=== PATIENT | female | born 1960 | race Caucasian/White ===

== ENCOUNTER 2016-09-19 15:42 | Outpatient (CLI) | payer OTHER ==
[~2016-09-19] VITALS: Ht 157.5 cm; Wt 59.1 kg
[2016-09-19 15:40] VITALS: BP 125/59; PULSE 94; RESP 18; Ht 157.5 cm; Wt 59.1 kg
[2016-09-19] MEDS ORDERED: LEVO100T87 PO (15:58)
[2016-09-19] MEDS ORDERED: OMEP20CA16 PO (15:58)
[2016-09-19] MEDS ORDERED: IBUP800T25 PO (15:58)
[2016-09-19] MEDS ORDERED: METO5TAB58 PO ×2 (15:58)
[2016-09-19] MEDS ORDERED: TAMO20TA PO (15:58)
--- NOTE | 2016-09-19 15:58 | PN ---
Date/Time of Note Date/Time of Note DATE: 09/19/16 TIME: 15:29 Outpatient Progress Note Chief Complaint Anemia/CA breast/pericardial effusion/hypothyroidism HPI Anemia/patient has severe anemia, patient was recently hospitalized, patient still feels slight fatigue, on medication, See a breast/patient has severe breast, patient had chemotherapy, no pain, Pericardial effusion/patient had pericardial effusion, patient had surgery, no chest pain or shortness of breath, Hypothyroidism/patient has hypothyroidism, on medication, no side effect of medication, Review of Systems Const: [No Fever, no chills, no Wt. loss, slight fatigue, normal appetite, no diaphoresis.] Eyes: [No pain, no discharge, no redness, no visual change, no foreign body.] ENT: [No pain, no bleeding, no congestion, no sore throat, no dysphagia, no discharge or rhinitis.] Lymph: [No adenopathy, no tender nodes, no lymphedema.] Resp: [No SOB, no cough, no sputum, no wheezing, no chest pain.] CV: [No chest pain, no palpitaions, no RUDD, no PND, no edema.] GI: [Normal appetite, no pain, no nausea, no vomiting, no diarrhea, no blood, no constipation.] : [No frequency, no urgency, no dysuria, no hematuria, no flank pain, no discharge, no bleeding.] Musc: [No bone/joint pain, no back pain, no neck pain, no knee pain, no restricted ROM.] Skin: [No rash, no skin lesions, no erythema, no laceration, no bruising, no pruritus.] Neuro: [No MYLES, no dizziness, no syncope, no seizure, no focal-weakness.] Endo: [No polyuria, no polydypsia, no dry-skin, no temp-intolerance.] Psych: [No hallucinations, no depression, no anxiety, no suicidal ideation.] Ext: [No edema, no pain, no ulcer, no weakness.] Physical Exam General Appearance: A [56] year-old [ female] [who appears well-developed, well- nourished, in no acute distress.] HEENT: [Head normocephalic, atraumatic. Pupils equal, round, reactive to light and accommodate. Sclerae are no jaundice. Nasal turbinates pink without erythema or nasal discharge. Mucous membranes pink and moist without lesions. Oropharynx clear without any exudate or discharge.] NECK: [Supple. Trachea midline, No thyromegaly, No cervical lymphadenopathy, No mass, No carotid bruits, No JVD, Carotid pulses 2+ bilaterally.] PULMONARY: [Clear to auscultaion bilaterally, No retractions, Chest expansion symmetric bilaterally, no rales, no ronchi, no dulness on percussion.] CARDIAC: [Normal SI and S2, Regular rate and rythm, no murmur, gallop, or rub.] GASTROINTESTINAL: [Abdomen is soft, non-tender, Non Rigid, No distention, Positive bowel sounds x4 quadrants, Liver normal.] SKIN: [Warm, dry, no rash, no bruise, no echmosis scar of previous surgery, no cellulitis,.] EXTREMITIES: [Bilateral lower extremities normal, no edema, no phlabitus, pulse palpable, no contracture.] MUSCULOSKELETAL: [Spine Normal, Non-tender, Normal range of motion, No swelling , no deformity, no clubbing, or cyanosis, the patient has no edema to bilateral lower extremities, dorsalis pedis pulses palpable bilaterally.] NEUROLOGIC: [The patient is awake, alert, oriented, responding to yes/no questions appropriately, moving all extremities, cranial nerve intact, normal strenght, normal power, normal coordination, normal gait.] Allergies Coded Allergies: aspirin (Verified Allergy, Unknown, ULCER, NAUSEA, VOMITING, 12/28/13) PMH Anemia/CA breast/hypothyroidism/status post surgery for pericardial effusion, Social Hx No smoking or drinking no drugs, Family Hx Father had heart problem, Assessment/Plan Impression Anemia/CVA of breath/pericardial effusion status post surgery/hypothyroidism Plan Continue all medication, patient feel comfortable at present, patient still feels slight weakness, Patient encouraged to follow with the primary attending physician may need repeat CBC, may also need to repeat TSH, Patient has all the medication, Patient encouraged to increase activity slowly, if any pain or fever please let us know, patient education done, Medications Home Meds No Active Prescriptions or Reported Meds MARIANO CULLEN MD Sep 19, 2016 15:39
== END 2016-09-19 16:38 | disposition home or self-care (01) ==
LOC: DCC 15:42
PROVIDERS: ATTEND Internal Medicine
DX: D64.9 Anemia, unspecified (principal); E03.9 Hypothyroidism, unspecified

== ENCOUNTER → 2016-11-28 | Outpatient (CLI) | payer OTHER ==
[~2016-11-28] MED LIST: IBUP800T25 PO; LEVO100T87 PO; METO5TAB58 PO; OMEP20CA16 PO; TAMO20TA PO
--- NOTE | 2016-11-28 19:33 | RADRPT ---
Vent Rate: 101 bpm RR Interval: 0 msec MT Interval: 194 msec QRS Duration: 80 msec QT Interval: 350 msec QTC Interval: 453 msec P-R-T [place]: 102 - 68 - 142 degrees Sinus tachycardia Anterolateral T wave inversion, consider anterolateral ischemia Inferior T wave inversion, consider inferior ischemia Abnormal ECG Electronically Signed By: Issa Leon [id number]
== END | disposition home or self-care (01) ==
LOC: CRK 12:31
PROVIDERS: ATTEND Internal Medicine Hematology & Oncology
DX: C50.919 Malignant neoplasm of unspecified site of unspecified female breast (principal)
CPT/HCPCS: 93005

== ENCOUNTER 2016-12-18 15:23 | Inpatient (IN) | payer OTHER ==
[~2016-12-18] VITALS: Ht 154.9 cm; Wt 56.3 kg
[2016-12-18] MEDS ORDERED: KETOROLAC 15 MG INJ IV STA (16:50)
[2016-12-18] MEDS ORDERED: ONDANSETRON 4 MG INJ IV STA (16:50)
[2016-12-18] MEDS ORDERED: ALBUTEROL 0.5% (NEB) 2.5 MG/0.5 ML AMP INH STA (16:52)
[2016-12-18 17:14] VITALS: TEMP 99.4
[2016-12-18 17:25] LABS: ADD SCAN DIFF NO
[2016-12-18 17:29] LABS: BASOPHIL # 0.1 10^3/ul (0.0-0.1); EOSINOPHILS # 0.1 10^3/ul (0.0-0.5); EOSINOPHILS % 1.4 % (0.0-7.0); HEMATOCRIT 31.3 % (37.0-47.0); HEMOGLOBIN 9.9 g/dl (12.0-16.0); LYMPHOCYTES % 18.6 % (15.0-51.0); MEAN CORPUSCULAR HEMOGLOBIN 23.4 pg (29.0-33.0); MEAN CORPUSCULAR HGB CONC 31.6 g/dl (32.0-37.0); MEAN PLATELET VOLUME 9.3 fl (7.4-10.4); MONOCYTE # 0.3 10^3/ul (0.3-0.9); MONOCYTES % 6.3 % (0.0-11.0); NEUTROPHIL # 3.7 10^3/ul (1.6-7.5); NEUTROPHILS % 72.3 % (39.0-77.0); PLATELET COUNT 594 10^3/UL (140-415); RED BLOOD COUNT 4.23 10^6/ul (4.20-5.40); WHITE BLOOD COUNT 5.1 10^3/ul (4.8-10.8)
--- NOTE | 2016-12-18 17:40 | RADRPT ---
PROCEDURE: CHEST 1VW CLINICAL INDICATION: Shortness of breath TECHNIQUE: Single frontal view of the chest was obtained COMPARISON: 12/28/2013 FINDINGS: The cardiac size is normal. Aortic vascular calcifications are demonstrated. There is worsening moderate interstitial edema and pulmonary vascular congestion. The lungs are clear. No consolidation, effusion, or pneumothorax. Mild degenerative changes of the visualized osseous structures are visualized. IMPRESSION: 1. Worsening moderate pulmonary vascular congestion and interstitial edema. 2. Atherosclerosis. RPTAT:PP .Michael Couch MD, Date Time Electronically viewed and signed by .Michael Couch MD, MD on 12/18/2016 17:39 .V/
[2016-12-18 17:47] LABS: INR 0.92; PROTIME 12.4 Sec (12.2-14.2)
[2016-12-18 17:48] LABS: ALANINE AMINOTRANSFERASE 36 IU/L (13-69); ALBUMIN 3.7 g/dl (3.3-4.9); ALBUMIN/GLOBULIN RATIO 1.19; ALKALINE PHOSPHATASE 75 IU/L (42-121); ANION GAP 11 (8-16); ASPARTATE AMINO TRANSFERASE 36 IU/L (15-46); BILIRUBIN,INDIRECT 0.2 mg/dl (0-1.1); BILIRUBIN,TOTAL 0.2 mg/dl (0.2-1.3); BLOOD UREA NITROGEN 6 mg/dl (7-20); CALCIUM 8.4 mg/dl (8.4-10.2); CARBON DIOXIDE 27 mmol/L (21-31); CHLORIDE 86 mmol/L (97-110); CREATININE 0.53 mg/dl (0.44-1.00); GLUCOSE 93 mg/dl (70-220); POTASSIUM 3.2 mmol/L (3.5-5.1); SODIUM 121 mmol/L (135-144); TOTAL PROTEIN 6.8 g/dl (6.1-8.1)
[2016-12-18 17:59] LABS: B-TYPE NATRIURETIC PEPTIDE 368 PG/ML (0-125)
[2016-12-18] MEDS ORDERED: FUROSEMIDE 40 MG INJ IV ONE (18:00)
[2016-12-18 18:03] LABS: TROPONIN-I < 0.012 ng/ml (0.00-0.12)
[2016-12-18] MEDS ORDERED: LEVO100T87 PO (18:05)
[2016-12-18] MEDS ORDERED: LETR2.5T PO (18:06)
[2016-12-18] MEDS ORDERED: OMEP20CA16 PO (18:07)
[2016-12-18] MEDS ORDERED: METO5TAB58 PO (18:08)
[2016-12-18] MEDS ORDERED: RIBOCICLIB PO (18:39)
--- NOTE | 2016-12-18 18:51 | ERA ---
ER Documentation Chief Complaint Date/Time DATE: 12/18/16 TIME: 18:44 Chief Complaint sob x 2 days. has breast ca metastazide to the lung HPI 56-year-old woman complains of shortness of breath 2-3 days. She has a history of breast carcinoma status post resection and underwent radiation therapy about 3 years ago currently under chemotherapy. She has chronic right upper extremity edema, denies fevers or chills, no chest pain, no cough, no recent antibiotic use, no abdominal pain, no vomiting or diarrhea. Patient later stated she does have a history of "fluid in her lungs" but denies history of intubation or NE. ROS All systems reviewed and are negative except as per history of present illness. Medications Home Meds Reported Medications [Kisqali 600MG] No Conflict Check, 1800 MG PO DAILY 12/18/16 Metoclopramide* (Reglan*) 5 Mg Tablet, 5 MG PO AC MEALS BID, TAB 12/18/16 Omeprazole* (Omeprazole*) 20 Mg Capsule.dr, 20 MG PO DAILY, #30 CAP 12/18/16 Letrozole* (Letrozole*) 2.5 Mg Tablet, 2.5 MG PO DAILY, TAB 12/18/16 Levothyroxine Sodium* (Levothyroxine Sodium*) 100 Mcg Tablet, 100 MCG PO BEFORE BREAKFAST, #30 TAB 12/18/16 Discontinued Reported Medications Tamoxifen Citrate (Tamoxifen Citrate) 20 Mg Tablet, 20 MG PO DAILY, TAB 09/19/16 Omeprazole* (Omeprazole*) 20 Mg Capsule.dr, 20 MG PO DAILY, #30 CAP 09/19/16 Metoclopramide* (Reglan*) 5 Mg Tablet, 5 MG PO BID, TAB 09/19/16 Metoclopramide* (Reglan*) 5 Mg Tablet, 5 MG PO Q6H Y for NAUSEA AND OR VOMITING , TAB 09/19/16 Ibuprofen* (Ibuprofen*) 800 Mg Tab, 800 MG PO Q6H Y for PAIN, TAB 09/19/16 Levothyroxine Sodium* (Levothyroxine Sodium*) 100 Mcg Tablet, 100 MCG PO BEFORE BREAKFAST, #30 TAB 09/19/16 Allergies Allergies: Coded Allergies: aspirin (Verified Allergy, Unknown, ULCER, NAUSEA, VOMITING, 12/28/13) PMhx/Soc Metastatic breast cancer, gastritis, hypothyroidism, pulmonary edema History of Surgery: Yes (KIDNEY STONE REMOVAL) Anesthesia Reaction: No Hx Neurological Disorder: No Hx Respiratory Disorders: No Hx Cardiac Disorders: No Hx Psychiatric Problems: No Hx Miscellaneous Medical Probl: Yes (BREAST CANCER) Hx Alcohol Use: No Hx Substance Use: No Hx Tobacco Use: No Smoking Status: Never smoker FmHx Family History: No diabetes Physical Exam Vitals Vital Signs Date Time Temp Pulse Resp B/P Pulse Ox O2 Delivery O2 Flow Rate FiO2 12/18/16 18:03 106 100 100 12/18/16 17:14 99.4 102 20 126/58 Room Air 12/18/16 17:08 94 20 92 21 12/18/16 15:26 98.3 94 20 112/53 92 Physical Exam GENERAL: Well-developed, dyspneic, tachypnic, afebrile HEENT: Moist mucous membranes, pink conjunctiva, no cervical spine tenderness or step-off deformities, no goiter, no jaundice or icterus, extraocular movements intact without pain. No submandibular induration, and no pharyngeal erythema NEURO: Alert and oriented 3, cranial nerves II through XII intact bilaterally, pupils equal round reactive to light, no focal deficits or facial asymmetry, sensation intact distally Strength 5/5 in upper and lower extremities bilaterally CARDIAC: Tachycardic and regular, no murmurs rubs or gallops LUNGS: Poor breath sounds bilaterally, with crackles, no stridor or wheezing ABDOMEN: Soft nontender, no guarding, no rigidity, no rebound, no psoas sign no obturator sign. Normoactive bowel sounds SKIN: Warm and dry to touch, positive vesiculopapular erythematous dermatitis to the left lower breast and lateral chest wall consistent with shingles, no ulcers or discharge noted, no target lesions noted. EXTREMITIES: No clubbing cyanosis, 2+ pitting edema in the right upper extremity , calves are bilaterally symmetrical, no Homans sign, no popliteal cord sign. Distal pulses equal and bilateral PSYCH: Normal affect without agitation or irritability Result Diagram: 12/18/16 1700 12/18/16 1700 Results 24 hrs Laboratory Tests Test 12/18/16 17:00 White Blood Count 5.110^3/ul Red Blood Count 4.2310^6/ul Hemoglobin 9.9g/dl Hematocrit 31.3% Mean Corpuscular Volume 74.0fl Mean Corpuscular Hemoglobin 23.4pg Mean Corpuscular Hemoglobin Concent 31.6g/dl Red Cell Distribution Width 16.0% Platelet Count 02962^3/UL Mean Platelet Volume 9.3fl Neutrophils % 72.3% Lymphocytes % 18.6% Monocytes % 6.3% Eosinophils % 1.4% Basophils % 1.0% Nucleated Red Blood Cells % 0.0/100WBC Neutrophils # 3.710^3/ul Lymphocytes # 1.010^3/ul Monocytes # 0.310^3/ul Eosinophils # 0.110^3/ul Basophils # 0.110^3/ul Nucleated Red Blood Cells # 0.010^3/ul Prothrombin Time 12.4Sec Prothrombin Time Ratio 1.0 INR International Normalized Ratio 0.92 Sodium Level 121mmol/L Potassium Level 3.2mmol/L Chloride Level 86mmol/L Carbon Dioxide Level 27mmol/L Anion Gap 11 Blood Urea Nitrogen 6mg/dl Creatinine 0.53mg/dl Glucose Level 93mg/dl Calcium Level 8.4mg/dl Total Bilirubin 0.2mg/dl Direct Bilirubin 0.00mg/dl Indirect Bilirubin 0.2mg/dl Aspartate Amino Transf (AST/SGOT) 36IU/L Alanine Aminotransferase (ALT/SGPT) 36IU/L Alkaline Phosphatase 75IU/L Troponin I < 0.012ng/ml B-Type Natriuretic Peptide 368PG/ML Total Protein 6.8g/dl Albumin 3.7g/dl Globulin 3.10g/dl Albumin/Globulin Ratio 1.19 Lipase 72U/L Current Medications Medications (Trade) Dose Ordered Sig/Tonya Route PRN Reason Start Time Stop Time Status Last Admin Dose Admin Ondansetron HCl (Zofran Inj) 4 mg ONCE STAT IV 12/18/16 16:50 12/18/16 16:53 DC 12/18/16 17:03 Ketorolac Tromethamine (Toradol) 15 mg ONCE STAT IV 12/18/16 16:50 12/18/16 16:53 DC 12/18/16 17:03 Albuterol (Proventil 0.5% (Neb)) 10 mg ONCE STAT INH 12/18/16 16:52 12/18/16 16:56 DC 12/18/16 17:07 Furosemide (Lasix) 60 mg ONCE ONCE IV 12/18/16 18:00 12/18/16 18:01 DC 12/18/16 18:06 Procedures/MDM IV line was established patient was placed on front desk monitor rhythm strip revealed a sinus tachycardia at 110 bpm with upright P and T waves. Patient was afebrile but hypoxic and tachypnic. She was placed on high flow oxygen and initially treated with albuterol 10 mg via nebulizer, Toradol 15 mg IV, and Zofran 4 mg IV. EKG performed, read by me revealed a sinus tachycardia at 101 bpm, normal axis, narrow QRS complex with T-wave inversions in leads I and aVL, no concerning ST elevations or depressions noted. One view chest x-ray performed, read by me revealed cardiomegaly and bilateral pulmonary edema, no acute infiltrates, no pneumothorax. For the patient's continued hypoxia and dyspnea she was placed on BiPAP therapy with immediate improvement in symptoms. EKG #2 performed about an hour later revealed a sinus tachycardia at 102 bpm, normal axis, narrow QRS complex, no concerning ST elevations or depressions noted although there are T-wave inversions in leads I and aVL which are stable. Patient was treated here with furosemide 60 mg IV 1 Patient was treated here with acyclovir 500 mg IV 1 for shingles. Critical Care: Time: 37 minutes, this was time separate from other procedures. Treatments/Evaluations: Close monitoring and treatment of unstable vital signs, cardiorespiratory, and neurologic status, while maintaining tight balance of fluid, respiratory, and cardiac interventions. Patient will be admitted to telemetry setting for continued medical management pulmonology consultation. She has improved on BiPAP therapy although if symptoms continue or worsen she may be a candidate for CT angiogram of the chest and possible intubation which I spoke to her about. Departure Diagnosis: Primary Impression: Acute respiratory failure Qualified Code: J96.01 - Acute respiratory failure with hypoxia and hypercapnia Additional Impressions: Acute pulmonary edema Breast carcinoma Qualified Code: C50.911 - Carcinoma of right breast Shingles Qualified Code: B02.7 - Disseminated herpes zoster Condition: Serious DONNELL MANZANARES MD Dec 18, 2016 18:51
[2016-12-18] MEDS ORDERED: ACYCLOVIR 500 MG in DEXTROSE 5% 100 ML IVPB ONE (19:00)
[2016-12-18] MEDS ORDERED: NA PHOSPHATE/BIPHOS 133 ML ENEMA PR PRN (19:30)
[2016-12-18] MEDS ORDERED: hydrALAzine 20 MG INJ IV PRN (19:30)
[2016-12-18] MEDS ORDERED: morphine 2 MG INJ IV PRN (19:30)
[2016-12-18] MEDS ORDERED: MAGNESIUM HYDROXIDE 30ML CUP PO PRN (19:30)
[2016-12-18] MEDS ORDERED: NITROGLYCERIN (SL) 0.4 MG TAB SL PRN (19:30)
[2016-12-18] MEDS ORDERED: DOCUSATE SODIUM 100 MG CAP PO PRN (19:30)
[2016-12-18] MEDS ORDERED: LORAZEPAM 2 MG INJ IV PRN (19:30)
[2016-12-18] MEDS ORDERED: NACL 0.9% 3 ML SYG IV SCH (19:30)
[2016-12-18] MEDS ORDERED: ALBUTEROL/IPRATROPIUM (NEB) 3 ML AMP HHN PRN (19:30)
[2016-12-18] MEDS ORDERED: DIPHENHYDRAMINE 25 MG CAP PO PRN (20:00)
[2016-12-18 20:12] LABS: AADO2 Arterial 179.1 mmHg (7.0-24.0); Allen Test ACCEPTAB; Arterial Base Excess 3.2 mmol/L (-3.0-3); Arterial COHb 0.3 % (0.0-3.0); Arterial Fraction of Oxyhgb 97.1 % (93.0-99.0); Arterial MetHb 0.4 % (0.0-1.5); Arterial Total Hemglobin 10.3 g/dl (12.0-18.0); MODE MASK - SIMPLE
--- NOTE | 2016-12-18 20:23 | HP ---
DATE OF ADMISSION: 12/18/2016 IDENTIFICATION: This is a 56-year-old female. CHIEF COMPLAINT: Shortness of breath. HISTORY OF PRESENT ILLNESS: A 56-year-old female with past medical history of breast cancer status post radiation 3 years ago, currently on p.o. chemotherapy, hypothyroidism, gastritis, who has been having shortness of breath for the last 3 days. She denied any chest pain. She has also had decrea sed appetite and also some vomiting symptoms, nonbilious, nonbloody. No upper or lower GI bleeding. She did have some loose stools but no fevers or chills, no upper or lower GI bleeding, no headache s or dizziness or loss of consciousness. When she came into the ER today, she had O2 saturations in the low 80s on room air. She was placed on BiPAP. Her chest x-ray did show findings of significan t pulmonary edema. She was also noted to have some redness along her left breast, almost dermatomal in nature, somewhat itchy but not crusting; thought to be possible shingles as well. She also was found today with sodium of 121. She sees Dr. Villafana, the surgeon who did surgery in the past on her; presumed with her breast cancer in the past. She also sees ____ for what looks like chemothera py as well. PAST MEDICAL HISTORY: As stated above. PAST SURGICAL HISTORY: She has had kidney stone removal surgery in the past. ALLERGIES: NO KNOWN DRUG ALLERGIES. MEDICATIONS AT HOME: 1. Letrozole 2.5 mg daily. 2. Reglan 5 mg p.o. with meals. 3. Omeprazole 20 mg daily. 4. Levothyroxine 100 mcg every morning. 5. Kisqali 600 mg b.i.d. FAMILY HISTORY: Father had heart issues. SOCIAL HISTORY: Negative for smoking, drinking, or IV drug abuse. PAST SURGICAL HISTORY: She had surgery for breast cancer in the past. PHYSICAL EXAMINATION: VITAL SIGNS: T-max 99.4 rectal, pulse 94 to 106, respirations 20, blood pressure 112 to 126 systoli c over 53 to 58 diastolic, satting at 100% on room air. GENERAL: The patient is lying in bed, answering questions appropriately. No acute distress. HEENT: Pupils equal, round, react to light. Extraocular muscles intact. NECK: Supple, no thyromegaly. LUNGS: Distant breath sounds bilaterally. Mild crackles at the bases bilaterally. No wheezes. CARDIOVASCULAR: S1, S2 heard. No rubs or gallops. BREAST: On the left breast, there appears to be a blanching redness along the inner and outer quadr ants of the breast going to the left thorax area, somewhat itchy but again, no discharge or pus or b leeding noted. ABDOMEN: Soft, nontender, nondistended. Normal bowel sounds. No rebound or guarding. MUSCULOSKELETAL: No lower extremity edema bilaterally. NEUROLOGIC: No focal deficits. MUSCULOSKELETAL: 1+ pitting edema in the right upper extremity, otherwise no lower extremity edema bilaterally. LABORATORIES: CBC is normal. Basic metabolic panel shows sodium 121, potassium 3.2, chloride 86, C O2 27, BUN of 6, creatinine 0.53, glucose of 93. LFTs are normal. BNP is 368. Again, her chest x- ray did show worsening moderate pulmonary vascular congestion and interstitial edema. ASSESSMENT AND PLAN: A 56-year-old female coming in with a prior history of breast cancer with shor tness of breath for 3 days with signs of congestive heart failure, also possible shingles on the lef t breast and hyponatremia. 1. Shortness of breath. Likely secondary to congestive heart failure exacerbation. There are no s igns of any pleural effusions. We will admit the patient, keep the head of the bed greater than 30 degrees. Put her on morphine, oxygen, nitroglycerin p.r.n. and give her Lasix as well and DuoNebs p .r.n. and monitor oxygen levels as well. Consider ABG. Monitor ins and outs as well. Consider billy back a 2D echocardiogram as well. 2. Left breast redness, again unclear if this is shingles. She has some itchiness as well, add p.r .n. Benadryl, but more importantly will go ahead and start her on valacyclovir 1000 mg t.i.d. for po ssible shingles treatment. Monitor for symptoms. Again there is no crusting noted. 3. History of breast cancer, again, we will get a surgery consult, Dr. Villafana, her outpatient doctor who performed surgery on the past. Consider Hematology/Oncology consult as well. Continue her nadiya e chemotherapy medicine for now. 5. Gastritis. Again, she will be on PPI, that will be for gastrointestinal prophylaxis as well. 6. Hypothyroidism. Continue levothyroxine and check thyroid panel. Dictated By: TESSIE DORSEY Conf#: [id number] DID#: [id number]
[2016-12-18] MEDS ORDERED: RIBOCICLIB PO SCH (21:00)
[2016-12-18 23:00] VITALS: BP 106/57; RESP 19
[2016-12-18 23:05] VITALS: PULSE 96
[2016-12-18 23:17] VITALS: Ht 154.9 cm; Wt 56.3 kg
[2016-12-19] VITALS (11 sets, daily range): BP systolic 96–126; BP diastolic 51–60; PULSE 90–104; RESP 16–19
[2016-12-19] MEDS: FAMOTIDINE 20 MG INJ IV SCH ×3 (00:30→21:10)
[2016-12-19] MEDS: HEPARIN 5,000 UNIT/0.5 ML VIAL SC SCH ×2 (00:40→09:06)
[2016-12-19] MEDS: SODIUM CHLORIDE 1 GM TAB PO SCH ×4 (01:30→21:09)
[2016-12-19] MEDS: VALACYCLOVIR 500 MG TAB PO SCH ×4 (01:30→21:09)
[2016-12-19] MEDS: FUROSEMIDE 40 MG INJ IV SCH ×2 (05:39→18:21)
[2016-12-19] MEDS: LEVOTHYROXINE 100 MCG TAB PO SCH (06:29)
[2016-12-19 07:53] LABS: CHOL/HDL RATIO 3.5 RATIO
[2016-12-19] MEDS: LETROZOLE 2.5 MG TAB PO SCH ×3 (08:50→22:49)
[2016-12-19 08:52] LABS: THYROID STIMULATING HORMONE 9.24 MIU/L (0.465-4.680)
[2016-12-19 09:02] LABS: ADD SCAN DIFF NO
[2016-12-19 09:04] LABS: BASOPHIL # 0.1 10^3/ul (0.0-0.1); EOSINOPHILS # 0.2 10^3/ul (0.0-0.5); EOSINOPHILS % 4.3 % (0.0-7.0); HEMOGLOBIN 9.2 g/dl (12.0-16.0); LYMPHOCYTES # 0.7 10^3/ul (0.8-2.9); LYMPHOCYTES % 20.5 % (15.0-51.0); MEAN CORPUSCULAR HEMOGLOBIN 24.6 pg (29.0-33.0); MEAN CORPUSCULAR HGB CONC 32.9 g/dl (32.0-37.0); MEAN CORPUSCULAR VOLUME 74.9 fl (82.0-101.0); MEAN PLATELET VOLUME 9.3 fl (7.4-10.4); MONOCYTE # 0.4 10^3/ul (0.3-0.9); MONOCYTES % 10.7 % (0.0-11.0); NEUTROPHIL # 2.2 10^3/ul (1.6-7.5); NEUTROPHILS % 61.9 % (39.0-77.0); PLATELET COUNT 508 10^3/UL (140-415); RED BLOOD COUNT 3.74 10^6/ul (4.20-5.40); WHITE BLOOD COUNT 3.5 10^3/ul (4.8-10.8)
[2016-12-19 09:18] LABS: CALCIUM 8.3 mg/dl (8.4-10.2); CREATININE 0.62 mg/dl (0.44-1.00); PHOSPHORUS 5.8 mg/dl (2.5-4.9); POTASSIUM 3.9 mmol/L (3.5-5.1)
--- NOTE | 2016-12-19 12:19 | PN ---
Date/Time of Note Date/Time of Note DATE: 12/19/16 TIME: 12:15 Assessment/Plan VTE Prophylaxis VTE Prophylaxis Intervention: heparin Lines/Catheters IV Catheter Type (from [facility]): Peripheral IV Urinary Cath still in place: No Assessment/Plan Chief Complaint/Hosp Course ASSESSMENT AND PLAN: 56-year-old female coming in with a prior history of breast cancer with shortness of breath for 3 days with signs of congestive heart failure, also possible shingles on the left breast and hyponatremia. 1. Shortness of breath. Likely secondary to congestive heart failure exacerbation - slowly improving There are no signs of any pleural effusions. - keep the head of the bed greater than 30 degrees. - morphine, oxygen, nitroglycerin p.r.n, Lasix, DuoNebs p.r.n. and monitor oxygen levels as well. - Monitor ins and outs as well. - f/u 2D echocardiogram as well. 2. Left breast redness, again unclear if this is shingles. She has some itchiness as well - p.r.n. Benadryl, - continue valacyclovir 1000 mg t.i.d. for possible shingles treatment. - Monitor for symptoms. Again there is no crusting noted. 3. History of breast cancer - pt tx with rad's in the past, on PO chemo now. States she may have been dx with new lung ca dx (poor historian) - again, we will get a surgery consult, Dr. Villafana, her outpatient doctor who performed surgery on the past. - also will get Hematology/Oncology consult as well. - Continue her home chemotherapy medicine for now. 5. Gastritis - PPI, that will be for gastrointestinal prophylaxis as well. 6. Hypothyroidism. Continue levothyroxine and check thyroid panel. Problems: Subjective 24 Hr Interval Summary Free Text/Dictation Pt still with some SOB. Exam/Review of Systems Vital Signs Vitals Vital Signs Date Time Temp Pulse Resp B/P Pulse Ox O2 Delivery O2 Flow Rate FiO2 12/19/16 12:03 93 12/19/16 11:25 98.3 16 105/55 98 12/19/16 08:00 Simple Mask 6.0 12/18/16 18:03 100 Intake and Output 12/18/16 12/18/16 12/19/16 15:00 23:00 07:00 Intake Total 100 ml 80 ml Balance 100 ml 80 ml Exam GENERAL: The patient is lying in bed, answering questions appropriately. No acute distress. HEENT: Pupils equal, round, react to light. Extraocular muscles intact. NECK: Supple, no thyromegaly. LUNGS: Distant breath sounds bilaterally. Mild crackles at the bases bilaterally. No wheezes. CARDIOVASCULAR: S1, S2 heard. No rubs or gallops. BREAST: On the left breast, there appears to be a blanching redness along the inner and outer quadrants of the breast going to the left thorax area, somewhat itchy but again, no discharge or pus or bleeding noted. ABDOMEN: Soft, nontender, nondistended. Normal bowel sounds. No rebound or guarding. MUSCULOSKELETAL: No lower extremity edema bilaterally. NEUROLOGIC: No focal deficits. MUSCULOSKELETAL: 1+ pitting edema in the right upper extremity, otherwise no lower extremity edema bilaterally. Results Result Diagram: 12/19/16 0630 12/19/16 0630 Results 24 hrs Laboratory Tests Test 12/18/16 17:00 12/18/16 20:04 12/18/16 21:00 12/19/16 06:30 White Blood Count 5.1 3.5 #L Red Blood Count 4.23 3.74 L Hemoglobin 9.9 L 9.2 L Hematocrit 31.3 L 28.0 L Mean Corpuscular Volume 74.0 L 74.9 L Mean Corpuscular Hemoglobin 23.4 L 24.6 L Mean Corpuscular Hemoglobin Concent 31.6 L 32.9 Red Cell Distribution Width 16.0 H 16.0 H Platelet Count 594 H 508 H Mean Platelet Volume 9.3 9.3 Neutrophils % 72.3 61.9 Lymphocytes % 18.6 20.5 Monocytes % 6.3 10.7 Eosinophils % 1.4 4.3 Basophils % 1.0 2.0 Nucleated Red Blood Cells % 0.0 0.0 Neutrophils # 3.7 2.2 Lymphocytes # 1.0 0.7 L Monocytes # 0.3 0.4 Eosinophils # 0.1 0.2 Basophils # 0.1 0.1 Nucleated Red Blood Cells # 0.0 0.0 Prothrombin Time 12.4 Prothrombin Time Ratio 1.0 INR International Normalized Ratio 0.92 Sodium Level 121 L 128 L Potassium Level 3.2 L 3.9 Chloride Level 86 L 96 #L Carbon Dioxide Level 27 29 Anion Gap 11 7 L Blood Urea Nitrogen 6 L 8 Creatinine 0.53 0.62 Glucose Level 93 80 Calcium Level 8.4 8.3 L Total Bilirubin 0.2 Direct Bilirubin 0.00 Indirect Bilirubin 0.2 Aspartate Amino Transf (AST/SGOT) 36 Alanine Aminotransferase (ALT/SGPT) 36 Alkaline Phosphatase 75 Troponin I < 0.012 B-Type Natriuretic Peptide 368 H Total Protein 6.8 Albumin 3.7 Globulin 3.10 Albumin/Globulin Ratio 1.19 Lipase 72 Blood Gas Specimen Source Blood arterial Arterial Blood Date Drawn 12/18/2016 8:00:12 PM Arterial Blood pH (Temp corrected) 7.512 H Arterial Blood pCO2 (Temp correct) 33.2 L Arterial Blood pO2 (Temp corrected) 104.0 H Arterial Blood HCO3 26.0 Arterial Blood Base Excess 3.2 H Arterial Blood Oxygen Saturation 97.8 Adolfo Test ACCEPTAB Arterial Blood Gas Puncture Site Left Radial Arterial Blood Carboxyhemoglobin 0.3 Arterial Blood Methemoglobin 0.4 Blood Gas A-a O2 Differential 179.1 H Oxyhemoglobin Percent 97.1 Total Hemoglobin 10.3 L Blood Gas Temperature 37.0 Blood Gas Modality MASK - SIMPLE FiO2 45.0 Blood Gas Notified Whom MA Blood Gas Notified Time 12/18/2016 8:12:48 PM Free Thyroxine 1.29 Hemoglobin A1c 6.0 H Phosphorus Level 5.8 H Magnesium Level 2.0 Triglycerides Level 149 Cholesterol Level 161 LDL Cholesterol, Calculated 86 HDL Cholesterol 45 Cholesterol/HDL Ratio 3.5 Thyroid Stimulating Hormone (TSH) 9.240 H Medications Medications Current Medications Ondansetron HCl (Zofran Inj) 4 mg Q6H PRN IV NAUSEA AND/OR VOMITING; Start 12/18 at 19:30 Acetaminophen (Tylenol Tab) 650 mg Q6H PRN PO PAIN LEVEL 1-3 OR FEVER; Start at 19:30 Acetaminophen/ Hydrocodone Bitart ([place] (5/325)) 1 tab Q6H PRN PO MODERATE PAIN LEVEL 4-6; Start 12/18/16 at 19:30 Morphine Sulfate (morphine) 2 mg Q4H PRN IV SEVERE PAIN LEVEL 7-10; Start at 19:30 Docusate Sodium (Colace) 100 mg Q12H PRN PO CONSTIPATION; Start 12/18/16 at 19: 30 Magnesium Hydroxide (Milk Of Mag) 30 ml DAILY PRN PO CONSTIPATION; Start at 19:30 Sodium Biphosphate/ Sodium Phosphate (Fleet Enema) 133 ml DAILY PRN VT CONSTIPATION; Start 12/18/16 at 19:30 Famotidine (Pepcid Iv) 20 mg Q12 IV Last administered on 12/19/16 08:41; Admin Dose 20 MG; Start 12/18/16 at 21:00 Heparin Sodium (Porcine) (Heparin (5000 Units/0.5 ml)) 5,000 unit Q12 SC Last administered on 12/19/16 09:06; Admin Dose 5,000 UNIT; Start 12/18/16 at 21:00 Lorazepam 0.5 mg 0.5 mg Q6H PRN IV ANXIETY; Start 12/18/16 at 19:30 Levofloxacin/ Dextrose (Levaquin 750 Mg/ D5W 150 ml (Pmx)) 150 ml @ 100 mls/hr Q24H IVPB ; Start 12/19/16 at 21:00 Hydralazine HCl (Apresoline) 10 mg Q6H PRN IV ELEVATED BLOOD PRESSURE; Start at 19:30 Nitroglycerin (Nitroglycerin (Sl Tab) 0.4 Mg) 1 tab Q5M PRN SL ANGINA; Start at 19:30 Sodium Chloride (Nacl) 2 gm TID PO Last administered on 12/19/16 08:41; Admin Dose 2 GM; Start 12/18/16 at 21:00 Valacyclovir HCl (Valtrex) 1,000 mg TID PO Last administered on 12/19/16 08:41 ; Admin Dose 1,000 MG; Start 12/18/16 at 21:00 Diphenhydramine HCl (Benadryl) 25 mg Q6H PRN PO ITCHING Last administered on 00:41; Admin Dose 25 MG; Start 12/18/16 at 20:00 Miscellaneous Information 600 mg BID PO ; Start 12/18/16 at 21:00; Status UNV Miscellaneous Information (*Order Clarification Bulletin) MEDICATION REQUIRES CLARIFICATI... TID@08,14,20 XX ; Start 12/19/16 at 10:00 Letrozole (Femara) 2.5 mg DAILY@21 PO ; Start 12/19/16 at 21:00 TESSIE ROWLAND Dec 19, 2016 12:19
--- NOTE | 2016-12-19 15:02 | CONS ---
DATE OF ADMISSION: 12/18/2016 DATE OF CONSULTATION: TYPE OF CONSULTATION: Pulmonary. REASON FOR CONSULTATION: Shortness of breath. Thank you, Dr. Reyes, for this consultation. HISTORY OF PRESENT ILLNESS: This is a 56-year-old lady, seen by myself in the office yesterday for the first time for evaluation of shortness of breath. Upon presentation she had significant dyspnea . Her partner states she had had cyanotic episodes prior to my appointment, with increasing shortne ss of breath, orthopnea, and PND. I evaluated her in the office and she was found to have significa nt dyspnea and suggested she be admitted to the hospital for further workup. Upon further questionin g, she has a history of breast cancer, with apparent metastatic disease, possibly to the lungs; misael brambila, she is a poor historian and was unable to give me significant details. PAST MEDICAL HISTORY: Metastatic breast cancer, hypothyroidism, a history of gastritis. MEDICATIONS: Per chart. ALLERGIES: NONE. SOCIAL HISTORY: Nonsmoker, no alcohol, no history of drug use. FAMILY HISTORY: Noncontributory. SYSTEMS REVIEW: A 12-point review of systems was negative, other than that mentioned above. PHYSICAL EXAMINATION: GENERAL: Older than age-appearing lady, now comfortable at rest, in no acute distress. VITAL SIGNS: Temperature 98, pulse 93, blood pressure 105/55, O2 saturation 96% on face mask at 6 l iters. NECK: Supple. No JVD or lymphadenopathy. CARDIAC EXAM: S1, S2. No added sounds or murmurs. CHEST: Diminished air entry bilaterally, with rales. ABDOMEN: Soft, nontender. No guarding or rebound. EXTREMITIES: No cyanosis or clubbing. She has 2+ edema, right upper extremity. LABORATORY: White count 3.5, hemoglobin 9.2, platelets 508. BUN 8, creatinine 0.62. Sodium on adm ission was 121, now is 128. BNP 368. TSH was 9.24. Initial arterial blood gas: A pH of 7.51, pCO2 of 33, PaO2 of 104. Chest x-ray showed pulmonary edema and atherosclerosis. IMPRESSION AND PLAN: 1. Hypoxemic respiratory failure, likely secondary to worsening pulmonary edema and possible underl pawan heart failure. Pending echocardiogram. 2. Concern for possible metastatic disease to the lungs. I will obtain a chest CT. 3. Right upper extremity edema, likely secondary to chronic lymphedema from breast cancer surgery. However, will rule out deep vein thrombosis ultrasound. 4. Hyponatremia and possible syndrome of inappropriate antidiuretic hormone. 5. Skin lesions concerning for possible shingles. Agree with continuing on acyclovir. Dictated By: JOSUE BRIZUELA MD SV/LOLI Conf#: [id number] DID#: [id number]
--- NOTE | 2016-12-19 16:12 | RADRPT ---
Echocardiogram Report Patient Name: JAYMIE WOOD Gender: Female Date: 1960 Study Date: 19-Dec-2016 Customer Care Assistant: Jazmine Zelaya RDCS Location: 506 Ref. Physician: TESSIE ROWLAND Quality: Good Procedures: Transthoracic echocardiogram with complete 2D, M-Mode, and doppler examination. Indications: Shortness of breath. 2D/M Mode Doppler Measurement Value Normal Ranges Measurement Value Normal Ranges LVIDd 2D 3.9 3.5 - 5.6 cm AV Peak Michael 1.3 m/sec LVIDs 2D 2.2 2.1 - 4.1 cm AV Peak PG 7.0 mmHg FS 2D 42.3 % LVOT Peak Michael 0.9 m/sec LVPWd 2D 0.9 0.6 - 1.1 cm LVOT Peak PG 4.0 mmHg IVSd 2D 0.9 0.6 - 1.1 cm MV E Peak Michael 0.7 m/sec IVS/LVPW 2D 0.9 MV A Peak Michael 0.7 m/sec AoR Diam 2D 2.4 2.0 - 3.7 cm MV E/A 1.1 LA/Ao 2D 1 0 - 1 MV Decel Time 92 msec EDV 2D 58.4 cm3 MV E/A 1.1 ESV 2D 11.2 cm3 TR Peak Michael 2.4 m/sec LA Dimen 2D 2.4 2.3 - 4.0 cm TR Peak PG 23.0 mmHg RVSP 26.0 mmHg Findings Left Ventricle: Normal left ventricular systolic function. Normal left ventricular cavity size. Normal left ventricular wall thickness. Ejection fraction is visually estimated at 55 %. Tissue Doppler/Mitral Doppler indices are consistent with impaired relaxation (Stage I diastolic dysfunction). Right Ventricle: Normal right ventricular size. Normal right ventricular systolic function. Left Atrium: The left atrium is normal in size. Right Atrium: The right atrium is normal in size. Mitral Valve: Mitral valve leaflets appear mildly thickened. Mild mitral annular calcification. Trace mitral regurgitation. Aortic Valve: Normal appearance of the aortic valve. No significant aortic stenosis or insufficiency. Tricuspid Valve: Normal appearance of the tricuspid valve. Estimated peak PA systolic pressure 26 mmHg. There is trace tricuspid regurgitation. Pulmonic Valve: Normal pulmonic valve appearance. Pericardium: Normal pericardium with no significant pericardial effusion. Aorta: Normal aortic root. IVC: Normal size and normal respiratory collapse consistent with normal right atrial pressure. Conclusions 1.Normal left ventricular systolic function. Normal left ventricular cavity size. Normal left ventricular wall thickness. Ejection fraction is visually estimated at 55 %. Tissue Doppler/Mitral Doppler indices are consistent with impaired relaxation (Stage I diastolic dysfunction). 2.Mitral valve leaflets appear mildly thickened. Mild mitral annular calcification. Trace mitral regurgitation. 3.Normal appearance of the tricuspid valve. Estimated peak PA systolic pressure 26 mmHg. There is trace tricuspid regurgitation. Electronically Signed By: Issa Leon 19-Dec-2016 16:12:03 -0700 Patient Name: JAYMIE WOOD Study Date: 19-Dec-2016 [id number]
--- NOTE | 2016-12-19 17:07 | RADRPT ---
PROCEDURE: US upper extremity Venous. CLINICAL INDICATION: Right upper extremity swelling TECHNIQUE: Multiple sonographic images of the right upper extremity venous system was obtained uti lizing grayscale, color-flow, compressive sonography and doppler imaging with augmentation. The frankie ges were reviewed on a PACS workstation. COMPARISON: None. FINDINGS: There is no flow and abnormal compressibility of the right subclavian vein consistent with occlusive thrombus. There is normal compressibility and flow within the right internal jugular vein, subclavian vein, ax illary vein, brachial, basilic, cephalic, radial and ulnar veins. RPTAT: AA IMPRESSION: Occlusive DVT in the right subclavian vein. These findings were discussed with the nurse taking care of the patient, Krissy, over the phone on at 5:05 PM. Physician Terra Date Time Electronically viewed and signed by Physician Terra on 12/19/2016 17:07 /
--- NOTE | 2016-12-19 17:33 | CONS ---
DATE OF ADMISSION: 12/18/2016 DATE OF CONSULTATION: 12/19/2016 TYPE OF CONSULTATION: Oncology REASON FOR CONSULTATION: Metastatic breast carcinoma and shortness of breath. PHYSICIAN REQUESTING CONSULTATION: Dr. Tessie Rowland. Dear Dr. Rowland, Thank you very much for asking us to see this very interesting and pleasant patient in oncologic consultation. HISTORY OF PRESENT ILLNESS: As you know, Ms. Dolan is a 56-year-old female who was admitted to [facility] on 12/18/2016. The patient had been seen earlier that day by Dr. Sandy cain in pulmonary consultation. The patient was told to come to the emergency room because of shortnes s of breath. In the emergency room, the patient was found to have a pulse oximetry of approximately 92% on room a ir. The patient also did have an echocardiogram performed on 12/18/2016. This demonstrated a left ventr icular ejection fraction of 55%. There were no other significant abnormalities noted at that time. A chest x-ray done on 12/18/2016 showed "worsening moderate pulmonary vascular congestion, interstit ial edema". This was component compared to a film done in December of 2013. LABORATORY DATA: Today includes a white count of 3500 with an absolute neutrophil count of 2200. H emoglobin was 9.2, hematocrit 28, MCV 74.8, MCH 24.6, MCHC 32.9, RDW 16 and platelet count is 508,00 0. Arterial blood gases done on 12/18/2016 at 2000 on 45% oxygen revealed a pH 7.51, pCO2 32, pO2 o f 104, and oxygen saturation 97.8%. 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 This was originally diagnosed in 2013. The patient at that time had a T2 lesi on of approximately 2.2 cm. Lymph nodes were negative. The tumor was estrogen receptor positive bu t progesterone receptor negative. It was HER2-derick negative as well. The patient did receive 4 cycles of docetaxel and carboplatin. Following this, the patient did rece bia radiation therapy. She also then was placed on tamoxifen. In October of this year, the patient had developed increasing shortness of breath as well as anorexia. Apparently she was hospitalized at [facility] at that time and found to iniguez ve multiple pulmonary nodules. 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 The patient was at that time placed on Letrozole 2.5 mg armani y. She was also placed on Kisqali 600 mg twice a day. The patient at this time is not complaining of any chest pain. She has had no cough or hemoptysis. She denies fevers, chills or night sweats. She has had no bone pain. PAST MEDICAL HISTORY: Does include a history of breast carcinoma as noted. She has also had hypoth yroidism for approximately 10 years. Also history of nephrolithiasis. PAST SURGERIES: Have included a lumpectomy and axillary node dissection. The patient has also had laser lithotripsy in the past. MEDICATIONS: At this time include: 1. Letrozole 2.5 mg daily. 2. Kisqali 600 mg twice a day. 3. Metoclopramide 5 mg p.o. t.i.d. taken a half hour before meals. 4. Omeprazole 20 mg daily. 5. Levothyroxine 100 mcg every morning. ALLERGIES: THE PATIENT HAS NO KNOWN ALLERGIES. SOCIAL HISTORY: Patient's last menstrual period was at 48 years of age. Menarche was achieved at a pproximately 10 years old. The patient is 5, para 3, AB 2. First was at 21 years of age. The patient did breast feed all 3 of her children. She has never taken hormone replacement th erapy. The patient has not knowingly been exposed to industrial toxins. She has received cytotoxic chemoth erapy as noted. She also has been exposed to ionizing radiation in the form of therapeutic radiatio n therapy. The patient does not smoke or use tobacco products. She does not use alcohol. FAMILY HISTORY: Unremarkable. There is no history of any breast carcinoma or other malignancy in t he family. REVIEW OF SYSTEMS: At this time reveals a well-developed, well-nourished female who is somewhat dy spneic. VITAL SIGNS: Temperature 98, pulse 103 per minute and regular, respirations 18, blood pressure 126/ 76, pulse oximetry is 97% on 4 liters via nasal cannula. HEENT: Normocephalic. No evidence of trauma. Pupils equal, round, react to light and accommodatio n. Sclerae nonicteric. Oral mucosa is moist without lesions. Tongue is well papillated. There is no gingival hyperplasia, no hypertrophy of Waldeyer ring, no mucosal telangiectasias nasal oxygen i n place. NECK: Supple. There is some jugular venous distention at 45 degrees. There is no thyroid enlargem ent. No carotid bruits. CHEST: Diffuse bilateral rales which do not clear on cough. There are no rubs, no wheezes. HEART: Sinus tachycardia. No S3, S4 or murmurs. No rubs. BREASTS: There is evidence of the previous partial mastectomy and radiation therapy and right axill isatu node dissection. There are no breast masses at this time. Left breast without masses, skin ret raction, or nipple inversion. NODES: No palpable lymphadenopathy in the lymph node bearing area. ABDOMEN: Soft. There is some tenderness on palpation in the right upper quadrant, but no obvious h epatomegaly. Bowel sounds are active. There is no ascites, no hernia defects. EXTREMITIES: Good range of motion. No clubbing or cyanosis. There is 2 to 3+ lymphedema of the ri ght upper extremity. There are no palpable cords, no erythema or warmth to the touch. There is no lower extremity or pedal edema. No palpable cords or Homans sign. NEUROLOGIC: Normal. DISCUSSION: This patient does have apparently a biopsy proven metastatic carcinoma of the breast wh ich is estrogen receptor positive. The patient had a stage II carcinoma at original presentation in 2013. She did receive chemotherapy followed by radiation therapy. The patient was then placed on tamoxifen. This has recently been changed to letrozole and Kisqali. This change was made when the patient was found to have evidence of pulmonary metastases in approximately October of this year. It is not clear if there was any other evidence of metastases elsewhere. At the present time, the patient's chemistry panel is relatively normal. Bilirubin is only 0.2, AST 36, ALT 36, alkaline phosphatase 75. Total protein 6.8 and albumin is 3.7. BNP is 368 and troponi n is less than 0.012. The patient, however, is hyponatremic. Sodium today is 128, potassium 3.9, B UN 7, creatinine 0.62. It is likely that the patient's hyponatremia is related to her pulmonary disease, which may be causi ng syndrome of inappropriate ADH. The patient also has a microcytic anemia. It is unclear how long this has been present for. At this time, I will obtain iron studies to include a serum iron, iron-binding capacity, and ferriti n. I will also check stools for occult blood. Other studies will include a urine and sodium osmola lity, as well as a spot urine sodium. The patient, as mentioned, does have documented metastatic breast carcinoma. Will obtain a CEA, CA 27-29 at this time. I have discussed the situation with the patient's oncologist, Dr. Alphonse Dhaliwal. He is unable to see the patient during this hospitalization, and we will follow the patient for him and he will ass e care when he returns. The patient has also been seen by Dr. Barksdale in pulmonary consultation. He has ordered a CT scan o f the chest without IV contrast. A venous Doppler of the upper extremities has been ordered as well . The patient's lymphedema apparently has been present for only approximately 1 year. Once again, thank you very much for the opportunity of participating in the medical care of this patty y interesting and pleasant patient. I will be happy to follow this patient with you and assist in h er oncologic evaluation and follow up as necessary. Dictated By: ERUM HENDERSON MD SR/NTS Conf#: [id number] DID#: [id number] CC: TESSIE ROWLAND; ALPHONSE DHALIWAL;*End*
[2016-12-19 17:55] LABS: IRON 22 ug/dl (35-150)
[2016-12-19] MEDS ORDERED: ENOXAPARIN 100 MG/ML SYG SC SCH (18:00)
[2016-12-19 18:05] LABS: TOTAL IRON BINDING CAPACITY 372 ug/dl (241-421)
[2016-12-19] MEDS: ENOXAPARIN 100 MG/ML SYG SC SCH (18:52)
[2016-12-19 19:23] LABS: CARCINOEMBRYONIC ANTIGEN 0.9 ng/ml (0.0-5.0)
[2016-12-19] MEDS: LEVOFLOXACIN 750MG/D5W (PMX) 150 ML IVPB SCH (21:10)
[2016-12-19 23:20] LABS: ADD UMIC YES; UR BILIRUBIN (Dip) NEGATIVE (NEGATIVE); UR BLOOD (Dip) NEGATIVE (NEGATIVE); UR CLARITY TURBID (CLEAR); UR COLOR LT. YELLOW (YELLOW); UR GLUCOSE (Dip) NEGATIVE (NEGATIVE); UR KETONES (Dip) NEGATIVE (NEGATIVE); UR LEUKOCYTE ESTERASE (Dip) NEGATIVE (NEGATIVE); UR NITRITE (Dip) NEGATIVE (NEGATIVE); UR TOTAL PROTEIN (Dip) TRACE (NEGATIVE); UR UROBILINOGEN (Dip) 0.2 E.U./dL (0.1-1.0)
[2016-12-19 23:26] LABS: URINE RBCS 0-2 /HPF (0)
[2016-12-20] VITALS (14 sets, daily range): BP systolic 91–134; BP diastolic 49–61; PULSE 94–105; RESP 16–18
[2016-12-20] MEDS: FUROSEMIDE 40 MG INJ IV SCH (05:59)
[2016-12-20] MEDS: LEVOTHYROXINE 100 MCG TAB PO SCH (06:02)
[2016-12-20] MEDS: ONDANSETRON 4 MG INJ IV PRN (07:59)
[2016-12-20] MEDS: SODIUM CHLORIDE 1 GM TAB PO SCH ×3 (09:07→21:24)
[2016-12-20] MEDS: FAMOTIDINE 20 MG INJ IV SCH ×2 (09:07→21:23)
[2016-12-20] MEDS: VALACYCLOVIR 500 MG TAB PO SCH ×2 (09:07→12:37)
[2016-12-20] MEDS: ENOXAPARIN 100 MG/ML SYG SC SCH ×2 (09:16→21:38)
[2016-12-20 09:23] LABS: AADO2 Arterial 102.2 mmHg (7.0-24.0); Arterial Base Excess 3.6 mmol/L (-3.0-3); Arterial COHb 0.3 % (0.0-3.0); Arterial Fraction of Oxyhgb 95.8 % (93.0-99.0); Arterial HCO3 27.1 mmol/L (22.0-26.0); Arterial MetHb 0.4 % (0.0-1.5); Arterial Total Hemglobin 9.9 g/dl (12.0-18.0); MODE NASAL CANNULA
[2016-12-20 09:51] LABS: ADD SCAN DIFF NO
[2016-12-20 09:56] LABS: BASOPHIL # 0.1 10^3/ul (0.0-0.1); BASOPHILS % 1.4 % (0.0-2.0); EOSINOPHILS # 0.1 10^3/ul (0.0-0.5); EOSINOPHILS % 2.5 % (0.0-7.0); HEMOGLOBIN 9.8 g/dl (12.0-16.0); LYMPHOCYTES # 0.8 10^3/ul (0.8-2.9); LYMPHOCYTES % 13.7 % (15.0-51.0); MEAN CORPUSCULAR HEMOGLOBIN 24.1 pg (29.0-33.0); MEAN CORPUSCULAR HGB CONC 31.6 g/dl (32.0-37.0); MEAN CORPUSCULAR VOLUME 76.4 fl (82.0-101.0); MEAN PLATELET VOLUME 9.1 fl (7.4-10.4); MONOCYTE # 0.5 10^3/ul (0.3-0.9); MONOCYTES % 8.2 % (0.0-11.0); NEUTROPHIL # 4.2 10^3/ul (1.6-7.5); NEUTROPHILS % 73.8 % (39.0-77.0); PLATELET COUNT 623 10^3/UL (140-415); RED BLOOD COUNT 4.06 10^6/ul (4.20-5.40); RED CELL DISTRIBUTION WIDTH 16.1 % (11.5-14.5); WHITE BLOOD COUNT 5.7 10^3/ul (4.8-10.8)
[2016-12-20 10:19] LABS: CALCIUM 8.5 mg/dl (8.4-10.2); CREATININE 0.56 mg/dl (0.44-1.00); POTASSIUM 3.5 mmol/L (3.5-5.1)
--- NOTE | 2016-12-20 10:49 | RADRPT ---
PROCEDURE: XR Chest. CLINICAL INDICATION: Congestive heart failure. Pneumonia. TECHNIQUE: Single frontal chest x-ray. COMPARISON: 12/18/2016 FINDINGS: Patchy alveolar and ground-glass infiltrates are scattered in the bilateral lungs most notably in th e left lower lobe unchanged since previous exam. . Calcific atherosclerosis of the aorta is present .. Cardiomediastinal silhouette is stable. There are no significant pleural effusions.. The osseou s structures are intact. IMPRESSION: Patchy bilateral alveolar and ground-glass opacities/infiltrates most notable in the left lower lung unchanged. RPTAT: QQ .Casa Valladares MD, Date Time Electronically viewed and signed by .Casa Valladares MD, on 12/20/2016 10:48 .L/
--- NOTE | 2016-12-20 11:46 | PN ---
Date/Time of Note Date/Time of Note DATE: 12/20/16 TIME: 11:40 Assessment/Plan VTE Prophylaxis VTE Prophylaxis Intervention: LMWH Lines/Catheters IV Catheter Type (from [facility]): Peripheral IV Urinary Cath still in place: No Assessment/Plan Chief Complaint/Hosp Course ASSESSMENT AND PLAN: 56-year-old female coming in with a prior history of breast cancer with shortness of breath for 3 days with signs of congestive heart failure, also possible shingles on the left breast and hyponatremia. 1. Shortness of breath. Likely secondary to congestive heart failure exacerbation - slowly improving There are no signs of any pleural effusions. ECHO done. Appreciate pulm rec's - keep the head of the bed greater than 30 degrees. - morphine, oxygen, nitroglycerin p.r.n, Lasix, DuoNebs p.r.n. and monitor oxygen levels as well. - Monitor ins and outs as well. 2. Left breast redness, again unclear if this is shingles. She has some itchiness as well - p.r.n. Benadryl, - continue valacyclovir 1000 mg t.i.d. for possible shingles treatment. - Monitor for symptoms. Again there is no crusting noted. 3. History of breast cancer - pt tx with rad's in the past, on PO chemo now. Appreciate Heme/Onc rec's. - f/u CT chest (pending) - f/u pulm and Hematology/Oncology rec's - Continue her home chemotherapy medicine for now. 5. Gastritis - PPI, that will be for gastrointestinal prophylaxis as well. 6. Hypothyroidism. Continue levothyroxine Problems: Subjective 24 Hr Interval Summary Free Text/Dictation Pt seen by Heme/Onc and pulm teams, CT chest performed (results pending). No acute events overnight. + DVT found in RUE as well, on anticoagulation now. Exam/Review of Systems Vital Signs Vitals Vital Signs Date Time Temp Pulse Resp B/P Pulse Ox O2 Delivery O2 Flow Rate FiO2 12/20/16 08:45 Nasal Cannula 4.0 12/20/16 08:32 94 12/20/16 07:43 97.9 18 116/58 97 12/18/16 18:03 100 Intake and Output 12/19/16 12/19/16 12/20/16 15:00 23:00 07:00 Intake Total 870 ml Balance 870 ml Exam GENERAL: The patient is lying in bed, answering questions appropriately. No acute distress. HEENT: Pupils equal, round, react to light. Extraocular muscles intact. NECK: Supple, no thyromegaly. LUNGS: Distant breath sounds bilaterally. Mild crackles at the bases bilaterally. No wheezes. CARDIOVASCULAR: S1, S2 heard. No rubs or gallops. BREAST: On the left breast, there appears to be a blanching redness along the inner and outer quadrants of the breast going to the left thorax area, somewhat itchy but again, no discharge or pus or bleeding noted. ABDOMEN: Soft, nontender, nondistended. Normal bowel sounds. No rebound or guarding. MUSCULOSKELETAL: No lower extremity edema bilaterally. NEUROLOGIC: No focal deficits. MUSCULOSKELETAL: 1+ pitting edema in the right upper extremity, otherwise no lower extremity edema bilaterally. Results Result Diagram: 12/20/1691912/20/1620 Results 24 hrs Laboratory Tests Test 12/19/16 17:03 12/19/16 17:23 12/19/16 17:30 12/20/16 07:00 Urine Osmolality 553 Urine Random Sodium < 13 L Stool Occult Blood POSITIVE Osmolality 277 L Iron Level 22 L Total Iron Binding Capacity 372 Percent Iron Saturation 6 L Ferritin Pending Carcinoembryonic Antigen 0.9 Urine Color LT. YELLOW Urine Clarity TURBID Urine pH 6.0 Urine Specific [place] >=1.030 H Urine Ketones NEGATIVE Urine Nitrite NEGATIVE Urine Bilirubin NEGATIVE Urine Urobilinogen 0.2 E.U./dL Urine Leukocyte Esterase NEGATIVE Urine Microscopic RBC 0-2 Urine Microscopic WBC 2-5 Urine Epithelial Cells FEW Urine Amorphous Urates MANY Urine Hemoglobin NEGATIVE Urine Glucose NEGATIVE Urine Total Protein TRACE Blood Gas Specimen Source Blood arterial Arterial Blood Date Drawn 12/20/2016 9:10:36 AM Arterial Blood pH (Temp corrected) 7.484 H Arterial Blood pCO2 (Temp correct) 36.9 Arterial Blood pO2 (Temp corrected) 90.0 Arterial Blood HCO3 27.1 H Arterial Blood Base Excess 3.6 H Arterial Blood Oxygen Saturation 96.5 Adolfo Test N/A Arterial Blood Gas Puncture Site LB Arterial Blood Carboxyhemoglobin 0.3 Arterial Blood Methemoglobin 0.4 Blood Gas A-a O2 Differential 102.2 H Oxyhemoglobin Percent 95.8 Total Hemoglobin 9.9 L Blood Gas Temperature 37.0 Blood Gas Modality NASAL CANNULA FiO2 33.0 Blood Gas Notified Whom Jazmine COLÓN Blood Gas Notified Time 12/20/2016 9:23:25 AM Test 12/20/16 09:20 White Blood Count 5.7 # Red Blood Count 4.06 L Hemoglobin 9.8 L Hematocrit 31.0 L Mean Corpuscular Volume 76.4 L Mean Corpuscular Hemoglobin 24.1 L Mean Corpuscular Hemoglobin Concent 31.6 L Red Cell Distribution Width 16.1 H Platelet Count 623 #H Mean Platelet Volume 9.1 Neutrophils % 73.8 Lymphocytes % 13.7 L Monocytes % 8.2 Eosinophils % 2.5 Basophils % 1.4 Nucleated Red Blood Cells % 0.0 Neutrophils # 4.2 Lymphocytes # 0.8 Monocytes # 0.5 Eosinophils # 0.1 Basophils # 0.1 Nucleated Red Blood Cells # 0.0 Sodium Level 133 L Potassium Level 3.5 Chloride Level 97 Carbon Dioxide Level 29 Anion Gap 11 Blood Urea Nitrogen 10 Creatinine 0.56 Glucose Level 99 Calcium Level 8.5 Medications Medications Current Medications Ondansetron HCl (Zofran Inj) 4 mg Q6H PRN IV NAUSEA AND/OR VOMITING Last administered on 12/20/16 07:59; Admin Dose 4 MG; Start 12/18/16 at 19:30 Acetaminophen (Tylenol Tab) 650 mg Q6H PRN PO PAIN LEVEL 1-3 OR FEVER; Start at 19:30 Acetaminophen/ Hydrocodone Bitart ([place] (5/325)) 1 tab Q6H PRN PO MODERATE PAIN LEVEL 4-6; Start 12/18/16 at 19:30 Morphine Sulfate (morphine) 2 mg Q4H PRN IV SEVERE PAIN LEVEL 7-10; Start at 19:30 Docusate Sodium (Colace) 100 mg Q12H PRN PO CONSTIPATION; Start 12/18/16 at 19: 30 Magnesium Hydroxide (Milk Of Mag) 30 ml DAILY PRN PO CONSTIPATION; Start at 19:30 Sodium Biphosphate/ Sodium Phosphate (Fleet Enema) 133 ml DAILY PRN [place] CONSTIPATION; Start 12/18/16 at 19:30 Famotidine (Pepcid Iv) 20 mg Q12 IV Last administered on 12/20/16 09:07; Admin Dose 20 MG; Start 12/18/16 at 21:00 Lorazepam 0.5 mg 0.5 mg Q6H PRN IV ANXIETY; Start 12/18/16 at 19:30 Levofloxacin/ Dextrose (Levaquin 750 Mg/ D5W 150 ml (Pmx)) 150 ml @ 100 mls/hr Q24H IVPB Last administered on 12/19/16 21:10; Admin Dose 100 MLS/HR; Start 12/19/16 at 21:00 Hydralazine HCl (Apresoline) 10 mg Q6H PRN IV ELEVATED BLOOD PRESSURE; Start at 19:30 Nitroglycerin (Nitroglycerin (Sl Tab) 0.4 Mg) 1 tab Q5M PRN SL ANGINA; Start at 19:30 Sodium Chloride (Nacl) 2 gm TID PO Last administered on 12/20/16 09:07; Admin Dose 2 GM; Start 12/18/16 at 21:00 Valacyclovir HCl (Valtrex) 1,000 mg TID PO Last administered on 12/20/16 09:07 ; Admin Dose 1,000 MG; Start 12/18/16 at 21:00 Diphenhydramine HCl (Benadryl) 25 mg Q6H PRN PO ITCHING Last administered on 00:41; Admin Dose 25 MG; Start 12/18/16 at 20:00 Miscellaneous Information 600 mg BID PO ; Start 12/18/16 at 21:00; Status UNV Miscellaneous Information (*Order Clarification Bulletin) MEDICATION REQUIRES CLARIFICATI... TID@08,14,20 XX Last administered on 12/20/16 08:12; Admin Dose 1 EA; Start 12/19/16 at 10:00 Letrozole (Femara) 2.5 mg DAILY@21 PO Last administered on 12/19/16 22:49; Admin Dose 2.5 MG; Start 12/19/16 at 21:00 Enoxaparin Sodium (Lovenox) 55 mg Q12 SC Last administered on 12/20/16 09:16; Admin Dose 55 MG; Start 12/19/16 at 18:00 Procedures Procedures 2D ECHO: Conclusions 1. Normal left ventricular systolic function. Normal left ventricular cavity size. Normal left ventricular wall thickness. Ejection fraction is visually estimated at 55 %. Tissue Doppler/Mitral Doppler indices are consistent with impaired relaxation (Stage I diastolic dysfunction). 2. Mitral valve leaflets appear mildly thickened. Mild mitral annular calcification. Trace mitral regurgitation. 3. Normal appearance of the tricuspid valve. Estimated peak PA systolic pressure 26 mmHg. There is trace tricuspid regurgitation. TESSIE ROWLAND. Dec 20, 2016 11:46
--- NOTE | 2016-12-20 11:56 | RADRPT ---
PROCEDURE: CT Chest without contrast. CLINICAL INDICATION: Metastatic breast cancer. TECHNIQUE: CT scan of the chest without contrast was performed on a multidetector high-resolution CT scanner. Coronal and sagittal reformatted images were obtained from the axial source images. The total exam C TDI equals 6.36 mGy and the total exam DLP equals 228.28 mGy-cm. One or more of the following dose reduction techniques were used: - Automated exposure control. - Adjustment of the mA and/or kV according to patient size. - Use of iterative reconstruction technique. COMPARISON: Chest x-ray dated 12/20/2016. FINDINGS: Lungs, pleura, airways, and thoracic inlet: There is mass-like consolidation in the medial left upper lobe and lingula. There is additional pat abbie, dense consolidation throughout the left lower lobe. There is diffuse interlobular septal thick ening with patchy areas of superimpose ground-glass opacity throughout the right lung, most pronounc ed within the posterolateral right upper lobe. There are small bilateral effusions, left greater th an right. There is an azygos fissure, a normal anatomical variant. The tracheobronchial tree is steele nt and normal in course and caliber. Cardiovascular system, mediastinum, and lymphatics: The heart is normal in size. There is a small pericardial effusion. There are atherosclerotic phillips ges of the aorta, which is nonaneurysmal. There is postoperative change in the right breast and in t he right axilla. There is no axillary or mediastinal adenopathy. There are calcified mediastinal a nd hilar lymph nodes, consistent with prior granulomatous disease. Visualized upper abdomen: Mild bilateral hydronephrosis is seen within the visualized kidneys. The visualized upper abdomen i s otherwise grossly unremarkable. Musculoskeletal system: There is mild to moderate multilevel degenerative spondylosis. There are no concerning osseous lesio ns. IMPRESSION: 1. Mass-like consolidation in the medial left upper lobe and lingula. Additional areas of patchy, d ense consolidation throughout the left lower lobe. Extensive interlobular septal thickening with pa tchy areas of superimposed ground-glass opacity throughout the right lung, most pronounced within th e posterolateral right upper lobe. These findings are concerning for neoplastic involvement, partic ularly in the left upper lobe, possibly with superimposed pneumonia and/or lymphangitic carcinomatos is. 2. Small bilateral pleural effusions, left greater than right. 3. Small pericardial effusion. 4. Mild bilateral hydronephrosis involving the visualized kidneys. Dedicated CT of the abdomen and pelvis is recommended for further evaluation. 5. Vascular calcifications consistent with atherosclerosis. RPTAT: AA .Jaskaran Zepeda MD, Date Time Electronically viewed and signed by .Jaskaran Zepeda MD, MD on 12/20/2016 11:56 .P/
[2016-12-20 12:36] LABS: FERRITIN 16.1 ng/ml (11.1-264.0)
[2016-12-20] MEDS: KISQALI PO SCH (14:00)
--- NOTE | 2016-12-20 16:04 | PN ---
Date/Time of Note Date/Time of Note DATE: 12/20/16 TIME: 16:00 Assessment/Plan VTE Prophylaxis VTE Prophylaxis Intervention: SCD's Lines/Catheters [facility] Peripheral IV Urinary Cath still in place: No Assessment/Plan Chief Complaint/Hosp Course 56 year old female with stage 3 breast cancer in 2013, now with stage 4 disease with recurrence to lungs, and per patient likely had pericardial effusion which was removed 10/2016. > Breast cancer stage 4 with mets to lungs, ? lymphangitic spread - continue Letrezole and Kisqali. She wants to take letrezole in the am which is ok. > Insomnia - try Benadryl prn. > Shortness of breath, likely from malignancy. Problems: Subjective 24 Hr Interval Summary Free Text/Dictation She is the same, breathing is better with oxygen. Has trouble sleeping, its the main c/o. Denies pain. Exam/Review of Systems Vital Signs Vitals Vital Signs Date Time Temp Pulse Resp B/P Pulse Ox O2 Delivery O2 Flow Rate FiO2 12/20/16 15:31 98.1 103 18 118/56 96 12/20/16 08:45 Nasal Cannula 4.0 12/18/16 18:03 100 Intake and Output 12/19/16 12/19/16 12/20/16 15:00 23:00 07:00 Intake Total 870 ml Balance 870 ml Exam NAD, on oxygen. oc/op is clear. No LAD Chest - bilateral mild crackles Heart is regular. Abd soft, NTTP No edema. 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 YELLOW Urine Clarity TURBID Urine pH 6.0 Urine Specific [place] >=1.030 H Urine Ketones NEGATIVE Urine Nitrite NEGATIVE Urine Bilirubin NEGATIVE Urine Urobilinogen 0.2 E.U./dL Urine Leukocyte Esterase NEGATIVE Urine Microscopic RBC 0-2 Urine Microscopic WBC 2-5 Urine Epithelial Cells FEW Urine Amorphous Urates MANY Urine Hemoglobin NEGATIVE Urine Glucose NEGATIVE Urine Total Protein TRACE Blood Gas Specimen Source Blood arterial Arterial Blood Date Drawn 12/20/2016 9:10:36 AM Arterial Blood pH (Temp corrected) 7.484 H Arterial Blood pCO2 (Temp correct) 36.9 Arterial Blood pO2 (Temp corrected) 90.0 Arterial Blood HCO3 27.1 H Arterial Blood Base Excess 3.6 H Arterial Blood Oxygen Saturation 96.5 Adolfo Test N/A Arterial Blood Gas Puncture Site LB Arterial Blood Carboxyhemoglobin 0.3 Arterial Blood Methemoglobin 0.4 Blood Gas A-a O2 Differential 102.2 H Oxyhemoglobin Percent 95.8 Total Hemoglobin 9.9 L Blood Gas Temperature 37.0 Blood Gas Modality NASAL CANNULA FiO2 33.0 Blood Gas Notified Whom Jazmine COLÓN Blood Gas Notified Time 12/20/2016 9:23:25 AM Test 12/20/16 09:20 White Blood Count 5.7 # Red Blood Count 4.06 L Hemoglobin 9.8 L Hematocrit 31.0 L Mean Corpuscular Volume 76.4 L Mean Corpuscular Hemoglobin 24.1 L Mean Corpuscular Hemoglobin Concent 31.6 L Red Cell Distribution Width 16.1 H Platelet Count 623 #H Mean Platelet Volume 9.1 Neutrophils % 73.8 Lymphocytes % 13.7 L Monocytes % 8.2 Eosinophils % 2.5 Basophils % 1.4 Nucleated Red Blood Cells % 0.0 Neutrophils # 4.2 Lymphocytes # 0.8 Monocytes # 0.5 Eosinophils # 0.1 Basophils # 0.1 Nucleated Red Blood Cells # 0.0 Sodium Level 133 L Potassium Level 3.5 Chloride Level 97 Carbon Dioxide Level 29 Anion Gap 11 Blood Urea Nitrogen 10 Creatinine 0.56 Glucose Level 99 Calcium Level 8.5 Medications Medications Current Medications Ondansetron HCl (Zofran Inj) 4 mg Q6H PRN IV NAUSEA AND/OR VOMITING Last administered on 12/20/16 07:59; Admin Dose 4 MG; Start 12/18/16 at 19:30 Acetaminophen (Tylenol Tab) 650 mg Q6H PRN PO PAIN LEVEL 1-3 OR FEVER; Start at 19:30 Acetaminophen/ Hydrocodone Bitart ([place] (5/325)) 1 tab Q6H PRN PO MODERATE PAIN LEVEL 4-6; Start 12/18/16 at 19:30 Morphine Sulfate (morphine) 2 mg Q4H PRN IV SEVERE PAIN LEVEL 7-10; Start at 19:30 Docusate Sodium (Colace) 100 mg Q12H PRN PO CONSTIPATION; Start 12/18/16 at 19: 30 Magnesium Hydroxide (Milk Of Mag) 30 ml DAILY PRN PO CONSTIPATION; Start at 19:30 Sodium Biphosphate/ Sodium Phosphate (Fleet Enema) 133 ml DAILY PRN [place] CONSTIPATION; Start 12/18/16 at 19:30 Famotidine (Pepcid Iv) 20 mg Q12 IV Last administered on 12/20/16 09:07; Admin Dose 20 MG; Start 12/18/16 at 21:00 Lorazepam 0.5 mg 0.5 mg Q6H PRN IV ANXIETY; Start 12/18/16 at 19:30 Levofloxacin/ Dextrose (Levaquin 750 Mg/ D5W 150 ml (Pmx)) 150 ml @ 100 mls/hr Q24H IVPB Last administered on 12/19/16 21:10; Admin Dose 100 MLS/HR; Start 12/19/16 at 21:00 Hydralazine HCl (Apresoline) 10 mg Q6H PRN IV ELEVATED BLOOD PRESSURE; Start at 19:30 Nitroglycerin (Nitroglycerin (Sl Tab) 0.4 Mg) 1 tab Q5M PRN SL ANGINA; Start at 19:30 Sodium Chloride (Nacl) 2 gm TID PO Last administered on 12/20/16 12:37; Admin Dose 2 GM; Start 12/18/16 at 21:00 Valacyclovir HCl (Valtrex) 1,000 mg TID PO Last administered on 12/20/16 12:37 ; Admin Dose 1,000 MG; Start 12/18/16 at 21:00 Diphenhydramine HCl (Benadryl) 25 mg Q6H PRN PO ITCHING Last administered on 00:41; Admin Dose 25 MG; Start 12/18/16 at 20:00 Letrozole (Femara) 2.5 mg DAILY@21 PO Last administered on 12/19/16 22:49; Admin Dose 2.5 MG; Start 12/19/16 at 21:00 Enoxaparin Sodium (Lovenox) 55 mg Q12 SC Last administered on 12/20/16 09:16; Admin Dose 55 MG; Start 12/19/16 at 18:00 Furosemide (Lasix) 40 mg DAILY@06 IV ; Start 12/21/16 at 06:00 Zolpidem Tartrate (Ambien) 2.5 mg HS PRN PO INSOMNIA; Start 12/20/16 at 13:00 Patient Own Medication 2 ea DAILY PO ; Start 12/20/16 at 14:00 HANDY KWAN MD Dec 20, 2016 16:04
--- NOTE | 2016-12-20 18:45 | CONS ---
Date/Time of Note Date/Time of Note DATE: 12/20/16 TIME: 18:40 Consult Date/Type/Reason Admit Date/Time Dec 18, 2016 at 18:40 Initial Consult Date Type of Consultation: Pulm Subjective CT chest reviewed. Notable for multifocal patchy ill-defined nodular airspace opacities, small effusions, pericardial effusion (small) and interlobular septal prominence (smooth) Objective Vital Signs Date Time Temp Pulse Resp B/P Pulse Ox O2 Delivery O2 Flow Rate FiO2 12/20/16 18:21 4.0 12/20/16 16:07 98 12/20/16 15:31 98.1 18 118/56 96 12/20/16 08:45 Nasal Cannula 12/18/16 18:03 100 Intake and Output 12/19/16 12/19/16 12/20/16 15:00 23:00 07:00 Intake Total 870 ml Balance 870 ml Exam HEENT: Neck supple; no JVD; no LAD CVS: RRR, S1 and S2 CHEST: Scattered rhonchi ABD: Soft, NT, + BS EXT: No c/c + RUE edema Results/Medications Result Diagram: 12/20/1620 12/20/1620 Results 24 hrs Laboratory Tests Test 12/20/16 07:00 12/20/16 09:20 Blood Gas Specimen Source Blood arterial Arterial Blood Date Drawn 12/20/2016 9:10:36 AM Arterial Blood pH (Temp corrected) 7.484 H Arterial Blood pCO2 (Temp correct) 36.9 Arterial Blood pO2 (Temp corrected) 90.0 Arterial Blood HCO3 27.1 H Arterial Blood Base Excess 3.6 H Arterial Blood Oxygen Saturation 96.5 Adolfo Test N/A Arterial Blood Gas Puncture Site LB Arterial Blood Carboxyhemoglobin 0.3 Arterial Blood Methemoglobin 0.4 Blood Gas A-a O2 Differential 102.2 H Oxyhemoglobin Percent 95.8 Total Hemoglobin 9.9 L Blood Gas Temperature 37.0 Blood Gas Modality NASAL CANNULA FiO2 33.0 Blood Gas Notified Bri COLÓN Blood Gas Notified Time 12/20/2016 9:23:25 AM White Blood Count 5.7 # Red Blood Count 4.06 L Hemoglobin 9.8 L Hematocrit 31.0 L Mean Corpuscular Volume 76.4 L Mean Corpuscular Hemoglobin 24.1 L Mean Corpuscular Hemoglobin Concent 31.6 L Red Cell Distribution Width 16.1 H Platelet Count 623 #H Mean Platelet Volume 9.1 Neutrophils % 73.8 Lymphocytes % 13.7 L Monocytes % 8.2 Eosinophils % 2.5 Basophils % 1.4 Nucleated Red Blood Cells % 0.0 Neutrophils # 4.2 Lymphocytes # 0.8 Monocytes # 0.5 Eosinophils # 0.1 Basophils # 0.1 Nucleated Red Blood Cells # 0.0 Sodium Level 133 L Potassium Level 3.5 Chloride Level 97 Carbon Dioxide Level 29 Anion Gap 11 Blood Urea Nitrogen 10 Creatinine 0.56 Glucose Level 99 Calcium Level 8.5 Medications Current Medications Ondansetron HCl (Zofran Inj) 4 mg Q6H PRN IV NAUSEA AND/OR VOMITING Last administered on 12/20/16 07:59; Admin Dose 4 MG; Start 12/18/16 at 19:30 Acetaminophen (Tylenol Tab) 650 mg Q6H PRN PO PAIN LEVEL 1-3 OR FEVER; Start at 19:30 Acetaminophen/ Hydrocodone Bitart ([place] (5/325)) 1 tab Q6H PRN PO MODERATE PAIN LEVEL 4-6; Start 12/18/16 at 19:30 Morphine Sulfate (morphine) 2 mg Q4H PRN IV SEVERE PAIN LEVEL 7-10; Start at 19:30 Docusate Sodium (Colace) 100 mg Q12H PRN PO CONSTIPATION; Start 12/18/16 at 19: 30 Magnesium Hydroxide (Milk Of Mag) 30 ml DAILY PRN PO CONSTIPATION; Start at 19:30 Sodium Biphosphate/ Sodium Phosphate (Fleet Enema) 133 ml DAILY PRN [place] CONSTIPATION; Start 12/18/16 at 19:30 Famotidine (Pepcid Iv) 20 mg Q12 IV Last administered on 12/20/16 09:07; Admin Dose 20 MG; Start 12/18/16 at 21:00 Lorazepam 0.5 mg 0.5 mg Q6H PRN IV ANXIETY; Start 12/18/16 at 19:30 Levofloxacin/ Dextrose (Levaquin 750 Mg/ D5W 150 ml (Pmx)) 150 ml @ 100 mls/hr Q24H IVPB Last administered on 12/19/16 21:10; Admin Dose 100 MLS/HR; Start 12/19/16 at 21:00 Hydralazine HCl (Apresoline) 10 mg Q6H PRN IV ELEVATED BLOOD PRESSURE; Start at 19:30 Nitroglycerin (Nitroglycerin (Sl Tab) 0.4 Mg) 1 tab Q5M PRN SL ANGINA; Start at 19:30 Sodium Chloride (Nacl) 2 gm TID PO Last administered on 12/20/16 12:37; Admin Dose 2 GM; Start 12/18/16 at 21:00 Valacyclovir HCl (Valtrex) 1,000 mg TID PO Last administered on 12/20/16 12:37 ; Admin Dose 1,000 MG; Start 12/18/16 at 21:00 Diphenhydramine HCl (Benadryl) 25 mg Q6H PRN PO ITCHING Last administered on 00:41; Admin Dose 25 MG; Start 12/18/16 at 20:00 Letrozole (Femara) 2.5 mg DAILY@21 PO Last administered on 12/19/16 22:49; Admin Dose 2.5 MG; Start 12/19/16 at 21:00 Enoxaparin Sodium (Lovenox) 55 mg Q12 SC Last administered on 12/20/16 09:16; Admin Dose 55 MG; Start 12/19/16 at 18:00 Furosemide (Lasix) 40 mg DAILY@06 IV ; Start 12/21/16 at 06:00 Zolpidem Tartrate (Ambien) 2.5 mg HS PRN PO INSOMNIA; Start 12/20/16 at 13:00 Patient Own Medication 2 ea DAILY PO ; Start 12/20/16 at 14:00 Assessment/Plan Additional Assessment/Plan IMP: 1. Patchy ill-defined nodular airspace opacities--in a patient with h/o breast cancer. CT findings very unusual for metastatic breast ca and more suggestive of metastatic lung adenoca. No convincing for lymphangitic carcinomatosis. Also cannot exclude co-existing BOOP. RECS: 1. Obtain CT-guided lung biopsy results and CT from [place]. RAJWINDER LEDBETTER MD Dec 20, 2016 18:45
[2016-12-20] MEDS: LEVOFLOXACIN 750MG/D5W (PMX) 150 ML IVPB SCH (21:23)
[2016-12-20] MEDS: ZOLPIDEM 5 MG TAB PO PRN (21:23)
[2016-12-20] MEDS: LETROZOLE 2.5 MG TAB PO SCH (21:37)
[2016-12-21] VITALS (11 sets, daily range): BP systolic 100–106; BP diastolic 51–55; PULSE 96–108; RESP 16–18
[2016-12-21] MEDS: VALACYCLOVIR 500 MG TAB PO SCH ×4 (01:23→21:45)
[2016-12-21] MEDS: FUROSEMIDE 40 MG INJ IV SCH (05:55)
[2016-12-21] MEDS: LEVOTHYROXINE 100 MCG TAB PO SCH (05:55)
[2016-12-21] MEDS: ONDANSETRON 4 MG INJ IV PRN (06:07)
[2016-12-21] MEDS ORDERED: RIBOCICLIB PO SCH (09:00)
[2016-12-21] MEDS: KISQALI PO SCH (09:00)
[2016-12-21] MEDS: SODIUM CHLORIDE 1 GM TAB PO SCH ×3 (09:37→21:45)
[2016-12-21] MEDS: FAMOTIDINE 20 MG INJ IV SCH (09:37)
[2016-12-21] MEDS: LETROZOLE 2.5 MG TAB PO SCH (09:40)
[2016-12-21] MEDS: ENOXAPARIN 100 MG/ML SYG SC SCH ×2 (09:41→21:49)
[2016-12-21 09:52] LABS: ADD SCAN DIFF NO
[2016-12-21 09:55] LABS: BASOPHIL # 0.1 10^3/ul (0.0-0.1); EOSINOPHILS # 0.3 10^3/ul (0.0-0.5); EOSINOPHILS % 4.5 % (0.0-7.0); HEMATOCRIT 30.1 % (37.0-47.0); HEMOGLOBIN 9.4 g/dl (12.0-16.0); LYMPHOCYTES # 0.9 10^3/ul (0.8-2.9); LYMPHOCYTES % 14.2 % (15.0-51.0); MEAN CORPUSCULAR HEMOGLOBIN 24.1 pg (29.0-33.0); MEAN CORPUSCULAR HGB CONC 31.2 g/dl (32.0-37.0); MEAN CORPUSCULAR VOLUME 77.2 fl (82.0-101.0); MEAN PLATELET VOLUME 8.7 fl (7.4-10.4); MONOCYTE # 0.4 10^3/ul (0.3-0.9); MONOCYTES % 7.3 % (0.0-11.0); NEUTROPHIL # 4.4 10^3/ul (1.6-7.5); NEUTROPHILS % 72.7 % (39.0-77.0); PLATELET COUNT 607 10^3/UL (140-415); RED CELL DISTRIBUTION WIDTH 16.2 % (11.5-14.5)
[2016-12-21 10:17] LABS: CALCIUM 8.5 mg/dl (8.4-10.2); CREATININE 0.61 mg/dl (0.44-1.00)
--- NOTE | 2016-12-21 14:36 | PN ---
Date/Time of Note Date/Time of Note DATE: 12/21/16 TIME: 14:33 Assessment/Plan VTE Prophylaxis VTE Prophylaxis Intervention: SCD's Lines/Catheters IV [facility] Peripheral IV Urinary Cath still in place: No Assessment/Plan Chief Complaint/Hosp Course 56 year old female with stage 3 breast cancer in 2013, now with stage 4 disease with recurrence to lungs, and per patient likely had pericardial effusion which was removed 10/2016. > Breast cancer stage 4 with mets to lungs, ? lymphangitic spread - continue Letrezole and Kisqali. She wants to take letrezole in the am which is ok. > Insomnia - try Benadryl prn. > Shortness of breath, likely from malignancy. She is being worked up by Pulmonary. CT chest done, planning retrieval of prior biopsy. Problems: Subjective 24 Hr Interval Summary Free Text/Dictation She is suddenly more short of breath right now after coughing. But looks comfortable. Called the nurse to check sats. Exam/Review of Systems Vital Signs Vitals Vital Signs Date Time Temp Pulse Resp B/P Pulse Ox O2 Delivery O2 Flow Rate FiO2 12/21/16 12:03 101 12/21/16 11:39 98.2 18 104/54 96 12/21/16 09:15 Nasal Cannula 4.0 12/18/16 18:03 100 Intake and Output 12/20/16 12/20/16 12/21/16 15:00 23:00 07:00 Intake Total 400 ml 950 ml 700 ml Balance 400 ml 950 ml 700 ml Exam Distress from shortness of breath. On oxygen. Left chest with decreased breath sounds. Right better. 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, nl mental status, nl speech, nl strength Skin: nl turgor, No rash or lesions Lymph: nl lymph nodes Results Result Diagram: 12/21/16 0940 12/21/16 0940 Results 24 hrs Laboratory Tests Test 12/21/16 09:40 White Blood Count 6.0 Red Blood Count 3.90 L Hemoglobin 9.4 L Hematocrit 30.1 L Mean Corpuscular Volume 77.2 L Mean Corpuscular Hemoglobin 24.1 L Mean Corpuscular Hemoglobin Concent 31.2 L Red Cell Distribution Width 16.2 H Platelet Count 607 H Mean Platelet Volume 8.7 Neutrophils % 72.7 Lymphocytes % 14.2 L Monocytes % 7.3 Eosinophils % 4.5 Basophils % 1.0 Nucleated Red Blood Cells % 0.0 Neutrophils # 4.4 Lymphocytes # 0.9 Monocytes # 0.4 Eosinophils # 0.3 Basophils # 0.1 Nucleated Red Blood Cells # 0.0 Sodium Level 137 Potassium Level 3.0 L Chloride Level 98 Carbon Dioxide Level 31 Anion Gap 11 Blood Urea Nitrogen 15 Creatinine 0.61 Glucose Level 108 Calcium Level 8.5 Medications Medications Current Medications Ondansetron HCl (Zofran Inj) 4 mg Q6H PRN IV NAUSEA AND/OR VOMITING Last administered on 12/21/16 06:07; Admin Dose 4 MG; Start 12/18/16 at 19:30 Acetaminophen (Tylenol Tab) 650 mg Q6H PRN PO PAIN LEVEL 1-3 OR FEVER; Start at 19:30 Acetaminophen/ Hydrocodone Bitart ([place] (5/325)) 1 tab Q6H PRN PO MODERATE PAIN LEVEL 4-6; Start 12/18/16 at 19:30 Morphine Sulfate (morphine) 2 mg Q4H PRN IV SEVERE PAIN LEVEL 7-10; Start at 19:30 Docusate Sodium (Colace) 100 mg Q12H PRN PO CONSTIPATION; Start 12/18/16 at 19: 30 Magnesium Hydroxide (Milk Of Mag) 30 ml DAILY PRN PO CONSTIPATION; Start at 19:30 Sodium Biphosphate/ Sodium Phosphate (Fleet Enema) 133 ml DAILY PRN [place] CONSTIPATION; Start 12/18/16 at 19:30 Famotidine (Pepcid Iv) 20 mg Q12 IV Last administered on 12/21/16 09:37; Admin Dose 20 MG; Start 12/18/16 at 21:00 Lorazepam 0.5 mg 0.5 mg Q6H PRN IV ANXIETY; Start 12/18/16 at 19:30 Levofloxacin/ Dextrose (Levaquin 750 Mg/ D5W 150 ml (Pmx)) 150 ml @ 100 mls/hr Q24H IVPB Last administered on 12/20/16 21:23; Admin Dose 100 MLS/HR; Start at 21:00 Hydralazine HCl (Apresoline) 10 mg Q6H PRN IV ELEVATED BLOOD PRESSURE; Start at 19:30 Nitroglycerin (Nitroglycerin (Sl Tab) 0.4 Mg) 1 tab Q5M PRN SL ANGINA; Start at 19:30 Sodium Chloride (Nacl) 2 gm TID PO Last administered on 12/21/16 13:42; Admin Dose 2 GM; Start 12/18/16 at 21:00 Valacyclovir HCl (Valtrex) 1,000 mg TID PO Last administered on 12/21/16 09:47 ; Admin Dose 1,000 MG; Start 12/18/16 at 21:00 Diphenhydramine HCl (Benadryl) 25 mg Q6H PRN PO ITCHING Last administered on 00:41; Admin Dose 25 MG; Start 12/18/16 at 20:00 Enoxaparin Sodium (Lovenox) 55 mg Q12 SC Last administered on 12/21/16 09:41; Admin Dose 55 MG; Start 12/19/16 at 18:00 Furosemide (Lasix) 40 mg DAILY@06 IV Last administered on 12/21/16 05:55; Admin Dose 40 MG; Start 12/21/16 at 06:00 Zolpidem Tartrate (Ambien) 2.5 mg HS PRN PO INSOMNIA Last administered on 21:23; Admin Dose 2.5 MG; Start 12/20/16 at 13:00 Letrozole (Femara) 2.5 mg DAILY@09 PO Last administered on 12/21/16 09:40; Admin Dose 2.5 MG; Start 12/22/16 at 09:00 Phenol (Cepastat Lozenge) 1 lozenge Q1H PRN MT COUGH; Start 12/21/16 at 14:30 Guaifenesin (Robitussin Liquid Cup) 200 mg Q4H PRN PO COUGH; Start 12/21/16 at 14:30 HANDY KWAN MD Dec 21, 2016 14:36
--- NOTE | 2016-12-21 14:37 | PN ---
Date/Time of Note Date/Time of Note DATE: 12/21/16 TIME: 14:31 Assessment/Plan VTE Prophylaxis VTE Prophylaxis Intervention: LMWH Lines/Catheters [facility] (from [facility] Peripheral IV Urinary Cath still in place: No Assessment/Plan Chief Complaint/Hosp Course ASSESSMENT AND PLAN: 56-year-old female coming in with a prior history of breast cancer with shortness of breath for 3 days with signs of congestive heart failure, also possible shingles on the left breast and hyponatremia. 1. Shortness of breath. Likely secondary to congestive heart failure exacerbation - slowly improving There are no signs of any pleural effusions. ECHO done. Appreciate pulm rec's. CT chest results see below, concerns for mass in lung as well. - keep the head of the bed greater than 30 degrees. - morphine, oxygen, nitroglycerin p.r.n, Lasix, DuoNebs stuart now, and monitor oxygen levels as well. - Monitor ins and outs as well. - based on CT chest findings and pulm rec's, will order for CT guided biopsy to further evaluate mass. 2. Left breast redness, again unclear if this is shingles. She has some itchiness as well - p.r.n. Benadryl, - continue valacyclovir 1000 mg t.i.d. for possible shingles treatment. - Monitor for symptoms. Again there is no crusting noted. 3. History of breast cancer - pt tx with rad's in the past, on PO chemo now. Appreciate Heme/Onc rec's. - f/u CT chest (pending) - f/u pulm and Hematology/Oncology rec's - Continue her home chemotherapy medicine for now. 5. Gastritis - PPI, that will be for gastrointestinal prophylaxis as well. 6. Hypothyroidism. Continue levothyroxine 7. + DVT found in RUE - as well, on anticoagulation now - LMWH BID Problems: Subjective 24 Hr Interval Summary Free Text/Dictation Pt with +m SOB and cough, seen by Heme/onc and Pulm teams yesterday. Exam/Review of Systems Vital Signs Vitals Vital Signs Date Time Temp Pulse Resp B/P Pulse Ox O2 Delivery O2 Flow Rate FiO2 12/21/16 12:03 101 12/21/16 11:39 98.2 18 104/54 96 12/21/16 09:15 Nasal Cannula 4.0 12/18/16 18:03 100 Intake and Output 12/20/16 12/20/16 12/21/16 15:00 23:00 07:00 Intake Total 400 ml 950 ml 700 ml Balance 400 ml 950 ml 700 ml Exam GENERAL: The patient is lying in bed, answering questions appropriately. No acute distress. HEENT: Pupils equal, round, react to light. Extraocular muscles intact. NECK: Supple, no thyromegaly. LUNGS: Distant breath sounds bilaterally. Mild crackles at the bases bilaterally. No wheezes. CARDIOVASCULAR: S1, S2 heard. No rubs or gallops. BREAST: On the left breast, there appears to be a blanching redness along the inner and outer quadrants of the breast going to the left thorax area, somewhat itchy but again, no discharge or pus or bleeding noted. ABDOMEN: Soft, nontender, nondistended. Normal bowel sounds. No rebound or guarding. MUSCULOSKELETAL: No lower extremity edema bilaterally. NEUROLOGIC: No focal deficits. MUSCULOSKELETAL: 1+ pitting edema in the right upper extremity, otherwise no lower extremity edema bilaterally. Results Result Diagram: 12/21/16 0940 12/21/16 0940 Results 24 hrs Laboratory Tests Test 12/21/16 09:40 White Blood Count 6.0 Red Blood Count 3.90 L Hemoglobin 9.4 L Hematocrit 30.1 L Mean Corpuscular Volume 77.2 L Mean Corpuscular Hemoglobin 24.1 L Mean Corpuscular Hemoglobin Concent 31.2 L Red Cell Distribution Width 16.2 H Platelet Count 607 H Mean Platelet Volume 8.7 Neutrophils % 72.7 Lymphocytes % 14.2 L Monocytes % 7.3 Eosinophils % 4.5 Basophils % 1.0 Nucleated Red Blood Cells % 0.0 Neutrophils # 4.4 Lymphocytes # 0.9 Monocytes # 0.4 Eosinophils # 0.3 Basophils # 0.1 Nucleated Red Blood Cells # 0.0 Sodium Level 137 Potassium Level 3.0 L Chloride Level 98 Carbon Dioxide Level 31 Anion Gap 11 Blood Urea Nitrogen 15 Creatinine 0.61 Glucose Level 108 Calcium Level 8.5 Medications Medications Current Medications Ondansetron HCl (Zofran Inj) 4 mg Q6H PRN IV NAUSEA AND/OR VOMITING Last administered on 12/21/16t 06:07; Admin Dose 4 MG; Start 12/18/16 at 19:30 Acetaminophen (Tylenol Tab) 650 mg Q6H PRN PO PAIN LEVEL 1-3 OR FEVER; Start at 19:30 Acetaminophen/ Hydrocodone Bitart ([place] (5/325)) 1 tab Q6H PRN PO MODERATE PAIN LEVEL 4-6; Start 12/18/16 at 19:30 Morphine Sulfate (morphine) 2 mg Q4H PRN IV SEVERE PAIN LEVEL 7-10; Start at 19:30 Docusate Sodium (Colace) 100 mg Q12H PRN PO CONSTIPATION; Start 12/18/16 at 19: 30 Magnesium Hydroxide (Milk Of Mag) 30 ml DAILY PRN PO CONSTIPATION; Start at 19:30 Sodium Biphosphate/ Sodium Phosphate (Fleet Enema) 133 ml DAILY PRN [place] CONSTIPATION; Start 12/18/16 at 19:30 Famotidine (Pepcid Iv) 20 mg Q12 IV Last administered on 12/21/16 09:37; Admin Dose 20 MG; Start 12/18/16 at 21:00 Lorazepam 0.5 mg 0.5 mg Q6H PRN IV ANXIETY; Start 12/18/16 at 19:30 Levofloxacin/ Dextrose (Levaquin 750 Mg/ D5W 150 ml (Pmx)) 150 ml @ 100 mls/hr Q24H IVPB Last administered on 12/20/16 21:23; Admin Dose 100 MLS/HR; Start at 21:00 Hydralazine HCl (Apresoline) 10 mg Q6H PRN IV ELEVATED BLOOD PRESSURE; Start at 19:30 Nitroglycerin (Nitroglycerin (Sl Tab) 0.4 Mg) 1 tab Q5M PRN SL ANGINA; Start at 19:30 Sodium Chloride (Nacl) 2 gm TID PO Last administered on 12/21/16 13:42; Admin Dose 2 GM; Start 12/18/16 at 21:00 Valacyclovir HCl (Valtrex) 1,000 mg TID PO Last administered on 12/21/16 09:47 ; Admin Dose 1,000 MG; Start 12/18/16 at 21:00 Diphenhydramine HCl (Benadryl) 25 mg Q6H PRN PO ITCHING Last administered on 00:41; Admin Dose 25 MG; Start 12/18/16 at 20:00 Enoxaparin Sodium (Lovenox) 55 mg Q12 SC Last administered on 12/21/16 09:41; Admin Dose 55 MG; Start 12/19/16 at 18:00 Furosemide (Lasix) 40 mg DAILY@06 IV Last administered on 12/21/16 05:55; Admin Dose 40 MG; Start 12/21/16 at 06:00 Zolpidem Tartrate (Ambien) 2.5 mg HS PRN PO INSOMNIA Last administered on 21:23; Admin Dose 2.5 MG; Start 12/20/16 at 13:00 Letrozole (Femara) 2.5 mg DAILY@09 PO Last administered on 12/21/16 09:40; Admin Dose 2.5 MG; Start 12/22/16 at 09:00 Phenol (Cepastat Lozenge) 1 lozenge Q1H PRN MT COUGH; Start 12/21/16 at 14:30; Status UNV Guaifenesin (Robitussin Liquid Cup) 200 mg Q4H PRN PO COUGH; Start 12/21/16 at 14:30; Status UNV Procedures Procedures CT chest (12/20/16): IMPRESSION: 1. Mass-like consolidation in the medial left upper lobe and lingula. Additional areas of patchy, dense consolidation throughout the left lower lobe. Extensive interlobular septal thickening with patchy areas of superimposed ground-glass opacity throughout the right lung, most pronounced within the posterolateral right upper lobe. These findings are concerning for neoplastic involvement, particularly in the left upper lobe, possibly with superimposed pneumonia and/or lymphangitic carcinomatosis. 2. Small bilateral pleural effusions, left greater than right. 3. Small pericardial effusion. 4. Mild bilateral hydronephrosis involving the visualized kidneys. Dedicated CT of the abdomen and pelvis is recommended for further evaluation. 5. Vascular calcifications consistent with atherosclerosis. TESSIE ROWLAND Dec 21, 2016 14:37
[2016-12-21] MEDS: ALBUTEROL/IPRATROPIUM (NEB) 3 ML AMP HHN SCH ×3 (14:42→21:04)
--- NOTE | 2016-12-21 17:53 | CONS ---
Date/Time of Note Date/Time of Note DATE: 12/21/16 TIME: 17:51 Consult Date/Type/Reason Admit Date/Time Dec 18, 2016 at 18:40 Type of Consultation: Pulm Subjective No events. Mild dyspnea noted. Objective Vital Signs Date Time Temp Pulse Resp B/P Pulse Ox O2 Delivery O2 Flow Rate FiO2 12/21/16 17:38 108 12/21/16 17:07 20 95 Nasal Cannula 3.0 12/21/16 15:51 98.7 101/52 12/18/16 18:03 100 Intake and Output 12/20/16 12/20/16 12/21/16 15:00 23:00 07:00 Intake Total 400 ml 950 ml 700 ml Balance 400 ml 950 ml 700 ml Exam HEENT: Neck supple; no JVD; no LAD CVS: RRR, S1 and S2 CHEST: Scattered rhonchi ABD: Soft, NT, + BS EXT: No c/c + RUE edema Results/Medications Result Diagram: 12/21/16 0940 12/21/16 0940 Results 24 hrs Laboratory Tests Test 12/21/16 09:40 White Blood Count 6.0 Red Blood Count 3.90 L Hemoglobin 9.4 L Hematocrit 30.1 L Mean Corpuscular Volume 77.2 L Mean Corpuscular Hemoglobin 24.1 L Mean Corpuscular Hemoglobin Concent 31.2 L Red Cell Distribution Width 16.2 H Platelet Count 607 H Mean Platelet Volume 8.7 Neutrophils % 72.7 Lymphocytes % 14.2 L Monocytes % 7.3 Eosinophils % 4.5 Basophils % 1.0 Nucleated Red Blood Cells % 0.0 Neutrophils # 4.4 Lymphocytes # 0.9 Monocytes # 0.4 Eosinophils # 0.3 Basophils # 0.1 Nucleated Red Blood Cells # 0.0 Sodium Level 137 Potassium Level 3.0 L Chloride Level 98 Carbon Dioxide Level 31 Anion Gap 11 Blood Urea Nitrogen 15 Creatinine 0.61 Glucose Level 108 Calcium Level 8.5 Medications Current Medications Ondansetron HCl (Zofran Inj) 4 mg Q6H PRN IV NAUSEA AND/OR VOMITING Last administered on 12/21/16t 06:07; Admin Dose 4 MG; Start 12/18/16 at 19:30 Acetaminophen (Tylenol Tab) 650 mg Q6H PRN PO PAIN LEVEL 1-3 OR FEVER; Start at 19:30 Acetaminophen/ Hydrocodone Bitart ([place] (5/325)) 1 tab Q6H PRN PO MODERATE PAIN LEVEL 4-6; Start 12/18/16 at 19:30 Morphine Sulfate (morphine) 2 mg Q4H PRN IV SEVERE PAIN LEVEL 7-10; Start at 19:30 Docusate Sodium (Colace) 100 mg Q12H PRN PO CONSTIPATION; Start 12/18/16 at 19: 30 Magnesium Hydroxide (Milk Of Mag) 30 ml DAILY PRN PO CONSTIPATION; Start at 19:30 Sodium Biphosphate/ Sodium Phosphate (Fleet Enema) 133 ml DAILY PRN [place] CONSTIPATION; Start 12/18/16 at 19:30 Lorazepam 0.5 mg 0.5 mg Q6H PRN IV ANXIETY; Start 12/18/16 at 19:30 Levofloxacin/ Dextrose (Levaquin 750 Mg/ D5W 150 ml (Pmx)) 150 ml @ 100 mls/hr Q24H IVPB Last administered on 12/20/16 21:23; Admin Dose 100 MLS/HR; Start at 21:00 Hydralazine HCl (Apresoline) 10 mg Q6H PRN IV ELEVATED BLOOD PRESSURE; Start at 19:30 Nitroglycerin (Nitroglycerin (Sl Tab) 0.4 Mg) 1 tab Q5M PRN SL ANGINA; Start at 19:30 Sodium Chloride (Nacl) 2 gm TID PO Last administered on 12/21/16 13:42; Admin Dose 2 GM; Start 12/18/16 at 21:00 Valacyclovir HCl (Valtrex) 1,000 mg TID PO Last administered on 12/21/16 15:20 ; Admin Dose 1,000 MG; Start 12/18/16 at 21:00 Diphenhydramine HCl (Benadryl) 25 mg Q6H PRN PO ITCHING Last administered on 00:41; Admin Dose 25 MG; Start 12/18/16 at 20:00 Enoxaparin Sodium (Lovenox) 55 mg Q12 SC Last administered on 12/21/16 09:41; Admin Dose 55 MG; Start 12/19/16 at 18:00 Furosemide (Lasix) 40 mg DAILY@06 IV Last administered on 12/21/16 05:55; Admin Dose 40 MG; Start 12/21/16 at 06:00 Zolpidem Tartrate (Ambien) 2.5 mg HS PRN PO INSOMNIA Last administered on 21:23; Admin Dose 2.5 MG; Start 12/20/16 at 13:00 Letrozole (Femara) 2.5 mg DAILY@09 PO Last administered on 12/21/16 09:40; Admin Dose 2.5 MG; Start 12/22/16 at 09:00 Phenol (Cepastat Lozenge) 1 lozenge Q1H PRN MT COUGH; Start 12/21/16 at 14:30 Guaifenesin (Robitussin Liquid Cup) 200 mg Q4H PRN PO COUGH; Start 12/21/16 at 14:30 Famotidine (Pepcid) 20 mg Q12 PO ; Start 12/21/16 at 21:00 Assessment/Plan Additional Assessment/Plan IMP: 1. Patchy ill-defined nodular airspace opacities--in a patient with h/o breast cancer. CT findings very unusual for metastatic breast ca and more suggestive of metastatic lung adenoca. No convincing for lymphangitic carcinomatosis. Also cannot exclude co-existing BOOP. RECS: 1. Obtain CT-guided lung biopsy results and CT from [place]. 2. Management as per Onc RAJWINDER LEDBETTER MD Dec 21, 2016 17:53
[2016-12-21 20:40] LABS: AADO2 Arterial 72.9 mmHg (7.0-24.0); Arterial Base Excess 2.1 mmol/L (-3.0-3); Arterial COHb 0.2 % (0.0-3.0); Arterial Fraction of Oxyhgb 96.3 % (93.0-99.0); Arterial HCO3 26.2 mmol/L (22.0-26.0); Arterial MetHb 0.3 % (0.0-1.5); Arterial Total Hemglobin 9.7 g/dl (12.0-18.0); MODE NASAL CANNULA
[2016-12-21] MEDS: LEVOFLOXACIN 750MG/D5W (PMX) 150 ML IVPB SCH (21:44)
[2016-12-21] MEDS: ZOLPIDEM 5 MG TAB PO PRN (21:45)
[2016-12-21] MEDS: FAMOTIDINE 20 MG TAB PO SCH (21:45)
[2016-12-22] VITALS (13 sets, daily range): BP systolic 96–114; BP diastolic 49–63; PULSE 98–113; RESP 18–19
[2016-12-22] MEDS: ALBUTEROL/IPRATROPIUM (NEB) 3 ML AMP HHN SCH ×6 (01:53→22:15)
[2016-12-22] MEDS: LEVOTHYROXINE 100 MCG TAB PO SCH (05:30)
[2016-12-22] MEDS: FUROSEMIDE 40 MG INJ IV SCH (05:30)
[2016-12-22 08:19] LABS: ADD SCAN DIFF NO
[2016-12-22 08:26] LABS: BASOPHIL # 0.1 10^3/ul (0.0-0.1); BASOPHILS % 1.4 % (0.0-2.0); EOSINOPHILS # 0.2 10^3/ul (0.0-0.5); EOSINOPHILS % 3.6 % (0.0-7.0); HEMATOCRIT 28.6 % (37.0-47.0); HEMOGLOBIN 8.8 g/dl (12.0-16.0); LYMPHOCYTES # 0.7 10^3/ul (0.8-2.9); MEAN CORPUSCULAR HEMOGLOBIN 23.6 pg (29.0-33.0); MEAN CORPUSCULAR HGB CONC 30.8 g/dl (32.0-37.0); MEAN CORPUSCULAR VOLUME 76.7 fl (82.0-101.0); MEAN PLATELET VOLUME 8.9 fl (7.4-10.4); MONOCYTE # 0.5 10^3/ul (0.3-0.9); MONOCYTES % 9.4 % (0.0-11.0); NEUTROPHIL # 4.1 10^3/ul (1.6-7.5); NEUTROPHILS % 72.1 % (39.0-77.0); PLATELET COUNT 585 10^3/UL (140-415); RED BLOOD COUNT 3.73 10^6/ul (4.20-5.40); RED CELL DISTRIBUTION WIDTH 16.1 % (11.5-14.5); WHITE BLOOD COUNT 5.6 10^3/ul (4.8-10.8)
[2016-12-22] MEDS: ENOXAPARIN 100 MG/ML SYG SC SCH ×2 (09:00→21:18)
[2016-12-22 09:35] LABS: CALCIUM 8.6 mg/dl (8.4-10.2); CREATININE 0.54 mg/dl (0.44-1.00)
[2016-12-22] MEDS: SODIUM CHLORIDE 1 GM TAB PO SCH ×3 (09:39→21:03)
[2016-12-22] MEDS: VALACYCLOVIR 500 MG TAB PO SCH ×3 (09:40→21:03)
[2016-12-22] MEDS: FAMOTIDINE 20 MG TAB PO SCH ×2 (09:40→21:03)
[2016-12-22 09:41] LABS: POTASSIUM 2.8 mmol/L (3.5-5.1)
[2016-12-22 10:11] LABS: INR 0.96; PARTIAL THROMBOPLASTIN TIME 28.3 Sec (25.0-35.0); PROTIME 12.8 Sec (12.2-14.2)
[2016-12-22] MEDS ORDERED: POTASSIUM CHLORIDE (SR) 20 MEQ TAB PO STA (11:42)
--- NOTE | 2016-12-22 11:47 | CONS ---
Date/Time of Note Date/Time of Note DATE: 12/22/16 TIME: 11:45 Assessment/Plan Assessment/Plan Additional Assessment/Plan Assessment and recommendations; next 1. Patient admitted with shortness of breath which was fairly recent in onset findings on CT imaging of the chest are very suggestive of multi lobar involvement from pneumonia. Findings are not suggestive of metastatic breast cancer. 2. Remote history of right breast cancer. 3. Right subclavian vein DVT. Continue current treatment. Add cefepime 1 g IV every 12 hours. Continue Levaquin. Will obtain follow-up chest x-ray in 48 hours. Consultation Date/Type/Reason Admit Date/Time Dec 18, 2016 at 18:40 Initial Consult Date Type of Consultation: Pulm 24 HR Interval Summary Free Text/Dictation Patient condition is stable. She reports decreased shortness of breath. Denies any chest pain, fever chills. Denies any nausea vomiting. General exam; middle-aged woman, awake alert currently in no distress. Exam/Review of Systems Vital Signs Vitals Vital Signs Date Time Temp Pulse Resp B/P Pulse Ox O2 Delivery O2 Flow Rate FiO2 12/22/16 11:01 97.8 104 19 107/55 96 12/22/16 08:33 3.0 12/22/16 08:33 Nasal Cannula 12/18/16 18:03 100 Intake and Output 12/21/16 12/21/16 12/22/16 15:00 23:00 07:00 Intake Total 600 ml 400 ml Balance 600 ml 400 ml Exam HEENT examined; supple neck, no JVD. No lymphadenopathy. Midline trachea. No thyromegaly. Patient has fair dentition. Pupils are midsize and reactive to light bilaterally. Chest examination; clear to auscultation. S1-S2 audible, no murmurs. Regular rhythm. Abdomen examination; soft, no organomegaly. Bowel sounds audible. Nontender. Extremity exam is; there is 2+ pitting edema involving right upper extremity. Pulses 1+ bilaterally. 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 Results Result Diagram: 12/22/16 0745 12/22/16 0745 Results 24 hrs Laboratory Tests Test 12/21/16 20:00 12/22/16 07:45 12/22/16 09:17 Blood Gas Specimen Source Blood arterial Arterial Blood Date Drawn 12/21/2016 8:30:53 PM Arterial Blood pH (Temp corrected) 7.448 Arterial Blood pCO2 (Temp correct) 38.7 Arterial Blood pO2 (Temp corrected) 95.5 Arterial Blood HCO3 26.2 H Arterial Blood Base Excess 2.1 Arterial Blood Oxygen Saturation 96.8 Adolfo Test N/A Arterial Blood Gas Puncture Site LB Arterial Blood Carboxyhemoglobin 0.2 Arterial Blood Methemoglobin 0.3 Blood Gas A-a O2 Differential 72.9 H Oxyhemoglobin Percent 96.3 Total Hemoglobin 9.7 L Blood Gas Temperature 37.0 Blood Gas Modality NASAL CANNULA FiO2 30.0 Blood Gas Notified Whom UP Blood Gas Notified Time 12/21/2016 8:40:36 PM White Blood Count 5.6 Red Blood Count 3.73 L Hemoglobin 8.8 L Hematocrit 28.6 L Mean Corpuscular Volume 76.7 L Mean Corpuscular Hemoglobin 23.6 L Mean Corpuscular Hemoglobin Concent 30.8 L Red Cell Distribution Width 16.1 H Platelet Count 585 H Mean Platelet Volume 8.9 Neutrophils % 72.1 Lymphocytes % 13.0 L Monocytes % 9.4 Eosinophils % 3.6 Basophils % 1.4 Nucleated Red Blood Cells % 0.0 Neutrophils # 4.1 Lymphocytes # 0.7 L Monocytes # 0.5 Eosinophils # 0.2 Basophils # 0.1 Nucleated Red Blood Cells # 0.0 Sodium Level 135 Potassium Level 2.8 *L Chloride Level 98 Carbon Dioxide Level 29 Anion Gap 11 Blood Urea Nitrogen 14 Creatinine 0.54 Glucose Level 104 Calcium Level 8.6 Prothrombin Time 12.8 Prothrombin Time Ratio 1.0 INR International Normalized Ratio 0.96 Activated Partial Thromboplast Time 28.3 Medications Medications Current Medications Ondansetron HCl (Zofran Inj) 4 mg Q6H PRN IV NAUSEA AND/OR VOMITING Last administered on 12/21/16t 06:07; Admin Dose 4 MG; Start 12/18/16 at 19:30 Acetaminophen (Tylenol Tab) 650 mg Q6H PRN PO PAIN LEVEL 1-3 OR FEVER; Start at 19:30 Acetaminophen/ Hydrocodone Bitart ([place] (5/325)) 1 tab Q6H PRN PO MODERATE PAIN LEVEL 4-6; Start 12/18/16 at 19:30 Morphine Sulfate (morphine) 2 mg Q4H PRN IV SEVERE PAIN LEVEL 7-10; Start at 19:30 Docusate Sodium (Colace) 100 mg Q12H PRN PO CONSTIPATION; Start 12/18/16 at 19: 30 Magnesium Hydroxide (Milk Of Mag) 30 ml DAILY PRN PO CONSTIPATION; Start at 19:30 Sodium Biphosphate/ Sodium Phosphate (Fleet Enema) 133 ml DAILY PRN [place] CONSTIPATION; Start 12/18/16 at 19:30 Lorazepam 0.5 mg 0.5 mg Q6H PRN IV ANXIETY; Start 12/18/16 at 19:30 Levofloxacin/ Dextrose (Levaquin 750 Mg/ D5W 150 ml (Pmx)) 150 ml @ 100 mls/hr Q24H IVPB Last administered on 12/21/16 21:44; Admin Dose 100 MLS/HR; Start at 21:00 Hydralazine HCl (Apresoline) 10 mg Q6H PRN IV ELEVATED BLOOD PRESSURE; Start at 19:30 Nitroglycerin (Nitroglycerin (Sl Tab) 0.4 Mg) 1 tab Q5M PRN SL ANGINA; Start at 19:30 Sodium Chloride (Nacl) 2 gm TID PO Last administered on 12/22/16 09:39; Admin Dose 2 GM; Start 12/18/16 at 21:00 Valacyclovir HCl (Valtrex) 1,000 mg TID PO Last administered on 12/22/16 09:40 ; Admin Dose 1,000 MG; Start 12/18/16 at 21:00 Diphenhydramine HCl (Benadryl) 25 mg Q6H PRN PO ITCHING Last administered on 00:41; Admin Dose 25 MG; Start 12/18/16 at 20:00 Enoxaparin Sodium (Lovenox) 55 mg Q12 SC Last administered on 12/21/16 21:49; Admin Dose 55 MG; Start 12/19/16 at 18:00 Furosemide (Lasix) 40 mg DAILY@06 IV Last administered on 12/22/16 05:30; Admin Dose 40 MG; Start 12/21/16 at 06:00 Zolpidem Tartrate (Ambien) 2.5 mg HS PRN PO INSOMNIA Last administered on 21:45; Admin Dose 2.5 MG; Start 12/20/16 at 13:00 Letrozole (Femara) 2.5 mg DAILY@ PO Last administered on 12/21/16 09:40; Admin Dose 2.5 MG; Start 12/22/16 at 09:00 Phenol (Cepastat Lozenge) 1 lozenge Q1H PRN [place] COUGH; Start 12/21/16 at 14:30 Guaifenesin (Robitussin Liquid Cup) 200 mg Q4H PRN PO COUGH; Start 12/21/16 at 14:30 Famotidine (Pepcid) 20 mg Q12 PO Last administered on 12/22/16 09:40; Admin Dose 20 MG; Start 12/21/16 at 21:00 PINO PRETTY 12, 2017 11:47
[2016-12-22] MEDS ORDERED: POTASSIUM CHLORIDE 250 ML IVPB ONE (12:00)
--- NOTE | 2016-12-22 15:58 | PN ---
Date/Time of Note Date/Time of Note DATE: 12/22/16 TIME: 15:49 Assessment/Plan VTE Prophylaxis VTE Prophylaxis Intervention: SCD's Lines/Catheters IV Catheter Type (from [facility]): Saline Lock Urinary Cath still in place: No Assessment/Plan Chief Complaint/Hosp Course ASSESSMENT AND PLAN: 1. Shortness of breath. Likely secondary to congestive heart failure exacerbation - slowly improving There are no signs of any pleural effusions. Follow-up ECHO resolved. Appreciate pulm rec's. CT chest results see below, concerns for mass in lung as well. - keep the head of the bed greater than 30 degrees. - morphine, oxygen, nitroglycerin p.r.n, Lasix, DuoNebs stuart now, and monitor oxygen levels as well. - Monitor ins and outs as well. - based on CT chest findings and pulm rec's, no CT guided biopsy indicated as per interventional radiologist due to the procedure was just recently done at [facility] 2. Left breast redness, again unclear if this is shingles. She has some itchiness as well - p.r.n. Benadryl, - continue valacyclovir 1000 mg t.i.d. for possible shingles treatment. - Monitor for symptoms. Again there is no crusting noted. 3. History of breast cancer - pt tx with rad's in the past, on PO chemo now. Appreciate Heme/Onc rec's. - f/u CT chest (pending) - f/u pulm and Hematology/Oncology rec's - Continue her home chemotherapy medicine for now. 5. Gastritis - PPI, that will be for gastrointestinal prophylaxis as well. 6. Hypothyroidism. Continue levothyroxine 7. + DVT found in RUE - as well, on anticoagulation now - LMWH BID Problems: Subjective 24 Hr Interval Summary Free Text/Dictation Patient continues to complain of having shortness of breath Anterior thoracic discomfort Right upper extremity edema and swelling Minimal p.o. intake Exam/Review of Systems Vital Signs Vitals Vital Signs Date Time Temp Pulse Resp B/P Pulse Ox O2 Delivery O2 Flow Rate FiO2 12/22/16 13:10 92 18 97 Nasal Cannula 3.0 12/22/16 11:01 97.8 107/55 12/18/16 18:03 100 Intake and Output 12/21/16 12/21/16 12/22/16 14:59 22:59 06:59 Intake Total 600 ml 400 ml Balance 600 ml 400 ml Exam General: The patient is well-developed, Not in acute distress. HEENT: Atraumatic, normocephalic. The pupils are equal and round . Neck: Supple Chest: Normal Lungs: Decreased breath sounds bilaterally, positive crackles Heart: Normal S1-S2, tachycardic Abdomen: Soft , nontender, nondistended , bowel sounds are present. Extremities: Right upper extremity edema and swelling, no edema no cyanosis Neurologic: Normal mental status,The patient is awake, alert and oriented . Results Result Diagram: 12/22/16 0745 12/22/16 0745 Results 24 hrs Laboratory Tests Test 12/21/16 20:00 12/22/16 07:45 12/22/16 09:17 Blood Gas Specimen Source Blood arterial Arterial Blood Date Drawn 12/21/2016 8:30:53 PM Arterial Blood pH (Temp corrected) 7.448 Arterial Blood pCO2 (Temp correct) 38.7 Arterial Blood pO2 (Temp corrected) 95.5 Arterial Blood HCO3 26.2 H Arterial Blood Base Excess 2.1 Arterial Blood Oxygen Saturation 96.8 Adolfo Test N/A Arterial Blood Gas Puncture Site LB Arterial Blood Carboxyhemoglobin 0.2 Arterial Blood Methemoglobin 0.3 Blood Gas A-a O2 Differential 72.9 H Oxyhemoglobin Percent 96.3 Total Hemoglobin 9.7 L Blood Gas Temperature 37.0 Blood Gas Modality NASAL CANNULA FiO2 30.0 Blood Gas Notified Whom UP Blood Gas Notified Time 12/21/2016 8:40:36 PM White Blood Count 5.6 Red Blood Count 3.73 L Hemoglobin 8.8 L Hematocrit 28.6 L Mean Corpuscular Volume 76.7 L Mean Corpuscular Hemoglobin 23.6 L Mean Corpuscular Hemoglobin Concent 30.8 L Red Cell Distribution Width 16.1 H Platelet Count 585 H Mean Platelet Volume 8.9 Neutrophils % 72.1 Lymphocytes % 13.0 L Monocytes % 9.4 Eosinophils % 3.6 Basophils % 1.4 Nucleated Red Blood Cells % 0.0 Neutrophils # 4.1 Lymphocytes # 0.7 L Monocytes # 0.5 Eosinophils # 0.2 Basophils # 0.1 Nucleated Red Blood Cells # 0.0 Sodium Level 135 Potassium Level 2.8 *L Chloride Level 98 Carbon Dioxide Level 29 Anion Gap 11 Blood Urea Nitrogen 14 Creatinine 0.54 Glucose Level 104 Calcium Level 8.6 Prothrombin Time 12.8 Prothrombin Time Ratio 1.0 INR International Normalized Ratio 0.96 Activated Partial Thromboplast Time 28.3 Medications Medications Current Medications Ondansetron HCl (Zofran Inj) 4 mg Q6H PRN IV NAUSEA AND/OR VOMITING Last administered on 12/21/16 06:07; Admin Dose 4 MG; Start 12/18/16 at 19:30 Acetaminophen (Tylenol Tab) 650 mg Q6H PRN PO PAIN LEVEL 1-3 OR FEVER; Start at 19:30 Acetaminophen/ Hydrocodone Bitart ([place] (5/325)) 1 tab Q6H PRN PO MODERATE PAIN LEVEL 4-6; Start 12/18/16 at 19:30 Morphine Sulfate (morphine) 2 mg Q4H PRN IV SEVERE PAIN LEVEL 7-10; Start at 19:30 Docusate Sodium (Colace) 100 mg Q12H PRN PO CONSTIPATION; Start 12/18/16 at 19: 30 Magnesium Hydroxide (Milk Of Mag) 30 ml DAILY PRN PO CONSTIPATION; Start at 19:30 Sodium Biphosphate/ Sodium Phosphate (Fleet Enema) 133 ml DAILY PRN [place] CONSTIPATION; Start 12/18/16 at 19:30 Lorazepam 0.5 mg 0.5 mg Q6H PRN IV ANXIETY; Start 12/18/16 at 19:30 Levofloxacin/ Dextrose (Levaquin 750 Mg/ D5W 150 ml (Pmx)) 150 ml @ 100 mls/hr Q24H IVPB Last administered on 12/21/16 21:44; Admin Dose 100 MLS/HR; Start at 21:00 Hydralazine HCl (Apresoline) 10 mg Q6H PRN IV ELEVATED BLOOD PRESSURE; Start at 19:30 Nitroglycerin (Nitroglycerin (Sl Tab) 0.4 Mg) 1 tab Q5M PRN SL ANGINA; Start at 19:30 Sodium Chloride (Nacl) 2 gm TID PO Last administered on 12/22/16 12:46; Admin Dose 2 GM; Start 12/18/16 at 21:00 Valacyclovir HCl (Valtrex) 1,000 mg TID PO Last administered on 12/22/16 12:46 ; Admin Dose 1,000 MG; Start 12/18/16 at 21:00 Diphenhydramine HCl (Benadryl) 25 mg Q6H PRN PO ITCHING Last administered on 00:41; Admin Dose 25 MG; Start 12/18/16 at 20:00 Enoxaparin Sodium (Lovenox) 55 mg Q12 SC Last administered on 12/21/16 21:49; Admin Dose 55 MG; Start 12/19/16 at 18:00 Furosemide (Lasix) 40 mg DAILY@06 IV Last administered on 12/22/16 05:30; Admin Dose 40 MG; Start 12/21/16 at 06:00 Zolpidem Tartrate (Ambien) 2.5 mg HS PRN PO INSOMNIA Last administered on 21:45; Admin Dose 2.5 MG; Start 12/20/16 at 13:00 Letrozole (Femara) 2.5 mg DAILY@09 PO Last administered on 12/21/16 09:40; Admin Dose 2.5 MG; Start 12/22/16 at 09:00 Phenol (Cepastat Lozenge) 1 lozenge Q1H PRN MT COUGH; Start 12/21/16 at 14:30 Guaifenesin (Robitussin Liquid Cup) 200 mg Q4H PRN PO COUGH; Start 12/21/16 at 14:30 Famotidine 20 mg 20 mg Q12 PO Last administered on 12/22/16 09:40; Admin Dose 20 MG; Start 12/21/16 at 21:00 Cefepime HCl (Maxipime 1gm/50 ml (Pmx)) 50 ml @ 100 mls/hr Q12 IVPB ; Start 06/28 at 12:00 Simethicone 80 mg 80 mg Q8 PO Last administered on 12/22/16 12:55; Admin Dose 80 MG; Start 12/22/16 at 12:35 Potassium Chloride (KCl 40 MEQ/250 ML NS) 250 ml @ 62.5 mls/hr ONCE ONCE IVPB Last administered on 12/22/16 12:47; Admin Dose 62.5 MLS/HR; Start 12/22/16 at 12:00; Stop 12/22/16 at 15:59 SUKUMAR LOPEZ MD Dec 22, 2016 15:58
[2016-12-22] MEDS: CEFEPIME 1GM/50 ML (PMX) 50 ML IVPB SCH ×2 (17:33→21:02)
[2016-12-22] MEDS ORDERED: IOHEXOL 14.3 MG(I)/ML (ADULT) BTL PO ONE (18:30)
--- NOTE | 2016-12-22 18:48 | PN ---
DATE: 12/22/2016 SUBJECTIVE: Patient is still experiencing shortness of breath. She states that she cannot be off t he oxygen for any period of time. Patient does not complain of any chest pain. She has had no cough or hemoptysis. OBJECTIVE GENERAL: The patient is a well-developed female who was obviously short of breath. VITAL SIGNS: Temperature 97.5, pulse 110 per minute and regular, respirations 24, blood pressure 10 3/56, pulse oximetry 95% on 3 liters of oxygen by nasal cannula. SKIN: Pale but no ecchymosis, no petechiae or rashes. HEENT: Normocephalic. No evidence of trauma. Pupils equal, round, react to light and accommodatio n. Sclerae are nonicteric. Oral mucosa is moist without lesions. Tongue is well papillated. Ther e is no gingival hyperplasia, no hypertrophy of Waldeyer ring, no mucosa telangiectasias. There is nasal oxygen in place. NECK: Supple. There is no jugular venous distention or thyroid enlargement. CHEST: Decreased breath sounds on the left side. There are no rhonchi, wheezes, rales or rubs. Th ere is a prominent venous pattern on the right anterior chest wall. The right breast shows evidence of previous lumpectomy, radiation therapy. There is some erythema. Left breast without masses, ski n retraction or nipple inversion. ABDOMEN: Soft, no masses, no ascites. Bowel sounds are active. EXTREMITIES: Good range of motion. No clubbing or cyanosis. There is 2 to 3+ lymphedema of the en tire right arm and hand. No palpable cords. There are no axillary masses. NEUROLOGIC: Normal. The patient has had a venous ultrasound of the upper extremities which does show an occlusive DVT in the right subclavian vein. A CT scan of the chest demonstrates a mass-like consolidation in the me dial left upper lobe and lingula. Also some patchy consolidation in the left lower lobe. There are small bilateral pleural effusions, left greater than right. There is a small pericardial effusion. There is mild bilateral hydronephrosis. LABORATORY: Sodium 135, potassium 2.8, creatinine 0.54, BUN 14, calcium is 8.5, CEA is 0.9. CA 27- 29 is pending. Iron 22, binding capacity 372, percent saturation 6% and ferritin is 16.1. ASSESSMENT: 1. Metastatic breast carcinoma. 2. Shortness of breath with left upper lobe consolidations, possibly secondary to #1. 3. Rule out pneumonia, rule out a second malignancy. 4. Occlusion of the right subclavian vein. 5. Iron deficiency anemia. PLAN: We will contact [facility] to obtain the actual pathology report. The patient appar ently on further discussions had a pericardiocentesis and it may be this on which the diagnosis of m etastatic breast carcinoma was made. The pattern of pulmonary involvement certainly is not the usua l seen with metastatic breast carcinoma. As noted, the patient is also iron deficient. The stools for occult blood are positive. We will start the patient on iron supplementation. Also, the subcla vian vein thrombosis is chronic in nature. It is not clear that anticoagulation at this time would be of any benefit. Dictated By: ERUM HENDERSON MD, SR/NTS Conf#: [id number] DID#: [id number]
--- NOTE | 2016-12-22 18:50 | PN ---
DATE: 12/22/2016 Addendum TYPE OF CONSULTATION: Medical oncology progress note. The patient was noted to have bilateral hydronephrosis on CT scan of the chest. We will therefore o rder CT scan of the abdomen and pelvis with IV contrast in order to determine the etiology of this h ydronephrosis. Dictated By: ERUM HENDERSON MD SR/NTS Conf#: [id number] DID#: [id number]
[2016-12-22] MEDS: LEVOFLOXACIN 750MG/D5W (PMX) 150 ML IVPB SCH (21:02)
[2016-12-22] MEDS: SOD FERRIC GLUC COMPLX 125 MG in SOD CHLORIDE 0.9% 100 ML IVPB SCH (21:02)
[2016-12-23] VITALS (11 sets, daily range): BP systolic 93–123; BP diastolic 45–60; PULSE 108–130; RESP 18–20
[2016-12-23] MEDS: ALBUTEROL/IPRATROPIUM (NEB) 3 ML AMP HHN SCH ×6 (01:41→20:25)
[2016-12-23] MEDS: LEVOTHYROXINE 100 MCG TAB PO SCH (06:23)
[2016-12-23] MEDS: FUROSEMIDE 40 MG INJ IV SCH (06:23)
[2016-12-23] MEDS: SODIUM CHLORIDE 1 GM TAB PO SCH ×3 (08:40→21:14)
[2016-12-23] MEDS: CEFEPIME 1GM/50 ML (PMX) 50 ML IVPB SCH ×2 (08:40→21:14)
[2016-12-23] MEDS: FAMOTIDINE 20 MG TAB PO SCH ×2 (08:40→21:14)
[2016-12-23] MEDS: VALACYCLOVIR 500 MG TAB PO SCH ×3 (08:40→21:14)
[2016-12-23] MEDS: ENOXAPARIN 100 MG/ML SYG SC SCH ×2 (08:49→21:40)
[2016-12-23] MEDS: LETROZOLE 2.5 MG TAB PO SCH (09:31)
[2016-12-23 10:28] LABS: ADD SCAN DIFF NO
[2016-12-23 10:40] LABS: BASOPHIL # 0.1 10^3/ul (0.0-0.1); BASOPHILS % 1.2 % (0.0-2.0); EOSINOPHILS # 0.1 10^3/ul (0.0-0.5); EOSINOPHILS % 1.3 % (0.0-7.0); HEMATOCRIT 30.8 % (37.0-47.0); HEMOGLOBIN 9.2 g/dl (12.0-16.0); LYMPHOCYTES # 0.7 10^3/ul (0.8-2.9); LYMPHOCYTES % 11.2 % (15.0-51.0); MEAN CORPUSCULAR HEMOGLOBIN 22.8 pg (29.0-33.0); MEAN CORPUSCULAR HGB CONC 29.9 g/dl (32.0-37.0); MEAN CORPUSCULAR VOLUME 76.2 fl (82.0-101.0); MEAN PLATELET VOLUME 10.6 fl (7.4-10.4); MONOCYTE # 0.6 10^3/ul (0.3-0.9); MONOCYTES % 10.1 % (0.0-11.0); NEUTROPHIL # 4.6 10^3/ul (1.6-7.5); NEUTROPHILS % 75.5 % (39.0-77.0); PLATELET COUNT 497 10^3/UL (140-415); RED BLOOD COUNT 4.04 10^6/ul (4.20-5.40); RED CELL DISTRIBUTION WIDTH 16.5 % (11.5-14.5); WHITE BLOOD COUNT 6.1 10^3/ul (4.8-10.8)
[2016-12-23 11:13] LABS: CALCIUM 8.8 mg/dl (8.4-10.2); CREATININE 0.49 mg/dl (0.44-1.00); POTASSIUM 3.5 mmol/L (3.5-5.1)
--- NOTE | 2016-12-23 12:27 | PN ---
Date/Time of Note Date/Time of Note DATE: 12/23/16 TIME: 12:24 Assessment/Plan VTE Prophylaxis VTE Prophylaxis Intervention: other Lines/Catheters [facility] Saline Lock Urinary Cath still in place: No Assessment/Plan Chief Complaint/Hosp Course ASSESSMENT AND PLAN: 1. Shortness of breath. Likely secondary to congestive heart failure exacerbation - slowly improving There are no signs of any pleural effusions. Appreciate pulm rec's. CT chest results see below, concerns for mass in lung as well. - keep the head of the bed greater than 30 degrees. - morphine, oxygen, nitroglycerin p.r.n, Lasix, DuoNebs stuart now, and monitor oxygen levels as well. - Monitor ins and outs as well. - based on CT chest findings and pulm rec's, no CT guided biopsy indicated as per interventional radiologist due to the procedure was just recently done at [facility] 2. Left breast redness, again unclear if this is shingles. She has some itchiness as well - p.r.n. Benadryl, - continue valacyclovir 1000 mg t.i.d. for possible shingles treatment. - Monitor for symptoms. Again there is no crusting noted. 3. History of breast cancer - pt tx with rad's in the past, on PO chemo now. Appreciate Heme/Onc rec's. - f/u CT chest (pending) - f/u pulm and Hematology/Oncology rec's - Continue her home chemotherapy medicine for now. 4. multi lobar involvement from pneumonia, continue cefepime, pulmonology has been consulted 5. Gastritis - PPI, that will be for gastrointestinal prophylaxis as well. 6. Hypothyroidism. Continue levothyroxine 7. + DVT found in RUE - as well, on anticoagulation now - LMWH BID Problems: Subjective 24 Hr Interval Summary Free Text/Dictation Continues to complain of having itchiness Minimal p.o. intake Right upper extremity discomfort secondary to swelling Exam/Review of Systems Vital Signs Vitals Vital Signs Date Time Temp Pulse Resp B/P Pulse Ox O2 Delivery O2 Flow Rate FiO2 12/23/16 12:00 117 12/23/16 11:14 98.0 18 96/55 93 12/23/16 08:24 Nasal Cannula 3.0 Intake and Output 12/22/16 12/22/16 12/23/16 15:00 23:00 07:00 Intake Total 400 ml Balance 400 ml Exam General: The patient is well-developed, Not in acute distress. HEENT: Atraumatic, normocephalic. The pupils are equal and round . Neck: Supple Chest: Normal Lungs: Decreased breath sounds bilateral lower lung field with positive crackles Heart: Normal S1-S2, Regular rhythm and rate. Abdomen: Soft , nontender, nondistended , bowel sounds are present. Extremities: Right upper extremity edema no cyanosis Neurologic: Normal mental status,The patient is awake, alert Results Result Diagram: 12/23/16 0944 12/23/16 0500 Results 24 hrs Laboratory Tests Test 12/23/16 05:00 12/23/16 09:44 Sodium Level 137 Potassium Level 3.5 Chloride Level 103 Carbon Dioxide Level 26 Anion Gap 12 Blood Urea Nitrogen 12 Creatinine 0.49 Glucose Level 121 Calcium Level 8.8 White Blood Count 6.1 Red Blood Count 4.04 L Hemoglobin 9.2 L Hematocrit 30.8 L Mean Corpuscular Volume 76.2 L Mean Corpuscular Hemoglobin 22.8 L Mean Corpuscular Hemoglobin Concent 29.9 L Red Cell Distribution Width 16.5 H Platelet Count 497 H Mean Platelet Volume 10.6 H Neutrophils % 75.5 Lymphocytes % 11.2 L Monocytes % 10.1 Eosinophils % 1.3 Basophils % 1.2 Nucleated Red Blood Cells % 0.0 Neutrophils # 4.6 Lymphocytes # 0.7 L Monocytes # 0.6 Eosinophils # 0.1 Basophils # 0.1 Nucleated Red Blood Cells # 0.0 Medications Medications Current Medications Ondansetron HCl (Zofran Inj) 4 mg Q6H PRN IV NAUSEA AND/OR VOMITING Last administered on 12/21/16t 06:07; Admin Dose 4 MG; Start 12/18/16 at 19:30 Acetaminophen (Tylenol Tab) 650 mg Q6H PRN PO PAIN LEVEL 1-3 OR FEVER; Start at 19:30 Acetaminophen/ Hydrocodone Bitart ([place] (5/325)) 1 tab Q6H PRN PO MODERATE PAIN LEVEL 4-6; Start 12/18/16 at 19:30 Morphine Sulfate (morphine) 2 mg Q4H PRN IV SEVERE PAIN LEVEL 7-10; Start at 19:30 Docusate Sodium (Colace) 100 mg Q12H PRN PO CONSTIPATION; Start 12/18/16 at 19: 30 Magnesium Hydroxide (Milk Of Mag) 30 ml DAILY PRN PO CONSTIPATION; Start at 19:30 Sodium Biphosphate/ Sodium Phosphate (Fleet Enema) 133 ml DAILY PRN [place] CONSTIPATION; Start 12/18/16 at 19:30 Lorazepam 0.5 mg 0.5 mg Q6H PRN IV ANXIETY; Start 12/18/16 at 19:30 Levofloxacin/ Dextrose (Levaquin 750 Mg/ D5W 150 ml (Pmx)) 150 ml @ 100 mls/hr Q24H IVPB Last administered on 12/22/16 21:02; Admin Dose 100 MLS/HR; Start at 21:00 Hydralazine HCl (Apresoline) 10 mg Q6H PRN IV ELEVATED BLOOD PRESSURE; Start at 19:30 Nitroglycerin (Nitroglycerin (Sl Tab) 0.4 Mg) 1 tab Q5M PRN SL ANGINA; Start at 19:30 Sodium Chloride (Nacl) 2 gm TID PO Last administered on 12/23/16 08:40; Admin Dose 2 GM; Start 12/18/16 at 21:00 Valacyclovir HCl (Valtrex) 1,000 mg TID PO Last administered on 12/23/16 08:40 ; Admin Dose 1,000 MG; Start 12/18/16 at 21:00 Diphenhydramine HCl (Benadryl) 25 mg Q6H PRN PO ITCHING Last administered on 00:41; Admin Dose 25 MG; Start 12/18/16 at 20:00 Enoxaparin Sodium (Lovenox) 55 mg Q12 SC Last administered on 12/23/16 08:49; Admin Dose 55 MG; Start 12/19/16 at 18:00 Furosemide (Lasix) 40 mg DAILY@06 IV Last administered on 12/23/16 06:23; Admin Dose 40 MG; Start 12/21/16 at 06:00 Zolpidem Tartrate (Ambien) 2.5 mg HS PRN PO INSOMNIA Last administered on 21:45; Admin Dose 2.5 MG; Start 12/20/16 at 13:00 Letrozole (Femara) 2.5 mg DAILY@09 PO Last administered on 12/23/16 09:31; Admin Dose 2.5 MG; Start 12/22/16 at 09:00 Phenol (Cepastat Lozenge) 1 lozenge Q1H PRN MT COUGH; Start 12/21/16 at 14:30 Guaifenesin (Robitussin Liquid Cup) 200 mg Q4H PRN PO COUGH; Start 12/21/16 at 14:30 Famotidine 20 mg 20 mg Q12 PO Last administered on 12/23/16 08:40; Admin Dose 20 MG; Start 12/21/16 at 21:00 Cefepime HCl (Maxipime 1gm/50 ml (Pmx)) 50 ml @ 100 mls/hr Q12 IVPB Last administered on 12/23/16 08:40; Admin Dose 100 MLS/HR; Start 12/22/16 at 12:00 Simethicone 80 mg 80 mg Q8 PO Last administered on 12/23/16 06:23; Admin Dose 80 MG; Start 12/22/16 at 12:35 Ferric Sodium Gluconate Complex/ Sodium Chloride (Ferrlecit/NS) 110 ml @ 100 mls/hr Q24H IVPB Last administered on 12/22/16 21:02; Admin Dose 100 MLS/HR; Start 12/22/16 at 20:00; Stop 12/24/16 at 21:05 SUKUMAR LOPEZ MD Dec 23, 2016 12:27
--- NOTE | 2016-12-23 12:46 | CONS ---
Date/Time of Note Date/Time of Note DATE: 12/23/16 TIME: 12:44 Assessment/Plan Assessment/Plan Additional Assessment/Plan Assessment recommendations; 1. Patient admitted with bilateral pneumonia clinically improving. 2. Remote history of breast cancer. 3. Right upper extremity DVT. Continue current treatment. Obtain follow-up chest x-ray in 48 hours. Consultation Date/Type/Reason Admit Date/Time Dec 18, 2016 at 18:40 Type of Consultation: Pulm 24 HR Interval Summary Free Text/Dictation Patient doing fairly well. Complains of very scant cough. Denies any fever chills chest pain or sputum production. General examination; middle-aged woman, awake alert currently in no distress. Exam/Review of Systems Vital Signs Vitals Vital Signs Date Time Temp Pulse Resp B/P Pulse Ox O2 Delivery O2 Flow Rate FiO2 12/23/16 12:00 117 12/23/16 11:14 98.0 18 96/55 93 12/23/16 08:24 Nasal Cannula 3.0 Intake and Output 12/22/16 12/22/16 12/23/16 15:00 23:00 07:00 Intake Total 400 ml Balance 400 ml Exam HEENT examination; supple neck, no JVD. No lymphadenopathy. Midline trachea. No thyromegaly. Pharynx is clear. Patient has fair dentition. Chest examination; clear to ulceration. S1-S2 audible, no murmurs. Regular rhythm. Abdomen examination; soft, nontender. No organomegaly. Bowel sounds audible. Extremity examination; 1+ pitting edema involving right upper extremity. TRANSPORTATION ENGINEER examination; no focal deficit. Results Result Diagram: 12/23/16 0944 12/23/16 0500 Results 24 hrs Laboratory Tests Test 12/23/16 05:00 12/23/16 09:44 Sodium Level 137 Potassium Level 3.5 Chloride Level 103 Carbon Dioxide Level 26 Anion Gap 12 Blood Urea Nitrogen 12 Creatinine 0.49 Glucose Level 121 Calcium Level 8.8 White Blood Count 6.1 Red Blood Count 4.04 L Hemoglobin 9.2 L Hematocrit 30.8 L Mean Corpuscular Volume 76.2 L Mean Corpuscular Hemoglobin 22.8 L Mean Corpuscular Hemoglobin Concent 29.9 L Red Cell Distribution Width 16.5 H Platelet Count 497 H Mean Platelet Volume 10.6 H Neutrophils % 75.5 Lymphocytes % 11.2 L Monocytes % 10.1 Eosinophils % 1.3 Basophils % 1.2 Nucleated Red Blood Cells % 0.0 Neutrophils # 4.6 Lymphocytes # 0.7 L Monocytes # 0.6 Eosinophils # 0.1 Basophils # 0.1 Nucleated Red Blood Cells # 0.0 Medications Medications Current Medications Ondansetron HCl (Zofran Inj) 4 mg Q6H PRN IV NAUSEA AND/OR VOMITING Last administered on 12/21/16 06:07; Admin Dose 4 MG; Start 12/18/16 at 19:30 Acetaminophen (Tylenol Tab) 650 mg Q6H PRN PO PAIN LEVEL 1-3 OR FEVER; Start at 19:30 Acetaminophen/ Hydrocodone Bitart ([place] (5/325)) 1 tab Q6H PRN PO MODERATE PAIN LEVEL 4-6; Start 12/18/16 at 19:30 Morphine Sulfate (morphine) 2 mg Q4H PRN IV SEVERE PAIN LEVEL 7-10; Start at 19:30 Docusate Sodium (Colace) 100 mg Q12H PRN PO CONSTIPATION; Start 12/18/16 at 19: 30 Magnesium Hydroxide (Milk Of Mag) 30 ml DAILY PRN PO CONSTIPATION; Start at 19:30 Sodium Biphosphate/ Sodium Phosphate (Fleet Enema) 133 ml DAILY PRN [place] CONSTIPATION; Start 12/18/16 at 19:30 Lorazepam 0.5 mg 0.5 mg Q6H PRN IV ANXIETY; Start 12/18/16 at 19:30 Levofloxacin/ Dextrose (Levaquin 750 Mg/ D5W 150 ml (Pmx)) 150 ml @ 100 mls/hr Q24H IVPB Last administered on 12/22/16 21:02; Admin Dose 100 MLS/HR; Start at 21:00 Hydralazine HCl (Apresoline) 10 mg Q6H PRN IV ELEVATED BLOOD PRESSURE; Start at 19:30 Nitroglycerin (Nitroglycerin (Sl Tab) 0.4 Mg) 1 tab Q5M PRN SL ANGINA; Start at 19:30 Sodium Chloride (Nacl) 2 gm TID PO Last administered on 12/23/16 12:28; Admin Dose 2 GM; Start 12/18/16 at 21:00 Valacyclovir HCl (Valtrex) 1,000 mg TID PO Last administered on 12/23/16 12:28 ; Admin Dose 1,000 MG; Start 12/18/16 at 21:00 Diphenhydramine HCl (Benadryl) 25 mg Q6H PRN PO ITCHING Last administered on 00:41; Admin Dose 25 MG; Start 12/18/16 at 20:00 Enoxaparin Sodium (Lovenox) 55 mg Q12 SC Last administered on 12/23/16 08:49; Admin Dose 55 MG; Start 12/19/16 at 18:00 Furosemide (Lasix) 40 mg DAILY@06 IV Last administered on 12/23/16 06:23; Admin Dose 40 MG; Start 12/21/16 at 06:00 Zolpidem Tartrate (Ambien) 2.5 mg HS PRN PO INSOMNIA Last administered on 21:45; Admin Dose 2.5 MG; Start 12/20/16 at 13:00 Letrozole (Femara) 2.5 mg DAILY@09 PO Last administered on 12/23/16 09:31; Admin Dose 2.5 MG; Start 12/22/16 at 09:00 Phenol (Cepastat Lozenge) 1 lozenge Q1H PRN MT COUGH; Start 12/21/16 at 14:30 Guaifenesin (Robitussin Liquid Cup) 200 mg Q4H PRN PO COUGH; Start 12/21/16 at 14:30 Famotidine 20 mg 20 mg Q12 PO Last administered on 12/23/16 08:40; Admin Dose 20 MG; Start 12/21/16 at 21:00 Cefepime HCl (Maxipime 1gm/50 ml (Pmx)) 50 ml @ 100 mls/hr Q12 IVPB Last administered on 12/23/16 08:40; Admin Dose 100 MLS/HR; Start 12/22/16 at 12:00 Simethicone 80 mg 80 mg Q8 PO Last administered on 12/23/16 06:23; Admin Dose 80 MG; Start 12/22/16 at 12:35 Ferric Sodium Gluconate Complex/ Sodium Chloride (Ferrlecit/NS) 110 ml @ 100 mls/hr Q24H IVPB Last administered on 6/12/17at 21:02; Admin Dose 100 MLS/HR; Start 12/22/16 at 20:00; Stop 12/24/16 at 21:05 PINO PRETTY Dec 23, 2016 12:46
[2016-12-23] MEDS ORDERED: SOD CHLORIDE 0.9% 100 ML ONE (15:08)
[2016-12-23] MEDS ORDERED: IODIXANOL LOCM 100 ML BTL ONE (15:08)
--- NOTE | 2016-12-23 16:16 | RADRPT ---
PROCEDURE: CT Abdomen and Pelvis with contrast. CLINICAL INDICATION: Flank pain. Metastatic breast cancer. Bilateral hydronephrosis. TECHNIQUE: CT scan of the abdomen and pelvis with contrast was performed on a multi-detector high- resolution CT scanner. The patient was scanned following the uncomplicated intravenous administrati on of 90 cc of Visipaque 320 Coronal and sagittal reformatted images were obtained from the axial s ource images. Images were reviewed on a high-resolution PACS workstation. The total exam CTDI equals 6.38 mGy and the total exam DLP equals 320.82 mGy-cm. One or more of the following dose reduction techniques were used: Automated exposure control. Adjustment of the mA and/or kV according to patient size. Use of iterative reconstruction technique. COMPARISON: CT chest 12/19/2016 FINDINGS: CT abdomen: The lung bases are remarkable for dense consolidation in the left lower lobe, extensive interlobular septal thickening and pleural thickening with small bilateral pleural effusions left greater than r ight. The heart size is normal, without pericardial thickening or effusion. The liver is normal in size and density without focal mass or intrahepatic biliary dilatation. The spleen is normal in size and homogeneous in density. The stomach is partially collapsed, but is ezequiel ssly unremarkable. The pancreas as visualized is normal. The gallbladder is unremarkable. There i s no evidence for biliary dilatation. The adrenal glands are symmetric and normal. The kidneys are symmetrically unremarkable as well. No renal calculus or obstructive uropathy or mass lesion is se en. The aorta is of normal caliber. There is no retroperitoneal lymphadenopathy. The beryl hepatis reg ion is clear. The bowel and mesentery, as visualized, are equally unremarkable. CT pelvis: The small bowel loops situated within the pelvis are unremarkable. There is a large lobulated uteru s with multiple fibroids measures up to 4.5 cm. The pelvic sidewalls and inguinal regions are clear. The sigmoid colon and rectum are remarkable for sigmoid diverticulosis. No mass, lymphadenopathy, or free fluid is seen. No acute inflammation is seen. The bladder is normal. The surrounding osse ous structures are unremarkable. No osteolytic or osteoblastic lesion is detected. IMPRESSION: 1. No hydronephrosis. No urolithiasis. 2. No liver metastasis. 3. Multiple uterine fibroids. 4. Dense consolidation in the left lower lobe, patchy consolidations in the right middle and right lower lobe. Diffuse interlobular septal thickening with mild pleural thickening and pleural effusio ns, not significantly changed. RPTAT: BB .Jessica Gamez MD, Date Time Electronically viewed and signed by .Jessica Gamez MD, on 12/23/2016 16:16 .O/
[2016-12-23] MEDS: ONDANSETRON 4 MG INJ IV PRN (17:04)
[2016-12-23] MEDS ORDERED: LORAZEPAM 0.5 MG TAB PO PRN (17:30)
--- NOTE | 2016-12-23 20:20 | CONS ---
Date/Time of Note Date/Time of Note DATE: 12/23/16 TIME: 19:59 Assessment/Plan Assessment/Plan Additional Assessment/Plan Metastatic breast cancer Respiratory failure Fluid overload Rule out pulmonary metastasis Rule out autoimmune pneumonitis versus lymphangitic tumor Acute pain syndrome Suggest Continue current morphine intravenously Add on intravenous Tylenol scheduled Discontinue Adair Bowel regimen We will discontinue benzodiazepine She may benefit from long-acting opioids from a respiratory standpoint but will hold for now. Consultation Date/Type/Reason Admit Date/Time Dec 18, 2016 at 18:40 Date of Consultation: Dec 23, 2016 Type of Consultation: Palliative Care Hx of Present Illness This is a 56-year-old very pleasant female with a history of breast cancer right side status post RT and p.o. chemotherapy. The entire story is taken from patient's own history and what I have reviewed in her medical record. She presented to emergency room at [facility] with increasing shortness of breath according to medical records congestive heart failure fluid overload. She was treated aggressively and feels less dyspneic at this time CT scan of the chest concerning for lymphangitic tumor, possible overlying pneumonia. She has been seen by pulmonary and hematology oncology consultants. Insofar as her pain she describes primarily anterior chest wall discomfort and low back pain. At home she was only taken ibuprofen not opioids. States she has had this pain for a prolonged period of time she describes it as mild to moderate she has not increased in severity with current intravenous pain medications morphine pain is well controlled. Describes the pain as a thumping on her chest without radiations into her back or flank or abdomen low back pain is described as gnawing type discomfort also without radiation to bilateral lower extremity there is no warning signs clearly described. Difficult to separate her physical functioning associated with her current respiratory problems from pain but in either case she states that she is improved the pain is not affected her mood and sleeping patterns overall functioning. She denies nausea vomiting constipation fatigue drowsiness she does not smoke nor drink she has not been except for frequent renewals or increasing doses of her current pain control medication. Current pain control medications include morphine and Adair. Constitutional: diaphoresis, requiring O2 Respiratory: cough, pain, pleuritic pain, shortness of breath, sputum Cardiovascular: No chest pain, No edema, No lightheadedness, No no complaints, No orthopenea, No other, No palpitations, No paroxysmal nocturnal dyspnea Gastrointestinal: No blood, No constipation, No decreased appetite, No diarrhea , No flatus, No nausea, No no complaints, No other, No pain, No passing stool, No vomiting Musculoskeletal: No back pain, No bone/joint pain, No neck pain, No no complaints, No other, No restricted range of motion, No swelling Neurologic: No confusion, No dizziness, No focal-weakness, No headache, No no complaints, No other, No seizure, No syncope Psychological: nl mood/affect, no complaints Past Medical History Medical History: other (HPI) Past Surgical History Right Breast Mastectomy Past Surgical Hx: other Social History Alcohol Use: none Smoking Status: Current every day smoker Drug Use: none Exam/Review of Systems Vital Signs Vitals Vital Signs Date Time Temp Pulse Resp B/P Pulse Ox O2 Delivery O2 Flow Rate FiO2 12/23/16 16:47 109 22 97 Nasal Cannula 3.0 12/23/16 11:14 98.0 96/55 Intake and Output 12/22/16 12/22/16 12/23/16 15:00 23:00 07:00 Intake Total 400 ml Balance 400 ml Exam Constitutional: oriented Head: atraumatic, normocephalic Eyes: EOMI, PERRL, nl conjunctiva Neck: non-tender, supple Respiratory: congested cough, crackles/rales, wheezing Cardiovascular: regular rate and rhythm Gastrointestinal: non-tender, soft Musculoskeletal: No joint tenderness, No muscle tone, No muscle weakness, No nl extremities to inspection, No nl gait and stance, No other, No range of motion, No spine non-tender, No swelling Neurological: BLUEPRINT PROCESSOR II-XII intact, nl mental status, nl speech, nl strength, No DTR's symmetric, No confused, No focal weakness, No lethargic, No numbness , No other, No reflexes, No unresponsive Results Result Diagram: 12/23/16 0944 12/23/16 0500 Results 24 hrs Laboratory Tests Test 12/23/16 05:00 12/23/16 09:44 Sodium Level 137 Potassium Level 3.5 Chloride Level 103 Carbon Dioxide Level 26 Anion Gap 12 Blood Urea Nitrogen 12 Creatinine 0.49 Glucose Level 121 Calcium Level 8.8 White Blood Count 6.1 Red Blood Count 4.04 L Hemoglobin 9.2 L Hematocrit 30.8 L Mean Corpuscular Volume 76.2 L Mean Corpuscular Hemoglobin 22.8 L Mean Corpuscular Hemoglobin Concent 29.9 L Red Cell Distribution Width 16.5 H Platelet Count 497 H Mean Platelet Volume 10.6 H Neutrophils % 75.5 Lymphocytes % 11.2 L Monocytes % 10.1 Eosinophils % 1.3 Basophils % 1.2 Nucleated Red Blood Cells % 0.0 Neutrophils # 4.6 Lymphocytes # 0.7 L Monocytes # 0.6 Eosinophils # 0.1 Basophils # 0.1 Nucleated Red Blood Cells # 0.0 Medications Medications Current Medications Ondansetron HCl (Zofran Inj) 4 mg Q6H PRN IV NAUSEA AND/OR VOMITING Last administered on 12/23/16 17:04; Admin Dose 4 MG; Start 12/18/16 at 19:30 Acetaminophen (Tylenol Tab) 650 mg Q6H PRN PO PAIN LEVEL 1-3 OR FEVER; Start at 19:30 Acetaminophen/ Hydrocodone Bitart (Adair (5/325)) 1 tab Q6H PRN PO MODERATE PAIN LEVEL 4-6; Start 12/18/16 at 19:30 Morphine Sulfate (morphine) 2 mg Q4H PRN IV SEVERE PAIN LEVEL 7-10; Start at 19:30 Docusate Sodium (Colace) 100 mg Q12H PRN PO CONSTIPATION; Start 12/18/16 at 19: 30 Magnesium Hydroxide (Milk Of Mag) 30 ml DAILY PRN PO CONSTIPATION; Start at 19:30 Sodium Biphosphate/ Sodium Phosphate 133 ml 133 ml DAILY PRN IN CONSTIPATION; Start 12/18/16 at 19:30 Levofloxacin/ Dextrose (Levaquin 750 Mg/ D5W 150 ml (Pmx)) 150 ml @ 100 mls/hr Q24H IVPB Last administered on 12/22/16 21:02; Admin Dose 100 MLS/HR; Start at 21:00 Hydralazine HCl (Apresoline) 10 mg Q6H PRN IV ELEVATED BLOOD PRESSURE; Start at 19:30 Nitroglycerin (Nitroglycerin (Sl Tab) 0.4 Mg) 1 tab Q5M PRN SL ANGINA; Start at 19:30 Sodium Chloride (Nacl) 2 gm TID PO Last administered on 12/23/16 12:28; Admin Dose 2 GM; Start 12/18/16 at 21:00 Valacyclovir HCl (Valtrex) 1,000 mg TID PO Last administered on 12/23/16 12:28 ; Admin Dose 1,000 MG; Start 12/18/16 at 21:00 Diphenhydramine HCl (Benadryl) 25 mg Q6H PRN PO ITCHING Last administered on 00:41; Admin Dose 25 MG; Start 12/18/16 at 20:00 Enoxaparin Sodium (Lovenox) 55 mg Q12 SC Last administered on 12/23/16 08:49; Admin Dose 55 MG; Start 12/19/16 at 18:00 Furosemide (Lasix) 40 mg DAILY@06 IV Last administered on 12/23/16 06:23; Admin Dose 40 MG; Start 12/21/16 at 06:00 Zolpidem Tartrate (Ambien) 2.5 mg HS PRN PO INSOMNIA Last administered on 21:45; Admin Dose 2.5 MG; Start 12/20/16 at 13:00 Letrozole (Femara) 2.5 mg DAILY@09 PO Last administered on 12/23/16 09:31; Admin Dose 2.5 MG; Start 12/22/16 at 09:00 Phenol (Cepastat Lozenge) 1 lozenge Q1H PRN MT COUGH; Start 12/21/16 at 14:30 Guaifenesin (Robitussin Liquid Cup) 200 mg Q4H PRN PO COUGH; Start 12/21/16 at 14:30 Famotidine 20 mg 20 mg Q12 PO Last administered on 12/23/16 08:40; Admin Dose 20 MG; Start 12/21/16 at 21:00 Cefepime HCl (Maxipime 1gm/50 ml (Pmx)) 50 ml @ 100 mls/hr Q12 IVPB Last administered on 12/23/16 08:40; Admin Dose 100 MLS/HR; Start 12/22/16 at 12:00 Simethicone 80 mg 80 mg Q8 PO Last administered on 12/23/16 16:19; Admin Dose 80 MG; Start 12/22/16 at 12:35 Ferric Sodium Gluconate Complex/ Sodium Chloride (Ferrlecit/NS) 110 ml @ 100 mls/hr Q24H IVPB Last administered on 12/22/16t 21:02; Admin Dose 100 MLS/HR; Start 12/22/16 at 20:00; Stop 12/24/16 at 21:05 Lorazepam (Ativan) 0.5 mg Q6H PRN PO ANXIETY; Start 12/23/16 at 17:30 JOANIE JAQUEZ Dec 23, 2016 20:11
--- NOTE | 2016-12-23 20:44 | PN ---
DATE: 12/23/2016 SUBJECTIVE: The patient continues to have complaints of shortness of breath. She has dyspnea with minimal exertion. The patient does not complain of cough or hemoptysis. She has had no chest pain. OBJECTIVE: GENERAL: The patient is a well-developed, well-nourished female who is dyspneic with minimal exerti on. VITAL SIGNS: Temperature 98, pulse 110 per minute, respirations 22, blood pressure 96/55, pulse oxi metry 97% on 3 liters of oxygen via nasal cannula. SKIN: Pale. No ecchymosis, petechiae, or rashes. HEENT: Normocephalic. No evidence of trauma. Pupils equal, round, react to light and accommodatio n. Sclerae nonicteric. Oral mucosa is moist without lesions. Tongue is well papillated. No gingi fernando hyperplasia. Mucosa is pale. There is nasal oxygen in place. NECK: Supple. No jugular venous distention or thyroid enlargement. CHEST: Decreased breath sounds on the left. There is dullness to percussion. No rhonchi, wheezes, rales, or rubs. There is a prominent dilated venous pattern in the right anterior chest wall. The re is evidence of the previous lumpectomy and radiation therapy to the right breast. HEART: Sinus tachycardia. No S3, S4, or murmurs. ABDOMEN: Soft. No masses, no ascites. Bowel sounds are active. EXTREMITIES: Good range of motion. No clubbing or cyanosis. There is 2 to 3+ lymphedema of the ri ght arm and hand, which are unchanged. There is no erythema or warmth to the touch. NEUROLOGIC: Normal. LABORATORY DATA: White count 6100, hemoglobin 9.2, hematocrit 30.8, MCV 76.2, RDW 16.5, and platele t count 497,000. Sodium 137, potassium 3.5, creatinine 0.49, BUN 12. CA 27-[address] scan of the abdomen and pelvis fails to demonstrate any evidence of hydronephrosis. There is no evidence of any hepatic lesions. There is no intraabdominal or retroperitoneal lymphadenopathy. Th ere is the evidence of consolidation of the lower lobes. The dictation states that there is consoli dation of the left lower lobe and patchy consolidation in the right middle and right lower lobe. ASSESSMENT: 1. Metastatic breast carcinoma. 2. Shortness of breath with left upper lobe consolidation, possibly secondary to metastatic breast carcinoma. 3. Occlusion of the right subclavian vein. 4. Iron deficiency anemia. DISCUSSION: I have been able to obtain the pathology report from the CT-guided biopsy of left upper lobe done at [facility] on 10/21/2016. This describes a metastatic adenocarcinoma. Immun operoxidase stains suggest that this is consistent with a breast primary. It is interesting to note , however, that the immunohistochemical studies showed that the mammaglobin is negative. However, T TF1 is also negative. The patient also has evidence of iron deficiency anemia and occult blood positive stools. Has been started on iron replacement therapy. Further oncologic decisions will be left to Dr. Reynaldo Hwang who has been directing her care sin ce the time of diagnosis. Dictated By: ERUM HENDERSON MD SR/NTS Conf#: [id number] DID#: [id number] CC: TESSIE ROWLAND;*EndCC*
[2016-12-23] MEDS: LEVOFLOXACIN 750MG/D5W (PMX) 150 ML IVPB SCH (21:14)
[2016-12-23] MEDS: SOD FERRIC GLUC COMPLX 125 MG in SOD CHLORIDE 0.9% 100 ML IVPB SCH (21:14)
[2016-12-23] MEDS: ZOLPIDEM 5 MG TAB PO PRN (21:21)
[2016-12-23] MEDS ORDERED: ACETAMINOPHEN 1000MG/100ML IV 100 ML IVPB ONE (21:30)
[2016-12-24] VITALS (10 sets, daily range): BP systolic 94–120; BP diastolic 51–58; PULSE 104–113; RESP 17–20
[2016-12-24] MEDS: ALBUTEROL/IPRATROPIUM (NEB) 3 ML AMP HHN SCH ×6 (01:01→20:13)
[2016-12-24] MEDS: FUROSEMIDE 40 MG INJ IV SCH (05:47)
[2016-12-24] MEDS: LEVOTHYROXINE 100 MCG TAB PO SCH (05:47)
[2016-12-24] MEDS: GUAIFENESIN 20 MG/ML 5ML CUP PO PRN (05:47)
[2016-12-24] MEDS: ACETAMINOPHEN 325 MG TAB PO PRN (05:47)
[2016-12-24 09:15] LABS: ADD SCAN DIFF NO
[2016-12-24 09:25] LABS: BASOPHIL # 0.1 10^3/ul (0.0-0.1); BASOPHILS % 1.3 % (0.0-2.0); EOSINOPHILS # 0.2 10^3/ul (0.0-0.5); EOSINOPHILS % 2.9 % (0.0-7.0); HEMATOCRIT 30.4 % (37.0-47.0); HEMOGLOBIN 9.5 g/dl (12.0-16.0); LYMPHOCYTES # 1.3 10^3/ul (0.8-2.9); LYMPHOCYTES % 20.9 % (15.0-51.0); MEAN CORPUSCULAR HEMOGLOBIN 23.6 pg (29.0-33.0); MEAN CORPUSCULAR HGB CONC 31.3 g/dl (32.0-37.0); MEAN CORPUSCULAR VOLUME 75.4 fl (82.0-101.0); MEAN PLATELET VOLUME 8.6 fl (7.4-10.4); MONOCYTE # 0.7 10^3/ul (0.3-0.9); MONOCYTES % 10.8 % (0.0-11.0); NEUTROPHIL # 3.9 10^3/ul (1.6-7.5); NEUTROPHILS % 63.3 % (39.0-77.0); PLATELET COUNT 659 10^3/UL (140-415); RED BLOOD COUNT 4.03 10^6/ul (4.20-5.40); RED CELL DISTRIBUTION WIDTH 16.6 % (11.5-14.5); WHITE BLOOD COUNT 6.2 10^3/ul (4.8-10.8)
[2016-12-24 09:40] LABS: CALCIUM 8.7 mg/dl (8.4-10.2); CREATININE 0.52 mg/dl (0.44-1.00); POTASSIUM 3.3 mmol/L (3.5-5.1)
[2016-12-24] MEDS: VALACYCLOVIR 500 MG TAB PO SCH ×3 (10:17→21:51)
[2016-12-24] MEDS: FAMOTIDINE 20 MG TAB PO SCH ×2 (10:17→21:50)
[2016-12-24] MEDS: SODIUM CHLORIDE 1 GM TAB PO SCH ×3 (10:17→21:49)
--- NOTE | 2016-12-24 10:39 | CONS ---
Date/Time of Note Date/Time of Note DATE: 12/24/16 TIME: 10:36 Assessment/Plan Assessment/Plan Additional Assessment/Plan Assessment recommendations; 1. Patient admitted for bilateral pneumonia currently on broad-spectrum antibiotic coverage. 2. Remote history of right breast cancer. 3. Right upper extremity DVT. Continue current treatment. Add vancomycin IV. Consultation Date/Type/Reason Admit Date/Time Dec 18, 2016 at 18:40 Type of Consultation: Pulmonary 24 HR Interval Summary Free Text/Dictation Patient condition stable. Remains awake alert. Denies any shortness of breath , cough, fever chills. General exam; elderly lady, awake alert currently in no distress. Exam/Review of Systems Vital Signs Vitals Vital Signs Date Time Temp Pulse Resp B/P Pulse Ox O2 Delivery O2 Flow Rate FiO2 12/24/16 08:31 105 22 95 Nasal Cannula 3.0 12/24/16 07:21 98.2 106/58 Intake and Output 12/23/16 12/23/16 12/24/16 15:00 23:00 07:00 Intake Total 250 ml 1020 ml 150 ml Balance 250 ml 1020 ml 150 ml Exam HEENT examination; supple neck, no JVD. No lymphadenopathy. Midline trachea. No thyromegaly. Patient has fair dentition. Chest examination; clear to ulceration. S1-S2 audible, no murmurs. Regular rhythm. Abdomen examination; soft, no organomegaly. Nontender. Bowel sounds audible. Extremity examination; no peripheral edema and left upper and lower extremities. There is 1+ pitting edema involving right upper extremity. UROLOGY PHYSICIAN ASSISTANT examination; no focal deficit. Results Result Diagram: 12/24/16 0900 12/24/16 0900 Results 24 hrs Laboratory Tests Test 12/24/16 09:00 White Blood Count 6.2 Red Blood Count 4.03 L Hemoglobin 9.5 L Hematocrit 30.4 L Mean Corpuscular Volume 75.4 L Mean Corpuscular Hemoglobin 23.6 L Mean Corpuscular Hemoglobin Concent 31.3 L Red Cell Distribution Width 16.6 H Platelet Count 659 #H Mean Platelet Volume 8.6 Neutrophils % 63.3 Lymphocytes % 20.9 Monocytes % 10.8 Eosinophils % 2.9 Basophils % 1.3 Nucleated Red Blood Cells % 0.0 Neutrophils # 3.9 Lymphocytes # 1.3 Monocytes # 0.7 Eosinophils # 0.2 Basophils # 0.1 Nucleated Red Blood Cells # 0.0 Sodium Level 136 Potassium Level 3.3 L Chloride Level 103 Carbon Dioxide Level 27 Anion Gap 9 Blood Urea Nitrogen 10 Creatinine 0.52 Glucose Level 98 Calcium Level 8.7 Medications Medications Current Medications Ondansetron HCl (Zofran Inj) 4 mg Q6H PRN IV NAUSEA AND/OR VOMITING Last administered on 12/23/16 17:04; Admin Dose 4 MG; Start 12/18/16 at 19:30 Acetaminophen (Tylenol Tab) 650 mg Q6H PRN PO PAIN LEVEL 1-3 OR FEVER Last administered on 12/24/16 05:47; Admin Dose 650 MG; Start 12/18/16 at 19:30 Acetaminophen/ Hydrocodone Bitart (Marana (5/325)) 1 tab Q6H PRN PO MODERATE PAIN LEVEL 4-6; Start 12/18/16 at 19:30 Morphine Sulfate (morphine) 2 mg Q4H PRN IV SEVERE PAIN LEVEL 7-10; Start at 19:30 Docusate Sodium (Colace) 100 mg Q12H PRN PO CONSTIPATION; Start 12/18/16 at 19: 30 Magnesium Hydroxide (Milk Of Mag) 30 ml DAILY PRN PO CONSTIPATION; Start at 19:30 Sodium Biphosphate/ Sodium Phosphate 133 ml 133 ml DAILY PRN CA CONSTIPATION; Start 12/18/16 at 19:30 Levofloxacin/ Dextrose (Levaquin 750 Mg/ D5W 150 ml (Pmx)) 150 ml @ 100 mls/hr Q24H IVPB Last administered on 12/23/16 21:14; Admin Dose 100 MLS/HR; Start at 21:00 Hydralazine HCl (Apresoline) 10 mg Q6H PRN IV ELEVATED BLOOD PRESSURE; Start at 19:30 Nitroglycerin (Nitroglycerin (Sl Tab) 0.4 Mg) 1 tab Q5M PRN SL ANGINA; Start at 19:30 Sodium Chloride (Nacl) 2 gm TID PO Last administered on 12/23/16 21:14; Admin Dose 2 GM; Start 12/18/16 at 21:00 Valacyclovir HCl (Valtrex) 1,000 mg TID PO Last administered on 12/23/16 21:14 ; Admin Dose 1,000 MG; Start 12/18/16 at 21:00 Diphenhydramine HCl (Benadryl) 25 mg Q6H PRN PO ITCHING Last administered on 00:41; Admin Dose 25 MG; Start 12/18/16 at 20:00 Enoxaparin Sodium (Lovenox) 55 mg Q12 SC Last administered on 12/23/16 21:40; Admin Dose 55 MG; Start 12/19/16 at 18:00 Furosemide (Lasix) 40 mg DAILY@06 IV Last administered on 12/23/16 06:23; Admin Dose 40 MG; Start 12/21/16 at 06:00 Zolpidem Tartrate (Ambien) 2.5 mg HS PRN PO INSOMNIA Last administered on 21:21; Admin Dose 2.5 MG; Start 12/20/16 at 13:00 Letrozole (Femara) 2.5 mg DAILY@09 PO Last administered on 12/23/16 09:31; Admin Dose 2.5 MG; Start 12/22/16 at 09:00 Phenol (Cepastat Lozenge) 1 lozenge Q1H PRN MT COUGH; Start 12/21/16 at 14:30 Guaifenesin (Robitussin Liquid Cup) 200 mg Q4H PRN PO COUGH Last administered on 12/24/16 05:47; Admin Dose 200 MG; Start 12/21/16 at 14:30 Famotidine 20 mg 20 mg Q12 PO Last administered on 12/23/16 21:14; Admin Dose 20 MG; Start 12/21/16 at 21:00 Cefepime HCl (Maxipime 1gm/50 ml (Pmx)) 50 ml @ 100 mls/hr Q12 IVPB Last administered on 12/23/16 21:14; Admin Dose 100 MLS/HR; Start 12/22/16 at 12:00 Simethicone 80 mg 80 mg Q8 PO Last administered on 12/24/16 05:47; Admin Dose 80 MG; Start 12/22/16 at 12:35 Ferric Sodium Gluconate Complex/ Sodium Chloride (Ferrlecit/NS) 110 ml @ 100 mls/hr Q24H IVPB Last administered on 6/13/17at 21:14; Admin Dose 100 MLS/HR; Start 12/22/16 at 20:00; Stop 12/24/16 at 21:05 Lorazepam (Ativan) 0.5 mg Q6H PRN PO ANXIETY; Start 12/23/16 at 17:30 PINO PRETTY Dec 24, 2016 10:39
[2016-12-24] MEDS: ENOXAPARIN 100 MG/ML SYG SC SCH ×2 (10:45→22:07)
[2016-12-24] MEDS: LETROZOLE 2.5 MG TAB PO SCH (11:00)
[2016-12-24] MEDS: CEFEPIME 1GM/50 ML (PMX) 50 ML IVPB SCH ×2 (11:01→21:49)
--- NOTE | 2016-12-24 13:09 | CONS ---
Date/Time of Note Date/Time of Note DATE: 12/24/16 TIME: 13:04 Assessment/Plan Assessment/Plan Chief Complaint/Hosp Course This is a 56-year-old very pleasant female with a history of breast cancer right side status post RT and p.o. chemotherapy. The entire story is taken from patient's own history and what I have reviewed in her medical record. She presented to emergency room at [facility] with increasing shortness of breath according to medical records congestive heart failure fluid overload. She was treated aggressively and feels less dyspneic at this time CT scan of the chest concerning for lymphangitic tumor, possible overlying pneumonia. She has been seen by pulmonary and hematology oncology consultants. Insofar as her pain she describes primarily anterior chest wall discomfort and low back pain. At home she was only taken ibuprofen not opioids. States she has had this pain for a prolonged period of time she describes it as mild to moderate she has not increased in severity with current intravenous pain medications morphine pain is well controlled. Describes the pain as a thumping on her chest without radiations into her back or flank or abdomen low back pain is described as gnawing type discomfort also without radiation to bilateral lower extremity there is no warning signs clearly described. Difficult to separate her physical functioning associated with her current respiratory problems from pain but in either case she states that she is improved the pain is not affected her mood and sleeping patterns overall functioning. She denies nausea vomiting constipation fatigue drowsiness she does not smoke nor drink she has not been except for frequent renewals or increasing doses of her current pain control medication. Current pain control medications include morphine and [place]. Problems: Additional Assessment/Plan Much improved minimal pain in her anterior chest and decreased shortness of breath' Denies nausea vomiting cough headache, dizziness diplopia disorientation. Pain is well controlled 07/22 compared to 01/19 yesterday, 90% of her pain has been relieved with current pain medication interventions for respiratory distress Physical function is improved, sleep pattern overall functioning is improved Denies nausea vomiting constipation, her mood is improved, she has not extra escalating dose of opioids. Consultation Date/Type/Reason Admit Date/Time Dec 18, 2016 at 18:40 Initial Consult Date 12/23/16 Type of Consultation: Pulmonary Exam/Review of Systems Vital Signs Vitals Vital Signs Date Time Temp Pulse Resp B/P Pulse Ox O2 Delivery O2 Flow Rate FiO2 12/24/16 12:17 110 12/24/16 12:09 3.0 12/24/16 12:07 18 93 Nasal Cannula 12/24/16 11:32 98.6 114/58 Intake and Output 12/23/16 12/23/16 12/24/16 15:00 23:00 07:00 Intake Total 250 ml 1020 ml 150 ml Balance 250 ml 1020 ml 150 ml Exam Respiratory: clear to auscultation, normal air movement Cardiovascular: nl pulses, regular rate and rhythm Neurological: INSTRUMENT REPAIR SPECIALIST II-XII intact, nl mental status, nl speech, nl strength Results Result Diagram: 12/24/16 0900 12/24/16 0900 Results 24 hrs Laboratory Tests Test 12/24/16 09:00 White Blood Count 6.2 Red Blood Count 4.03 L Hemoglobin 9.5 L Hematocrit 30.4 L Mean Corpuscular Volume 75.4 L Mean Corpuscular Hemoglobin 23.6 L Mean Corpuscular Hemoglobin Concent 31.3 L Red Cell Distribution Width 16.6 H Platelet Count 659 #H Mean Platelet Volume 8.6 Neutrophils % 63.3 Lymphocytes % 20.9 Monocytes % 10.8 Eosinophils % 2.9 Basophils % 1.3 Nucleated Red Blood Cells % 0.0 Neutrophils # 3.9 Lymphocytes # 1.3 Monocytes # 0.7 Eosinophils # 0.2 Basophils # 0.1 Nucleated Red Blood Cells # 0.0 Sodium Level 136 Potassium Level 3.3 L Chloride Level 103 Carbon Dioxide Level 27 Anion Gap 9 Blood Urea Nitrogen 10 Creatinine 0.52 Glucose Level 98 Calcium Level 8.7 Medications Medications Current Medications Ondansetron HCl (Zofran Inj) 4 mg Q6H PRN IV NAUSEA AND/OR VOMITING Last administered on 12/23/16 17:04; Admin Dose 4 MG; Start 12/18/16 at 19:30 Acetaminophen (Tylenol Tab) 650 mg Q6H PRN PO PAIN LEVEL 1-3 OR FEVER Last administered on 12/24/16 05:47; Admin Dose 650 MG; Start 12/18/16 at 19:30 Acetaminophen/ Hydrocodone Bitart ([place] (5/325)) 1 tab Q6H PRN PO MODERATE PAIN LEVEL 4-6; Start 12/18/16 at 19:30 Morphine Sulfate (morphine) 2 mg Q4H PRN IV SEVERE PAIN LEVEL 7-10; Start at 19:30 Docusate Sodium (Colace) 100 mg Q12H PRN PO CONSTIPATION; Start 12/18/16 at 19: 30 Magnesium Hydroxide (Milk Of Mag) 30 ml DAILY PRN PO CONSTIPATION; Start at 19:30 Sodium Biphosphate/ Sodium Phosphate 133 ml 133 ml DAILY PRN SC CONSTIPATION; Start 12/18/16 at 19:30 Levofloxacin/ Dextrose (Levaquin 750 Mg/ D5W 150 ml (Pmx)) 150 ml @ 100 mls/hr Q24H IVPB Last administered on 12/23/16 21:14; Admin Dose 100 MLS/HR; Start at 21:00 Hydralazine HCl (Apresoline) 10 mg Q6H PRN IV ELEVATED BLOOD PRESSURE; Start at 19:30 Nitroglycerin (Nitroglycerin (Sl Tab) 0.4 Mg) 1 tab Q5M PRN SL ANGINA; Start at 19:30 Sodium Chloride (Nacl) 2 gm TID PO Last administered on 12/24/16 10:17; Admin Dose 2 GM; Start 12/18/16 at 21:00 Valacyclovir HCl (Valtrex) 1,000 mg TID PO Last administered on 12/24/16 10:17 ; Admin Dose 1,000 MG; Start 12/18/16 at 21:00 Diphenhydramine HCl (Benadryl) 25 mg Q6H PRN PO ITCHING Last administered on 00:41; Admin Dose 25 MG; Start 12/18/16 at 20:00 Enoxaparin Sodium (Lovenox) 55 mg Q12 SC Last administered on 12/24/16 10:45; Admin Dose 55 MG; Start 12/19/16 at 18:00 Furosemide (Lasix) 40 mg DAILY@06 IV Last administered on 12/23/16 06:23; Admin Dose 40 MG; Start 12/21/16 at 06:00 Zolpidem Tartrate (Ambien) 2.5 mg HS PRN PO INSOMNIA Last administered on 21:21; Admin Dose 2.5 MG; Start 12/20/16 at 13:00 Letrozole (Femara) 2.5 mg DAILY@09 PO Last administered on 12/24/16 11:00; Admin Dose 2.5 MG; Start 12/22/16 at 09:00 Phenol (Cepastat Lozenge) 1 lozenge Q1H PRN MT COUGH; Start 12/21/16 at 14:30 Guaifenesin (Robitussin Liquid Cup) 200 mg Q4H PRN PO COUGH Last administered on 12/24/16 05:47; Admin Dose 200 MG; Start 12/21/16 at 14:30 Famotidine 20 mg 20 mg Q12 PO Last administered on 12/24/16 10:17; Admin Dose 20 MG; Start 12/21/16 at 21:00 Cefepime HCl (Maxipime 1gm/50 ml (Pmx)) 50 ml @ 100 mls/hr Q12 IVPB Last administered on 12/24/16 11:01; Admin Dose 100 MLS/HR; Start 12/22/16 at 12:00 Simethicone 80 mg 80 mg Q8 PO Last administered on 12/24/16 05:47; Admin Dose 80 MG; Start 12/22/16 at 12:35 Ferric Sodium Gluconate Complex/ Sodium Chloride (Ferrlecit/NS) 110 ml @ 100 mls/hr Q24H IVPB Last administered on 12/23/16 21:14; Admin Dose 100 MLS/HR; Start 12/22/16 at 20:00; Stop 12/24/16 at 21:05 Lorazepam (Ativan) 0.5 mg Q6H PRN PO ANXIETY; Start 12/23/16 at 17:30 JOANIE JAQUEZ Dec 24, 2016 13:08
--- NOTE | 2016-12-24 16:17 | PN ---
Date/Time of Note Date/Time of Note DATE: 12/24/16 TIME: 15:51 Assessment/Plan VTE Prophylaxis VTE Prophylaxis Intervention: LMWH (treatment dose) Lines/Catheters IV [facility]from [facility] Urinary Cath still in place: No Assessment/Plan Assessment/Plan 56 yo F with metastatic breast cancer who presented with SOB now managed for the following 1. Acute respiratory failure / insufficiency 2/2 #2 2. Diffuse multilobar pneumonia likely obstructive from lung masses from metastatic breast cancer 3. Metastatic breast carcinoma. 4. Occlusion of the right subclavian vein. 5. Iron deficiency anemia. 6. Hypokalemia 7. Hypothyroidism on synthroid 8. Possible Shingles L breast 9. Mild Diastolic CHF Acute contributing to #1 PLAN: * Broaden abx coverage for obstructive pneumonia * Continue treatment dose anticoagulation * Continue IV iron replacement * Continue gentle diuresis with IV lasix * Monitor electrolytes and replete as needed * Continue supportive care Prophylaxis: lovenox and Pepcid Subjective 24 Hr Interval Summary Free Text/Dictation Patient seen still reporting SOB and lethargy Exam/Review of Systems Vital Signs Vitals Vital Signs Date Time Temp Pulse Resp B/P Pulse Ox O2 Delivery O2 Flow Rate FiO2 12/24/16 12:17 110 12/24/16 12:09 3.0 12/24/16 12:07 18 93 Nasal Cannula 12/24/16 11:32 98.6 114/58 Intake and Output 12/23/16 12/23/16 12/24/16 15:00 23:00 07:00 Intake Total 250 ml 1020 ml 150 ml Balance 250 ml 1020 ml 150 ml Exam General: The patient is well-developed, Not in acute distress, lethargic HEENT: Atraumatic, normocephalic. The pupils are equal and round . Neck: Supple Chest: Normal Lungs: Decreased breath sounds bilateral lower lung field with positive crackles Heart: Normal S1-S2, Regular rhythm and rate. Abdomen: Soft , nontender, nondistended , bowel sounds are present. Extremities: Right upper extremity edema no cyanosis Neurologic: Normal mental status,The patient is awake, alert Results Result Diagram: 12/24/16 0900 12/24/16 0900 Results 24 hrs Laboratory Tests Test 12/24/16 09:00 White Blood Count 6.2 Red Blood Count 4.03 L Hemoglobin 9.5 L Hematocrit 30.4 L Mean Corpuscular Volume 75.4 L Mean Corpuscular Hemoglobin 23.6 L Mean Corpuscular Hemoglobin Concent 31.3 L Red Cell Distribution Width 16.6 H Platelet Count 659 #H Mean Platelet Volume 8.6 Neutrophils % 63.3 Lymphocytes % 20.9 Monocytes % 10.8 Eosinophils % 2.9 Basophils % 1.3 Nucleated Red Blood Cells % 0.0 Neutrophils # 3.9 Lymphocytes # 1.3 Monocytes # 0.7 Eosinophils # 0.2 Basophils # 0.1 Nucleated Red Blood Cells # 0.0 Sodium Level 136 Potassium Level 3.3 L Chloride Level 103 Carbon Dioxide Level 27 Anion Gap 9 Blood Urea Nitrogen 10 Creatinine 0.52 Glucose Level 98 Calcium Level 8.7 Medications Medications Current Medications Ondansetron HCl (Zofran Inj) 4 mg Q6H PRN IV NAUSEA AND/OR VOMITING Last administered on 12/23/16 17:04; Admin Dose 4 MG; Start 12/18/16 at 19:30 Acetaminophen (Tylenol Tab) 650 mg Q6H PRN PO PAIN LEVEL 1-3 OR FEVER Last administered on 12/24/16 05:47; Admin Dose 650 MG; Start 12/18/16 at 19:30 Acetaminophen/ Hydrocodone Bitart ([place] (5/325)) 1 tab Q6H PRN PO MODERATE PAIN LEVEL 4-6; Start 12/18/16 at 19:30 Morphine Sulfate (morphine) 2 mg Q4H PRN IV SEVERE PAIN LEVEL 7-10; Start at 19:30 Docusate Sodium (Colace) 100 mg Q12H PRN PO CONSTIPATION; Start 12/18/16 at 19: 30 Magnesium Hydroxide (Milk Of Mag) 30 ml DAILY PRN PO CONSTIPATION; Start at 19:30 Sodium Biphosphate/ Sodium Phosphate 133 ml 133 ml DAILY PRN [place] CONSTIPATION; Start 12/18/16 at 19:30 Levofloxacin/ Dextrose (Levaquin 750 Mg/ D5W 150 ml (Pmx)) 150 ml @ 100 mls/hr Q24H IVPB Last administered on 12/23/16 21:14; Admin Dose 100 MLS/HR; Start at 21:00 Hydralazine HCl (Apresoline) 10 mg Q6H PRN IV ELEVATED BLOOD PRESSURE; Start at 19:30 Nitroglycerin (Nitroglycerin (Sl Tab) 0.4 Mg) 1 tab Q5M PRN SL ANGINA; Start at 19:30 Sodium Chloride (Nacl) 2 gm TID PO Last administered on 12/24/16 13:37; Admin Dose 2 GM; Start 12/18/16 at 21:00 Valacyclovir HCl (Valtrex) 1,000 mg TID PO Last administered on 12/24/16 13:37 ; Admin Dose 1,000 MG; Start 12/18/16 at 21:00 Diphenhydramine HCl (Benadryl) 25 mg Q6H PRN PO ITCHING Last administered on 00:41; Admin Dose 25 MG; Start 12/18/16 at 20:00 Enoxaparin Sodium (Lovenox) 55 mg Q12 SC Last administered on 12/24/16 10:45; Admin Dose 55 MG; Start 12/19/16 at 18:00 Furosemide (Lasix) 40 mg DAILY@06 IV Last administered on 12/23/16 06:23; Admin Dose 40 MG; Start 12/21/16 at 06:00 Zolpidem Tartrate (Ambien) 2.5 mg HS PRN PO INSOMNIA Last administered on 21:21; Admin Dose 2.5 MG; Start 12/20/16 at 13:00 Letrozole (Femara) 2.5 mg DAILY@09 PO Last administered on 12/24/16 11:00; Admin Dose 2.5 MG; Start 12/22/16 at 09:00 Phenol (Cepastat Lozenge) 1 lozenge Q1H PRN MT COUGH; Start 12/21/16 at 14:30 Guaifenesin (Robitussin Liquid Cup) 200 mg Q4H PRN PO COUGH Last administered on 12/24/16 05:47; Admin Dose 200 MG; Start 12/21/16 at 14:30 Famotidine 20 mg 20 mg Q12 PO Last administered on 12/24/16 10:17; Admin Dose 20 MG; Start 12/21/16 at 21:00 Cefepime HCl (Maxipime 1gm/50 ml (Pmx)) 50 ml @ 100 mls/hr Q12 IVPB Last administered on 12/24/16 11:01; Admin Dose 100 MLS/HR; Start 12/22/16 at 12:00 Simethicone 80 mg 80 mg Q8 PO Last administered on 12/24/16 13:37; Admin Dose 80 MG; Start 12/22/16 at 12:35 Ferric Sodium Gluconate Complex/ Sodium Chloride (Ferrlecit/NS) 110 ml @ 100 mls/hr Q24H IVPB Last administered on 12/23/16 21:14; Admin Dose 100 MLS/HR; Start 12/22/16 at 20:00; Stop 12/24/16 at 21:05 Lorazepam (Ativan) 0.5 mg Q6H PRN PO ANXIETY; Start 12/23/16 at 17:30 Procedures Procedures PROCEDURE: CT Abdomen and Pelvis with contrast. CLINICAL INDICATION: Flank pain. Metastatic breast cancer. Bilateral hydronephrosis. TECHNIQUE: CT scan of the abdomen and pelvis with contrast was performed on a multi-detector high-resolution CT scanner. The patient was scanned following the uncomplicated intravenous administration of 90 cc of Visipaque 320 Coronal and sagittal reformatted images were obtained from the axial source images. Images were reviewed on a high-resolution PACS workstation. The total exam CTDI equals 6.38 mGy and the total exam DLP equals 320.82 mGy-cm. One or more of the following dose reduction techniques were used: Automated exposure control. Adjustment of the mA and/or kV according to patient size. Use of iterative reconstruction technique. COMPARISON: CT chest 12/19/2016 FINDINGS: CT abdomen: The lung bases are remarkable for dense consolidation in the left lower lobe, extensive interlobular septal thickening and pleural thickening with small bilateral pleural effusions left greater than right. The heart size is normal, without pericardial thickening or effusion. The liver is normal in size and density without focal mass or intrahepatic biliary dilatation. The spleen is normal in size and homogeneous in density. The stomach is partially collapsed, but is grossly unremarkable. The pancreas as visualized is normal. The gallbladder is unremarkable. There is no evidence for biliary dilatation. The adrenal glands are symmetric and normal. The kidneys are symmetrically unremarkable as well. No renal calculus or obstructive uropathy or mass lesion is seen. The aorta is of normal caliber. There is no retroperitoneal lymphadenopathy. The beryl hepatis region is clear. The bowel and mesentery, as visualized, are equally unremarkable. CT pelvis: The small bowel loops situated within the pelvis are unremarkable. There is a large lobulated uterus with multiple fibroids measures up to 4.5 cm. The pelvic sidewalls and inguinal regions are clear. The sigmoid colon and rectum are remarkable for sigmoid diverticulosis. No mass, lymphadenopathy, or free fluid is seen. No acute inflammation is seen. The bladder is normal. The surrounding osseous structures are unremarkable. No osteolytic or osteoblastic lesion is detected. IMPRESSION: 1. No hydronephrosis. No urolithiasis. 2. No liver metastasis. 3. Multiple uterine fibroids. 4. Dense consolidation in the left lower lobe, patchy consolidations in the right middle and right lower lobe. Diffuse interlobular septal thickening with mild pleural thickening and pleural effusions, not significantly changed. RPTAT: BB .Jessica Gamez MD, MD Date Time Electronically viewed and signed by .Jessica Gamez MD, on 12/23/2016 16:16 KIARA SUGGS Dec 24, 2016 16:17
[2016-12-24] MEDS: HYDROCODONE/APAP (5/325) TAB PO PRN (17:14)
--- NOTE | 2016-12-24 17:55 | PN ---
DATE: 12/24/2016 MEDICAL ONCOLOGY PROGRESS NOTE SUBJECTIVE: The patient is still experiencing dyspnea with minimal exertion. She does not complain of chest pain but is experiencing pain in the entire left arm. The left arm discomfort started onl y an hour or 2 ago. OBJECTIVE: GENERAL: The patient is a well-developed, well-nourished female who is in no acute distress. VITAL SIGNS: Temperature 97.2, pulse 110 per minute and regular, respirations 18, blood pressure 12 0/58, pulse oximetry 93% on 3 liters of oxygen. HEENT: No mucosal lesions. No scleral icterus. Normocephalic. There is nasal oxygen in place. NECK: Supple, no jugular venous distention or thyroid enlargement. CHEST: Decreased breath sounds, dullness on the left side with crackling rales anteriorly in the up per left hemithorax. No rubs. There is a prominent venous pattern on the right anterior chest wall . HEART: Sinus tachycardia. No S3, S4, or murmurs. BREASTS: There is evidence of previous lumpectomy in the right breast. I do not see any lesions vasquez ggesting herpes zoster. ABDOMEN: Soft, no masses, no ascites. Bowel sounds are active. EXTREMITIES: Good range of motion. No clubbing or cyanosis. The left arm is without edema, but th e right arm reveals 2 to 3+ lymphedema. There are no palpable cords and no erythema or warmth to t he touch. LABORATORY DATA: White count 6200, hemoglobin 9.5, hematocrit 30.4, and platelet count 659,000. So dium 136, potassium 3.3, creatinine 0.52, and BUN 10. ASSESSMENT: 1. Metastatic breast carcinoma. 2. Shortness of breath with left upper lobe consolidation, most likely secondary to metastatic krista st carcinoma, but may have superimposed pneumonia, occlusion of the right subclavian vein 3. Iron deficiency anemia. 4. Left arm pain. Rule out extension of venous thrombosis. PLAN: We will request a venous vascular study of the left upper extremity. This patient has been said to have had evidence of herpes zoster. I do not find any evidence of thi s either on the right breast or elsewhere. Dictated By: ERUM HENDERSON MD, SR/NTS Conf#: [id number] DID#: [id number]
[2016-12-24] MEDS ORDERED: VANCOMYCIN IV PER PHARMACY XX SCH (18:00)
[2016-12-24] MEDS ORDERED: VANCOMYCIN 1 GM in NS 250 ML IVPB SCH (18:00)
[2016-12-24] MEDS: POTASSIUM CHLORIDE (SR) 20 MEQ TAB PO SCH ×2 (18:39→21:50)
[2016-12-24] MEDS: LEVOFLOXACIN 750MG/D5W (PMX) 150 ML IVPB SCH (21:49)
[2016-12-24] MEDS: SOD FERRIC GLUC COMPLX 125 MG in SOD CHLORIDE 0.9% 100 ML IVPB SCH (21:50)
[2016-12-25] VITALS (11 sets, daily range): BP systolic 96–150; BP diastolic 46–63; PULSE 100–130; RESP 15–21
[2016-12-25] MEDS: ALBUTEROL/IPRATROPIUM (NEB) 3 ML AMP HHN SCH ×6 (00:37→20:47)
[2016-12-25] MEDS: FUROSEMIDE 40 MG INJ IV SCH (05:40)
[2016-12-25] MEDS: LEVOTHYROXINE 100 MCG TAB PO SCH (05:40)
[2016-12-25] MEDS: VANCOMYCIN 750 MG in SOD CHLORIDE 0.9% 150 ML IVPB SCH ×2 (05:40→18:35)
[2016-12-25] MEDS: CEFEPIME 1GM/50 ML (PMX) 50 ML IVPB SCH ×2 (08:16→21:54)
[2016-12-25] MEDS: FAMOTIDINE 20 MG TAB PO SCH ×2 (08:16→21:55)
[2016-12-25] MEDS: SODIUM CHLORIDE 1 GM TAB PO SCH ×3 (08:16→21:55)
[2016-12-25] MEDS: VALACYCLOVIR 500 MG TAB PO SCH ×3 (08:16→21:54)
--- NOTE | 2016-12-25 08:18 | RADRPT ---
PROCEDURE: US upper extremity Venous. CLINICAL INDICATION: Left arm edema , pain TECHNIQUE: Multiple sonographic images of the left upper extremity venous system was obtained util izing grayscale, color-flow, compressive sonography and doppler imaging with augmentation. The imag es were reviewed on a PACS workstation. COMPARISON: None. FINDINGS: There is normal compressibility and flow within the left internal jugular vein, subclavian vein, axi llary vein, brachial, radial and ulnar veins. The left basilic was not visualized. The left cephalic vein in the forearm was not seen. RPTAT: AA IMPRESSION: No sonographic evidence for venous thrombosis. Limited study. Left basilic and left cephalic vein in the forearm are not seen. .Chaim Jensen MD, MD Date Time Electronically viewed and signed by .Chaim Jensen MD, on 12/25/2016 08:17 .S/
[2016-12-25] MEDS: ENOXAPARIN 100 MG/ML SYG SC SCH ×2 (08:23→22:04)
[2016-12-25 09:27] LABS: ADD SCAN DIFF NO
[2016-12-25 09:32] LABS: BASOPHIL # 0.1 10^3/ul (0.0-0.1); EOSINOPHILS # 0.1 10^3/ul (0.0-0.5); EOSINOPHILS % 1.4 % (0.0-7.0); HEMATOCRIT 31.6 % (37.0-47.0); HEMOGLOBIN 9.7 g/dl (12.0-16.0); LYMPHOCYTES # 1.4 10^3/ul (0.8-2.9); LYMPHOCYTES % 16.8 % (15.0-51.0); MEAN CORPUSCULAR HEMOGLOBIN 23.4 pg (29.0-33.0); MEAN CORPUSCULAR HGB CONC 30.7 g/dl (32.0-37.0); MEAN CORPUSCULAR VOLUME 76.3 fl (82.0-101.0); MEAN PLATELET VOLUME 8.7 fl (7.4-10.4); MONOCYTE # 0.8 10^3/ul (0.3-0.9); NEUTROPHIL # 5.8 10^3/ul (1.6-7.5); NEUTROPHILS % 69.7 % (39.0-77.0); PLATELET COUNT 638 10^3/UL (140-415); RED BLOOD COUNT 4.14 10^6/ul (4.20-5.40); WHITE BLOOD COUNT 8.3 10^3/ul (4.8-10.8)
[2016-12-25 09:58] LABS: CALCIUM 8.2 mg/dl (8.4-10.2); CREATININE 0.48 mg/dl (0.44-1.00); POTASSIUM 3.7 mmol/L (3.5-5.1)
[2016-12-25] MEDS: LETROZOLE 2.5 MG TAB PO SCH (10:10)
--- NOTE | 2016-12-25 11:19 | RADRPT ---
PROCEDURE: XR Chest. CLINICAL INDICATION: Pneumonia. TECHNIQUE: Single frontal view of the chest was obtained. COMPARISON: Chest x-ray 12/28/2013 02:42 p.m. FINDINGS: The soft tissues are normal. Moderate electrodes are draped across the chest. There are degenerati ve osteophytes in the thoracic spine The the heart is enlarged. The cardiomediastinal silhouette a nd hilar structures are normal. The pulmonary vasculature is normal. There are vascular calcificati ons in the aortic arch. There is consolidative infiltrate and atelectasis in the lingula, left lower lobe and additional atelectasis/density adjacent to the aortic arch. Follow-up imaging is recommen ded to ensure this area clears. Additional infiltrates noted in the right upper lobe and right lowe r lobe with a right pleural effusion noted. There are bilateral effusions. IMPRESSION: 1. There are asymmetric infiltrates in the lungs with consolidative infiltrate and atelectasis in th e left lower lobe resulting in elevation of the left diaphragm. Findings are suspicious for pneumon ia. 2. There are bilateral pleural effusions. 3. There is a nodular density which likely is the result of infiltrate obscuring the aortic arch. Follow-up imaging is needed to ensure the this area clears in the no underlying mass is present. 4. Spondylosis of the thoracic spine. 5. Atherosclerotic vascular disease. RPTAT:AAJJ Physician Pardeep Date Time Electronically viewed and signed by Physician Pardeep on 12/25/2016 11:19 HARVEY/
--- NOTE | 2016-12-25 11:37 | CONS ---
Date/Time of Note Date/Time of Note DATE: 12/25/16 TIME: 11:35 Assessment/Plan Assessment/Plan Additional Assessment/Plan Chest x-ray was reviewed from today which is showing slight improvement in bilateral patchy ill without infiltrates. Left upper extremity ultrasound is negative for any DVT. Assessment recommendations; 1. Patient admitted with bilateral pneumonia clinically and radiologically improving. 2. Remote history of right breast cancer. 3. Right upper extremity DVT. Next Continue current treatment. Consultation Date/Type/Reason Admit Date/Time Dec 18, 2016 at 18:40 Type of Consultation: Pulmonary 24 HR Interval Summary Free Text/Dictation Patient condition is stable. Still complains of mild shortness of breath and coughing. Denies any fever chills or chest pain. General exam; elderly woman, awake alert currently in no distress. Exam/Review of Systems Vital Signs Vitals Vital Signs Date Time Temp Pulse Resp B/P Pulse Ox O2 Delivery O2 Flow Rate FiO2 12/25/16 11:11 98.5 116 20 96/51 94 12/25/16 08:55 Nasal Cannula 5.0 Intake and Output 12/24/16 12/24/16 12/25/16 15:00 23:00 07:00 Intake Total 50 ml 240 ml 500 ml Balance 50 ml 240 ml 500 ml Exam HEENT examination; supple neck, no JVD. No lymphadenopathy. Midline trachea. No thyromegaly. Patient has fair dentition. Pharynx is clear. Pupils are midsize and reactive to light. Chest examination; diminished but clear breath sounds bilaterally. S1-S2 audible, no murmurs. Regular rhythm. No added sounds. Abdomen examination; soft, nontender. No organomegaly. Bowel sounds audible. Extremity exam; 1+ pitting edema involving right upper extremity. There is no edema in lower extremities and left upper extremities. 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 Results Result Diagram: 12/25/16 0920 12/25/16 0920 Results 24 hrs Laboratory Tests Test 12/25/16 09:20 White Blood Count 8.3 # Red Blood Count 4.14 L Hemoglobin 9.7 L Hematocrit 31.6 L Mean Corpuscular Volume 76.3 L Mean Corpuscular Hemoglobin 23.4 L Mean Corpuscular Hemoglobin Concent 30.7 L Red Cell Distribution Width 17.0 H Platelet Count 638 H Mean Platelet Volume 8.7 Neutrophils % 69.7 Lymphocytes % 16.8 Monocytes % 10.0 Eosinophils % 1.4 Basophils % 1.0 Nucleated Red Blood Cells % 0.0 Neutrophils # 5.8 Lymphocytes # 1.4 Monocytes # 0.8 Eosinophils # 0.1 Basophils # 0.1 Nucleated Red Blood Cells # 0.0 Sodium Level 137 Potassium Level 3.7 Chloride Level 106 Carbon Dioxide Level 24 Anion Gap 11 Blood Urea Nitrogen 7 Creatinine 0.48 Glucose Level 97 Calcium Level 8.2 L Medications Medications Current Medications Ondansetron HCl (Zofran Inj) 4 mg Q6H PRN IV NAUSEA AND/OR VOMITING Last administered on 12/23/16 17:04; Admin Dose 4 MG; Start 12/18/16 at 19:30 Acetaminophen (Tylenol Tab) 650 mg Q6H PRN PO PAIN LEVEL 1-3 OR FEVER Last administered on 12/24/16 05:47; Admin Dose 650 MG; Start 12/18/16 at 19:30 Acetaminophen/ Hydrocodone Bitart ([place] (5/325)) 1 tab Q6H PRN PO MODERATE PAIN LEVEL 4-6 Last administered on 12/24/16 17:14; Admin Dose 1 TAB; Start 12/18/16 at 19:30 Morphine Sulfate (morphine) 2 mg Q4H PRN IV SEVERE PAIN LEVEL 7-10; Start at 19:30 Docusate Sodium (Colace) 100 mg Q12H PRN PO CONSTIPATION; Start 12/18/16 at 19: 30 Magnesium Hydroxide (Milk Of Mag) 30 ml DAILY PRN PO CONSTIPATION; Start at 19:30 Sodium Biphosphate/ Sodium Phosphate 133 ml 133 ml DAILY PRN NE CONSTIPATION; Start 12/18/16 at 19:30 Levofloxacin/ Dextrose (Levaquin 750 Mg/ D5W 150 ml (Pmx)) 150 ml @ 100 mls/hr Q24H IVPB Last administered on 12/24/16 21:49; Admin Dose 100 MLS/HR; Start at 21:00 Hydralazine HCl (Apresoline) 10 mg Q6H PRN IV ELEVATED BLOOD PRESSURE; Start at 19:30 Nitroglycerin (Nitroglycerin (Sl Tab) 0.4 Mg) 1 tab Q5M PRN SL ANGINA; Start at 19:30 Sodium Chloride (Nacl) 2 gm TID PO Last administered on 12/25/16 08:16; Admin Dose 2 GM; Start 12/18/16 at 21:00 Valacyclovir HCl (Valtrex) 1,000 mg TID PO Last administered on 12/25/16 08:16 ; Admin Dose 1,000 MG; Start 12/18/16 at 21:00 Diphenhydramine HCl (Benadryl) 25 mg Q6H PRN PO ITCHING Last administered on 00:41; Admin Dose 25 MG; Start 12/18/16 at 20:00 Enoxaparin Sodium (Lovenox) 55 mg Q12 SC Last administered on 12/25/16 08:23; Admin Dose 55 MG; Start 12/19/16 at 18:00 Furosemide (Lasix) 40 mg DAILY@06 IV Last administered on 12/25/16 05:40; Admin Dose 40 MG; Start 12/21/16 at 06:00 Zolpidem Tartrate (Ambien) 2.5 mg HS PRN PO INSOMNIA Last administered on 21:21; Admin Dose 2.5 MG; Start 12/20/16 at 13:00 Letrozole (Femara) 2.5 mg DAILY@09 PO Last administered on 12/25/16 10:10; Admin Dose 2.5 MG; Start 12/22/16 at 09:00 Phenol (Cepastat Lozenge) 1 lozenge Q1H PRN MT COUGH; Start 12/21/16 at 14:30 Guaifenesin (Robitussin Liquid Cup) 200 mg Q4H PRN PO COUGH Last administered on 12/24/16 05:47; Admin Dose 200 MG; Start 12/21/16 at 14:30 Famotidine 20 mg 20 mg Q12 PO Last administered on 12/25/16 08:16; Admin Dose 20 MG; Start 12/21/16 at 21:00 Cefepime HCl (Maxipime 1gm/50 ml (Pmx)) 50 ml @ 100 mls/hr Q12 IVPB Last administered on 12/25/16 08:16; Admin Dose 100 MLS/HR; Start 12/22/16 at 12:00 Simethicone (Mylicon) 80 mg Q8 PO Last administered on 12/25/16 05:40; Admin Dose 80 MG; Start 12/22/16 at 12:35 Lorazepam 0.5 mg 0.5 mg Q6H PRN PO ANXIETY; Start 12/23/16 at 17:30 Vancomycin HCl/ Sodium Chloride (Vancocin/NS) 150 ml @ 75 mls/hr Q12H IVPB Last administered on 12/25/16 05:40; Admin Dose 75 MLS/HR; Start 12/25/16 at 06 :30 Miscellaneous Information (*Rx Drug Level Order Reminder*) VANCO TROUGH @ 0, 530 ON... ONCE ONCE XX ; Start 12/26/16 at 05:30; Stop 12/26/16 at 05:31 PINO PRETTY Dec 25, 2016 11:37
--- NOTE | 2016-12-25 13:04 | PN ---
Date/Time of Note Date/Time of Note DATE: 12/25/16 TIME: 12:59 Assessment/Plan VTE Prophylaxis VTE Prophylaxis Intervention: other (per primary MD) Lines/Catheters IV Catheter Type (from Nrsg): Saline Lock Urinary Cath still in place: No Assessment/Plan Assessment/Plan No left arm thrombosis. Continue current plans, including Kisqali/Femara. If this is progressive disease despite two months of treatment, her program may require change to cytotoxic agents. Subjective 24 Hr Interval Summary Free Text/Dictation No pain in left arm today. Exam/Review of Systems Vital Signs Vitals Vital Signs Date Time Temp Pulse Resp B/P Pulse Ox O2 Delivery O2 Flow Rate FiO2 12/25/16 12:26 116 12/25/16 11:11 98.5 20 96/51 94 12/25/16 08:55 Nasal Cannula 5.0 Intake and Output 12/24/16 12/24/16 12/25/16 15:00 23:00 07:00 Intake Total 50 ml 240 ml 500 ml Balance 50 ml 240 ml 500 ml Exam Constitutional: alert, oriented Head: normocephalic Eyes: other (pallor) ENMT: nl external ears & nose Respiratory: clear to auscultation Cardiovascular: regular rate and rhythm Gastrointestinal: non-tender, soft Musculoskeletal: other (right arm edema) Results Result Diagram: 12/25/16 0920 12/25/16 0920 Results 24 hrs Laboratory Tests Test 12/25/16 09:20 White Blood Count 8.3 # Red Blood Count 4.14 L Hemoglobin 9.7 L Hematocrit 31.6 L Mean Corpuscular Volume 76.3 L Mean Corpuscular Hemoglobin 23.4 L Mean Corpuscular Hemoglobin Concent 30.7 L Red Cell Distribution Width 17.0 H Platelet Count 638 H Mean Platelet Volume 8.7 Neutrophils % 69.7 Lymphocytes % 16.8 Monocytes % 10.0 Eosinophils % 1.4 Basophils % 1.0 Nucleated Red Blood Cells % 0.0 Neutrophils # 5.8 Lymphocytes # 1.4 Monocytes # 0.8 Eosinophils # 0.1 Basophils # 0.1 Nucleated Red Blood Cells # 0.0 Sodium Level 137 Potassium Level 3.7 Chloride Level 106 Carbon Dioxide Level 24 Anion Gap 11 Blood Urea Nitrogen 7 Creatinine 0.48 Glucose Level 97 Calcium Level 8.2 L Medications Medications Current Medications Ondansetron HCl (Zofran Inj) 4 mg Q6H PRN IV NAUSEA AND/OR VOMITING Last administered on 12/23/16 17:04; Admin Dose 4 MG; Start 12/18/16 at 19:30 Acetaminophen (Tylenol Tab) 650 mg Q6H PRN PO PAIN LEVEL 1-3 OR FEVER Last administered on 12/24/16 05:47; Admin Dose 650 MG; Start 12/18/16 at 19:30 Acetaminophen/ Hydrocodone Bitart ([place] (5/325)) 1 tab Q6H PRN PO MODERATE PAIN LEVEL 4-6 Last administered on 12/24/16 17:14; Admin Dose 1 TAB; Start 12/18/16 at 19:30 Morphine Sulfate (morphine) 2 mg Q4H PRN IV SEVERE PAIN LEVEL 7-10; Start at 19:30 Docusate Sodium (Colace) 100 mg Q12H PRN PO CONSTIPATION; Start 12/18/16 at 19: 30 Magnesium Hydroxide (Milk Of Mag) 30 ml DAILY PRN PO CONSTIPATION; Start at 19:30 Sodium Biphosphate/ Sodium Phosphate 133 ml 133 ml DAILY PRN [place] CONSTIPATION; Start 12/18/16 at 19:30 Levofloxacin/ Dextrose (Levaquin 750 Mg/ D5W 150 ml (Pmx)) 150 ml @ 100 mls/hr Q24H IVPB Last administered on 12/24/16 21:49; Admin Dose 100 MLS/HR; Start at 21:00 Hydralazine HCl (Apresoline) 10 mg Q6H PRN IV ELEVATED BLOOD PRESSURE; Start at 19:30 Nitroglycerin (Nitroglycerin (Sl Tab) 0.4 Mg) 1 tab Q5M PRN SL ANGINA; Start at 19:30 Sodium Chloride (Nacl) 2 gm TID PO Last administered on 12/25/16 08:16; Admin Dose 2 GM; Start 12/18/16 at 21:00 Valacyclovir HCl (Valtrex) 1,000 mg TID PO Last administered on 12/25/16 08:16 ; Admin Dose 1,000 MG; Start 12/18/16 at 21:00 Diphenhydramine HCl (Benadryl) 25 mg Q6H PRN PO ITCHING Last administered on 00:41; Admin Dose 25 MG; Start 12/18/16 at 20:00 Enoxaparin Sodium (Lovenox) 55 mg Q12 SC Last administered on 12/25/16 08:23; Admin Dose 55 MG; Start 12/19/16 at 18:00 Furosemide (Lasix) 40 mg DAILY@06 IV Last administered on 12/25/16 05:40; Admin Dose 40 MG; Start 12/21/16 at 06:00 Zolpidem Tartrate (Ambien) 2.5 mg HS PRN PO INSOMNIA Last administered on 21:21; Admin Dose 2.5 MG; Start 12/20/16 at 13:00 Letrozole (Femara) 2.5 mg DAILY@09 PO Last administered on 12/25/16 10:10; Admin Dose 2.5 MG; Start 12/22/16 at 09:00 Phenol (Cepastat Lozenge) 1 lozenge Q1H PRN MT COUGH; Start 12/21/16 at 14:30 Guaifenesin (Robitussin Liquid Cup) 200 mg Q4H PRN PO COUGH Last administered on 12/24/16 05:47; Admin Dose 200 MG; Start 12/21/16 at 14:30 Famotidine 20 mg 20 mg Q12 PO Last administered on 12/25/16 08:16; Admin Dose 20 MG; Start 12/21/16 at 21:00 Cefepime HCl (Maxipime 1gm/50 ml (Pmx)) 50 ml @ 100 mls/hr Q12 IVPB Last administered on 12/25/16 08:16; Admin Dose 100 MLS/HR; Start 12/22/16 at 12:00 Simethicone (Mylicon) 80 mg Q8 PO Last administered on 12/25/16 05:40; Admin Dose 80 MG; Start 12/22/16 at 12:35 Lorazepam 0.5 mg 0.5 mg Q6H PRN PO ANXIETY; Start 12/23/16 at 17:30 Vancomycin HCl/ Sodium Chloride (Vancocin/NS) 150 ml @ 75 mls/hr Q12H IVPB Last administered on 12/25/16 05:40; Admin Dose 75 MLS/HR; Start 12/25/16 at 06 :30 Miscellaneous Information (*Rx Drug Level Order Reminder*) VANCO TROUGH @ 0, 530 ON... ONCE ONCE XX ; Start 12/26/16 at 05:30; Stop 12/26/16 at 05:31 PERCY ROPER MD Dec 25, 2016 13:04
[2016-12-25] MEDS: ONDANSETRON 4 MG INJ IV PRN (14:47)
--- NOTE | 2016-12-25 18:15 | PN ---
Date/Time of Note Date/Time of Note DATE: 12/25/16 TIME: 18:12 Assessment/Plan VTE Prophylaxis VTE Prophylaxis Intervention: LMWH Lines/Catheters [facility] Saline Lock Urinary Cath still in place: No Assessment/Plan Assessment/Plan 56 yo F with metastatic breast cancer who presented with SOB now managed for the following 1. Acute respiratory failure / insufficiency 2/2 #2 2. Diffuse multilobar pneumonia likely obstructive from lung masses from metastatic breast cancer 3. Metastatic breast carcinoma. 4. Occlusion of the right subclavian vein. 5. Iron deficiency anemia. 6. Hypokalemia 7. Hypothyroidism on synthroid 8. Possible Shingles L breast 9. Mild Diastolic CHF Acute contributing to #1 PLAN: * Continue Broad abx coverage for obstructive pneumonia / ID consult /wean O2 as tolerated * Continue treatment dose anticoagulation * Continue IV iron replacement * Continue gentle diuresis with IV lasix * Monitor electrolytes and replete as needed * Continue supportive care Prophylaxis: lovenox and Pepcid Subjective 24 Hr Interval Summary Free Text/Dictation patient seen , still with high O2 requirement. no new issues Exam/Review of Systems Vital Signs Vitals Vital Signs Date Time Temp Pulse Resp B/P Pulse Ox O2 Delivery O2 Flow Rate FiO2 12/25/16 16:08 113 12/25/16 15:19 98.1 20 108/46 96 12/25/16 08:55 Nasal Cannula 5.0 Intake and Output 12/24/16 12/24/16 12/25/16 15:00 23:00 07:00 Intake Total 50 ml 240 ml 500 ml Balance 50 ml 240 ml 500 ml Exam General: The patient is well-developed, Not in acute distress, lethargic HEENT: Atraumatic, normocephalic. The pupils are equal and round . Neck: Supple Chest: Normal Lungs: Decreased breath sounds bilateral lower lung field with less positive crackles Heart: Normal S1-S2, Regular rhythm and rate. Abdomen: Soft , nontender, nondistended , bowel sounds are present. Extremities: Right upper extremity edema no cyanosis Neurologic: Normal mental status,The patient is awake, alert Results Result Diagram: 12/25/16 0920 12/25/16 0920 Results 24 hrs Laboratory Tests Test 12/25/16 09:20 White Blood Count 8.3 # Red Blood Count 4.14 L Hemoglobin 9.7 L Hematocrit 31.6 L Mean Corpuscular Volume 76.3 L Mean Corpuscular Hemoglobin 23.4 L Mean Corpuscular Hemoglobin Concent 30.7 L Red Cell Distribution Width 17.0 H Platelet Count 638 H Mean Platelet Volume 8.7 Neutrophils % 69.7 Lymphocytes % 16.8 Monocytes % 10.0 Eosinophils % 1.4 Basophils % 1.0 Nucleated Red Blood Cells % 0.0 Neutrophils # 5.8 Lymphocytes # 1.4 Monocytes # 0.8 Eosinophils # 0.1 Basophils # 0.1 Nucleated Red Blood Cells # 0.0 Sodium Level 137 Potassium Level 3.7 Chloride Level 106 Carbon Dioxide Level 24 Anion Gap 11 Blood Urea Nitrogen 7 Creatinine 0.48 Glucose Level 97 Calcium Level 8.2 L Medications Medications Current Medications Ondansetron HCl (Zofran Inj) 4 mg Q6H PRN IV NAUSEA AND/OR VOMITING Last administered on 12/25/16 14:47; Admin Dose 4 MG; Start 12/18/16 at 19:30 Acetaminophen (Tylenol Tab) 650 mg Q6H PRN PO PAIN LEVEL 1-3 OR FEVER Last administered on 12/24/16 05:47; Admin Dose 650 MG; Start 12/18/16 at 19:30 Acetaminophen/ Hydrocodone Bitart ([place] (5/325)) 1 tab Q6H PRN PO MODERATE PAIN LEVEL 4-6 Last administered on 12/24/16 17:14; Admin Dose 1 TAB; Start 12/18/16 at 19:30 Morphine Sulfate (morphine) 2 mg Q4H PRN IV SEVERE PAIN LEVEL 7-10; Start at 19:30 Docusate Sodium (Colace) 100 mg Q12H PRN PO CONSTIPATION; Start 12/18/16 at 19: 30 Magnesium Hydroxide (Milk Of Mag) 30 ml DAILY PRN PO CONSTIPATION; Start at 19:30 Sodium Biphosphate/ Sodium Phosphate 133 ml 133 ml DAILY PRN [place] CONSTIPATION; Start 12/18/16 at 19:30 Levofloxacin/ Dextrose (Levaquin 750 Mg/ D5W 150 ml (Pmx)) 150 ml @ 100 mls/hr Q24H IVPB Last administered on 12/24/16 21:49; Admin Dose 100 MLS/HR; Start at 21:00 Hydralazine HCl (Apresoline) 10 mg Q6H PRN IV ELEVATED BLOOD PRESSURE; Start at 19:30 Nitroglycerin (Nitroglycerin (Sl Tab) 0.4 Mg) 1 tab Q5M PRN SL ANGINA; Start at 19:30 Sodium Chloride (Nacl) 2 gm TID PO Last administered on 12/25/16 13:12; Admin Dose 2 GM; Start 12/18/16 at 21:00 Valacyclovir HCl (Valtrex) 1,000 mg TID PO Last administered on 12/25/16 13:12 ; Admin Dose 1,000 MG; Start 12/18/16 at 21:00 Diphenhydramine HCl (Benadryl) 25 mg Q6H PRN PO ITCHING Last administered on 00:41; Admin Dose 25 MG; Start 12/18/16 at 20:00 Enoxaparin Sodium (Lovenox) 55 mg Q12 SC Last administered on 12/25/16 08:23; Admin Dose 55 MG; Start 12/19/16 at 18:00 Furosemide (Lasix) 40 mg DAILY@06 IV Last administered on 12/25/16 05:40; Admin Dose 40 MG; Start 12/21/16 at 06:00 Zolpidem Tartrate (Ambien) 2.5 mg HS PRN PO INSOMNIA Last administered on 21:21; Admin Dose 2.5 MG; Start 12/20/16 at 13:00 Letrozole (Femara) 2.5 mg DAILY@09 PO Last administered on 12/25/16 10:10; Admin Dose 2.5 MG; Start 12/22/16 at 09:00 Phenol (Cepastat Lozenge) 1 lozenge Q1H PRN MT COUGH; Start 12/21/16 at 14:30 Guaifenesin (Robitussin Liquid Cup) 200 mg Q4H PRN PO COUGH Last administered on 12/24/16 05:47; Admin Dose 200 MG; Start 12/21/16 at 14:30 Famotidine 20 mg 20 mg Q12 PO Last administered on 12/25/16 08:16; Admin Dose 20 MG; Start 12/21/16 at 21:00 Cefepime HCl (Maxipime 1gm/50 ml (Pmx)) 50 ml @ 100 mls/hr Q12 IVPB Last administered on 12/25/16 08:16; Admin Dose 100 MLS/HR; Start 12/22/16 at 12:00 Simethicone (Mylicon) 80 mg Q8 PO Last administered on 12/25/16 13:12; Admin Dose 80 MG; Start 12/22/16 at 12:35 Lorazepam 0.5 mg 0.5 mg Q6H PRN PO ANXIETY; Start 12/23/16 at 17:30 Vancomycin HCl/ Sodium Chloride (Vancocin/NS) 150 ml @ 75 mls/hr Q12H IVPB Last administered on 12/25/16 05:40; Admin Dose 75 MLS/HR; Start 12/25/16 at 06 :30 Miscellaneous Information (*Rx Drug Level Order Reminder*) VANCO TROUGH @ 0, 530 ON... ONCE ONCE XX ; Start 12/26/16 at 05:30; Stop 12/26/16 at 05:31 Procedures Procedures PROCEDURE: US upper extremity Venous. CLINICAL INDICATION: Left arm edema , pain TECHNIQUE: Multiple sonographic images of the left upper extremity venous system was obtained utilizing grayscale, color-flow, compressive sonography and doppler imaging with augmentation. The images were reviewed on a PACS workstation. COMPARISON: None. FINDINGS: There is normal compressibility and flow within the left internal jugular vein, subclavian vein, axillary vein, brachial, radial and ulnar veins. The left basilic was not visualized. The left cephalic vein in the forearm was not seen. RPTAT: AA IMPRESSION: No sonographic evidence for venous thrombosis. Limited study. Left basilic and left cephalic vein in the forearm are not seen. .Chaim Jensen MD, MD Date Time Electronically viewed and signed by .Chaim Jensen MD, MD on 12/25/2016 08: 17 .S/ CC: ERUM HENDERSON MD PROCEDURE: XR Chest. CLINICAL INDICATION: Pneumonia. TECHNIQUE: Single frontal view of the chest was obtained. COMPARISON: Chest x-ray 12/28/2013 02:42 p.m. FINDINGS: The soft tissues are normal. Moderate electrodes are draped across the chest. There are degenerative osteophytes in the thoracic spine The the heart is enlarged. The cardiomediastinal silhouette and hilar structures are normal. The pulmonary vasculature is normal. There are vascular calcifications in the aortic arch. There is consolidative infiltrate and atelectasis in the lingula, left lower lobe and additional atelectasis/density adjacent to the aortic arch. Follow-up imaging is recommended to ensure this area clears. Additional infiltrates noted in the right upper lobe and right lower lobe with a right pleural effusion noted. There are bilateral effusions. IMPRESSION: 1. There are asymmetric infiltrates in the lungs with consolidative infiltrate and atelectasis in the left lower lobe resulting in elevation of the left diaphragm. Findings are suspicious for pneumonia. 2. There are bilateral pleural effusions. 3. There is a nodular density which likely is the result of infiltrate obscuring the aortic arch. Follow-up imaging is needed to ensure the this area clears in the no underlying mass is present. 4. Spondylosis of the thoracic spine. 5. Atherosclerotic vascular disease. RPTAT:AAJJ Physician Pardeep Date Time Electronically viewed and signed by Robin Brar Physician on 12/25/2016 11:19 KIARA ADLER Dec 25, 2016 18:15
[2016-12-25] MEDS: LEVOFLOXACIN 750MG/D5W (PMX) 150 ML IVPB SCH (21:54)
[2016-12-26] VITALS (14 sets, daily range): BP systolic 99–152; BP diastolic 49–74; PULSE 102–130; RESP 15–20
[2016-12-26] MEDS: ALBUTEROL/IPRATROPIUM (NEB) 3 ML AMP HHN SCH ×6 (00:35→20:10)
[2016-12-26] MEDS: LEVOTHYROXINE 100 MCG TAB PO SCH (06:28)
[2016-12-26] MEDS: FUROSEMIDE 40 MG INJ IV SCH (06:29)
[2016-12-26] MEDS ORDERED: CEPASTAT LOZENGE MT PRN (07:00)
[2016-12-26] MEDS: GUAIFENESIN 20 MG/ML 5ML CUP PO PRN (07:26)
[2016-12-26] MEDS: VANCOMYCIN 750 MG in SOD CHLORIDE 0.9% 150 ML IVPB SCH ×2 (07:26→16:51)
[2016-12-26 07:50] LABS: ADD SCAN DIFF NO
[2016-12-26 07:56] LABS: BASOPHILS % 0.5 % (0.0-2.0); EOSINOPHILS # 0.1 10^3/ul (0.0-0.5); EOSINOPHILS % 1.6 % (0.0-7.0); HEMATOCRIT 27.6 % (37.0-47.0); HEMOGLOBIN 8.6 g/dl (12.0-16.0); LYMPHOCYTES # 0.9 10^3/ul (0.8-2.9); LYMPHOCYTES % 11.8 % (15.0-51.0); MEAN CORPUSCULAR HEMOGLOBIN 23.8 pg (29.0-33.0); MEAN CORPUSCULAR HGB CONC 31.2 g/dl (32.0-37.0); MEAN CORPUSCULAR VOLUME 76.2 fl (82.0-101.0); MONOCYTE # 0.9 10^3/ul (0.3-0.9); MONOCYTES % 11.2 % (0.0-11.0); NEUTROPHIL # 5.7 10^3/ul (1.6-7.5); NEUTROPHILS % 74.2 % (39.0-77.0); PLATELET COUNT 632 10^3/UL (140-415); RED BLOOD COUNT 3.62 10^6/ul (4.20-5.40); RED CELL DISTRIBUTION WIDTH 16.8 % (11.5-14.5); WHITE BLOOD COUNT 7.6 10^3/ul (4.8-10.8)
[2016-12-26 08:00] LABS: CALCIUM 8.4 mg/dl (8.4-10.2); CREATININE 0.49 mg/dl (0.44-1.00); POTASSIUM 3.6 mmol/L (3.5-5.1)
[2016-12-26] MEDS: VALACYCLOVIR 500 MG TAB PO SCH ×3 (08:32→20:37)
[2016-12-26] MEDS: SODIUM CHLORIDE 1 GM TAB PO SCH ×3 (08:32→20:38)
[2016-12-26] MEDS: FAMOTIDINE 20 MG TAB PO SCH ×2 (08:32→20:38)
[2016-12-26] MEDS: CEPASTAT LOZENGE MT PRN ×6 (08:33→20:12)
[2016-12-26] MEDS: CEFEPIME 1GM/50 ML (PMX) 50 ML IVPB SCH ×2 (08:33→20:39)
[2016-12-26] MEDS: ENOXAPARIN 100 MG/ML SYG SC SCH ×2 (08:46→20:46)
--- NOTE | 2016-12-26 09:40 | PN ---
DATE: 12/26/2016 MEDICAL ONCOLOGY PROGRESS NOTE SUBJECTIVE: The patient continues to have shortness of breath with minimal exertion. Still some pa in in the left upper extremity. OBJECTIVE: GENERAL: The patient is a well-developed, chronically ill, tachypneic female. VITAL SIGNS: Temperature 99, pulse 114 and regular, respirations 18, blood pressure 116/76, pulse o ximetry 96% on 5 liters of oxygen. SKIN: Pale. No ecchymosis, no petechiae or rashes. HEENT: Normocephalic. No evidence of trauma. Pupils equal, round, react to light and accommodatio n. Sclerae nonicteric. Oral mucosa is moist without lesions. Tongue is well papillated. No gingi fernando hyperplasia, no hypertrophy of Waldeyer's ring. NECK: Supple, no jugular venous distention or thyroid enlargement. CHEST: There are decreased breath sounds, particularly on the left side with rales heard in anterio r left upper chest. There are no rubs, no wheezes. There is a very prominent venous pattern in the right anterior chest wall. HEART: Sinus tachycardia. No S3, S4 or murmurs. ABDOMEN: Soft, no masses, no ascites. Bowel sounds are active. EXTREMITIES: 2 to 3+ lymphedema of the right upper extremity. It is not warm to the touch or eryth ematous. There are no palpable cords or Homans sign. NEUROLOGIC: No focal neurologic abnormalities. LABORATORY DATA: White count today is 7600 with an absolute neutrophil count of 5700, hemoglobin 8. 6, hematocrit 26.7 and platelet count 632,000. Sodium 137, potassium 3.6, creatinine 0.49, BUN 10. A venous ultrasound of the left upper extremity failed to demonstrate any evidence of deep vein thro mbosis. ASSESSMENT: 1. Metastatic breast carcinoma. 2. Shortness of breath with left upper lobe consolidation. Most likely secondary to metastatic jos ast carcinoma, but also likely a component of superimposed pneumonia. There is also occlusion of th e right subclavian vein. 3. Iron deficiency anemia. PLAN: The patient is not responding well to antibiotic therapy. As noted, the patient has previously had documented metastatic carcinoma of the breast which was dem onstrated on biopsy of left upper lobe done at [facility] in October of this year. I have pl aced a copy of this biopsy on the chart. The patient has been receiving therapy under the direction Dr. Reynaldo Oliveira who has not followed the patient during this hospitalization, although I did notify him of the patient's admission. 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 She did receive adjuvant hormonal therapy, but did have evidence of recurrence while on tamoxifen. The patient has more rece ntly been switched to letrozole and Kisqali. I do not feel that this patient is demonstrating any response to this combination. At this time, I feel the patient will require a change in therapy. This could include a switch to Faslodex if hormo nal agents are still to be attempted. Other possibilities include chemotherapy. The patient has al ready received what seems to have been carboplatin and docetaxel. The patient has not received an a nthracycline antitumor agent. I will leave the decision about changes in therapy to Dr. Oliveira. Once again, thank you very much for the opportunity of participating in the medical care of this patty y interesting and pleasant patient. Dictated By: ERUM HENDERSON MD, SR/LOLI Conf#: [id number] DID#: [id number]
[2016-12-26] MEDS: LETROZOLE 2.5 MG TAB PO SCH (10:15)
--- NOTE | 2016-12-26 11:06 | PN ---
Date/Time of Note Date/Time of Note DATE: 12/26/16 TIME: 11:05 Assessment/Plan VTE Prophylaxis VTE Prophylaxis Intervention: LMWH Lines/Catheters IV Catheter Type (from [facility]): [place] [facility] Urinary Cath still in place: No Assessment/Plan Assessment/Plan 56 yo F with metastatic breast cancer who presented with SOB now managed for the following 1. Acute respiratory failure / insufficiency 2/2 #2 2. Diffuse multilobar pneumonia likely obstructive from lung masses from metastatic breast cancer 3. Metastatic breast carcinoma. 4. Occlusion of the right subclavian vein. 5. Iron deficiency anemia. 6. Hypokalemia 7. Hypothyroidism on synthroid 8. Possible Shingles L breast 9. Mild Diastolic CHF Acute contributing to #1 PLAN: * Continue Abx per ID /wean O2 as tolerated/ May need home O2 * Continue treatment dose anticoagulation * Continue IV iron replacement * Continue gentle diuresis with IV lasix * Monitor electrolytes and replete as needed * Continue supportive care * Ambulate as tolerated Prophylaxis: lovenox and Pepcid Subjective 24 Hr Interval Summary Free Text/Dictation patient still with resp insufficiency Exam/Review of Systems Vital Signs Vitals Vital Signs Date Time Temp Pulse Resp B/P Pulse Ox O2 Delivery O2 Flow Rate FiO2 12/26/16 10:27 119 21 94 5.0 12/26/16 08:11 99.0 116/56 12/26/16 00:00 Nasal Cannula Intake and Output 12/25/16 12/25/16 12/26/16 15:00 23:00 07:00 Intake Total 50 ml 770 ml 550 ml Output Total 900 ml 800 ml Balance 50 ml -130 ml -250 ml Exam General: The patient is well-developed, Not in acute distress, lethargic HEENT: Atraumatic, normocephalic. The pupils are equal and round . Neck: Supple Chest: Normal Lungs: Decreased breath sounds bilateral lower lung field with less positive crackles Heart: Normal S1-S2, Regular rhythm and rate. Abdomen: Soft , nontender, nondistended , bowel sounds are present. Extremities: Right upper extremity edema no cyanosis Neurologic: Normal mental status,The patient is awake, alert Results Result Diagram: 12/26/16 0518 12/26/16 0518 Results 24 hrs Laboratory Tests Test 12/26/16 05:18 White Blood Count 7.6 Red Blood Count 3.62 L Hemoglobin 8.6 L Hematocrit 27.6 L Mean Corpuscular Volume 76.2 L Mean Corpuscular Hemoglobin 23.8 L Mean Corpuscular Hemoglobin Concent 31.2 L Red Cell Distribution Width 16.8 H Platelet Count 632 H Mean Platelet Volume 9.0 Neutrophils % 74.2 Lymphocytes % 11.8 L Monocytes % 11.2 H Eosinophils % 1.6 Basophils % 0.5 Nucleated Red Blood Cells % 0.0 Neutrophils # 5.7 Lymphocytes # 0.9 Monocytes # 0.9 Eosinophils # 0.1 Basophils # 0.0 Nucleated Red Blood Cells # 0.0 Sodium Level 137 Potassium Level 3.6 Chloride Level 106 Carbon Dioxide Level 24 Anion Gap 11 Blood Urea Nitrogen 10 Creatinine 0.49 Glucose Level 105 Calcium Level 8.4 Vancomycin Level Trough 5.8 L Medications Medications Current Medications Ondansetron HCl (Zofran Inj) 4 mg Q6H PRN IV NAUSEA AND/OR VOMITING Last administered on 12/25/16 14:47; Admin Dose 4 MG; Start 12/18/16 at 19:30 Acetaminophen (Tylenol Tab) 650 mg Q6H PRN PO PAIN LEVEL 1-3 OR FEVER Last administered on 12/24/16 05:47; Admin Dose 650 MG; Start 12/18/16 at 19:30 Acetaminophen/ Hydrocodone Bitart ([place] (5/325)) 1 tab Q6H PRN PO MODERATE PAIN LEVEL 4-6 Last administered on 12/24/16 17:14; Admin Dose 1 TAB; Start 12/18/16 at 19:30 Morphine Sulfate (morphine) 2 mg Q4H PRN IV SEVERE PAIN LEVEL 7-10; Start at 19:30 Docusate Sodium (Colace) 100 mg Q12H PRN PO CONSTIPATION; Start 12/18/16 at 19: 30 Magnesium Hydroxide (Milk Of Mag) 30 ml DAILY PRN PO CONSTIPATION; Start at 19:30 Sodium Biphosphate/ Sodium Phosphate 133 ml 133 ml DAILY PRN [place] CONSTIPATION; Start 12/18/16 at 19:30 Levofloxacin/ Dextrose (Levaquin 750 Mg/ D5W 150 ml (Pmx)) 150 ml @ 100 mls/hr Q24H IVPB Last administered on 12/25/16 21:54; Admin Dose 100 MLS/HR; Start at 21:00 Hydralazine HCl (Apresoline) 10 mg Q6H PRN IV ELEVATED BLOOD PRESSURE; Start at 19:30 Nitroglycerin (Nitroglycerin (Sl Tab) 0.4 Mg) 1 tab Q5M PRN SL ANGINA; Start at 19:30 Sodium Chloride (Nacl) 2 gm TID PO Last administered on 12/26/16 08:32; Admin Dose 2 GM; Start 12/18/16 at 21:00 Valacyclovir HCl (Valtrex) 1,000 mg TID PO Last administered on 12/26/16 08:32 ; Admin Dose 1,000 MG; Start 12/18/16 at 21:00 Diphenhydramine HCl (Benadryl) 25 mg Q6H PRN PO ITCHING Last administered on 00:41; Admin Dose 25 MG; Start 12/18/16 at 20:00 Enoxaparin Sodium (Lovenox) 55 mg Q12 SC Last administered on 12/26/16 08:46; Admin Dose 55 MG; Start 12/19/16 at 18:00 Furosemide (Lasix) 40 mg DAILY@06 IV Last administered on 12/26/16 06:29; Admin Dose 40 MG; Start 12/21/16 at 06:00 Zolpidem Tartrate (Ambien) 2.5 mg HS PRN PO INSOMNIA Last administered on 21:21; Admin Dose 2.5 MG; Start 12/20/16 at 13:00 Letrozole (Femara) 2.5 mg DAILY@09 PO Last administered on 12/26/16 10:15; Admin Dose 2.5 MG; Start 12/22/16 at 09:00 Phenol (Cepastat Lozenge) 1 lozenge Q1H PRN MT COUGH Last administered on 10:13; Admin Dose 1 LOZENGE; Start 12/21/16 at 14:30 Guaifenesin (Robitussin Liquid Cup) 200 mg Q4H PRN PO COUGH Last administered on 12/26/16 07:26; Admin Dose 200 MG; Start 12/21/16 at 14:30 Famotidine 20 mg 20 mg Q12 PO Last administered on 12/26/16 08:32; Admin Dose 20 MG; Start 12/21/16 at 21:00 Cefepime HCl (Maxipime 1gm/50 ml (Pmx)) 50 ml @ 100 mls/hr Q12 IVPB Last administered on 12/26/16 08:33; Admin Dose 100 MLS/HR; Start 12/22/16 at 12:00 Simethicone (Mylicon) 80 mg Q8 PO Last administered on 12/26/16 06:28; Admin Dose 80 MG; Start 12/22/16 at 12:35 Lorazepam (Ativan) 0.5 mg Q6H PRN PO ANXIETY; Start 12/23/16 at 17:30 Phenol 1 lozenge 1 lozenge Q1H PRN MT SORE THROAT; Start 12/26/16 at 07:00 Vancomycin HCl/ Sodium Chloride (Vancocin/NS) 150 ml @ 75 mls/hr Q8H IVPB ; Start 12/26/16 at 16:00 Miscellaneous Information (*Rx Drug Level Order Reminder*) VANCO TROUGH @ 0, 700 ON... ONCE ONCE XX ; Start 12/27/16 at 07:00; Stop 12/27/16 at 07:01 KIARA SUGGS Dec 26, 2016 11:06
--- NOTE | 2016-12-26 13:21 | CONS ---
Date/Time of Note Date/Time of Note DATE: 12/26/16 TIME: 13:18 Assessment/Plan Assessment/Plan Additional Assessment/Plan Assessment recommendations; 1. Patient admitted for bilateral pneumonia clinically improving. 2. Right upper extremity DVT. 3. Remote history of right breast cancer. Continue current treatment. Consider switching to oral antibiotics and discharging home. Patient will need to have a follow-up CT of the chest done in about 2 weeks time after discharge. Consultation Date/Type/Reason Admit Date/Time Dec 18, 2016 at 18:40 Type of Consultation: Pulmonary 24 HR Interval Summary Free Text/Dictation Patient condition stable. Denies any shortness breath, chest pain. Cough or sputum production. General exam; middle-aged woman, awake alert currently in no distress. Exam/Review of Systems Vital Signs Vitals Vital Signs Date Time Temp Pulse Resp B/P Pulse Ox O2 Delivery O2 Flow Rate FiO2 12/26/16 13:03 5.0 12/26/16 13:02 106 20 96 12/26/16 11:36 97.9 99/49 12/26/16 08:10 Nasal Cannula Intake and Output 12/25/16 12/25/16 12/26/16 15:00 23:00 07:00 Intake Total 50 ml 770 ml 550 ml Output Total 900 ml 800 ml Balance 50 ml -130 ml -250 ml Exam HEENT exam ; supple neck, no JVD. No lymphadenopathy. Midline trachea. No thyromegaly. Pharynx is clear. Patient has fair dentition. Chest examined; diminished but clear breath sounds bilaterally. S1-S2 audible, no murmurs. Regular rhythm. Abdomen examination; soft, no organomegaly. Bowel sounds audible. Extremity exam ; 1+ pitting edema involving right upper extremity. No clubbing. Pulses 1+ bilaterally. [employer] examination; no focal deficit. Results Result Diagram: 12/26/16 0518 12/26/16 0518 Results 24 hrs Laboratory Tests Test 12/26/16 05:18 White Blood Count 7.6 Red Blood Count 3.62 L Hemoglobin 8.6 L Hematocrit 27.6 L Mean Corpuscular Volume 76.2 L Mean Corpuscular Hemoglobin 23.8 L Mean Corpuscular Hemoglobin Concent 31.2 L Red Cell Distribution Width 16.8 H Platelet Count 632 H Mean Platelet Volume 9.0 Neutrophils % 74.2 Lymphocytes % 11.8 L Monocytes % 11.2 H Eosinophils % 1.6 Basophils % 0.5 Nucleated Red Blood Cells % 0.0 Neutrophils # 5.7 Lymphocytes # 0.9 Monocytes # 0.9 Eosinophils # 0.1 Basophils # 0.0 Nucleated Red Blood Cells # 0.0 Sodium Level 137 Potassium Level 3.6 Chloride Level 106 Carbon Dioxide Level 24 Anion Gap 11 Blood Urea Nitrogen 10 Creatinine 0.49 Glucose Level 105 Calcium Level 8.4 Vancomycin Level Trough 5.8 L Medications Medications Current Medications Ondansetron HCl (Zofran Inj) 4 mg Q6H PRN IV NAUSEA AND/OR VOMITING Last administered on 12/25/16 14:47; Admin Dose 4 MG; Start 12/18/16 at 19:30 Acetaminophen (Tylenol Tab) 650 mg Q6H PRN PO PAIN LEVEL 1-3 OR FEVER Last administered on 12/24/16 05:47; Admin Dose 650 MG; Start 12/18/16 at 19:30 Acetaminophen/ Hydrocodone Bitart ([place] (5/325)) 1 tab Q6H PRN PO MODERATE PAIN LEVEL 4-6 Last administered on 12/24/16 17:14; Admin Dose 1 TAB; Start 12/18/16 at 19:30 Morphine Sulfate (morphine) 2 mg Q4H PRN IV SEVERE PAIN LEVEL 7-10; Start at 19:30 Docusate Sodium (Colace) 100 mg Q12H PRN PO CONSTIPATION; Start 12/18/16 at 19: 30 Magnesium Hydroxide (Milk Of Mag) 30 ml DAILY PRN PO CONSTIPATION; Start at 19:30 Sodium Biphosphate/ Sodium Phosphate 133 ml 133 ml DAILY PRN [place] CONSTIPATION; Start 12/18/16 at 19:30 Levofloxacin/ Dextrose (Levaquin 750 Mg/ D5W 150 ml (Pmx)) 150 ml @ 100 mls/hr Q24H IVPB Last administered on 12/25/16 21:54; Admin Dose 100 MLS/HR; Start at 21:00 Hydralazine HCl (Apresoline) 10 mg Q6H PRN IV ELEVATED BLOOD PRESSURE; Start at 19:30 Nitroglycerin (Nitroglycerin (Sl Tab) 0.4 Mg) 1 tab Q5M PRN SL ANGINA; Start at 19:30 Sodium Chloride (Nacl) 2 gm TID PO Last administered on 12/26/16 12:48; Admin Dose 2 GM; Start 12/18/16 at 21:00 Valacyclovir HCl (Valtrex) 1,000 mg TID PO Last administered on 12/26/16 12:48 ; Admin Dose 1,000 MG; Start 12/18/16 at 21:00 Diphenhydramine HCl (Benadryl) 25 mg Q6H PRN PO ITCHING Last administered on 00:41; Admin Dose 25 MG; Start 12/18/16 at 20:00 Enoxaparin Sodium (Lovenox) 55 mg Q12 SC Last administered on 12/26/16 08:46; Admin Dose 55 MG; Start 12/19/16 at 18:00 Furosemide (Lasix) 40 mg DAILY@06 IV Last administered on 12/26/16 06:29; Admin Dose 40 MG; Start 12/21/16 at 06:00 Zolpidem Tartrate (Ambien) 2.5 mg HS PRN PO INSOMNIA Last administered on 21:21; Admin Dose 2.5 MG; Start 12/20/16 at 13:00 Letrozole (Femara) 2.5 mg DAILY@09 PO Last administered on 12/26/16 10:15; Admin Dose 2.5 MG; Start 12/22/16 at 09:00 Phenol (Cepastat Lozenge) 1 lozenge Q1H PRN MT COUGH Last administered on 12:48; Admin Dose 1 LOZENGE; Start 12/21/16 at 14:30 Guaifenesin (Robitussin Liquid Cup) 200 mg Q4H PRN PO COUGH Last administered on 12/26/16 07:26; Admin Dose 200 MG; Start 12/21/16 at 14:30 Famotidine 20 mg 20 mg Q12 PO Last administered on 12/26/16 08:32; Admin Dose 20 MG; Start 12/21/16 at 21:00 Cefepime HCl (Maxipime 1gm/50 ml (Pmx)) 50 ml @ 100 mls/hr Q12 IVPB Last administered on 12/26/16 08:33; Admin Dose 100 MLS/HR; Start 12/22/16 at 12:00 Simethicone (Mylicon) 80 mg Q8 PO Last administered on 12/26/16t 06:28; Admin Dose 80 MG; Start 12/22/16 at 12:35 Lorazepam (Ativan) 0.5 mg Q6H PRN PO ANXIETY; Start 12/23/16 at 17:30 Phenol 1 lozenge 1 lozenge Q1H PRN MT SORE THROAT; Start 12/26/16 at 07:00 Vancomycin HCl/ Sodium Chloride (Vancocin/NS) 150 ml @ 75 mls/hr Q8H IVPB ; Start 12/26/16 at 16:00 Miscellaneous Information (*Rx Drug Level Order Reminder*) VANCO TROUGH @ 0, 700 ON... ONCE ONCE XX ; Start 12/27/16 at 07:00; Stop 12/27/16 at 07:01 PINO PRETTY Dec 26, 2016 13:21
[2016-12-26] MEDS: LEVOFLOXACIN 750MG/D5W (PMX) 150 ML IVPB SCH (20:41)
[2016-12-26 21:31] LABS: AADO2 Arterial 320.5 mmHg (7.0-24.0); Allen Test ACCEPTAB; Arterial Base Excess -6.5 mmol/L (-3.0-3); Arterial COHb 0.3 % (0.0-3.0); Arterial Fraction of Oxyhgb 97.6 % (93.0-99.0); Arterial HCO3 15.2 mmol/L (22.0-26.0); Arterial MetHb 0.8 % (0.0-1.5); Blood Gas IEPAP 15/8; Blood Gas PS 7; MODE MASK - BIPAP
[2016-12-27] VITALS (25 sets, daily range): BP systolic 120–154; BP diastolic 59–76; PULSE 115–135; RESP 18–35
[2016-12-27] MEDS: VANCOMYCIN 750 MG in SOD CHLORIDE 0.9% 150 ML IVPB SCH ×3 (00:05→16:42)
[2016-12-27] MEDS: ALBUTEROL/IPRATROPIUM (NEB) 3 ML AMP HHN SCH ×6 (01:06→20:49)
[2016-12-27] MEDS: CEPASTAT LOZENGE MT PRN ×2 (02:52→17:21)
[2016-12-27 06:24] LABS: ADD SCAN DIFF NO
[2016-12-27 06:27] LABS: BASOPHILS % 0.3 % (0.0-2.0); EOSINOPHILS % 0.3 % (0.0-7.0); HEMATOCRIT 31.5 % (37.0-47.0); HEMOGLOBIN 9.9 g/dl (12.0-16.0); LYMPHOCYTES # 0.7 10^3/ul (0.8-2.9); LYMPHOCYTES % 4.9 % (15.0-51.0); MEAN CORPUSCULAR HGB CONC 31.4 g/dl (32.0-37.0); MEAN CORPUSCULAR VOLUME 76.3 fl (82.0-101.0); MEAN PLATELET VOLUME 8.9 fl (7.4-10.4); MONOCYTE # 0.8 10^3/ul (0.3-0.9); MONOCYTES % 5.3 % (0.0-11.0); NEUTROPHIL # 13.1 10^3/ul (1.6-7.5); NEUTROPHILS % 88.3 % (39.0-77.0); PLATELET COUNT 677 10^3/UL (140-415); RED BLOOD COUNT 4.13 10^6/ul (4.20-5.40); RED CELL DISTRIBUTION WIDTH 18.5 % (11.5-14.5); WHITE BLOOD COUNT 14.8 10^3/ul (4.8-10.8)
[2016-12-27] MEDS: LEVOTHYROXINE 100 MCG TAB PO SCH (06:32)
[2016-12-27] MEDS: FUROSEMIDE 40 MG INJ IV SCH ×2 (06:33)
[2016-12-27 07:05] LABS: CALCIUM 8.6 mg/dl (8.4-10.2); CREATININE 0.4 mg/dl (0.44-1.00); MAGNESIUM 1.5 mg/dl (1.7-2.5)
[2016-12-27 07:42] LABS: POTASSIUM 2.9 mmol/L (3.5-5.1)
[2016-12-27] MEDS: CEFEPIME 1GM/50 ML (PMX) 50 ML IVPB SCH ×2 (08:15→20:46)
[2016-12-27] MEDS: SODIUM CHLORIDE 1 GM TAB PO SCH ×3 (08:16→20:47)
[2016-12-27] MEDS: FAMOTIDINE 20 MG TAB PO SCH ×2 (08:16→20:46)
[2016-12-27] MEDS: VALACYCLOVIR 500 MG TAB PO SCH ×3 (08:16→20:46)
[2016-12-27] MEDS: LETROZOLE 2.5 MG TAB PO SCH (08:26)
[2016-12-27] MEDS: ENOXAPARIN 100 MG/ML SYG SC SCH ×2 (08:26→21:00)
--- NOTE | 2016-12-27 08:37 | CONS ---
Date/Time of Note Date/Time of Note DATE: 12/27/16 TIME: 08:35 Consult Date/Type/Reason Admit Date/Time Dec 18, 2016 at 18:40 Initial Consult Date 12/23/16 Type of Consultation: Pulmonary Subjective On Bipap. SOB present. Right arm swollen. Objective Vital Signs Date Time Temp Pulse Resp B/P Pulse Ox O2 Delivery O2 Flow Rate FiO2 12/27/16 08:22 123 12/27/16 08:11 98.0 18 120/72 90 12/27/16 04:54 70 12/26/16 20:10 5.0 12/26/16 08:10 Nasal Cannula Intake and Output 12/26/16 12/26/16 12/27/16 15:00 23:00 07:00 Intake Total 50 ml 950 ml 500 ml Output Total 850 ml Balance 50 ml 950 ml -350 ml Exam On Bipap Labored breathing Right arm swollen from wrist up to shoulder Bilateral wheezing RRR no m/g/r Abd-firm but no rebound or guarding Slight LE edema Results/Medications Result Diagram: 12/27/16 0620 12/27/16 0620 Results 24 hrs Laboratory Tests Test 12/26/16 21:20 12/27/16 06:20 Blood Gas Specimen Source Blood arterial Arterial Blood Date Drawn 12/26/2016 9:20:38 PM Arterial Blood pH (Temp corrected) 7.536 H Arterial Blood pCO2 (Temp correct) 18.3 L Arterial Blood pO2 (Temp corrected) 158.9 H Arterial Blood HCO3 15.2 L Arterial Blood Base Excess -6.5 L Arterial Blood Oxygen Saturation 98.7 H Adolfo Test ACCEPTAB Arterial Blood Gas Puncture Site Left Radial Arterial Blood Carboxyhemoglobin 0.3 Arterial Blood Methemoglobin 0.8 Blood Gas A-a O2 Differential 320.5 H Oxyhemoglobin Percent 97.6 Total Hemoglobin 7.0 L Blood Gas Temperature 37.0 Blood Gas Respiration Rate 16.0 Blood Gas Actual Respiration Rate 32 Blood Gas Modality MASK - BIPAP FiO2 70.0 Blood Gas Pressure Support 7 Blood Gas IPAP/EPAP Ratio 15/8 Blood Gas Notified Whom UP Blood Gas Notified Time 12/26/2016 9:31:10 PM White Blood Count 14.8 #H Red Blood Count 4.13 L Hemoglobin 9.9 L Hematocrit 31.5 L Mean Corpuscular Volume 76.3 L Mean Corpuscular Hemoglobin 24.0 L Mean Corpuscular Hemoglobin Concent 31.4 L Red Cell Distribution Width 18.5 H Platelet Count 677 H Mean Platelet Volume 8.9 Neutrophils % 88.3 H Lymphocytes % 4.9 L Monocytes % 5.3 Eosinophils % 0.3 Basophils % 0.3 Nucleated Red Blood Cells % 0.0 Neutrophils # 13.1 H Lymphocytes # 0.7 L Monocytes # 0.8 Eosinophils # 0.0 Basophils # 0.0 Nucleated Red Blood Cells # 0.0 Sodium Level 134 L Potassium Level 2.9 *L Chloride Level 102 Carbon Dioxide Level 23 Anion Gap 12 Blood Urea Nitrogen 8 Creatinine 0.40 L Glucose Level 116 Calcium Level 8.6 Magnesium Level 1.5 L Vancomycin Level Trough 10.5 Medications Current Medications Ondansetron HCl (Zofran Inj) 4 mg Q6H PRN IV NAUSEA AND/OR VOMITING Last administered on 12/25/16 14:47; Admin Dose 4 MG; Start 12/18/16 at 19:30 Acetaminophen (Tylenol Tab) 650 mg Q6H PRN PO PAIN LEVEL 1-3 OR FEVER Last administered on 12/24/16 05:47; Admin Dose 650 MG; Start 12/18/16 at 19:30 Acetaminophen/ Hydrocodone Bitart ([place] (5/325)) 1 tab Q6H PRN PO MODERATE PAIN LEVEL 4-6 Last administered on 12/24/16 17:14; Admin Dose 1 TAB; Start 12/18/16 at 19:30 Morphine Sulfate (morphine) 2 mg Q4H PRN IV SEVERE PAIN LEVEL 7-10; Start at 19:30 Docusate Sodium (Colace) 100 mg Q12H PRN PO CONSTIPATION Last administered on 14:59; Admin Dose 100 MG; Start 12/18/16 at 19:30 Magnesium Hydroxide (Milk Of Mag) 30 ml DAILY PRN PO CONSTIPATION; Start at 19:30 Sodium Biphosphate/ Sodium Phosphate 133 ml 133 ml DAILY PRN [place] CONSTIPATION; Start 12/18/16 at 19:30 Levofloxacin/ Dextrose (Levaquin 750 Mg/ D5W 150 ml (Pmx)) 150 ml @ 100 mls/hr Q24H IVPB Last administered on 12/26/16 20:41; Admin Dose 100 MLS/HR; Start at 21:00 Hydralazine HCl (Apresoline) 10 mg Q6H PRN IV ELEVATED BLOOD PRESSURE; Start at 19:30 Nitroglycerin (Nitroglycerin (Sl Tab) 0.4 Mg) 1 tab Q5M PRN SL ANGINA; Start at 19:30 Sodium Chloride (Nacl) 2 gm TID PO Last administered on 12/27/16 08:16; Admin Dose 2 GM; Start 12/18/16 at 21:00 Valacyclovir HCl (Valtrex) 1,000 mg TID PO Last administered on 12/27/16 08:16 ; Admin Dose 1,000 MG; Start 12/18/16 at 21:00 Diphenhydramine HCl (Benadryl) 25 mg Q6H PRN PO ITCHING Last administered on 00:41; Admin Dose 25 MG; Start 12/18/16 at 20:00 Enoxaparin Sodium (Lovenox) 55 mg Q12 SC Last administered on 12/27/16 08:26; Admin Dose 55 MG; Start 12/19/16 at 18:00 Furosemide (Lasix) 40 mg DAILY@06 IV Last administered on 12/27/16 06:33; Admin Dose 40 MG; Start 12/21/16 at 06:00 Zolpidem Tartrate (Ambien) 2.5 mg HS PRN PO INSOMNIA Last administered on 21:21; Admin Dose 2.5 MG; Start 12/20/16 at 13:00 Letrozole (Femara) 2.5 mg DAILY@09 PO Last administered on 12/27/16 08:26; Admin Dose 2.5 MG; Start 12/22/16 at 09:00 Phenol (Cepastat Lozenge) 1 lozenge Q1H PRN MT COUGH Last administered on 02:52; Admin Dose 1 LOZENGE; Start 12/21/16 at 14:30 Guaifenesin (Robitussin Liquid Cup) 200 mg Q4H PRN PO COUGH Last administered on 12/26/16 07:26; Admin Dose 200 MG; Start 12/21/16 at 14:30 Famotidine 20 mg 20 mg Q12 PO Last administered on 12/27/16 08:16; Admin Dose 20 MG; Start 12/21/16 at 21:00 Cefepime HCl (Maxipime 1gm/50 ml (Pmx)) 50 ml @ 100 mls/hr Q12 IVPB Last administered on 12/27/16 08:15; Admin Dose 100 MLS/HR; Start 12/22/16 at 12:00 Simethicone (Mylicon) 80 mg Q8 PO Last administered on 12/27/16 06:32; Admin Dose 80 MG; Start 12/22/16 at 12:35 Lorazepam (Ativan) 0.5 mg Q6H PRN PO ANXIETY; Start 12/23/16 at 17:30 Phenol 1 lozenge 1 lozenge Q1H PRN MT SORE THROAT; Start 12/26/16 at 07:00 Vancomycin HCl/ Sodium Chloride (Vancocin/NS) 150 ml @ 75 mls/hr Q8H IVPB Last administered on 12/27/16 08:19; Admin Dose 75 MLS/HR; Start 12/26/16 at 16 :00 Assessment/Plan Problems: (1) Acute respiratory failure (2) Shingles (3) Acute pulmonary edema (4) Breast carcinoma Additional Assessment/Plan 1. Right arm DVT: continue anticoagulation 2. SOB: on Abx but may have component of lymphangiitic spread. If not improving much more, consider bronchoscopy or empiric switch to cytotoxic chemotherapy for breast cancer. Will f/u with you ZULEYKA LANDAVERDE Dec 27, 2016 08:37
--- NOTE | 2016-12-27 09:54 | CONS ---
Date/Time of Note Date/Time of Note DATE: 12/27/16 TIME: 09:51 Assessment/Plan Assessment/Plan Additional Assessment/Plan Assessment and recommendations; 1. Patient admitted for bilateral pneumonia was improving but then had decompensation last evening. Currently on BiPAP. 2. Remote history of right breast cancer. 3. Right upper extremity DVT. Continue current treatment. Obtain a chest x-ray. Consultation Date/Type/Reason Admit Date/Time Dec 18, 2016 at 18:40 Type of Consultation: Pulmonary 24 HR Interval Summary Free Text/Dictation Patient condition has taken a turn for the worse since last evening when she became more short of breath. Patient currently on BiPAP, awake and alert. General exam; elderly woman, awake currently in no distress. On BiPAP. Exam/Review of Systems Vital Signs Vitals Vital Signs Date Time Temp Pulse Resp B/P Pulse Ox O2 Delivery O2 Flow Rate FiO2 12/27/16 08:37 129 95 70 12/27/16 08:11 98.0 18 120/72 12/26/16 20:10 5.0 12/26/16 08:10 Nasal Cannula Intake and Output 12/26/16 12/26/16 12/27/16 15:00 23:00 07:00 Intake Total 50 ml 950 ml 500 ml Output Total 850 ml Balance 50 ml 950 ml -350 ml Exam HEENT examination; supple neck, no JVD. No lymphadenopathy. Midline trachea. No thyromegaly. Pharynx is clear. Patient has fair dentition. Chest examined; diffuse crackles in lower lobes bilaterally. S1-S2 audible, no murmurs. Regular rhythm. Upper lobes are clear to auscultation. Abdomen examination; soft, nontender. No organomegaly. Bowel sounds audible. Extremity exam is; no peripheral edema. In lower extremities and left upper extremities. 2+ pitting edema involving right upper extremity. 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 Results Result Diagram: 12/27/16 0620 12/27/16 0620 Results 24 hrs Laboratory Tests Test 12/26/16 21:20 12/27/16 06:20 Blood Gas Specimen Source Blood arterial Arterial Blood Date Drawn 12/26/2016 9:20:38 PM Arterial Blood pH (Temp corrected) 7.536 H Arterial Blood pCO2 (Temp correct) 18.3 L Arterial Blood pO2 (Temp corrected) 158.9 H Arterial Blood HCO3 15.2 L Arterial Blood Base Excess -6.5 L Arterial Blood Oxygen Saturation 98.7 H Adolfo Test ACCEPTAB Arterial Blood Gas Puncture Site Left Radial Arterial Blood Carboxyhemoglobin 0.3 Arterial Blood Methemoglobin 0.8 Blood Gas A-a O2 Differential 320.5 H Oxyhemoglobin Percent 97.6 Total Hemoglobin 7.0 L Blood Gas Temperature 37.0 Blood Gas Respiration Rate 16.0 Blood Gas Actual Respiration Rate 32 Blood Gas Modality MASK - BIPAP FiO2 70.0 Blood Gas Pressure Support 7 Blood Gas IPAP/EPAP Ratio 15 Blood Gas Notified Whom UP Blood Gas Notified Time 12/26/2016 9:31:10 PM White Blood Count 14.8 #H Red Blood Count 4.13 L Hemoglobin 9.9 L Hematocrit 31.5 L Mean Corpuscular Volume 76.3 L Mean Corpuscular Hemoglobin 24.0 L Mean Corpuscular Hemoglobin Concent 31.4 L Red Cell Distribution Width 18.5 H Platelet Count 677 H Mean Platelet Volume 8.9 Neutrophils % 88.3 H Lymphocytes % 4.9 L Monocytes % 5.3 Eosinophils % 0.3 Basophils % 0.3 Nucleated Red Blood Cells % 0.0 Neutrophils # 13.1 H Lymphocytes # 0.7 L Monocytes # 0.8 Eosinophils # 0.0 Basophils # 0.0 Nucleated Red Blood Cells # 0.0 Sodium Level 134 L Potassium Level 2.9 *L Chloride Level 102 Carbon Dioxide Level 23 Anion Gap 12 Blood Urea Nitrogen 8 Creatinine 0.40 L Glucose Level 116 Calcium Level 8.6 Magnesium Level 1.5 L Vancomycin Level Trough 10.5 Medications Medications Current Medications Ondansetron HCl (Zofran Inj) 4 mg Q6H PRN IV NAUSEA AND/OR VOMITING Last administered on 12/25/16 14:47; Admin Dose 4 MG; Start 12/18/16 at 19:30 Acetaminophen (Tylenol Tab) 650 mg Q6H PRN PO PAIN LEVEL 1-3 OR FEVER Last administered on 12/24/16 05:47; Admin Dose 650 MG; Start 12/18/16 at 19:30 Acetaminophen/ Hydrocodone Bitart ([place] (5/325)) 1 tab Q6H PRN PO MODERATE PAIN LEVEL 4-6 Last administered on 12/24/16 17:14; Admin Dose 1 TAB; Start 12/18/16 at 19:30 Morphine Sulfate (morphine) 2 mg Q4H PRN IV SEVERE PAIN LEVEL 7-10; Start at 19:30 Docusate Sodium (Colace) 100 mg Q12H PRN PO CONSTIPATION Last administered on 14:59; Admin Dose 100 MG; Start 12/18/16 at 19:30 Magnesium Hydroxide (Milk Of Mag) 30 ml DAILY PRN PO CONSTIPATION; Start at 19:30 Sodium Biphosphate/ Sodium Phosphate 133 ml 133 ml DAILY PRN [place] CONSTIPATION; Start 12/18/16 at 19:30 Levofloxacin/ Dextrose (Levaquin 750 Mg/ D5W 150 ml (Pmx)) 150 ml @ 100 mls/hr Q24H IVPB Last administered on 12/26/16 20:41; Admin Dose 100 MLS/HR; Start at 21:00 Hydralazine HCl (Apresoline) 10 mg Q6H PRN IV ELEVATED BLOOD PRESSURE; Start at 19:30 Nitroglycerin (Nitroglycerin (Sl Tab) 0.4 Mg) 1 tab Q5M PRN SL ANGINA; Start at 19:30 Sodium Chloride (Nacl) 2 gm TID PO Last administered on 12/27/16 08:16; Admin Dose 2 GM; Start 12/18/16 at 21:00 Valacyclovir HCl (Valtrex) 1,000 mg TID PO Last administered on 12/27/16 08:16 ; Admin Dose 1,000 MG; Start 12/18/16 at 21:00 Diphenhydramine HCl (Benadryl) 25 mg Q6H PRN PO ITCHING Last administered on 00:41; Admin Dose 25 MG; Start 12/18/16 at 20:00 Enoxaparin Sodium (Lovenox) 55 mg Q12 SC Last administered on 12/27/16 08:26; Admin Dose 55 MG; Start 12/19/16 at 18:00 Furosemide (Lasix) 40 mg DAILY@06 IV Last administered on 12/27/16 06:33; Admin Dose 40 MG; Start 12/21/16 at 06:00 Zolpidem Tartrate (Ambien) 2.5 mg HS PRN PO INSOMNIA Last administered on 21:21; Admin Dose 2.5 MG; Start 12/20/16 at 13:00 Letrozole (Femara) 2.5 mg DAILY@09 PO Last administered on 12/27/16 08:26; Admin Dose 2.5 MG; Start 12/22/16 at 09:00 Phenol (Cepastat Lozenge) 1 lozenge Q1H PRN MT COUGH Last administered on 02:52; Admin Dose 1 LOZENGE; Start 12/21/16 at 14:30 Guaifenesin (Robitussin Liquid Cup) 200 mg Q4H PRN PO COUGH Last administered on 12/26/16 07:26; Admin Dose 200 MG; Start 12/21/16 at 14:30 Famotidine 20 mg 20 mg Q12 PO Last administered on 12/27/16 08:16; Admin Dose 20 MG; Start 12/21/16 at 21:00 Cefepime HCl (Maxipime 1gm/50 ml (Pmx)) 50 ml @ 100 mls/hr Q12 IVPB Last administered on 12/27/16 08:15; Admin Dose 100 MLS/HR; Start 12/22/16 at 12:00 Simethicone (Mylicon) 80 mg Q8 PO Last administered on 12/27/16 06:32; Admin Dose 80 MG; Start 12/22/16 at 12:35 Lorazepam (Ativan) 0.5 mg Q6H PRN PO ANXIETY; Start 12/23/16 at 17:30 Phenol 1 lozenge 1 lozenge Q1H PRN MT SORE THROAT; Start 12/26/16 at 07:00 Vancomycin HCl/ Sodium Chloride (Vancocin/NS) 150 ml @ 75 mls/hr Q8H IVPB Last administered on 12/27/16 08:19; Admin Dose 75 MLS/HR; Start 12/26/16 at 16 :00 PINO PRETTY 17, 2017 09:54
--- NOTE | 2016-12-27 12:38 | RADRPT ---
PROCEDURE: XR Chest 1 view. CLINICAL INDICATION: Shortness of breath. TECHNIQUE: AP views of the chest were obtained. COMPARISON: December 25, 2016 FINDINGS: The heart is large. Calcified atherosclerosis is noted in the aorta. Patchy infiltrates throughout the right lung have mildly increased. Small right pleural effusion has developed. Patchy infiltrat es in the left lower lobe are stable. Perihilar left upper lobe infiltrates have decreased to Surg ical clips are seen in the right axilla. The osseous structures are osteopenic, but appear grossly intact. IMPRESSION: Cardiomegaly with calcified atherosclerosis in the aorta. Mild interval increase in patchy infiltrates throughout the right lung and interval development of s mall right pleural effusion. Stable patchy left lower lobe infiltrates. Interval decrease in perihilar left upper lobe infiltrates. RPTAT: AA .Carlos Thomas MD, Date Time Electronically viewed and signed by .Carlos Thomas MD, on 12/27/2016 12:38 .P/
[2016-12-27] MEDS ORDERED: MAGNESIUM SULFATE 2 GM/50 ML 50 ML IVPB ONE (19:00)
[2016-12-27] MEDS ORDERED: DOCUSATE SODIUM 100 MG CAP PO SCH (19:30)
--- NOTE | 2016-12-27 20:46 | PN ---
Date/Time of Note Date/Time of Note DATE: 12/27/16 TIME: 18:54 Assessment/Plan VTE Prophylaxis VTE Prophylaxis Intervention: LMWH (treatment dose) Lines/Catheters IV C[facility]ter Type (from [facility] [place] Urinary Cath still in place: No Assessment/Plan Assessment/Plan 56 yo F with metastatic breast cancer who presented with SOB now managed for the following 1. Acute respiratory failure / insufficiency 2/2 #2 2. Diffuse multilobar pneumonia likely obstructive from lung masses from metastatic breast cancer 3. Metastatic breast carcinoma. 4. Occlusion of the right subclavian vein. 5. Iron deficiency anemia. 6. Hypokalemia /Hypomagnesemia 7. Hypothyroidism on synthroid 8. Possible Shingles L breast 9. Mild Diastolic CHF Acute contributing to #1 PLAN: * Patient may have a pulmonary emboli that may be contributing to worsening respiratory status, however she is on treatment dose anticoagulation for subclavian VV thrombus * Continue Abx per ID / Consider repeat CT to eval pneumonia * Continue treatment dose anticoagulation * Continue IV iron replacement * Increase diuresis with lasix * Monitor electrolytes and replete as needed * Continue supportive care * Ambulate as tolerated Prophylaxis: lovenox and Pepcid Subjective 24 Hr Interval Summary Free Text/Dictation Patient is very lethargic today. She decompensated last night and is now on BiPAP therapy. I spoke with in detail at bedside. Exam/Review of Systems Vital Signs Vitals Vital Signs Date Time Temp Pulse Resp B/P Pulse Ox O2 Delivery O2 Flow Rate FiO2 12/27/16 16:15 128 12/27/16 15:53 92 90 12/27/16 15:29 98.5 26 139/73 12/26/16 20:10 5.0 12/26/16 08:10 Nasal Cannula Intake and Output 12/26/16 12/26/16 12/27/16 15:00 23:00 07:00 Intake Total 50 ml 950 ml 500 ml Output Total 850 ml Balance 50 ml 950 ml -350 ml Exam Constitutional: alert, frail, other (lethargic) Head: normocephalic Eyes: icteric (mild) ENMT: other (bipap) Respiratory: crackles/rales, diminished breath sounds Cardiovascular: No murmurs/extra sounds, No regular rate and rhythm (tachy) Gastrointestinal: bowel sounds, soft Extremities: edema (mild) Neurological: lethargic Results Result Diagram: 12/27/16 0620 12/27/16 0620 Results 24 hrs Laboratory Tests Test 12/26/16 21:20 12/27/16 06:20 Blood Gas Specimen Source Blood arterial Arterial Blood Date Drawn 12/26/2016 9:20:38 PM Arterial Blood pH (Temp corrected) 7.536 H Arterial Blood pCO2 (Temp correct) 18.3 L Arterial Blood pO2 (Temp corrected) 158.9 H Arterial Blood HCO3 15.2 L Arterial Blood Base Excess -6.5 L Arterial Blood Oxygen Saturation 98.7 H Adolfo Test ACCEPTAB Arterial Blood Gas Puncture Site Left Radial Arterial Blood Carboxyhemoglobin 0.3 Arterial Blood Methemoglobin 0.8 Blood Gas A-a O2 Differential 320.5 H Oxyhemoglobin Percent 97.6 Total Hemoglobin 7.0 L Blood Gas Temperature 37.0 Blood Gas Respiration Rate 16.0 Blood Gas Actual Respiration Rate 32 Blood Gas Modality MASK - BIPAP FiO2 70.0 Blood Gas Pressure Support 7 Blood Gas IPAP/EPAP Ratio 24/02 Blood Gas Notified Whom UP Blood Gas Notified Time 12/26/2016 9:31:10 PM White Blood Count 14.8 #H Red Blood Count 4.13 L Hemoglobin 9.9 L Hematocrit 31.5 L Mean Corpuscular Volume 76.3 L Mean Corpuscular Hemoglobin 24.0 L Mean Corpuscular Hemoglobin Concent 31.4 L Red Cell Distribution Width 18.5 H Platelet Count 677 H Mean Platelet Volume 8.9 Neutrophils % 88.3 H Lymphocytes % 4.9 L Monocytes % 5.3 Eosinophils % 0.3 Basophils % 0.3 Nucleated Red Blood Cells % 0.0 Neutrophils # 13.1 H Lymphocytes # 0.7 L Monocytes # 0.8 Eosinophils # 0.0 Basophils # 0.0 Nucleated Red Blood Cells # 0.0 Sodium Level 134 L Potassium Level 2.9 *L Chloride Level 102 Carbon Dioxide Level 23 Anion Gap 12 Blood Urea Nitrogen 8 Creatinine 0.40 L Glucose Level 116 Calcium Level 8.6 Magnesium Level 1.5 L Vancomycin Level Trough 10.5 Medications Medications Current Medications Ondansetron HCl (Zofran Inj) 4 mg Q6H PRN IV NAUSEA AND/OR VOMITING Last administered on 12/25/16t 14:47; Admin Dose 4 MG; Start 12/18/16 at 19:30 Acetaminophen (Tylenol Tab) 650 mg Q6H PRN PO PAIN LEVEL 1-3 OR FEVER Last administered on 12/24/16 05:47; Admin Dose 650 MG; Start 12/18/16 at 19:30 Acetaminophen/ Hydrocodone Bitart ([place] (5/325)) 1 tab Q6H PRN PO MODERATE PAIN LEVEL 4-6 Last administered on 12/24/16 17:14; Admin Dose 1 TAB; Start 12/18/16 at 19:30 Morphine Sulfate (morphine) 2 mg Q4H PRN IV SEVERE PAIN LEVEL 7-10; Start at 19:30 Docusate Sodium (Colace) 100 mg Q12H PRN PO CONSTIPATION Last administered on 14:59; Admin Dose 100 MG; Start 12/18/16 at 19:30 Magnesium Hydroxide (Milk Of Mag) 30 ml DAILY PRN PO CONSTIPATION; Start at 19:30 Sodium Biphosphate/ Sodium Phosphate 133 ml 133 ml DAILY PRN [place] CONSTIPATION; Start 12/18/16 at 19:30 Levofloxacin/ Dextrose (Levaquin 750 Mg/ D5W 150 ml (Pmx)) 150 ml @ 100 mls/hr Q24H IVPB Last administered on 12/26/16 20:41; Admin Dose 100 MLS/HR; Start at 21:00 Hydralazine HCl (Apresoline) 10 mg Q6H PRN IV ELEVATED BLOOD PRESSURE; Start at 19:30 Nitroglycerin (Nitroglycerin (Sl Tab) 0.4 Mg) 1 tab Q5M PRN SL ANGINA; Start at 19:30 Sodium Chloride (Nacl) 2 gm TID PO Last administered on 12/27/16 13:30; Admin Dose 2 GM; Start 12/18/16 at 21:00 Valacyclovir HCl (Valtrex) 1,000 mg TID PO Last administered on 12/27/16 13:30 ; Admin Dose 1,000 MG; Start 12/18/16 at 21:00 Diphenhydramine HCl (Benadryl) 25 mg Q6H PRN PO ITCHING Last administered on 00:41; Admin Dose 25 MG; Start 12/18/16 at 20:00 Enoxaparin Sodium (Lovenox) 55 mg Q12 SC Last administered on 12/27/16 08:26; Admin Dose 55 MG; Start 12/19/16 at 18:00 Furosemide (Lasix) 40 mg DAILY@06 IV Last administered on 12/27/16 06:33; Admin Dose 40 MG; Start 12/21/16 at 06:00 Zolpidem Tartrate (Ambien) 2.5 mg HS PRN PO INSOMNIA Last administered on 21:21; Admin Dose 2.5 MG; Start 12/20/16 at 13:00 Letrozole (Femara) 2.5 mg DAILY@09 PO Last administered on 12/27/16 08:26; Admin Dose 2.5 MG; Start 12/22/16 at 09:00 Phenol (Cepastat Lozenge) 1 lozenge Q1H PRN MT COUGH Last administered on 17:21; Admin Dose 1 LOZENGE; Start 12/21/16 at 14:30 Guaifenesin (Robitussin Liquid Cup) 200 mg Q4H PRN PO COUGH Last administered on 12/26/16 07:26; Admin Dose 200 MG; Start 12/21/16 at 14:30 Famotidine 20 mg 20 mg Q12 PO Last administered on 12/27/16 08:16; Admin Dose 20 MG; Start 12/21/16 at 21:00 Cefepime HCl (Maxipime 1gm/50 ml (Pmx)) 50 ml @ 100 mls/hr Q12 IVPB Last administered on 12/27/16 08:15; Admin Dose 100 MLS/HR; Start 12/22/16 at 12:00 Simethicone (Mylicon) 80 mg Q8 PO Last administered on 12/27/16 13:30; Admin Dose 80 MG; Start 12/22/16 at 12:35 Lorazepam (Ativan) 0.5 mg Q6H PRN PO ANXIETY; Start 12/23/16 at 17:30 Phenol 1 lozenge 1 lozenge Q1H PRN [place] SORE THROAT; Start 12/26/16 at 07:00 Vancomycin HCl/ Sodium Chloride (Vancocin/NS) 150 ml @ 75 mls/hr Q8H IVPB Last administered on 12/27/16 16:42; Admin Dose 75 MLS/HR; Start 12/26/16 at 16 :00 Procedures Procedures PROCEDURE: XR Chest 1 view. CLINICAL INDICATION: Shortness of breath. TECHNIQUE: AP views of the chest were obtained. COMPARISON: December 25, 2016 FINDINGS: The heart is large. Calcified atherosclerosis is noted in the aorta. Patchy infiltrates throughout the right lung have mildly increased. Small right pleural effusion has developed. Patchy infiltrates in the left lower lobe are stable. Perihilar left upper lobe infiltrates have decreased to Surgical clips are seen in the right axilla. The osseous structures are osteopenic, but appear grossly intact. IMPRESSION: Cardiomegaly with calcified atherosclerosis in the aorta. Mild interval increase in patchy infiltrates throughout the right lung and interval development of small right pleural effusion. Stable patchy left lower lobe infiltrates. Interval decrease in perihilar left upper lobe infiltrates. RPTAT: AA .Carlos Thomas MD, Date Time Electronically viewed and signed by .Carlos Thomas MD, on 12/27/2016 12:38 .P/ CC: PINO PRETTY BOLATITO M. Dec 27, 2016 19:01
[2016-12-27] MEDS ORDERED: FAMOTIDINE 20 MG INJ IV SCH (21:00)
[2016-12-27] MEDS: ZOLPIDEM 5 MG TAB PO PRN (21:12)
[2016-12-27] MEDS: LEVOFLOXACIN 750MG/D5W (PMX) 150 ML IVPB SCH (21:41)
[2016-12-27] MEDS ORDERED: SOD CHLORIDE 0.9% 500 ML IV ONE (23:30)
[2016-12-28] VITALS (93 sets, daily range): BP systolic 66–131; BP diastolic 40–106; PULSE 112–156; RESP 17–51
[2016-12-28] MEDS ORDERED: SUCCINYLCHOLINE CHLORIDE 100 MG/5 ML SYG IV ONE
[2016-12-28] MEDS ORDERED: ETOMIDATE 20 MG INJ ONE
[2016-12-28] MEDS ORDERED: SOD CHLORIDE 0.9% 500 ML IV ONE (00:30)
[2016-12-28 00:44] LABS: Arterial Base Excess -1.8 mmol/L (-3.0-3); Arterial COHb 0.3 % (0.0-3.0); Arterial HCO3 24.9 mmol/L (22.0-26.0); Arterial MetHb 0.4 % (0.0-1.5); Arterial Total Hemglobin 10.7 g/dl (12.0-18.0); Blood Gas IEPAP 22/10; MODE MASK - BIPAP
[2016-12-28] MEDS: ALBUTEROL/IPRATROPIUM (NEB) 3 ML AMP HHN SCH (01:34)
[2016-12-28] MEDS ORDERED: NORepinephrine 8MG/250 ML (PMX 250 ML ONE (02:27)
[2016-12-28] MEDS ORDERED: MIDAZOLAM 1 MG/ML 2 ML INJ ONE (02:33)
--- NOTE | 2016-12-28 02:50 | RADRPT ---
PROCEDURE: XR Chest. CLINICAL INDICATION: Post intubation. TECHNIQUE: Single frontal chest x-ray. COMPARISON: 12/27/2016 FINDINGS: Tracheal tube is in place with the tip the level of clavicles above adebayo.. Heart is enlarged. Th ere is redemonstrated asymmetric infiltrates greatest in right upper lobe and bilateral lung bases.. There is small right pleural effusion.. There is no pneumothorax. Bones are unchanged. Surgical clips in the right axilla. There is unchanged gaseous distension of the stomach.. IMPRESSION: Endotracheal tube tip above the adebayo. Otherwise no change. RPTAT: HMVK .Sudheer Gates MD, MD Date Time Electronically viewed and signed by .Sudheer Gates MD, on 12/28/2016 02:49 .K/
[2016-12-28] MEDS ORDERED: MIDAZOLAM 1 MG/ML 2 ML INJ IV ONE ×3 (03:00→04:00)
[2016-12-28] MEDS ORDERED: MIDAZOLAM 1 MG/ML 5 ML INJ IV ONE (03:30)
[2016-12-28] MEDS: MIDAZOLAM (DRIP) 50 mg/50 mL 50 ML IV SCH ×4 (03:41→17:51)
[2016-12-28] MEDS: NORepinephrine 8MG/250 ML (PMX 250 ML IV SCH ×2 (03:42→12:28)
[2016-12-28] MEDS: POTASSIUM CHLORIDE 250 ML IVPB SCH ×4 (03:43→12:19)
[2016-12-28] MEDS: VANCOMYCIN 750 MG in SOD CHLORIDE 0.9% 150 ML IVPB SCH ×2 (03:55→14:52)
[2016-12-28] MEDS ORDERED: PHENYLephrine 20MG IN 250 ML 250 ML IV SCH (04:00)
[2016-12-28] MEDS ORDERED: PHENYLephrine 40 MG in DEXTROSE 5% 496 ML IV SCH (04:00)
[2016-12-28 04:09] LABS: AADO2 Arterial 615.2 mmHg (7.0-24.0); Arterial Base Excess 0.2 mmol/L (-3.0-3); Arterial COHb 0.3 % (0.0-3.0); Arterial Fraction of Oxyhgb 88.6 % (93.0-99.0); Arterial HCO3 24.7 mmol/L (22.0-26.0); Arterial MetHb 0.4 % (0.0-1.5); Arterial Total Hemglobin 10.9 g/dl (12.0-18.0); MODE VENT - AC
--- NOTE | 2016-12-28 04:21 | EN ---
Date/Time of Note Date/Time of Note DATE: 12/28/16 TIME: 04:19 ER Progress Note I was called to the floor for a patient in respiratory distress. The patient has been placed on a BiPAP and has been decompensating on the BiPAP and becoming hypoxic with a pulse ox of 74%. When I entered the room I saw patient who was tachypnea, severe respiratory distress on the BiPAP. The patient was a full code according to the hospitalist who is at bedside. The patient was intubated for impending respiratory failure. The patient was also transferred to the intensive care unit afterwards. The patient began to become hypotensive in the intensive care unit and I was called back to the intensive care unit to place a central line. A central line was placed in the right femoral vein. Please see intubation note and central line note below. Family is aware and consent was obtained prior to procedures. Endotracheal Intubation by me: Pre assessment performed. See preceding note for details. Pre-oxygenation performed with 100% oxygen RSI: Performed w/o complication or hypoxic events. Medications as ordered. Blade: [Mac 4] ET Tube: 7.5] cm Depth: [22 cm at the lip Intubation confirmed by colorimetric CO2, equal breath sounds, quiet over the stomach. Chest X-ray 1V Interpreted by me: 2 cm above the adebayo ET tube. Normal soft tissue, No pneumothorax. Central Line Placement by me: Patient consented, sterilely draped, full prep, gown, glove, mask, time out performed. Anesthesia: 1% lidocaine locally Location: Right femoral vein Device: Multiple lumen Technique: Seldinger technique. Secured with suture. Results: Venous return from all ports with easy saline flush. No complications. Guide wire retrieved and disposed of. [ED Ultrasound: Central line placed by me using concurrent ultrasound guidance. Real time image archived in the medical record confirms vascular anatomy. MERLYN BURT DO Dec 28, 2016 04:21
[2016-12-28 04:23] LABS: ADD SCAN DIFF NO
[2016-12-28] MEDS: PROPOFOL 100 ML IV SCH ×2 (04:30→16:30)
[2016-12-28 04:43] LABS: ABNORMAL IP MESSAGE 1; BASOPHILS % 0.1 % (0.0-2.0); HEMATOCRIT 30.8 % (37.0-47.0); HEMOGLOBIN 9.2 g/dl (12.0-16.0); LYMPHOCYTES # 0.8 10^3/ul (0.8-2.9); LYMPHOCYTES % 3.2 % (15.0-51.0); MEAN CORPUSCULAR HEMOGLOBIN 23.8 pg (29.0-33.0); MEAN CORPUSCULAR HGB CONC 29.9 g/dl (32.0-37.0); MEAN CORPUSCULAR VOLUME 79.6 fl (82.0-101.0); MEAN PLATELET VOLUME 9.1 fl (7.4-10.4); MONOCYTES % 4.4 % (0.0-11.0); NEUTROPHIL # 21.4 10^3/ul (1.6-7.5); NEUTROPHILS % 91.4 % (39.0-77.0); NUCLEATED RED BLOOD CELLS% 0.1 /100WBC (0.0-0.0); PLATELET COUNT 728 10^3/UL (140-415); RED BLOOD COUNT 3.87 10^6/ul (4.20-5.40); RED CELL DISTRIBUTION WIDTH 18.9 % (11.5-14.5); WHITE BLOOD COUNT 23.4 10^3/ul (4.8-10.8)
[2016-12-28] MEDS: ALBUTEROL 18 GM INHALER INH SCH ×3 (05:00→14:00)
[2016-12-28 05:02] LABS: BILIRUBIN,INDIRECT 0.3 mg/dl (0-1.1); BILIRUBIN,TOTAL 0.3 mg/dl (0.2-1.3); CALCIUM 8.5 mg/dl (8.4-10.2); CREATININE 0.71 mg/dl (0.44-1.00); POTASSIUM 3.4 mmol/L (3.5-5.1)
[2016-12-28] MEDS: IPRATROPIUM (HFA) 12.9 GM INHALER INH SCH ×4 (05:26→21:23)
[2016-12-28 05:53] LABS: ADD UMIC YES; UR BILIRUBIN (Dip) 1+ (NEGATIVE); UR BLOOD (Dip) NEGATIVE (NEGATIVE); UR CLARITY SLIGHTLY CLOUDY (CLEAR); UR COLOR YELLOW (YELLOW); UR GLUCOSE (Dip) NEGATIVE (NEGATIVE); UR KETONES (Dip) 15 (NEGATIVE); UR LEUKOCYTE ESTERASE (Dip) NEGATIVE (NEGATIVE); UR NITRITE (Dip) NEGATIVE (NEGATIVE); UR TOTAL PROTEIN (Dip) 2+ (NEGATIVE); UR UROBILINOGEN (Dip) 0.2 E.U./dL (0.1-1.0)
[2016-12-28 06:06] LABS: ICTOTEST NEGATIVE (NEGATIVE)
[2016-12-28 06:09] LABS: UR BACTERIA MODERATE; UR SQUAMOUS EPITHELIAL CELL FEW
[2016-12-28 06:10] LABS: URINE RBCS 0-2 /HPF (0)
--- NOTE | 2016-12-28 06:42 | EN ---
Date/Time of Note Date/Time of Note DATE: 12/28/16 TIME: 06:39 Event Note Medicine Medicine Event Note Overnight, I was called into the room by the nurse as patient was D satting in the 70s and also had blood pressure around 77/53. Patient was also tachypneic. Initially adjusted BiPAP setting and started 500 cc of normal saline. Patient did show some response of 500 cc of fluid. Another 500 cc of normal saline was given. Patient however continued to desat while on BiPAP. ABG was drawn which was consistent of patient going into hypoxic failure. Discussed with the family at length at bedside regarding plan of care. Patient's metastatic breast cancer was discussed with the patient as well as her involvement of her lungs with the cancer as well as a pneumonia. Family however wanted to try intubation. ER physician was consulted and patient was intubated and taken down to the ICU. In the ICU patient started on peripheral levo fed however blood pressures were not adequate. Central line was placed by the ED physician. And patient was started on a second pressor. Patient still continued to have difficult time maintaining adequate O2's on the vent. Family was aware and they were at the bedside. We will continue to monitor the patient in the ICU. LIVIER CALLEJAS Dec 28, 2016 06:42
[2016-12-28] MEDS: LEVOTHYROXINE 100 MCG TAB PO SCH (07:00)
[2016-12-28 07:50] LABS: AADO2 Arterial 616.4 mmHg (7.0-24.0); Arterial Base Excess -1.2 mmol/L (-3.0-3); Arterial COHb 0.3 % (0.0-3.0); Arterial Fraction of Oxyhgb 92.2 % (93.0-99.0); Arterial MetHb 0.3 % (0.0-1.5); Arterial Total Hemglobin 10.1 g/dl (12.0-18.0); MODE VENT - AC
--- NOTE | 2016-12-28 08:25 | PN ---
Date/Time of Note Date/Time of Note DATE: 12/28/16 TIME: 08:24 Assessment/Plan VTE Prophylaxis VTE Prophylaxis Intervention: LMWH Lines/Catheters IV Catheter Type (from Nrs): Central Line Central line still needed: Yes Urinary Cath still in place: Yes (new insertion) Reason Cath still needed: other (indicate) (Intubated and sedated) Assessment/Plan Assessment/Plan 56 yo F with metastatic breast cancer who presented with SOB now managed for the following 1. Acute respiratory failure / insufficiency 2/2 #2 : now Vent dependent 2. Diffuse multilobar pneumonia likely obstructive from lung masses from metastatic breast cancer 3. Metastatic breast carcinoma. 4. Occlusion of the right subclavian vein. 5. Septic Shock 2/2 Pneumonia 6. Hypokalemia /Hypomagnesemia 7. Hypothyroidism on synthroid 8. Diffuse macular rash ?cause 9. Iron deficiency anemia. PLAN: * Continue vent support and management * Wean pressors when able and Continue Abx per ID * Patient may have a pulmonary emboli that may be contributing to worsening respiratory status, however she is on treatment dose anticoagulation for subclavian VV thrombus, she may need more aggressive therapy. Will order CTA * Continue treatment dose anticoagulation * Continue diuresis with lasix * Monitor electrolytes and replete as needed * Continue supportive care Prophylaxis: lovenox and Pepcid Prognosis is guarded / family notified Subjective 24 Hr Interval Summary Free Text/Dictation Patient was transferred to ICU last night and intubated for worsening resp distress She is now comfortably intubated and sedated. Exam/Review of Systems Vital Signs Vitals Vital Signs Date Time Temp Pulse Resp B/P Pulse Ox O2 Delivery O2 Flow Rate FiO2 12/28/16 08:00 99.0 148 20 107/65 99 Mechanical Ventilator 12/28/16 05:26 100 12/26/16 20:10 5.0 Intake and Output 12/27/16 12/27/16 12/28/16 15:00 23:00 07:00 Intake Total 200 ml 1504.0 ml Output Total 130 ml Balance 200 ml 1374.0 ml Exam GENERAL: Intubated and comfortably sedated HEENT: DON, Intubated, Vent settings noted , High o2 requirement / high peep LUNGS: diffusely diminished and coarse BS HEART: S1, S2. No murmur, gallops or rubs. Tachycardic ABDOMEN: Soft, non distended, Normoactive bowel sounds. GENITOURINARY: Normal female external genitalia, Meza to bedside drainage EXTREMITIES: Mild 1+ nonpitting edema bilaterally, also some hand edema bilaterally NEUROLOGIC: The patient is currently sedated. SKIN: Otherwise, unremarkable. Results Result Diagram: 12/28/16 0420 12/28/16 0420 Results 24 hrs Laboratory Tests Test 12/28/16 00:30 12/28/16 03:00 12/28/16 04:20 12/28/16 05:00 Blood Gas Specimen Source Blood arterial Blood arterial Arterial Blood Date Drawn 12/28/2016 12:38:21 AM 12/28/2016 4:00:16 AM Arterial Blood pH (Temp corrected) 7.302 L 7.413 Arterial Blood pCO2 (Temp correct) 51.5 H 39.6 Arterial Blood pO2 (Temp corrected) 55.5 L 58.2 L Arterial Blood HCO3 24.9 24.7 Arterial Blood Base Excess -1.8 0.2 Arterial Blood Oxygen Saturation 83.6 L 89.2 L Adolfo Test N/A N/A Arterial Blood Gas Puncture Site LB LB Arterial Blood Carboxyhemoglobin 0.3 0.3 Arterial Blood Methemoglobin 0.4 0.4 Blood Gas A-a O2 Differential 606.0 H 615.2 H Oxyhemoglobin Percent 83.0 L 88.6 L Total Hemoglobin 10.7 L 10.9 L Blood Gas Temperature 37.0 37.0 Blood Gas Respiration Rate 16.0 14.0 Blood Gas Actual Respiration Rate 40 23 Blood Gas Modality MASK - BIPAP VENT - AC FiO2 100.0 100.0 Blood Gas IPAP/EPAP Ratio 22/10 Blood Gas Critical Value Read Back Margarita CALLEJAS M.D Blood Gas Notified Whom MM N.H Blood Gas Notified Time 12/28/2016 12:43:41 AM 12/28/2016 4:08:44 AM Blood Gas Tidal Volume 550.0 Blood Gas High PEEP Setting 5.0 White Blood Count 23.4 #H Red Blood Count 3.87 L Hemoglobin 9.2 L Hematocrit 30.8 L Mean Corpuscular Volume 79.6 L Mean Corpuscular Hemoglobin 23.8 L Mean Corpuscular Hemoglobin Concent 29.9 L Red Cell Distribution Width 18.9 H Platelet Count 728 H Mean Platelet Volume 9.1 Neutrophils % 91.4 H Lymphocytes % 3.2 L Monocytes % 4.4 Eosinophils % 0.0 Basophils % 0.1 Nucleated Red Blood Cells % 0.1 H Neutrophils # 21.4 H Lymphocytes # 0.8 Monocytes # 1.0 H Eosinophils # 0.0 Basophils # 0.0 Nucleated Red Blood Cells # 0.0 Sodium Level 137 Potassium Level 3.4 L Chloride Level 104 Carbon Dioxide Level 27 Anion Gap 9 Blood Urea Nitrogen 19 # Creatinine 0.71 Glucose Level 126 Lactic Acid Level 2.2 Calcium Level 8.5 Magnesium Level 2.0 Total Bilirubin 0.3 Direct Bilirubin 0.00 Indirect Bilirubin 0.3 Aspartate Amino Transf (AST/SGOT) 21 Alanine Aminotransferase (ALT/SGPT) 31 Alkaline Phosphatase 66 Total Protein 6.0 L Albumin 3.0 L Globulin 3.00 Albumin/Globulin Ratio 1.00 Urine Color YELLOW Urine Clarity SLIGHTLY CLOUDY Urine pH 6.0 Urine Specific [place] >=1.030 H Urine Ketones 15 Urine Nitrite NEGATIVE Urine Bilirubin 1+ H Urine Ictotest NEGATIVE Urine Urobilinogen 0.2 E.U./dL Urine Leukocyte Esterase NEGATIVE Urine Microscopic RBC 0-2 Urine Microscopic WBC 0-2 Urine Squamous Epithelial Cells FEW Urine Amorphous Urates MODERATE Urine Bacteria MODERATE Urine Coarse Granular Casts FEW Urine Hemoglobin NEGATIVE Urine Glucose NEGATIVE Urine Total Protein 2+ H Test 12/28/16 07:00 Blood Gas Specimen Source Blood arterial Arterial Blood Date Drawn 12/28/2016 7:40:12 AM Arterial Blood pH (Temp corrected) 7.466 H Arterial Blood pCO2 (Temp correct) 31.2 L Arterial Blood pO2 (Temp corrected) 65.4 L Arterial Blood HCO3 22.0 Arterial Blood Base Excess -1.2 Arterial Blood Oxygen Saturation 92.8 L Adolfo Test N/A Arterial Blood Gas Puncture Site LB Arterial Blood Carboxyhemoglobin 0.3 Arterial Blood Methemoglobin 0.3 Blood Gas A-a O2 Differential 616.4 H Oxyhemoglobin Percent 92.2 L Total Hemoglobin 10.1 L Blood Gas Temperature 37.0 Blood Gas Respiration Rate 14.0 Blood Gas Actual Respiration Rate 30 Blood Gas Modality VENT - AC FiO2 100.0 Blood Gas Tidal Volume 550.0 Blood Gas Low PEEP Setting 10.0 Blood Gas Notified Whom RT Blood Gas Notified Time 12/28/2016 7:50:01 AM Medications Medications Current Medications Ondansetron HCl (Zofran Inj) 4 mg Q6H PRN IV NAUSEA AND/OR VOMITING Last administered on 12/25/16 14:47; Admin Dose 4 MG; Start 12/18/16 at 19:30 Acetaminophen (Tylenol Tab) 650 mg Q6H PRN PO PAIN LEVEL 1-3 OR FEVER Last administered on 12/24/16 05:47; Admin Dose 650 MG; Start 12/18/16 at 19:30 Acetaminophen/ Hydrocodone Bitart ([place] (5/325)) 1 tab Q6H PRN PO MODERATE PAIN LEVEL 4-6 Last administered on 12/24/16 17:14; Admin Dose 1 TAB; Start 12/18/16 at 19:30 Morphine Sulfate (morphine) 2 mg Q4H PRN IV SEVERE PAIN LEVEL 7-10; Start at 19:30 Magnesium Hydroxide (Milk Of Mag) 30 ml DAILY PRN PO CONSTIPATION; Start at 19:30 Sodium Biphosphate/ Sodium Phosphate 133 ml 133 ml DAILY PRN [place] CONSTIPATION; Start 12/18/16 at 19:30 Levofloxacin/ Dextrose (Levaquin 750 Mg/ D5W 150 ml (Pmx)) 150 ml @ 100 mls/hr Q24H IVPB Last administered on 12/27/16 21:41; Admin Dose 100 MLS/HR; Start at 21:00 Hydralazine HCl (Apresoline) 10 mg Q6H PRN IV ELEVATED BLOOD PRESSURE; Start at 19:30 Nitroglycerin (Nitroglycerin (Sl Tab) 0.4 Mg) 1 tab Q5M PRN SL ANGINA; Start at 19:30 Sodium Chloride (Nacl) 2 gm TID PO Last administered on 12/27/16 20:47; Admin Dose 2 GM; Start 12/18/16 at 21:00 Valacyclovir HCl (Valtrex) 1,000 mg TID PO Last administered on 12/27/16 20:46 ; Admin Dose 1,000 MG; Start 12/18/16 at 21:00 Diphenhydramine HCl (Benadryl) 25 mg Q6H PRN PO ITCHING Last administered on 00:41; Admin Dose 25 MG; Start 12/18/16 at 20:00 Enoxaparin Sodium (Lovenox) 55 mg Q12 SC Last administered on 12/27/16 21:00; Admin Dose 55 MG; Start 12/19/16 at 18:00 Zolpidem Tartrate (Ambien) 2.5 mg HS PRN PO INSOMNIA Last administered on 21:12; Admin Dose 2.5 MG; Start 12/20/16 at 13:00 Letrozole (Femara) 2.5 mg DAILY@09 PO Last administered on 12/27/16 08:26; Admin Dose 2.5 MG; Start 12/22/16 at 09:00 Phenol (Cepastat Lozenge) 1 lozenge Q1H PRN MT COUGH Last administered on 17:21; Admin Dose 1 LOZENGE; Start 12/21/16 at 14:30 Guaifenesin 200 mg 200 mg Q4H PRN PO COUGH Last administered on 12/26/16 07:26 ; Admin Dose 200 MG; Start 12/21/16 at 14:30 Cefepime HCl (Maxipime 1gm/50 ml (Pmx)) 50 ml @ 100 mls/hr Q12 IVPB Last administered on 12/27/16 20:46; Admin Dose 100 MLS/HR; Start 12/22/16 at 12:00 Simethicone (Mylicon) 80 mg Q8 PO Last administered on 12/27/16 13:30; Admin Dose 80 MG; Start 12/22/16 at 12:35 Lorazepam (Ativan) 0.5 mg Q6H PRN PO ANXIETY; Start 12/23/16 at 17:30 Phenol 1 lozenge 1 lozenge Q1H PRN MT SORE THROAT; Start 12/26/16 at 07:00 Vancomycin HCl/ Sodium Chloride (Vancocin/NS) 150 ml @ 75 mls/hr Q8H IVPB Last administered on 12/28/16 03:55; Admin Dose 75 MLS/HR; Start 12/26/16 at 16 :00 Docusate Sodium (Colace) 100 mg Q12H PO ; Start 12/27/16 at 19:30 Furosemide (Lasix) 40 mg Q12 IV ; Start 12/27/16 at 21:00 Famotidine 20 mg 20 mg BID IV ; Start 12/28/16 at 09:00 Norepinephrine 250 ml @ 1.875 mls/ hr TITRATE IV Last administered on 03:42; Admin Dose 28.125 MLS/HR; Start 12/28/16 at 02:30 Norepinephrine 16 mg/Dextrose 500 ml @ 1.87 mls/hr TITRATE IV ; Start 12/28/16 at 03:00 Midazolam HCl 50 ml @ 1 mls/hr TITRATE IV Last administered on 12/28/16 06:34 ; Admin Dose 10 MLS/HR; Start 12/28/16 at 03:30 Phenylephrine HCl 40 mg/Dextrose 500 ml @ 75 mls/hr TITRATE IV ; Start at 04:00 Phenylephrine HCl 250 ml @ 75 mls/hr TITRATE IV ; Start 12/28/16 at 04:00 Propofol (Diprivan) 100 ml @ 1.689 mls/ hr Q12H IV ; Start 12/28/16 at 04:30 Ipratropium [place] (Atrovent Hfa) 2 puff Q4 INH Last administered on 08:13; Admin Dose 2 PUFF; Start 12/28/16 at 05:00 KIARA SUGGS Dec 28, 2016 08:25
[2016-12-28] MEDS ORDERED: SOD CHLORIDE 0.9% 1,000 ML IV ONE (09:00)
[2016-12-28] MEDS: FUROSEMIDE 40 MG INJ IV SCH ×2 (09:00→22:33)
[2016-12-28] MEDS: SODIUM CHLORIDE 1 GM TAB PO SCH ×3 (09:00→21:32)
[2016-12-28] MEDS: VALACYCLOVIR 500 MG TAB PO SCH ×3 (09:00→21:31)
--- NOTE | 2016-12-28 09:03 | CONS ---
Date/Time of Note Date/Time of Note DATE: 12/28/16 TIME: 08:59 Consult Date/Type/Reason Admit Date/Time Dec 18, 2016 at 18:40 Initial Consult Date 12/23/16 Type of Consultation: Pulmonary Subjective Pt was transferred in the director of housing to ICU with acute on chronic respiratory failure. Pt was intubated. BP dropped and placed on Levophed. Objective Vital Signs Date Time Temp Pulse Resp B/P Pulse Ox O2 Delivery O2 Flow Rate FiO2 12/28/16 08:34 148 12/28/16 08:00 99.0 20 107/65 99 Mechanical Ventilator 12/28/16 05:26 100 12/26/16 20:10 5.0 Intake and Output 12/27/16 12/27/16 12/28/16 15:00 23:00 07:00 Intake Total 200 ml 1504.0 ml Output Total 130 ml Balance 200 ml 1374.0 ml Exam Intubated Tachycardic Bilateral rales Soft, NT, ND, +BS Edematous right arm Trace LE edema Results/Medications Result Diagram: 12/28/16 0420 12/28/16 0420 Results 24 hrs Laboratory Tests Test 12/28/16 00:30 12/28/16 03:00 12/28/16 04:20 12/28/16 05:00 Blood Gas Specimen Source Blood arterial Blood arterial Arterial Blood Date Drawn 12/28/2016 12:38:21 AM 12/28/2016 4:00:16 AM Arterial Blood pH (Temp corrected) 7.302 L 7.413 Arterial Blood pCO2 (Temp correct) 51.5 H 39.6 Arterial Blood pO2 (Temp corrected) 55.5 L 58.2 L Arterial Blood HCO3 24.9 24.7 Arterial Blood Base Excess -1.8 0.2 Arterial Blood Oxygen Saturation 83.6 L 89.2 L Adolfo Test N/A N/A Arterial Blood Gas Puncture Site LB LB Arterial Blood Carboxyhemoglobin 0.3 0.3 Arterial Blood Methemoglobin 0.4 0.4 Blood Gas A-a O2 Differential 606.0 H 615.2 H Oxyhemoglobin Percent 83.0 L 88.6 L Total Hemoglobin 10.7 L 10.9 L Blood Gas Temperature 37.0 37.0 Blood Gas Respiration Rate 16.0 14.0 Blood Gas Actual Respiration Rate 40 23 Blood Gas Modality MASK - BIPAP VENT - AC FiO2 100.0 100.0 Blood Gas IPAP/EPAP Ratio 22/10 Blood Gas Critical Value Read Back Margarita CALLEJAS M.D Blood Gas Notified Whom MM [facility] Blood Gas Notified Time 12/28/2016 12:43:41 AM 12/28/2016 4:08:44 AM Blood Gas Tidal Volume 550.0 Blood Gas High PEEP Setting 5.0 White Blood Count 23.4 #H Red Blood Count 3.87 L Hemoglobin 9.2 L Hematocrit 30.8 L Mean Corpuscular Volume 79.6 L Mean Corpuscular Hemoglobin 23.8 L Mean Corpuscular Hemoglobin Concent 29.9 L Red Cell Distribution Width 18.9 H Platelet Count 728 H Mean Platelet Volume 9.1 Neutrophils % 91.4 H Lymphocytes % 3.2 L Monocytes % 4.4 Eosinophils % 0.0 Basophils % 0.1 Nucleated Red Blood Cells % 0.1 H Neutrophils # 21.4 H Lymphocytes # 0.8 Monocytes # 1.0 H Eosinophils # 0.0 Basophils # 0.0 Nucleated Red Blood Cells # 0.0 Sodium Level 137 Potassium Level 3.4 L Chloride Level 104 Carbon Dioxide Level 27 Anion Gap 9 Blood Urea Nitrogen 19 # Creatinine 0.71 Glucose Level 126 Lactic Acid Level 2.2 Calcium Level 8.5 Magnesium Level 2.0 Total Bilirubin 0.3 Direct Bilirubin 0.00 Indirect Bilirubin 0.3 Aspartate Amino Transf (AST/SGOT) 21 Alanine Aminotransferase (ALT/SGPT) 31 Alkaline Phosphatase 66 Total Protein 6.0 L Albumin 3.0 L Globulin 3.00 Albumin/Globulin Ratio 1.00 Urine Color YELLOW Urine Clarity SLIGHTLY CLOUDY Urine pH 6.0 Urine Specific [place] >=1.030 H Urine Ketones 15 Urine Nitrite NEGATIVE Urine Bilirubin 1+ H Urine Ictotest NEGATIVE Urine Urobilinogen 0.2 E.U./dL Urine Leukocyte Esterase NEGATIVE Urine Microscopic RBC 0-2 Urine Microscopic WBC 0-2 Urine Squamous Epithelial Cells FEW Urine Amorphous Urates MODERATE Urine Bacteria MODERATE Urine Coarse Granular Casts FEW Urine Hemoglobin NEGATIVE Urine Glucose NEGATIVE Urine Total Protein 2+ H Test 12/28/16 07:00 Blood Gas Specimen Source Blood arterial Arterial Blood Date Drawn 12/28/2016 7:40:12 AM Arterial Blood pH (Temp corrected) 7.466 H Arterial Blood pCO2 (Temp correct) 31.2 L Arterial Blood pO2 (Temp corrected) 65.4 L Arterial Blood HCO3 22.0 Arterial Blood Base Excess -1.2 Arterial Blood Oxygen Saturation 92.8 L Adolfo Test N/A Arterial Blood Gas Puncture Site LB Arterial Blood Carboxyhemoglobin 0.3 Arterial Blood Methemoglobin 0.3 Blood Gas A-a O2 Differential 616.4 H Oxyhemoglobin Percent 92.2 L Total Hemoglobin 10.1 L Blood Gas Temperature 37.0 Blood Gas Respiration Rate 14.0 Blood Gas Actual Respiration Rate 30 Blood Gas Modality VENT - AC FiO2 100.0 Blood Gas Tidal Volume 550.0 Blood Gas Low PEEP Setting 10.0 Blood Gas Notified Whom RT Blood Gas Notified Time 12/28/2016 7:50:01 AM Medications Current Medications Ondansetron HCl (Zofran Inj) 4 mg Q6H PRN IV NAUSEA AND/OR VOMITING Last administered on 12/25/16 14:47; Admin Dose 4 MG; Start 12/18/16 at 19:30 Acetaminophen (Tylenol Tab) 650 mg Q6H PRN PO PAIN LEVEL 1-3 OR FEVER Last administered on 12/24/16 05:47; Admin Dose 650 MG; Start 12/18/16 at 19:30 Acetaminophen/ Hydrocodone Bitart ([place] (5/325)) 1 tab Q6H PRN PO MODERATE PAIN LEVEL 4-6 Last administered on 12/24/16 17:14; Admin Dose 1 TAB; Start 12/18/16 at 19:30 Morphine Sulfate (morphine) 2 mg Q4H PRN IV SEVERE PAIN LEVEL 7-10; Start at 19:30 Magnesium Hydroxide (Milk Of Mag) 30 ml DAILY PRN PO CONSTIPATION; Start at 19:30 Sodium Biphosphate/ Sodium Phosphate 133 ml 133 ml DAILY PRN [place] CONSTIPATION; Start 12/18/16 at 19:30 Levofloxacin/ Dextrose (Levaquin 750 Mg/ D5W 150 ml (Pmx)) 150 ml @ 100 mls/hr Q24H IVPB Last administered on 12/27/16 21:41; Admin Dose 100 MLS/HR; Start at 21:00 Hydralazine HCl (Apresoline) 10 mg Q6H PRN IV ELEVATED BLOOD PRESSURE; Start at 19:30 Nitroglycerin (Nitroglycerin (Sl Tab) 0.4 Mg) 1 tab Q5M PRN SL ANGINA; Start at 19:30 Sodium Chloride (Nacl) 2 gm TID PO Last administered on 12/27/16 20:47; Admin Dose 2 GM; Start 12/18/16 at 21:00 Valacyclovir HCl (Valtrex) 1,000 mg TID PO Last administered on 12/27/16 20:46 ; Admin Dose 1,000 MG; Start 12/18/16 at 21:00 Diphenhydramine HCl (Benadryl) 25 mg Q6H PRN PO ITCHING Last administered on 00:41; Admin Dose 25 MG; Start 12/18/16 at 20:00 Enoxaparin Sodium (Lovenox) 55 mg Q12 SC Last administered on 12/27/16 21:00; Admin Dose 55 MG; Start 12/19/16 at 18:00 Zolpidem Tartrate (Ambien) 2.5 mg HS PRN PO INSOMNIA Last administered on 21:12; Admin Dose 2.5 MG; Start 12/20/16 at 13:00 Letrozole (Femara) 2.5 mg DAILY@09 PO Last administered on 12/27/16 08:26; Admin Dose 2.5 MG; Start 12/22/16 at 09:00 Phenol (Cepastat Lozenge) 1 lozenge Q1H PRN MT COUGH Last administered on 17:21; Admin Dose 1 LOZENGE; Start 12/21/16 at 14:30 Guaifenesin 200 mg 200 mg Q4H PRN PO COUGH Last administered on 12/26/16 07:26 ; Admin Dose 200 MG; Start 12/21/16 at 14:30 Cefepime HCl (Maxipime 1gm/50 ml (Pmx)) 50 ml @ 100 mls/hr Q12 IVPB Last administered on 12/27/16 20:46; Admin Dose 100 MLS/HR; Start 12/22/16 at 12:00 Simethicone (Mylicon) 80 mg Q8 PO Last administered on 12/27/16 13:30; Admin Dose 80 MG; Start 12/22/16 at 12:35 Lorazepam (Ativan) 0.5 mg Q6H PRN PO ANXIETY; Start 12/23/16 at 17:30 Phenol 1 lozenge 1 lozenge Q1H PRN MT SORE THROAT; Start 12/26/16 at 07:00 Vancomycin HCl/ Sodium Chloride (Vancocin/NS) 150 ml @ 75 mls/hr Q8H IVPB Last administered on 12/28/16 03:55; Admin Dose 75 MLS/HR; Start 12/26/16 at 16 :00 Docusate Sodium (Colace) 100 mg Q12H PO ; Start 12/27/16 at 19:30 Furosemide (Lasix) 40 mg Q12 IV ; Start 12/27/16 at 21:00 Famotidine 20 mg 20 mg BID IV ; Start 12/28/16 at 09:00 Norepinephrine 250 ml @ 1.875 mls/ hr TITRATE IV Last administered on 03:42; Admin Dose 28.125 MLS/HR; Start 12/28/16 at 02:30 Norepinephrine 16 mg/Dextrose 500 ml @ 1.87 mls/hr TITRATE IV ; Start 12/28/16 at 03:00 Midazolam HCl 50 ml @ 1 mls/hr TITRATE IV Last administered on 12/28/16 06:34 ; Admin Dose 10 MLS/HR; Start 12/28/16 at 03:30 Phenylephrine HCl 40 mg/Dextrose 500 ml @ 75 mls/hr TITRATE IV ; Start at 04:00 Phenylephrine HCl 250 ml @ 75 mls/hr TITRATE IV ; Start 12/28/16 at 04:00 Propofol (Diprivan) 100 ml @ 1.689 mls/ hr Q12H IV ; Start 12/28/16 at 04:30 Ipratropium [place] 2 puff 2 puff Q4 INH Last administered on 12/28/16 08:13; Admin Dose 2 PUFF; Start 12/28/16 at 05:00 Potassium Chloride 250 ml @ 62.5 mls/hr Q4H IVPB Last administered on 08:39; Admin Dose 62.5 MLS/HR; Start 12/28/16 at 08:30; Stop 12/28/16 at 12 :29 Sodium Chloride 1,000 ml @ 500 mls/hr Q2H ONCE IV ; Start 12/28/16 at 09:00; Stop 12/28/16 at 10:59 Sodium Chloride (NS) 1,000 ml @ 60 mls/hr [id number] IV ; Start 12/28/16 at 09:00 Assessment/Plan Problems: (1) Acute respiratory failure (2) Shingles (3) Acute pulmonary edema (4) Breast carcinoma Additional Assessment/Plan Pt with metastatic breast cancer who has worsening pulmonary status requiring intubation overnight. -May be related to acute infection but cannot rule out PE or lymphangiitic spread of cancer to the lungs. -CT PA pending once more stable. Pt however is on therapeutic Lovenox. -Consider bronchoscopy to rule out infection versus cancer. -Guarded prognosis ZULEYKA LANDAVERDE Dec 28, 2016 09:03
[2016-12-28] MEDS: FAMOTIDINE 20 MG INJ IV SCH ×2 (09:08→22:33)
[2016-12-28] MEDS: CEFEPIME 1GM/50 ML (PMX) 50 ML IVPB SCH ×2 (09:08→22:34)
[2016-12-28] MEDS: ENOXAPARIN 100 MG/ML SYG SC SCH ×2 (09:09→21:33)
--- NOTE | 2016-12-28 10:24 | CONS ---
Date/Time of Note Date/Time of Note DATE: 12/28/16 TIME: 10:21 Assessment/Plan Assessment/Plan Additional Assessment/Plan Ventilator setting; AC of 14, tidal volume 550, PEEP of 10, 100% FiO2. Patient currently on Levophed at 15 mics per minute, Versed 10 mg/h. Assessment recommendations; 1. Patient admitted with bilateral pneumonia was improving but then decompensated with worsening pneumonia. 2. Respiratory failure. Currently on 100% FiO2. 3. History of breast cancer. 4. Right upper extremity DVT. Continue current supportive care. Patient scheduled for CTA of the chest. Further recommendations to be made once CT imaging is done. 35 minutes of critical care time was spent evaluating the patient. Consultation Date/Type/Reason Admit Date/Time Dec 18, 2016 at 18:40 Type of Consultation: Pulmonary/critical care 24 HR Interval Summary Free Text/Dictation Patient condition is critical. Patient had to be transferred to ICU and required intubation. Chest x-ray was reviewed from earlier this morning which is showing severe pneumonia mostly involving the right lung. Endotracheal tube is at an adequate level. Patient currently sedated and did not appear to be in any distress. Exam/Review of Systems Vital Signs Vitals Vital Signs Date Time Temp Pulse Resp B/P Pulse Ox O2 Delivery O2 Flow Rate FiO2 12/28/16 08:34 148 12/28/16 08:00 99.0 20 107/65 99 Mechanical Ventilator 12/28/16 05:26 100 12/26/16 20:10 5.0 Intake and Output 12/27/16 12/27/16 12/28/16 15:00 23:00 07:00 Intake Total 200 ml 1504.0 ml Output Total 150 ml Balance 200 ml 1354.0 ml Exam HEENT exam is; supple neck, no JVD. No lymphadenopathy. Midline trachea. No thyromegaly. Orally intubated. Pupils are small bilaterally. Dentition is fair. Chest examination; bilateral crackles. More pronounced in the right lung. S1- S2 audible, no murmurs. Regular rhythm. Abdomen examination; soft, no organomegaly. Bowel sounds audible. Extremity examination; 1+ pitting edema involving right upper extremity. There is no edema involving left and lower extremities. Pulses 1+ bilaterally. 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 Results Result Diagram: 6/18/17 0420 6/18/17 0420 Results 24 hrs Laboratory Tests Test 12/28/16 00:30 12/28/16 03:00 12/28/16 04:20 12/28/16 05:00 Blood Gas Specimen Source Blood arterial Blood arterial Arterial Blood Date Drawn 12/28/2016 12:38:21 AM 12/28/2016 4:00:16 AM Arterial Blood pH (Temp corrected) 7.302 L 7.413 Arterial Blood pCO2 (Temp correct) 51.5 H 39.6 Arterial Blood pO2 (Temp corrected) 55.5 L 58.2 L Arterial Blood HCO3 24.9 24.7 Arterial Blood Base Excess -1.8 0.2 Arterial Blood Oxygen Saturation 83.6 L 89.2 L Adolfo Test N/A N/A Arterial Blood Gas Puncture Site LB LB Arterial Blood Carboxyhemoglobin 0.3 0.3 Arterial Blood Methemoglobin 0.4 0.4 Blood Gas A-a O2 Differential 606.0 H 615.2 H Oxyhemoglobin Percent 83.0 L 88.6 L Total Hemoglobin 10.7 L 10.9 L Blood Gas Temperature 37.0 37.0 Blood Gas Respiration Rate 16.0 14.0 Blood Gas Actual Respiration Rate 40 23 Blood Gas Modality MASK - BIPAP VENT - AC FiO2 100.0 100.0 Blood Gas IPAP/EPAP Ratio 22/10 Blood Gas Critical Value Read Back Margarita CALLEJAS M.D Blood Gas Notified Whom [facility] Blood Gas Notified Time 12/28/2016 12:43:41 AM 12/28/2016 4:08:44 AM Blood Gas Tidal Volume 550.0 Blood Gas High PEEP Setting 5.0 White Blood Count 23.4 #H Red Blood Count 3.87 L Hemoglobin 9.2 L Hematocrit 30.8 L Mean Corpuscular Volume 79.6 L Mean Corpuscular Hemoglobin 23.8 L Mean Corpuscular Hemoglobin Concent 29.9 L Red Cell Distribution Width 18.9 H Platelet Count 728 H Mean Platelet Volume 9.1 Neutrophils % 91.4 H Lymphocytes % 3.2 L Monocytes % 4.4 Eosinophils % 0.0 Basophils % 0.1 Nucleated Red Blood Cells % 0.1 H Neutrophils # 21.4 H Lymphocytes # 0.8 Monocytes # 1.0 H Eosinophils # 0.0 Basophils # 0.0 Nucleated Red Blood Cells # 0.0 Sodium Level 137 Potassium Level 3.4 L Chloride Level 104 Carbon Dioxide Level 27 Anion Gap 9 Blood Urea Nitrogen 19 # Creatinine 0.71 Glucose Level 126 Lactic Acid Level 2.2 Calcium Level 8.5 Magnesium Level 2.0 Total Bilirubin 0.3 Direct Bilirubin 0.00 Indirect Bilirubin 0.3 Aspartate Amino Transf (AST/SGOT) 21 Alanine Aminotransferase (ALT/SGPT) 31 Alkaline Phosphatase 66 Total Protein 6.0 L Albumin 3.0 L Globulin 3.00 Albumin/Globulin Ratio 1.00 Urine Color YELLOW Urine Clarity SLIGHTLY CLOUDY Urine pH 6.0 Urine Specific [place] >=1.030 H Urine Ketones 15 Urine Nitrite NEGATIVE Urine Bilirubin 1+ H Urine Ictotest NEGATIVE Urine Urobilinogen 0.2 E.U./dL Urine Leukocyte Esterase NEGATIVE Urine Microscopic RBC 0-2 Urine Microscopic WBC 0-2 Urine Squamous Epithelial Cells FEW Urine Amorphous Urates MODERATE Urine Bacteria MODERATE Urine Coarse Granular Casts FEW Urine Hemoglobin NEGATIVE Urine Glucose NEGATIVE Urine Total Protein 2+ H Test 12/28/16 07:00 Blood Gas Specimen Source Blood arterial Arterial Blood Date Drawn 12/28/2016 7:40:12 AM Arterial Blood pH (Temp corrected) 7.466 H Arterial Blood pCO2 (Temp correct) 31.2 L Arterial Blood pO2 (Temp corrected) 65.4 L Arterial Blood HCO3 22.0 Arterial Blood Base Excess -1.2 Arterial Blood Oxygen Saturation 92.8 L Adolfo Test N/A Arterial Blood Gas Puncture Site LB Arterial Blood Carboxyhemoglobin 0.3 Arterial Blood Methemoglobin 0.3 Blood Gas A-a O2 Differential 616.4 H Oxyhemoglobin Percent 92.2 L Total Hemoglobin 10.1 L Blood Gas Temperature 37.0 Blood Gas Respiration Rate 14.0 Blood Gas Actual Respiration Rate 30 Blood Gas Modality VENT - AC FiO2 100.0 Blood Gas Tidal Volume 550.0 Blood Gas Low PEEP Setting 10.0 Blood Gas Notified Whom RT Blood Gas Notified Time 12/28/2016 7:50:01 AM Medications Medications Current Medications Ondansetron HCl (Zofran Inj) 4 mg Q6H PRN IV NAUSEA AND/OR VOMITING Last administered on 12/25/16 14:47; Admin Dose 4 MG; Start 12/18/16 at 19:30 Acetaminophen (Tylenol Tab) 650 mg Q6H PRN PO PAIN LEVEL 1-3 OR FEVER Last administered on 12/24/16 05:47; Admin Dose 650 MG; Start 12/18/16 at 19:30 Acetaminophen/ Hydrocodone Bitart ([place] (5/325)) 1 tab Q6H PRN PO MODERATE PAIN LEVEL 4-6 Last administered on 12/24/16 17:14; Admin Dose 1 TAB; Start 12/18/16 at 19:30 Morphine Sulfate (morphine) 2 mg Q4H PRN IV SEVERE PAIN LEVEL 7-10; Start at 19:30 Magnesium Hydroxide (Milk Of Mag) 30 ml DAILY PRN PO CONSTIPATION; Start at 19:30 Sodium Biphosphate/ Sodium Phosphate 133 ml 133 ml DAILY PRN [place] CONSTIPATION; Start 12/18/16 at 19:30 Levofloxacin/ Dextrose (Levaquin 750 Mg/ D5W 150 ml (Pmx)) 150 ml @ 100 mls/hr Q24H IVPB Last administered on 12/27/16 21:41; Admin Dose 100 MLS/HR; Start at 21:00 Hydralazine HCl (Apresoline) 10 mg Q6H PRN IV ELEVATED BLOOD PRESSURE; Start at 19:30 Nitroglycerin (Nitroglycerin (Sl Tab) 0.4 Mg) 1 tab Q5M PRN SL ANGINA; Start at 19:30 Sodium Chloride (Nacl) 2 gm TID PO Last administered on 12/27/16 20:47; Admin Dose 2 GM; Start 12/18/16 at 21:00 Valacyclovir HCl (Valtrex) 1,000 mg TID PO Last administered on 12/27/16 20:46 ; Admin Dose 1,000 MG; Start 12/18/16 at 21:00 Diphenhydramine HCl (Benadryl) 25 mg Q6H PRN PO ITCHING Last administered on 00:41; Admin Dose 25 MG; Start 12/18/16 at 20:00 Enoxaparin Sodium (Lovenox) 55 mg Q12 SC Last administered on 12/28/16 09:09; Admin Dose 55 MG; Start 12/19/16 at 18:00 Zolpidem Tartrate (Ambien) 2.5 mg HS PRN PO INSOMNIA Last administered on 21:12; Admin Dose 2.5 MG; Start 12/20/16 at 13:00 Letrozole (Femara) 2.5 mg DAILY@09 PO Last administered on 12/27/16 08:26; Admin Dose 2.5 MG; Start 12/22/16 at 09:00 Phenol (Cepastat Lozenge) 1 lozenge Q1H PRN MT COUGH Last administered on 17:21; Admin Dose 1 LOZENGE; Start 12/21/16 at 14:30 Guaifenesin 200 mg 200 mg Q4H PRN PO COUGH Last administered on 12/26/16 07:26 ; Admin Dose 200 MG; Start 12/21/16 at 14:30 Cefepime HCl (Maxipime 1gm/50 ml (Pmx)) 50 ml @ 100 mls/hr Q12 IVPB Last administered on 12/28/16 09:08; Admin Dose 100 MLS/HR; Start 12/22/16 at 12:00 Simethicone (Mylicon) 80 mg Q8 PO Last administered on 12/27/16 13:30; Admin Dose 80 MG; Start 12/22/16 at 12:35 Lorazepam (Ativan) 0.5 mg Q6H PRN PO ANXIETY; Start 12/23/16 at 17:30 Phenol 1 lozenge 1 lozenge Q1H PRN MT SORE THROAT; Start 12/26/16 at 07:00 Vancomycin HCl/ Sodium Chloride (Vancocin/NS) 150 ml @ 75 mls/hr Q8H IVPB Last administered on 12/28/16 03:55; Admin Dose 75 MLS/HR; Start 12/26/16 at 16 :00 Docusate Sodium (Colace) 100 mg Q12H PO ; Start 12/27/16 at 19:30 Furosemide (Lasix) 40 mg Q12 IV ; Start 12/27/16 at 21:00 Famotidine 20 mg 20 mg BID IV Last administered on 12/28/16 09:08; Admin Dose 20 MG; Start 12/28/16 at 09:00 Norepinephrine 250 ml @ 1.875 mls/ hr TITRATE IV Last administered on 03:42; Admin Dose 28.125 MLS/HR; Start 12/28/16 at 02:30 Norepinephrine 16 mg/Dextrose 500 ml @ 1.87 mls/hr TITRATE IV ; Start 12/28/16 at 03:00 Midazolam HCl 50 ml @ 1 mls/hr TITRATE IV Last administered on 12/28/16 06:34 ; Admin Dose 10 MLS/HR; Start 12/28/16 at 03:30 Phenylephrine HCl 40 mg/Dextrose 500 ml @ 75 mls/hr TITRATE IV ; Start at 04:00 Phenylephrine HCl 250 ml @ 75 mls/hr TITRATE IV ; Start 12/28/16 at 04:00 Propofol (Diprivan) 100 ml @ 1.689 mls/ hr Q12H IV ; Start 12/28/16 at 04:30 Ipratropium [place] 2 puff 2 puff Q4 INH Last administered on 12/28/16 08:13; Admin Dose 2 PUFF; Start 12/28/16 at 05:00 Potassium Chloride 250 ml @ 62.5 mls/hr Q4H IVPB Last administered on 08:39; Admin Dose 62.5 MLS/HR; Start 12/28/16 at 08:30; Stop 12/28/16 at 12 :29 Sodium Chloride 1,000 ml @ 500 mls/hr Q2H ONCE IV Last administered on 09:34; Admin Dose 500 MLS/HR; Start 12/28/16 at 09:00; Stop 12/28/16 at 10: 59 Sodium Chloride (NS) 1,000 ml @ 60 mls/hr [id number] IV ; Start 12/28/16 at 09:00 PINO PRETTY Dec 28, 2016 10:24
--- NOTE | 2016-12-28 12:23 | RADRPT ---
PROCEDURE: XR Chest. CLINICAL INDICATION: Nasogastric tube placement TECHNIQUE: An AP view of the chest was obtained. COMPARISON: Chest x-ray dated 12/28/2016 at 02:27 a.m. FINDINGS: The endotracheal tube tip is approximately 4.5 cm above the adebayo. The tip of the enteric tube ex tends below the left diaphragm. There is prominence of the interstitial and central pulmonary vascular markings with right lung abeba eolar opacities. There is obscuration of the left diaphragm. No pleural effusion or pneumothorax is seen. The cardiomediastinal silhouette is mildly enlarged . Calcifications are seen within the ao rtic arch. Surgical clips are seen within the right axillary soft tissues. The osseous structures de monstrate senescent changes. IMPRESSION: 1. Right lung alveolar opacities and left lower lobe consolidation, likely reflecting multifocal pne umonia. Lung aeration is mildly improved when compared to the prior examination. 2. Mild cardiomegaly and aortic atherosclerosis. 3. Tubes and lines, as described above. The tip of the enteric tube is not included on the examinat ion, but likely within the stomach. RPTAT: HH .Rae Erazo MD, Date Time Electronically viewed and signed by .Rae Erazo MD, on 12/28/2016 12:23 .G/
[2016-12-28] MEDS: DOCUSATE SODIUM 10 MG/ML (10ML CUP) NGT SCH ×2 (12:36→21:38)
[2016-12-28] MEDS: SOD CHLORIDE 0.9% 1,000 ML IV SCH (12:36)
[2016-12-28] MEDS ORDERED: AMIODARONE 150 MG INJ IV STA (16:21)
[2016-12-28] MEDS ORDERED: AMIODARONE 150MG/D5W BOLUS 100 ML IV ONE (17:00)
[2016-12-28] MEDS: LETROZOLE 2.5 MG TAB PO SCH (18:32)
[2016-12-28 20:35] LABS: CALCIUM 8.7 mg/dl (8.4-10.2); CREATININE 0.63 mg/dl (0.44-1.00); MAGNESIUM 2.1 mg/dl (1.7-2.5); POTASSIUM 3.6 mmol/L (3.5-5.1)
[2016-12-28] MEDS: LEVOFLOXACIN 750MG/D5W (PMX) 150 ML IVPB SCH (21:31)
[2016-12-28] MEDS: VANCOMYCIN 1.25 GM in SOD CHLORIDE 0.9% 250 ML IVPB SCH (21:31)
[2016-12-29] VITALS (97 sets, daily range): BP systolic 84–129; BP diastolic 47–82; PULSE 101–125; RESP 17–30
[2016-12-29] MEDS: IPRATROPIUM (HFA) 12.9 GM INHALER INH SCH ×5 (01:16→20:38)
[2016-12-29] MEDS: ALBUTEROL 18 GM INHALER INH SCH ×6 (01:20→20:38)
[2016-12-29] MEDS: SOD CHLORIDE 0.9% 1,000 ML IV SCH (02:27)
[2016-12-29] MEDS: MIDAZOLAM (DRIP) 50 mg/50 mL 50 ML IV SCH ×5 (02:28→22:06)
[2016-12-29] MEDS: PROPOFOL 100 ML IV SCH ×2 (04:30→16:30)
[2016-12-29 05:09] LABS: ADD SCAN DIFF NO
[2016-12-29 05:24] LABS: BASOPHILS % 0.1 % (0.0-2.0); EOSINOPHILS # 0.1 10^3/ul (0.0-0.5); EOSINOPHILS % 0.5 % (0.0-7.0); HEMATOCRIT 25.9 % (37.0-47.0); LYMPHOCYTES % 5.9 % (15.0-51.0); MEAN CORPUSCULAR HEMOGLOBIN 24.2 pg (29.0-33.0); MEAN CORPUSCULAR HGB CONC 30.9 g/dl (32.0-37.0); MEAN CORPUSCULAR VOLUME 78.2 fl (82.0-101.0); MEAN PLATELET VOLUME 9.5 fl (7.4-10.4); MONOCYTE # 0.9 10^3/ul (0.3-0.9); MONOCYTES % 5.8 % (0.0-11.0); NEUTROPHILS % 86.8 % (39.0-77.0); NUCLEATED RED BLOOD CELLS% 0.2 /100WBC (0.0-0.0); PLATELET COUNT 658 10^3/UL (140-415); RED BLOOD COUNT 3.31 10^6/ul (4.20-5.40); RED CELL DISTRIBUTION WIDTH 19.1 % (11.5-14.5); WHITE BLOOD COUNT 16.1 10^3/ul (4.8-10.8)
[2016-12-29 05:42] LABS: CALCIUM 8.7 mg/dl (8.4-10.2); CREATININE 0.67 mg/dl (0.44-1.00); POTASSIUM 3.2 mmol/L (3.5-5.1)
[2016-12-29] MEDS: LEVOTHYROXINE 100 MCG TAB PO SCH (06:00)
[2016-12-29] MEDS: ACETAMINOPHEN 325 MG TAB PO PRN (06:00)
--- NOTE | 2016-12-29 07:58 | PN ---
DATE: 12/29/2016 MEDICAL ONCOLOGY PROGRESS NOTE SUBJECTIVE: The patient has been transferred to the intensive care unit. She is presently intubate d and on pressors as well as a Versed drip. OBJECTIVE: GENERAL: The patient is a well-developed female who is sedated and intubated. SKIN: No ecchymosis, no petechiae or rashes. HEENT: Normocephalic. No evidence of trauma. Pupils equal, round, react to light and accommodatio n. Sclerae are nonicteric. The patient does have a nasogastric tube in place and also an endotrach eal tube in place. NECK: Supple, no jugular venous distention or thyroid enlargement. CHEST: Decreased breath sounds on the left side and some wheezing on the right. There are no rubs. HEART: Sinus tachycardia. No S3, S4, or murmurs. There is a prominent venous pattern on the right anterior chest wall. ABDOMEN: Soft. There are no masses or ascites. Bowel sounds are active. EXTREMITIES: No clubbing, edema, or cyanosis. No palpable cords or Homans sign. NEUROLOGIC: The patient is sedated and unable to perform neurologic examination. IMAGING: Chest x-ray shows left lower lobe consolidation as well as "right lung alveolar opacities. " LABORATORY DATA: White count 16,100 with an absolute neutrophil count of 14,000, hemoglobin 8, noel tocrit 25.9, platelet count 658,000. Sodium 145, potassium 3.2, creatinine 0.67, BUN 23. ASSESSMENT: 1. Metastatic breast carcinoma. 2. Respiratory failure, most likely related to the patient's breast carcinoma, and also likely a vasquez perimposed component of pneumonia. 3. Iron-deficiency anemia. DISCUSSION: The patient has, I believe, both progressive respiratory failure due to both breast car cinoma and likely superimposed pneumonia, postobstructive basis. The patient may require bronchoscopy. Certainly requires a change in systemic therapy. As previously noted, this patient has been under t he care of Dr. Reynaldo Oliveira who I feel should assume care for this patient who he has been follo wing previously including administration of chemotherapy. We will try to contact his office today. Dictated By: ERUM HENDERSON MD, SR/LOLI Conf#: [id number] DID#: [id number]
[2016-12-29 08:01] LABS: AADO2 Arterial 613.5 mmHg (7.0-24.0); Allen Test ACCEPTAB; Arterial Base Excess -2.9 mmol/L (-3.0-3); Arterial COHb 0.3 % (0.0-3.0); Arterial Fraction of Oxyhgb 91.8 % (93.0-99.0); Arterial MetHb 0.4 % (0.0-1.5); Arterial Total Hemglobin 9.3 g/dl (12.0-18.0); MODE VENT - AC
--- NOTE | 2016-12-29 08:01 | RADRPT ---
PROCEDURE: XR Chest. CLINICAL INDICATION: Respiratory failure TECHNIQUE: An AP view of the chest was obtained. COMPARISON: Chest x-ray dated 12/28/2016 FINDINGS: The endotracheal tube tip is approximately 2.3 cm above the adebayo. The tip of the enteric tube ex tends below the left diaphragm. There are right lung and left lower lobe alveolar opacities with small bilateral pleural effusions. No pneumothorax is seen. The cardiomediastinal silhouette is mildly enlarged . The osseous str uctures are unremarkable. IMPRESSION: 1. Right lung and left lower lobe alveolar opacities may reflect pulmonary edema or multifocal pneu monia. Findings are increased when compared to the prior examination. 2. Mild cardiomegaly. 3. Tubes and lines, as described above. RPTAT: HH .Rae Erazo MD, MD Date Time Electronically viewed and signed by .Rae Erazo MD, on 12/29/2016 08:00 .G/
[2016-12-29] MEDS ORDERED: POTASSIUM CHLORIDE 250 ML IVPB ONE (09:30)
[2016-12-29] MEDS ORDERED: GLUCAGON 1 MG INJ IM PRN (09:30)
[2016-12-29] MEDS ORDERED: GLUCOSE GEL 15 GRAM TUBE BUCCAL PRN (09:30)
[2016-12-29] MEDS ORDERED: DEXTROSE 50% 50 ML SYRINGE IV PRN ×2 (09:30)
[2016-12-29] MEDS ORDERED: GLUCOSE GEL 15 GRAM TUBE PO PRN ×2 (09:30)
--- NOTE | 2016-12-29 09:31 | PN ---
Date/Time of Note Date/Time of Note DATE: 12/29/16 TIME: 09:05 Assessment/Plan VTE Prophylaxis VTE Prophylaxis Intervention: LMWH Lines/Catheters IV Catheter Type (from Nrs): Central Line Central line still needed: Yes Urinary Cath still in place: Yes Reason Cath still needed: urinary retention Assessment/Plan Chief Complaint/Hosp Course ASSESSMENT AND PLAN: 56-year-old female coming in with a prior history of breast cancer with shortness of breath for 3 days before admission with diffuse multilobar pneumonia likely obstructive from lung masses from metastatic breast cancer, + UE DVT, now intubated. 1. Shortness of breath. Likely secondary to combo of congestive heart failure exacerbation + diffuse multilobar pneumonia likely obstructive from lung masses from metastatic breast cancer. ECHO done 12/18/16. Appreciate pulm rec's. Cannot r/o PE as well (CTA pending, but pt already on LMWH BID for + UE DVT). - Continue vent support and management, f/u pulm rec's - may benefit from bronch - Wean pressors when able and Continue Abx (will d/c levaquin and Cefepime, and add Primaxin) - DuoNebs prn, and monitor oxygen levels as well. 2. Septic Shock - 2/2 Pneumonia most likely. + Fever last night. - continue pressor support, abx, consider ID consult. - obtain new UA and urine/blood cx's 3. History of breast cancer - pt tx with rad's in the past, on PO chemo as outpt. Appreciate Heme/Onc rec's. - f/u pulm and Hematology/Oncology rec's - Continue her home chemotherapy medicine for now. 4. Occlusion of the right subclavian vein - continue LMWH BID 5. Gastritis -H2 seb that will be for gastrointestinal prophylaxis as well. 6. Hypothyroidism. Continue levothyroxine 7. ppx - H2 seb, LMWH Poor prognosis - f/u CTA, cx's. Consider ID and palliative consults. Critical care time spent with care today = 45 min. Problems: Subjective 24 Hr Interval Summary Free Text/Dictation Pt still intubated, tachy, seen by Heme/Onc today. Exam/Review of Systems Vital Signs Vitals Vital Signs Date Time Temp Pulse Resp B/P Pulse Ox O2 Delivery O2 Flow Rate FiO2 12/29/16 06:15 120 18 98 12/29/16 06:00 117/63 12/29/16 05:27 100 12/29/16 04:00 98.9 12/28/16 21:15 Mechanical Ventilator 12/26/16 20:10 5.0 Intake and Output 12/28/16 12/28/16 12/29/16 15:00 23:00 07:00 Intake Total 1988.000 ml 1329.625 ml 430 ml Output Total 660 ml 180 ml 375 ml Balance 1328.000 ml 1149.625 ml 55 ml Exam GENERAL: Intubated and comfortably sedated HEENT: DON, Intubated, Vent settings noted , High o2 requirement / high peep LUNGS: some diminished and coarse BS HEART: S1, S2. No murmur, gallops or rubs. Tachycardic ABDOMEN: Soft, non distended, Normoactive bowel sounds. GENITOURINARY: Normal female external genitalia, Meza to bedside drainage EXTREMITIES: Mild 1+ nonpitting edema bilaterally, also some hand edema bilaterally NEUROLOGIC: The patient is currently sedated. Results Result Diagram: 12/29/16 0400 12/29/16 0400 Results 24 hrs Laboratory Tests Test 12/28/16 19:32 12/29/16 04:00 12/29/16 07:00 Sodium Level 143 145 H Potassium Level 3.6 3.2 L Chloride Level 113 H 115 H Carbon Dioxide Level 21 22 Anion Gap 13 11 Blood Urea Nitrogen 23 H 23 H Creatinine 0.63 0.67 Glucose Level 101 86 Calcium Level 8.7 8.7 Magnesium Level 2.1 White Blood Count 16.1 #H Red Blood Count 3.31 L Hemoglobin 8.0 L Hematocrit 25.9 L Mean Corpuscular Volume 78.2 L Mean Corpuscular Hemoglobin 24.2 L Mean Corpuscular Hemoglobin Concent 30.9 L Red Cell Distribution Width 19.1 H Platelet Count 658 H Mean Platelet Volume 9.5 Neutrophils % 86.8 H Lymphocytes % 5.9 L Monocytes % 5.8 Eosinophils % 0.5 Basophils % 0.1 Nucleated Red Blood Cells % 0.2 H Neutrophils # 14.0 H Lymphocytes # 1.0 Monocytes # 0.9 Eosinophils # 0.1 Basophils # 0.0 Nucleated Red Blood Cells # 0.0 Blood Gas Specimen Source Blood arterial Arterial Blood Date Drawn 12/29/2016 7:40:28 AM Arterial Blood pH (Temp corrected) 7.426 Arterial Blood pCO2 (Temp correct) 32.6 L Arterial Blood pO2 (Temp corrected) 66.9 L Arterial Blood HCO3 21.0 L Arterial Blood Base Excess -2.9 Arterial Blood Oxygen Saturation 92.4 L Adolfo Test ACCEPTAB Arterial Blood Gas Puncture Site Left Radial Arterial Blood Carboxyhemoglobin 0.3 Arterial Blood Methemoglobin 0.4 Blood Gas A-a O2 Differential 613.5 H Oxyhemoglobin Percent 91.8 L Total Hemoglobin 9.3 L Blood Gas Temperature 37.0 Blood Gas Respiration Rate 14.0 Blood Gas Actual Respiration Rate 26 Blood Gas Modality VENT - AC FiO2 100.0 Blood Gas Tidal Volume 550.0 Blood Gas Low PEEP Setting 10.0 Blood Gas Notified Whom JLD Blood Gas Notified Time 12/29/2016 8:01:11 AM Medications Medications Current Medications Ondansetron HCl (Zofran Inj) 4 mg Q6H PRN IV NAUSEA AND/OR VOMITING Last administered on 12/25/16 14:47; Admin Dose 4 MG; Start 12/18/16 at 19:30 Acetaminophen (Tylenol Tab) 650 mg Q6H PRN PO PAIN LEVEL 1-3 OR FEVER Last administered on 12/29/16 06:00; Admin Dose 650 MG; Start 12/18/16 at 19:30 Acetaminophen/ Hydrocodone Bitart ([place] (5/325)) 1 tab Q6H PRN PO MODERATE PAIN LEVEL 4-6 Last administered on 12/24/16 17:14; Admin Dose 1 TAB; Start 12/18/16 at 19:30 Morphine Sulfate (morphine) 2 mg Q4H PRN IV SEVERE PAIN LEVEL 7-10; Start at 19:30 Magnesium Hydroxide (Milk Of Mag) 30 ml DAILY PRN PO CONSTIPATION; Start at 19:30 Sodium Biphosphate/ Sodium Phosphate 133 ml 133 ml DAILY PRN [place] CONSTIPATION; Start 12/18/16 at 19:30 Levofloxacin/ Dextrose (Levaquin 750 Mg/ D5W 150 ml (Pmx)) 150 ml @ 100 mls/hr Q24H IVPB Last administered on 12/28/16 21:31; Admin Dose 100 MLS/HR; Start at 21:00 Hydralazine HCl (Apresoline) 10 mg Q6H PRN IV ELEVATED BLOOD PRESSURE; Start at 19:30 Nitroglycerin (Nitroglycerin (Sl Tab) 0.4 Mg) 1 tab Q5M PRN SL ANGINA; Start at 19:30 Sodium Chloride (Nacl) 2 gm TID PO Last administered on 12/28/16 21:32; Admin Dose 2 GM; Start 12/18/16 at 21:00 Valacyclovir HCl (Valtrex) 1,000 mg TID PO Last administered on 12/28/16 21:31 ; Admin Dose 1,000 MG; Start 12/18/16 at 21:00 Diphenhydramine HCl (Benadryl) 25 mg Q6H PRN PO ITCHING Last administered on 00:41; Admin Dose 25 MG; Start 12/18/16 at 20:00 Enoxaparin Sodium (Lovenox) 55 mg Q12 SC Last administered on 12/28/16 21:33; Admin Dose 55 MG; Start 12/19/16 at 18:00 Zolpidem Tartrate (Ambien) 2.5 mg HS PRN PO INSOMNIA Last administered on 21:12; Admin Dose 2.5 MG; Start 12/20/16 at 13:00 Letrozole (Femara) 2.5 mg DAILY@09 PO Last administered on 12/28/16 18:32; Admin Dose 2.5 MG; Start 12/22/16 at 09:00 Phenol (Cepastat Lozenge) 1 lozenge Q1H PRN [place] COUGH Last administered on 17:21; Admin Dose 1 LOZENGE; Start 12/21/16 at 14:30 Guaifenesin 200 mg 200 mg Q4H PRN PO COUGH Last administered on 12/26/16 07:26 ; Admin Dose 200 MG; Start 12/21/16 at 14:30 Cefepime HCl (Maxipime 1gm/50 ml (Pmx)) 50 ml @ 100 mls/hr Q12 IVPB Last administered on 12/28/16 22:34; Admin Dose 100 MLS/HR; Start 12/22/16 at 12:00 Simethicone (Mylicon) 80 mg Q8 PO Last administered on 12/29/16 06:00; Admin Dose 80 MG; Start 12/22/16 at 12:35 Lorazepam (Ativan) 0.5 mg Q6H PRN PO ANXIETY; Start 12/23/16 at 17:30 Phenol (Cepastat Lozenge) 1 lozenge Q1H PRN MT SORE THROAT; Start 12/26/16 at 07:00 Furosemide (Lasix) 40 mg Q12 IV Last administered on 12/28/16 22:33; Admin Dose 40 MG; Start 12/27/16 at 21:00 Famotidine 20 mg 20 mg BID IV Last administered on 12/28/16 22:33; Admin Dose 20 MG; Start 12/28/16 at 09:00 Norepinephrine 16 mg/Dextrose 500 ml @ 1.87 mls/hr TITRATE IV ; Start 12/28/16 at 03:00 Midazolam HCl 50 ml @ 1 mls/hr TITRATE IV Last administered on 12/29/16 07:43 ; Admin Dose 10 MLS/HR; Start 12/28/16 at 03:30 Phenylephrine HCl 40 mg/Dextrose 500 ml @ 75 mls/hr TITRATE IV ; Start at 04:00 Propofol (Diprivan) 100 ml @ 1.689 mls/ hr Q12H IV ; Start 12/28/16 at 04:30 Ipratropium [place] 2 puff 2 puff Q4 INH Last administered on 12/29/16 01:16; Admin Dose 2 PUFF; Start 12/28/16 at 05:00 Sodium Chloride (NS) 1,000 ml @ 60 mls/hr [id number] IV Last administered on 12/29 02:27; Admin Dose 60 MLS/HR; Start 12/28/16 at 09:00 Docusate Sodium 100 mg 100 mg Q12H NGT Last administered on 12/28/16 21:38; Admin Dose 100 MG; Start 12/28/16 at 10:48 Vancomycin HCl/ Sodium Chloride (Vancocin/NS) 250 ml @ 83.333 mls/ hr Q12H IVPB Last administered on 12/28/16 21:31; Admin Dose 83.333 MLS/HR; Start at 21:00 TESSIE ROWLAND 19, 2017 09:20
[2016-12-29] MEDS: VANCOMYCIN 1.25 GM in SOD CHLORIDE 0.9% 250 ML IVPB SCH ×2 (09:42→20:04)
[2016-12-29] MEDS: DEXTROSE 5% 1,000 ML IV SCH (09:43)
[2016-12-29] MEDS: ENOXAPARIN 100 MG/ML SYG SC SCH ×2 (09:52→20:05)
[2016-12-29] MEDS: DOCUSATE SODIUM 10 MG/ML (10ML CUP) NGT SCH ×2 (11:17→22:05)
--- NOTE | 2016-12-29 11:17 | CONS ---
Date/Time of Note Date/Time of Note DATE: 12/29/16 TIME: 11:14 Assessment/Plan Assessment/Plan Additional Assessment/Plan Chest x-ray was reviewed from today which is showing extensive infiltrate involving the right lung. Endotracheal tube is at an adequate level. Current ventilator setting; AC of 14, tidal volume 550, PEEP of 10, 100% FiO2. Patient currently on Versed 10 mg/h, Levophed at 2 mics per minute. Assessment recommendations; 1. Patient admitted with bilateral pneumonia was improving clinically but then had sudden clinical deterioration , possibly aspiration involving the right lung. 2. Remote history of right breast cancer. 3. Right upper extremity DVT. 4. Mild hypotension. Continue current treatment. Add Solu-Medrol 40 mg every 6 hours at least for 48 hours. Prognosis is guarded. 35 minutes critical care time was spent EE evaluating the patient. Consultation Date/Type/Reason Admit Date/Time Dec 18, 2016 at 18:40 Type of Consultation: Pulmonary/critical care 24 HR Interval Summary Free Text/Dictation Patient condition remains critical. Still requiring 100% FiO2 for O2 saturation maintenance. Patient also has been mildly hypotensive requiring low- dose pressor support. General exam; middle-aged woman, orally intubated, sedated. Currently in no distress. Exam/Review of Systems Vital Signs Vitals Vital Signs Date Time Temp Pulse Resp B/P Pulse Ox O2 Delivery O2 Flow Rate FiO2 12/29/16 09:45 113 23 117/62 92 Mechanical Ventilator 12/29/16 08:00 99.6 12/29/16 05:27 100 12/26/16 20:10 5.0 Intake and Output 12/28/16 12/28/16 12/29/16 15:00 23:00 07:00 Intake Total 1988.000 ml 1329.625 ml 505.625 ml Output Total 660 ml 180 ml 375 ml Balance 1328.000 ml 1149.625 ml 130.625 ml Exam HEENT exam; supple neck, no JVD. No lymphadenopathy. Midline trachea. No thyromegaly. Orally intubated. Pupils are small bilaterally. Patient has fair dentition. Chest examination; diminished breath sounds bilaterally. Mild crackles involving right lung. S1-S2 audible, no murmurs. Regular rhythm. Abdomen examination; soft, no organomegaly. Bowel sounds audible. Extremity exam; 1+ pitting edema involving right upper extremity. Pulses 1+ bilaterally. No clubbing. CANDY PULLER examination; patient is sedated. Results Result Diagram: 12/29/16 0400 12/29/16 0400 Results 24 hrs Laboratory Tests Test 12/28/16 19:32 12/29/16 04:00 12/29/16 07:00 Sodium Level 143 145 H Potassium Level 3.6 3.2 L Chloride Level 113 H 115 H Carbon Dioxide Level 21 22 Anion Gap 13 11 Blood Urea Nitrogen 23 H 23 H Creatinine 0.63 0.67 Glucose Level 101 86 Calcium Level 8.7 8.7 Magnesium Level 2.1 White Blood Count 16.1 #H Red Blood Count 3.31 L Hemoglobin 8.0 L Hematocrit 25.9 L Mean Corpuscular Volume 78.2 L Mean Corpuscular Hemoglobin 24.2 L Mean Corpuscular Hemoglobin Concent 30.9 L Red Cell Distribution Width 19.1 H Platelet Count 658 H Mean Platelet Volume 9.5 Neutrophils % 86.8 H Lymphocytes % 5.9 L Monocytes % 5.8 Eosinophils % 0.5 Basophils % 0.1 Nucleated Red Blood Cells % 0.2 H Neutrophils # 14.0 H Lymphocytes # 1.0 Monocytes # 0.9 Eosinophils # 0.1 Basophils # 0.0 Nucleated Red Blood Cells # 0.0 Blood Gas Specimen Source Blood arterial Arterial Blood Date Drawn 12/29/2016 7:40:28 AM Arterial Blood pH (Temp corrected) 7.426 Arterial Blood pCO2 (Temp correct) 32.6 L Arterial Blood pO2 (Temp corrected) 66.9 L Arterial Blood HCO3 21.0 L Arterial Blood Base Excess -2.9 Arterial Blood Oxygen Saturation 92.4 L Adolfo Test ACCEPTAB Arterial Blood Gas Puncture Site Left Radial Arterial Blood Carboxyhemoglobin 0.3 Arterial Blood Methemoglobin 0.4 Blood Gas A-a O2 Differential 613.5 H Oxyhemoglobin Percent 91.8 L Total Hemoglobin 9.3 L Blood Gas Temperature 37.0 Blood Gas Respiration Rate 14.0 Blood Gas Actual Respiration Rate 26 Blood Gas Modality VENT - AC FiO2 100.0 Blood Gas Tidal Volume 550.0 Blood Gas Low PEEP Setting 10.0 Blood Gas Notified Whom JLD Blood Gas Notified Time 12/29/2016 8:01:11 AM Medications Medications Current Medications Ondansetron HCl (Zofran Inj) 4 mg Q6H PRN IV NAUSEA AND/OR VOMITING Last administered on 12/25/16 14:47; Admin Dose 4 MG; Start 12/18/16 at 19:30 Acetaminophen (Tylenol Tab) 650 mg Q6H PRN PO PAIN LEVEL 1-3 OR FEVER Last administered on 12/29/16 06:00; Admin Dose 650 MG; Start 12/18/16 at 19:30 Acetaminophen/ Hydrocodone Bitart ([place] (5/325)) 1 tab Q6H PRN PO MODERATE PAIN LEVEL 4-6 Last administered on 12/24/16 17:14; Admin Dose 1 TAB; Start 12/18/16 at 19:30 Morphine Sulfate (morphine) 2 mg Q4H PRN IV SEVERE PAIN LEVEL 7-10; Start at 19:30 Magnesium Hydroxide (Milk Of Mag) 30 ml DAILY PRN PO CONSTIPATION; Start at 19:30 Sodium Biphosphate/ Sodium Phosphate ([place]) 133 ml DAILY PRN [place] CONSTIPATION; Start 12/18/16 at 19:30 Hydralazine HCl (Apresoline) 10 mg Q6H PRN IV ELEVATED BLOOD PRESSURE; Start at 19:30 Nitroglycerin (Nitroglycerin (Sl Tab) 0.4 Mg) 1 tab Q5M PRN SL ANGINA; Start at 19:30 Diphenhydramine HCl (Benadryl) 25 mg Q6H PRN PO ITCHING Last administered on 00:41; Admin Dose 25 MG; Start 12/18/16 at 20:00 Enoxaparin Sodium (Lovenox) 55 mg Q12 SC Last administered on 12/29/16 09:52; Admin Dose 55 MG; Start 12/19/16 at 18:00 Zolpidem Tartrate (Ambien) 2.5 mg HS PRN PO INSOMNIA Last administered on 21:12; Admin Dose 2.5 MG; Start 12/20/16 at 13:00 Letrozole (Femara) 2.5 mg DAILY@09 PO Last administered on 12/28/16 18:32; Admin Dose 2.5 MG; Start 12/22/16 at 09:00 Guaifenesin (Robitussin Liquid Cup) 200 mg Q4H PRN PO COUGH Last administered on 12/26/16 07:26; Admin Dose 200 MG; Start 12/21/16 at 14:30 Simethicone (Mylicon) 80 mg Q8 PO Last administered on 12/29/16 06:00; Admin Dose 80 MG; Start 12/22/16 at 12:35 Lorazepam (Ativan) 0.5 mg Q6H PRN PO ANXIETY; Start 12/23/16 at 17:30 Phenol 1 lozenge 1 lozenge Q1H PRN [place] SORE THROAT; Start 12/26/16 at 07:00 Norepinephrine 16 mg/Dextrose 500 ml @ 1.87 mls/hr TITRATE IV ; Start 12/28/16 at 03:00 Midazolam HCl 50 ml @ 1 mls/hr TITRATE IV Last administered on 12/29/16 07:43 ; Admin Dose 10 MLS/HR; Start 12/28/16 at 03:30 Phenylephrine HCl 40 mg/Dextrose 500 ml @ 75 mls/hr TITRATE IV ; Start at 04:00 Propofol (Diprivan) 100 ml @ 1.689 mls/ hr Q12H IV ; Start 12/28/16 at 04:30 Ipratropium [place] (Atrovent Hfa) 2 puff Q4 INH Last administered on 09:47; Admin Dose 2 PUFF; Start 12/28/16 at 05:00 Docusate Sodium 100 mg 100 mg Q12H NGT Last administered on 12/28/16 21:38; Admin Dose 100 MG; Start 12/28/16 at 10:48 Vancomycin HCl 1.25 gm/Sodium Chloride 250 ml @ 83.333 mls/ hr Q12H IVPB Last administered on 12/29/16 09:42; Admin Dose 83.333 MLS/HR; Start 12/28/16 at 21: 00 Dextrose (D5W) 1,000 ml @ 75 mls/hr [id number] IV Last administered on 12/29/16 09:43; Admin Dose 75 MLS/HR; Start 12/29/16 at 09:30 Insulin Aspart NOVOLOG *MILD* ALGORI... Q4 SC ; Start 12/29/16 at 13:00 Potassium Chloride (KCl 40 MEQ/250 ML NS) 250 ml @ 62.5 mls/hr ONCE ONCE IVPB Last administered on 12/29/16t 09:43; Admin Dose 62.5 MLS/HR; Start 12/29/16 at 09:30; Stop 12/29/16 at 13:29 Miscellaneous Information 1 ea NOTE XX ; Start 12/29/16 at 09:30 Glucose (Glutose) 15 gm Q15M PRN PO DECREASED GLUCOSE; Start 12/29/16 at 09:30 Glucose (Glutose) 22.5 gm Q15M PRN PO DECREASED GLUCOSE; Start 12/29/16 at 09: 30 Dextrose (D50w Syringe) 25 ml Q15M PRN IV DECREASED GLUCOSE; Start 12/29/16 at 09:30 Dextrose (D50w Syringe) 50 ml Q15M PRN IV DECREASED GLUCOSE; Start 12/29/16 at 09:30 Glucagon (Glucagen) 1 mg Q15M PRN IM DECREASED GLUCOSE; Start 12/29/16 at 09:30 Glucose (Glutose) 15 gm Q15M PRN [place] DECREASED GLUCOSE; Start 12/29/16 at 09 :30 Famotidine 20 mg 20 mg DAILY IV ; Start 12/30/16 at 09:00 Meropenem 100 ml @ 200 mls/hr Q8 IVPB ; Start 12/29/16 at 10:00 Levofloxacin/ Dextrose (Levaquin 750 Mg/ D5W 150 ml (Pmx)) 150 ml @ 100 mls/hr Q24H IVPB ; Start 12/29/16 at 10:00 PINO PRETTY Dec 29, 2016 11:17
[2016-12-29] MEDS: MEROPENEM 1 GM/100 ML (PMX) 100 ML IVPB SCH ×3 (11:18→22:05)
[2016-12-29] MEDS: LEVOFLOXACIN 750MG/D5W (PMX) 150 ML IVPB SCH (12:44)
[2016-12-29] MEDS: INSULIN ASPART [NOVOLOG] 3 ML PEN SC SCH ×3 (12:47→20:07)
[2016-12-29] MEDS: METHYLPREDNISOLONE 40 MG INJ IV SCH ×2 (12:49→17:28)
[2016-12-29] MEDS: LETROZOLE 2.5 MG TAB PO SCH (12:56)
--- NOTE | 2016-12-29 17:24 | CONS ---
DATE OF ADMISSION: 12/18/2016 DATE OF CONSULTATION: 12/29/2016 INFECTIOUS DISEASE CONSULTATION REASON FOR CONSULTATION: Antibiotic management. HISTORY OF PRESENT ILLNESS: Liz Dolan is an unfortunate 56-year-old female admitted on 12/18/2016 with shortness of breath. Her past problems include: 1. History of breast CA status post radiation 3 years ago, currently on p.o. chemotherapy. 2. Hypothyroidism. 3. Gastritis. 4. Shortness of breath for the last 3 days. The patient has decreased appetite. She had some vomiting on admission as well as loose stools. No fever or chills. She came to the emergency room with her oxygen saturation in the low 80s. She wa s placed on BiPAP. She had significant pulmonary edema. She had redness around her left breast, al most dermatomal in nature but somewhat itchy but not crusting. She also had sodium of 121. Dr. Marrero is is her surgeon. She receives chemotherapy as well. Past surgical history is positive for kidney stone removal in the past. On admission, her chest x-ray showed worsening pulmonary vascular garcia es. Her white count was 5.1, H and H 9.9 and 31.3, platelet count is 594,000. Her BUN and creatini ne today is 23/0.67. Her white count today is 16.1, H and H of 8 and 25.9, platelet count of 658,00 0. With regard to imaging studies, CT scan of the chest was done on 12/19/2016 which showed mass-li ke consolidation in the medial left upper lobe and lingula, additional areas of patchy dense consoli dation throughout the left lower lobe, extensive interlobular septal thickening with patchy areas of superimposed ground glass opacity throughout the right lung, most pronounced within the posterolate ral right upper lobe. These findings are concerning for neoplastic involvement, particularly of the left upper lobe, possibly with superimposed pneumonia and/or lymphangitic carcinomatosis. There wa s mild bilateral hydronephrosis involving the visualized kidneys. A dedicated CT scan of the abdome n and pelvis is recommended for further evaluation. A CT scan of the abdomen and pelvis was done an d showed no hydronephrosis, no liver metastasis, multiple uterine fibroids, dense consolidation of t he left lower lobe, patchy consolidation in the right middle and right lower lobe, diffuse interlobu lar septal thickening with mild pleural thickening, and pleural effusions, not significantly changed . Right lung and left lower lobe alveolar opacities may reflect pulmonary edema or multifocal pneum onia. Findings are increased today when compared to prior examination. The patient has an ET tube. She has an NG tube. She has a Meza catheter. She has a left groin central line. HOSPITAL COURSE: The patient was seen by Dr. Solano today with progressive respiratory failure due to both breast carcinoma and likely superimposed pneumonia, post-obstructive basis. She may requir e bronchoscopy. She was seen by Dr. [place], pulmonary food consultant, for extensive infiltrate involving the right lung. He added Solu-Medrol 40 mg q. 6. Prognosis guarded. White count today is 16.1, a s mentioned. PAST MEDICAL HISTORY: Operations as outlined. FAMILY HISTORY: Noncontributory. SOCIAL HISTORY: She does not smoke, drink, or abuse drugs. ALLERGIES: NONE TO PENICILLIN, SULFA, OR FOODS. MEDICATIONS: Per chart. REVIEW OF SYSTEMS: As per HPI. PHYSICAL EXAMINATION: GENERAL: The patient is sedated on a respirator, ET tube, NG tube, Meza catheter, a central line i n the left groin. SKIN: Without generalized rash. HEENT: Within normal limits. NECK: Supple. LYMPH NODES: None palpable. CHEST: Decreased breath sounds at the bases. HEART: Without murmur or gallop. ABDOMEN: Soft, nontender, without organosplenomegaly or masses. EXTREMITIES: Without cyanosis, clubbing, or edema. RECTAL AND GENITAL: Deferred. NEUROLOGIC: No focal neurological abnormalities. IMPRESSION AND PLAN: We should get a C and S of her sputum, and she was placed on meropenem to pamela h I concur. She is on methylprednisolone. I do not believe she needs Levaquin which we will stop. I will dictate my findings to the hospitalist and to the aforementioned physicians. Dictated By: JOSEMANUEL SÁNCHEZ MD, JD/LOLI Conf#: [id number] DID#: [id number]
[2016-12-29] MEDS: FUROSEMIDE 40 MG INJ IV SCH (17:28)
[2016-12-29 19:41] LABS: UR COLOR YELLOW (YELLOW)
[2016-12-29 19:42] LABS: UR CLARITY SLIGHTLY CLOUDY (CLEAR); UR GLUCOSE (Dip) NEGATIVE (NEGATIVE); UR KETONES (Dip) 1+ (NEGATIVE); UR TOTAL PROTEIN (Dip) 1+ (NEGATIVE)
[2016-12-29 19:43] LABS: ADD UMIC YES; UR BILIRUBIN (Dip) NEGATIVE (NEGATIVE); UR BLOOD (Dip) TRACE (NEGATIVE); UR LEUKOCYTE ESTERASE (Dip) NEGATIVE (NEGATIVE); UR NITRITE (Dip) NEGATIVE (NEGATIVE); UR UROBILINOGEN (Dip) 0.2 E.U./dL (0.1-1.0)
[2016-12-29 19:47] LABS: UR AMORPHOUS CRYSTAL MODERATE; UR BACTERIA MODERATE
[2016-12-30] VITALS (56 sets, daily range): BP systolic 73–124; BP diastolic 45–76; PULSE 83–113; RESP 16–30
[2016-12-30] MEDS: DEXTROSE 5% 1,000 ML IV SCH ×3 (00:52→19:39)
[2016-12-30] MEDS: METHYLPREDNISOLONE 40 MG INJ IV SCH ×4 (00:55→17:32)
[2016-12-30] MEDS: ALBUTEROL 18 GM INHALER INH SCH ×6 (01:00→21:26)
[2016-12-30] MEDS: INSULIN ASPART [NOVOLOG] 3 ML PEN SC SCH ×6 (01:00→20:51)
[2016-12-30] MEDS: IPRATROPIUM (HFA) 12.9 GM INHALER INH SCH ×6 (01:01→21:26)
[2016-12-30] MEDS: MIDAZOLAM (DRIP) 50 mg/50 mL 50 ML IV SCH ×4 (03:47→23:45)
[2016-12-30] MEDS: PROPOFOL 100 ML IV SCH ×2 (04:30→16:30)
[2016-12-30 06:08] LABS: CALCIUM 8.8 mg/dl (8.4-10.2); CREATININE 0.62 mg/dl (0.44-1.00); MAGNESIUM 2.1 mg/dl (1.7-2.5); PHOSPHORUS 3.5 mg/dl (2.5-4.9); POTASSIUM 3.7 mmol/L (3.5-5.1)
[2016-12-30 06:18] LABS: ADD SCAN DIFF NO
[2016-12-30] MEDS: LEVOTHYROXINE 100 MCG TAB PO SCH (06:32)
[2016-12-30] MEDS: FUROSEMIDE 40 MG INJ IV SCH ×2 (06:32→17:33)
[2016-12-30] MEDS: MEROPENEM 1 GM/100 ML (PMX) 100 ML IVPB SCH ×3 (06:32→23:51)
[2016-12-30 07:52] LABS: ABNORMAL IP MESSAGE 1; BASOPHILS % 0.1 % (0.0-2.0); HEMATOCRIT 26.7 % (37.0-47.0); HEMOGLOBIN 8.1 g/dl (12.0-16.0); LYMPHOCYTES # 0.5 10^3/ul (0.8-2.9); LYMPHOCYTES % 2.8 % (15.0-51.0); MEAN CORPUSCULAR HGB CONC 30.3 g/dl (32.0-37.0); MEAN PLATELET VOLUME 9.7 fl (7.4-10.4); MONOCYTE # 0.5 10^3/ul (0.3-0.9); MONOCYTES % 2.8 % (0.0-11.0); NEUTROPHIL # 17.5 10^3/ul (1.6-7.5); NUCLEATED RED BLOOD CELLS% 0.2 /100WBC (0.0-0.0); PLATELET COUNT 654 10^3/UL (140-415); RED BLOOD COUNT 3.38 10^6/ul (4.20-5.40); RED CELL DISTRIBUTION WIDTH 19.5 % (11.5-14.5); WHITE BLOOD COUNT 18.8 10^3/ul (4.8-10.8)
--- NOTE | 2016-12-30 07:57 | PN ---
DATE: 12/30/2016 MEDICAL ONCOLOGY PROGRESS NOTE SUBJECTIVE: The patient basically remains unchanged. She continues to require ventilator support. She remains on norepinephrine drip and sedation with Versed. PHYSICAL EXAMINATION: Also unchanged. LABORATORY DATA: Sodium today is 138, potassium 3.7, BUN 25, creatinine 0.62, calcium is 8.8. IMAGING: Chest x-ray of December 29 demonstrates the right lung and left lower lobe alveolar opacitie s. These apparently are worse than on prior examination. PLAN: Again, I have no further recommendations at this time. We will again try to contact Dr. Hipolito crawford about his assuming care for his patient. Dictated By: ERUM HENDERSON MD SR/NTS Conf#: [id number] DID#: [id number]
--- NOTE | 2016-12-30 08:22 | CONS ---
Date/Time of Note Date/Time of Note DATE: 12/30/16 TIME: 08:20 Assessment/Plan Assessment/Plan Additional Assessment/Plan Ventilator setting; AC of 14, tidal volume 550, PEEP of 10, 100% FiO2. Patient is off Levophed. Chest x-ray from today is pending. Assessment recommendations; 1. Patient admitted with bilateral pneumonia on the medical floor was improving but had sudden decompensation with extensive infiltrate involving the right lung possibly aspiration. 2. Remote history of right breast cancer. 3. Right upper extremity DVT. Continue current supportive care. Further recommendations to be made once chest x-rays done. Prognosis is guarded. Consultation Date/Type/Reason Admit Date/Time Dec 18, 2016 at 18:40 Type of Consultation: Pulmonary/critical care 24 HR Interval Summary Free Text/Dictation Patient's condition remains critical. Still requiring 100% FiO2 for O2 saturation maintenance. General exam; elderly woman, on ventilator via endotracheal tube, sedated currently in no distress. Exam/Review of Systems Vital Signs Vitals Vital Signs Date Time Temp Pulse Resp B/P Pulse Ox O2 Delivery O2 Flow Rate FiO2 12/30/16 07:30 98.1 96 18 94/48 96 Mechanical Ventilator 12/30/16 05:00 100 12/26/16 20:10 5.0 Intake and Output 12/29/16 12/29/16 12/30/16 15:00 23:00 07:00 Intake Total 1276.870 ml 961.07 ml 664 ml Output Total 320 ml 775 ml 315 ml Balance 956.870 ml 186.07 ml 349 ml Exam HEENT examined; supple neck, no JVD. No lymphadenopathy. Midline trachea. No thyromegaly. Orally intubated. Patient has fair dentition. Pupils are small bilaterally. Chest examination; crackles involving right lung. Left lung is fairly clear. S1-S2 audible, no murmurs. Regular rhythm. Abdomen examination; soft, no organomegaly. Bowel sounds audible. Extremity examination; no peripheral edema in lower and left upper extremities. 1+ edema involving right upper extremity. 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 Results Result Diagram: 12/30/16 0440 12/30/16 0500 Results 24 hrs Laboratory Tests Test 12/29/16 12:47 12/29/16 13:30 12/29/16 17:26 12/29/16 20:07 Bedside Glucose 81 105 133 Urine Color YELLOW Urine Clarity SLIGHTLY CLOUDY Urine pH 6.5 Urine Specific [place] 1.025 Urine Ketones 1+ H Urine Nitrite NEGATIVE Urine Bilirubin NEGATIVE Urine Urobilinogen 0.2 E.U./dL Urine Leukocyte Esterase NEGATIVE Urine Microscopic RBC 5-10 Urine Microscopic WBC 2-5 Urine Amorphous Urates MODERATE Urine Bacteria MODERATE Urine Hemoglobin TRACE Urine Glucose NEGATIVE Urine Total Protein 1+ H Test 12/30/16 00:50 12/30/16 04:40 12/30/16 05:00 12/30/16 06:40 Bedside Glucose 140 159 White Blood Count 18.8 H Red Blood Count 3.38 L Hemoglobin 8.1 L Hematocrit 26.7 L Mean Corpuscular Volume 79.0 L Mean Corpuscular Hemoglobin 24.0 L Mean Corpuscular Hemoglobin Concent 30.3 L Red Cell Distribution Width 19.5 H Platelet Count 654 H Mean Platelet Volume 9.7 Neutrophils % 93.0 H Lymphocytes % 2.8 L Monocytes % 2.8 Eosinophils % 0.0 Basophils % 0.1 Nucleated Red Blood Cells % 0.2 H Neutrophils # 17.5 H Lymphocytes # 0.5 L Monocytes # 0.5 Eosinophils # 0.0 Basophils # 0.0 Nucleated Red Blood Cells # 0.0 Sodium Level 138 Potassium Level 3.7 Chloride Level 110 Carbon Dioxide Level 23 Anion Gap 9 Blood Urea Nitrogen 25 H Creatinine 0.62 Glucose Level 147 # Calcium Level 8.8 Phosphorus Level 3.5 Magnesium Level 2.1 Test 12/30/16 08:00 Vancomycin Level Trough 18.8 Medications Medications Current Medications Ondansetron HCl (Zofran Inj) 4 mg Q6H PRN IV NAUSEA AND/OR VOMITING Last administered on 12/25/16 14:47; Admin Dose 4 MG; Start 12/18/16 at 19:30 Acetaminophen (Tylenol Tab) 650 mg Q6H PRN PO PAIN LEVEL 1-3 OR FEVER Last administered on 12/29/16 06:00; Admin Dose 650 MG; Start 12/18/16 at 19:30 Acetaminophen/ Hydrocodone Bitart ([place] (5/325)) 1 tab Q6H PRN PO MODERATE PAIN LEVEL 4-6 Last administered on 12/24/16 17:14; Admin Dose 1 TAB; Start 12/18/16 at 19:30 Morphine Sulfate (morphine) 2 mg Q4H PRN IV SEVERE PAIN LEVEL 7-10; Start at 19:30 Magnesium Hydroxide (Milk Of Mag) 30 ml DAILY PRN PO CONSTIPATION; Start at 19:30 Sodium Biphosphate/ Sodium Phosphate (Fleet Enema) [address] CONSTIPATION; Start 12/18/16 at 19:30 Hydralazine HCl (Apresoline) 10 mg Q6H PRN IV ELEVATED BLOOD PRESSURE; Start at 19:30 Nitroglycerin (Nitroglycerin (Sl Tab) 0.4 Mg) 1 tab Q5M PRN SL ANGINA; Start at 19:30 Diphenhydramine HCl (Benadryl) 25 mg Q6H PRN PO ITCHING Last administered on 00:41; Admin Dose 25 MG; Start 12/18/16 at 20:00 Enoxaparin Sodium (Lovenox) 55 mg Q12 SC Last administered on 12/29/16 20:05; Admin Dose 55 MG; Start 12/19/16 at 18:00 Zolpidem Tartrate (Ambien) 2.5 mg HS PRN PO INSOMNIA Last administered on 21:12; Admin Dose 2.5 MG; Start 12/20/16 at 13:00 Letrozole (Femara) 2.5 mg DAILY@09 PO Last administered on 12/29/16 12:56; Admin Dose 2.5 MG; Start 12/22/16 at 09:00 Guaifenesin (Robitussin Liquid Cup) 200 mg Q4H PRN PO COUGH Last administered on 12/26/16 07:26; Admin Dose 200 MG; Start 12/21/16 at 14:30 Simethicone (Mylicon) 80 mg Q8 PO Last administered on 12/30/16 06:32; Admin Dose 80 MG; Start 12/22/16 at 12:35 Lorazepam (Ativan) 0.5 mg Q6H PRN PO ANXIETY; Start 12/23/16 at 17:30 Phenol 1 lozenge 1 lozenge Q1H PRN MT SORE THROAT; Start 12/26/16 at 07:00 Norepinephrine 16 mg/Dextrose 500 ml @ 1.87 mls/hr TITRATE IV Last administered on 12/29/16 17:03; Admin Dose 1.87 MLS/HR; Start 12/28/16 at 03:00 Midazolam HCl 50 ml @ 1 mls/hr TITRATE IV Last administered on 12/30/16 03:47 ; Admin Dose 10 MLS/HR; Start 12/28/16 at 03:30 Phenylephrine HCl 40 mg/Dextrose 500 ml @ 75 mls/hr TITRATE IV ; Start at 04:00 Propofol (Diprivan) 100 ml @ 1.689 mls/ hr Q12H IV ; Start 12/28/16 at 04:30 Ipratropium [place] (Atrovent Hfa) 2 puff Q4 INH Last administered on 01:01; Admin Dose 2 PUFF; Start 12/28/16 at 05:00 Docusate Sodium 100 mg 100 mg Q12H NGT Last administered on 12/29/16 22:05; Admin Dose 100 MG; Start 12/28/16 at 10:48 Vancomycin HCl 1.25 gm/Sodium Chloride 250 ml @ 83.333 mls/ hr Q12H IVPB Last administered on 12/29/16 20:04; Admin Dose 83.333 MLS/HR; Start 12/28/16 at 21: 00 Dextrose (D5W) 1,000 ml @ 75 mls/hr [id number] IV Last administered on 12/30/16 00:52; Admin Dose 75 MLS/HR; Start 12/29/16 at 09:30 Insulin Aspart (Novolog Insulin Pen) NOVOLOG *MILD* ALGORI... Q4 SC Last administered on 12/30/16 06:42; Admin Dose 1 UNIT; Start 12/29/16 at 13:00 Miscellaneous Information 1 ea NOTE XX ; Start 12/29/16 at 09:30 Glucose (Glutose) 15 gm Q15M PRN PO DECREASED GLUCOSE; Start 12/29/16 at 09:30 Glucose (Glutose) 22.5 gm Q15M PRN PO DECREASED GLUCOSE; Start 12/29/16 at 09: 30 Dextrose (D50w Syringe) 25 ml Q15M PRN IV DECREASED GLUCOSE; Start 12/29/16 at 09:30 Dextrose (D50w Syringe) 50 ml Q15M PRN IV DECREASED GLUCOSE; Start 12/29/16 at 09:30 Glucagon (Glucagen) 1 mg Q15M PRN IM DECREASED GLUCOSE; Start 12/29/16 at 09:30 Glucose (Glutose) 15 gm Q15M PRN BUCCAL DECREASED GLUCOSE; Start 12/29/16 at 09 :30 Famotidine 20 mg 20 mg DAILY IV ; Start 12/30/16 at 09:00 Meropenem 100 ml @ 200 mls/hr Q8 IVPB Last administered on 12/30/16 06:32; Admin Dose 200 MLS/HR; Start 12/29/16 at 10:00 Levofloxacin/ Dextrose (Levaquin 750 Mg/ D5W 150 ml (Pmx)) 150 ml @ 100 mls/hr Q24H IVPB Last administered on 12/29/16 12:44; Admin Dose 100 MLS/HR; Start at 10:00 Methylprednisolone Sodium Succinate (Solu-Medrol) 40 mg Q6 IV Last administered on 12/30/16 06:32; Admin Dose 40 MG; Start 12/29/16 at 12:00 PINO PRETTY Dec 30, 2016 08:22
--- NOTE | 2016-12-30 09:08 | PN ---
Date/Time of Note Date/Time of Note DATE: 12/30/16 TIME: 09:05 Assessment/Plan VTE Prophylaxis VTE Prophylaxis Intervention: LMWH Lines/Catheters IV Catheter Type (from Nrs): Central Line Central line still needed: Yes Urinary Cath still in place: Yes Reason Cath still needed: urinary retention Assessment/Plan Chief Complaint/Hosp Course ASSESSMENT AND PLAN: 56-year-old female coming in with a prior history of breast cancer with shortness of breath for 3 days before admission with diffuse multilobar pneumonia likely obstructive from lung masses from metastatic breast cancer, + UE DVT, now intubated. 1. Shortness of breath. Likely secondary to combo of congestive heart failure exacerbation + diffuse multilobar pneumonia likely obstructive from lung masses from metastatic breast cancer. ECHO done 12/18/16. Appreciate pulm rec's. Cannot r /o PE as well (CTA pending, but pt already on LMWH BID for + UE DVT). - Continue vent support and management, f/u pulm rec's - may benefit from bronch - Wean pressors when able and Continue Abx (Meropenem + Levaquin) - DuoNebs prn, and monitor oxygen levels as well. 2. Septic Shock - 2/2 Pneumonia most likely. - continue pressor support, abx, consider ID consult. - f/u UA and urine/blood cx's 3. History of breast cancer - pt tx with rad's in the past, on PO chemo as outpt. Appreciate Heme/Onc rec's. - f/u pulm and Hematology/Oncology rec's - Continue her home chemotherapy medicine for now. 4. Occlusion of the right subclavian vein - continue LMWH BID 5. Gastritis -H2 seb that will be for gastrointestinal prophylaxis as well. 6. Hypothyroidism. Continue levothyroxine 7. ppx - H2 seb, LMWH Poor prognosis - f/u CTA, cx's. Consider palliative consult. Critical care time spent with care today = 40 min. Problems: Subjective 24 Hr Interval Summary Free Text/Dictation Pt still intubated, on pressor. Seen by pulm and ID teams. Exam/Review of Systems Vital Signs Vitals Vital Signs Date Time Temp Pulse Resp B/P Pulse Ox O2 Delivery O2 Flow Rate FiO2 12/30/16 07:30 98.1 96 18 94/48 96 Mechanical Ventilator 12/30/16 05:00 100 6/16/17 20:10 5.0 Intake and Output 12/29/16 12/29/16 12/30/16 15:00 23:00 07:00 Intake Total 1276.870 ml 961.07 ml 664 ml Output Total 320 ml 775 ml 315 ml Balance 956.870 ml 186.07 ml 349 ml Exam GENERAL: Intubated and comfortably sedated HEENT: DON, Intubated, Vent settings noted , High o2 requirement / high peep LUNGS: some diminished and coarse BS HEART: S1, S2. No murmur, gallops or rubs. Tachycardic ABDOMEN: Soft, non distended, Normoactive bowel sounds. GENITOURINARY: Normal female external genitalia, Meza to bedside drainage EXTREMITIES: Mild 1+ nonpitting edema bilaterally, also some hand edema bilaterally NEUROLOGIC: The patient is currently sedated. Results Result Diagram: 12/30/16 0440 12/30/16 0500 Results 24 hrs Laboratory Tests Test 12/29/16 12:47 12/29/16 13:30 12/29/16 17:26 12/29/16 20:07 Bedside Glucose 81 105 133 Urine Color YELLOW Urine Clarity SLIGHTLY CLOUDY Urine pH 6.5 Urine Specific [place] 1.025 Urine Ketones 1+ H Urine Nitrite NEGATIVE Urine Bilirubin NEGATIVE Urine Urobilinogen 0.2 E.U./dL Urine Leukocyte Esterase NEGATIVE Urine Microscopic RBC 5-10 Urine Microscopic WBC 2-5 Urine Amorphous Urates MODERATE Urine Bacteria MODERATE Urine Hemoglobin TRACE Urine Glucose NEGATIVE Urine Total Protein 1+ H Test 12/30/16 00:50 12/30/16 04:40 12/30/16 05:00 12/30/16 06:40 Bedside Glucose 140 159 White Blood Count 18.8 H Red Blood Count 3.38 L Hemoglobin 8.1 L Hematocrit 26.7 L Mean Corpuscular Volume 79.0 L Mean Corpuscular Hemoglobin 24.0 L Mean Corpuscular Hemoglobin Concent 30.3 L Red Cell Distribution Width 19.5 H Platelet Count 654 H Mean Platelet Volume 9.7 Neutrophils % 93.0 H Lymphocytes % 2.8 L Monocytes % 2.8 Eosinophils % 0.0 Basophils % 0.1 Nucleated Red Blood Cells % 0.2 H Neutrophils # 17.5 H Lymphocytes # 0.5 L Monocytes # 0.5 Eosinophils # 0.0 Basophils # 0.0 Nucleated Red Blood Cells # 0.0 Sodium Level 138 Potassium Level 3.7 Chloride Level 110 Carbon Dioxide Level 23 Anion Gap 9 Blood Urea Nitrogen 25 H Creatinine 0.62 Glucose Level 147 # Calcium Level 8.8 Phosphorus Level 3.5 Magnesium Level 2.1 Test 12/30/16 08:00 Vancomycin Level Trough 15.7 Medications Medications Current Medications Ondansetron HCl (Zofran Inj) 4 mg Q6H PRN IV NAUSEA AND/OR VOMITING Last administered on 12/25/16 14:47; Admin Dose 4 MG; Start 12/18/16 at 19:30 Acetaminophen (Tylenol Tab) 650 mg Q6H PRN PO PAIN LEVEL 1-3 OR FEVER Last administered on 12/29/16 06:00; Admin Dose 650 MG; Start 12/18/16 at 19:30 Acetaminophen/ Hydrocodone Bitart ([place] (5/325)) 1 tab Q6H PRN PO MODERATE PAIN LEVEL 4-6 Last administered on 12/24/16 17:14; Admin Dose 1 TAB; Start 12/18/16 at 19:30 Morphine Sulfate (morphine) 2 mg Q4H PRN IV SEVERE PAIN LEVEL 7-10; Start at 19:30 Magnesium Hydroxide (Milk Of Mag) 30 ml DAILY PRN PO CONSTIPATION; Start at 19:30 Sodium Biphosphate/ Sodium Phosphate (Fleet Enema) 133 ml DAILY PRN [place] CONSTIPATION; Start 12/18/16 at 19:30 Hydralazine HCl (Apresoline) 10 mg Q6H PRN IV ELEVATED BLOOD PRESSURE; Start at 19:30 Nitroglycerin (Nitroglycerin (Sl Tab) 0.4 Mg) 1 tab Q5M PRN SL ANGINA; Start at 19:30 Diphenhydramine HCl (Benadryl) 25 mg Q6H PRN PO ITCHING Last administered on 00:41; Admin Dose 25 MG; Start 12/18/16 at 20:00 Enoxaparin Sodium (Lovenox) 55 mg Q12 SC Last administered on 12/29/16 20:05; Admin Dose 55 MG; Start 12/19/16 at 18:00 Zolpidem Tartrate (Ambien) 2.5 mg HS PRN PO INSOMNIA Last administered on 21:12; Admin Dose 2.5 MG; Start 12/20/16 at 13:00 Letrozole (Femara) 2.5 mg DAILY@09 PO Last administered on 12/29/16 12:56; Admin Dose 2.5 MG; Start 12/22/16 at 09:00 Guaifenesin (Robitussin Liquid Cup) 200 mg Q4H PRN PO COUGH Last administered on 12/26/16 07:26; Admin Dose 200 MG; Start 12/21/16 at 14:30 Simethicone (Mylicon) 80 mg Q8 PO Last administered on 12/30/16 06:32; Admin Dose 80 MG; Start 12/22/16 at 12:35 Lorazepam (Ativan) 0.5 mg Q6H PRN PO ANXIETY; Start 12/23/16 at 17:30 Phenol 1 lozenge 1 lozenge Q1H PRN MT SORE THROAT; Start 12/26/16 at 07:00 Norepinephrine 16 mg/Dextrose 500 ml @ 1.87 mls/hr TITRATE IV Last administered on 12/29/16 17:03; Admin Dose 1.87 MLS/HR; Start 12/28/16 at 03:00 Midazolam HCl 50 ml @ 1 mls/hr TITRATE IV Last administered on 12/30/16 03:47 ; Admin Dose 10 MLS/HR; Start 12/28/16 at 03:30 Phenylephrine HCl 40 mg/Dextrose 500 ml @ 75 mls/hr TITRATE IV ; Start at 04:00 Propofol (Diprivan) 100 ml @ 1.689 mls/ hr Q12H IV ; Start 12/28/16 at 04:30 Ipratropium [place] (Atrovent Hfa) 2 puff Q4 INH Last administered on 01:01; Admin Dose 2 PUFF; Start 12/28/16 at 05:00 Docusate Sodium 100 mg 100 mg Q12H NGT Last administered on 12/29/16 22:05; Admin Dose 100 MG; Start 12/28/16 at 10:48 Vancomycin HCl 1.25 gm/Sodium Chloride 250 ml @ 83.333 mls/ hr Q12H IVPB Last administered on 12/29/16 20:04; Admin Dose 83.333 MLS/HR; Start 12/28/16 at 21: 00 Dextrose (D5W) 1,000 ml @ 75 mls/hr [id number] IV Last administered on 12/30/16 00:52; Admin Dose 75 MLS/HR; Start 12/29/16 at 09:30 Insulin Aspart (Novolog Insulin Pen) NOVOLOG *MILD* ALGORI... Q4 SC Last administered on 12/30/16 06:42; Admin Dose 1 UNIT; Start 12/29/16 at 13:00 Miscellaneous Information 1 ea NOTE XX ; Start 12/29/16 at 09:30 Glucose (Glutose) 15 gm Q15M PRN PO DECREASED GLUCOSE; Start 12/29/16 at 09:30 Glucose (Glutose) 22.5 gm Q15M PRN PO DECREASED GLUCOSE; Start 12/29/16 at 09: 30 Dextrose (D50w Syringe) 25 ml Q15M PRN IV DECREASED GLUCOSE; Start 12/29/16 at 09:30 Dextrose (D50w Syringe) 50 ml Q15M PRN IV DECREASED GLUCOSE; Start 12/29/16 at 09:30 Glucagon (Glucagen) 1 mg Q15M PRN IM DECREASED GLUCOSE; Start 12/29/16 at 09:30 Glucose (Glutose) 15 gm Q15M PRN BUCCAL DECREASED GLUCOSE; Start 12/29/16 at 09 :30 Famotidine 20 mg 20 mg DAILY IV ; Start 12/30/16 at 09:00 Meropenem 100 ml @ 200 mls/hr Q8 IVPB Last administered on 12/30/16 06:32; Admin Dose 200 MLS/HR; Start 12/29/16 at 10:00 Levofloxacin/ Dextrose (Levaquin 750 Mg/ D5W 150 ml (Pmx)) 150 ml @ 100 mls/hr Q24H IVPB Last administered on 12/29/16 12:44; Admin Dose 100 MLS/HR; Start at 10:00 Methylprednisolone Sodium Succinate (Solu-Medrol) 40 mg Q6 IV Last administered on 12/30/16 06:32; Admin Dose 40 MG; Start 12/29/16 at 12:00 TESSIE ROWLAND Dec 30, 2016 09:08
[2016-12-30] MEDS: FAMOTIDINE 20 MG INJ IV SCH (09:33)
[2016-12-30] MEDS: ENOXAPARIN 100 MG/ML SYG SC SCH ×2 (09:58→20:50)
[2016-12-30] MEDS: VANCOMYCIN 1.25 GM in SOD CHLORIDE 0.9% 250 ML IVPB SCH (10:04)
[2016-12-30] MEDS: LEVOFLOXACIN 750MG/D5W (PMX) 150 ML IVPB SCH (10:10)
[2016-12-30] MEDS: DOCUSATE SODIUM 10 MG/ML (10ML CUP) NGT SCH ×2 (10:12→23:48)
--- NOTE | 2016-12-30 10:23 | RADRPT ---
PROCEDURE: XR Chest. CLINICAL INDICATION: Pneumonia TECHNIQUE: An AP view of the chest was obtained. COMPARISON: Chest x-ray dated 12/29/2016 FINDINGS: The endotracheal tube tip is approximately 2.8 cm above the adebayo. The tip of the enteric tube ex tends below the left diaphragm. There is hyperinflation of the right lung with diffuse right lung interstitial and opacities. There is a small right pleural effusion. There is left lung volume loss with retrocardiac consolidation. The cardiomediastinal silhouette is within normal limits for size. Calcifications are seen within the aortic arch. The osseous structures demonstrate senescent changes. IMPRESSION: 1. Right lung interstitial and alveolar opacities, may reflect pulmonary edema or multifocal pneumon ia. There is mild improved aeration of the right upper lobe when compared to the prior examination. 2. Left basilar consolidation, at least partially related to atelectasis. No significant interval c hange. 3. Aortic atherosclerosis. 4. Tubes and lines, as described above. RPTAT: .Rae Erazo MD, Date Time Electronically viewed and signed by .Rae Erazo MD, on 12/30/2016 10:22 .G/
--- NOTE | 2016-12-30 12:20 | PN ---
DATE: 12/30/2016 SUBJECTIVE: No events overnight. The patient remains intubated, sedated. Pressors since am She i s on 100 FIO2 and 10 of PEEP. VITAL SIGNS: Temperature 98.1, pulse 96, respirations 19, blood pressure 96/59, saturation 98%. LABORATORIES: WBC 18.8, H and H 8.1 and 26.7, platelets 654, neutrophils 93, BUN 25, creatinine 0.6 2. MICROBIOLOGY: Urine cultures remain negative. Blood culture pending. Endotracheal aspirate growin g Loly albicans. INDWELLINGS: Endotracheal tube, NG tube, Meza catheter. ANTIMICROBIALS 1. Levaquin. 2. Vancomycin. 3. Meropenem. 4. Solu-Medrol. PHYSICAL EXAMINATION: GENERAL: Well-developed, well-nourished middle-aged woman who is intubated and sedated, in no distr ess. HEENT: Head atraumatic, normocephalic. Sclerae anicteric. Buccal mucosa dry. NECK: Supple, trachea midline. CHEST: Rise symmetrical. Breath sounds diminished. HEART: S1, S2. ABDOMEN: Soft. Bowel tones present. EXTREMITIES: No cyanosis. ASSESSMENT: 1. Severe sepsis with shock. 2. Bilateral pneumonia with acute respiratory failure, possibly aspiration. 3. Right upper extremity deep venous thrombosis. 4. History of breast cancer status post radiation 3 years ago. PLAN: The patient is hemodynamically stable off pressors. She has leukocytosis, likely steroid ind uced. Sputum culture preliminary growing Loly albicans. Blood culture on admission is negative. We will add Diflucan to the regimen and continue her on current antimicrobials. Follow up pulmona ry and oncology recommendations pending CT chest. Dictated By: BENY LEMA PIPE FITTER SUPERVISOR MAINTENANCE for JOSEMANUEL SÁNCHEZ MD NI/NTS Conf#: [id number] DID#: [id number]
[2016-12-30] MEDS: FLUCONAZOLE 100 MG TAB PO SCH (12:44)
[2016-12-30] MEDS: LETROZOLE 2.5 MG TAB PO SCH (12:53)
[2016-12-30] MEDS: HYDROCODONE/APAP (5/325) TAB PO PRN (15:24)
--- NOTE | 2016-12-30 16:30 | CONS ---
Date/Time of Note Date/Time of Note DATE: 12/30/16 TIME: 16:27 Assessment/Plan Assessment/Plan Chief Complaint/Hosp Course This is a 56-year-old very pleasant female with a history of breast cancer right side status post RT and p.o. chemotherapy. The entire story is taken from patient's own history and what I have reviewed in her medical record. She presented to emergency room at [facility] with increasing shortness of breath according to medical records congestive heart failure fluid overload. She was treated aggressively and feels less dyspneic at this time CT scan of the chest concerning for lymphangitic tumor, possible overlying pneumonia. She has been seen by pulmonary and hematology oncology consultants. Insofar as her pain she describes primarily anterior chest wall discomfort and low back pain. At home she was only taken ibuprofen not opioids. States she has had this pain for a prolonged period of time she describes it as mild to moderate she has not increased in severity with current intravenous pain medications morphine pain is well controlled. Describes the pain as a thumping on her chest without radiations into her back or flank or abdomen low back pain is described as gnawing type discomfort also without radiation to bilateral lower extremity there is no warning signs clearly described. Difficult to separate her physical functioning associated with her current respiratory problems from pain but in either case she states that she is improved the pain is not affected her mood and sleeping patterns overall functioning. She denies nausea vomiting constipation fatigue drowsiness she does not smoke nor drink she has not been except for frequent renewals or increasing doses of her current pain control medication. Current pain control medications include morphine and Isabella. Problems: Additional Assessment/Plan dditional Assessment/Plan Metastatic breast cancer Respiratory failure Fluid overload Rule out pulmonary metastasis Rule out autoimmune pneumonitis versus lymphangitic tumor Acute pain syndrome Since I have last seen patient she has been transferred to the intensive care unit for respiratory failure and is intubated. I will contact for family conference and establish goals of care. Although my last discussion with patient before being transferred to the intensive care unit she was able to make all decisions on her own behalf. Consultation Date/Type/Reason Admit Date/Time Dec 18, 2016 at 18:40 Initial Consult Date 12/23/16 Type of Consultation: Palliative care Exam/Review of Systems Vital Signs Vitals Vital Signs Date Time Temp Pulse Resp B/P Pulse Ox O2 Delivery O2 Flow Rate FiO2 12/30/16 16:00 101 12/30/16 15:00 30 103/57 90 Mechanical Ventilator 12/30/16 13:11 100 12/30/16 12:00 98.5 12/26/16 20:10 5.0 Intake and Output 12/29/16 12/29/16 12/30/16 15:00 23:00 07:00 Intake Total 1276.870 ml 961.07 ml 772 ml Output Total 320 ml 775 ml 315 ml Balance 956.870 ml 186.07 ml 457 ml Results Result Diagram: 12/30/16 0440 12/30/16 0420 Results 24 hrs Laboratory Tests Test 12/29/16 17:26 12/29/16 20:07 12/30/16 00:50 12/30/16 04:20 Bedside Glucose 105 133 140 Sodium Level 138 Potassium Level 3.7 Chloride Level 110 Carbon Dioxide Level 23 Anion Gap 9 Blood Urea Nitrogen 25 H Creatinine 0.62 Glucose Level 147 # Calcium Level 8.8 Phosphorus Level 3.5 Magnesium Level 2.1 Vancomycin Level Trough 18.8 Test 12/30/16 04:40 12/30/16 06:40 12/30/16 08:00 12/30/16 09:55 White Blood Count 18.8 H Red Blood Count 3.38 L Hemoglobin 8.1 L Hematocrit 26.7 L Mean Corpuscular Volume 79.0 L Mean Corpuscular Hemoglobin 24.0 L Mean Corpuscular Hemoglobin Concent 30.3 L Red Cell Distribution Width 19.5 H Platelet Count 654 H Mean Platelet Volume 9.7 Neutrophils % 93.0 H Lymphocytes % 2.8 L Monocytes % 2.8 Eosinophils % 0.0 Basophils % 0.1 Nucleated Red Blood Cells % 0.2 H Neutrophils # 17.5 H Lymphocytes # 0.5 L Monocytes # 0.5 Eosinophils # 0.0 Basophils # 0.0 Nucleated Red Blood Cells # 0.0 Bedside Glucose 159 145 Vancomycin Level Trough 15.7 Test 12/30/16 12:42 Bedside Glucose 136 Medications Medications Current Medications Ondansetron HCl (Zofran Inj) 4 mg Q6H PRN IV NAUSEA AND/OR VOMITING Last administered on 12/25/16t 14:47; Admin Dose 4 MG; Start 12/18/16 at 19:30 Acetaminophen (Tylenol Tab) 650 mg Q6H PRN PO PAIN LEVEL 1-3 OR FEVER Last administered on 12/29/16 06:00; Admin Dose 650 MG; Start 12/18/16 at 19:30 Acetaminophen/ Hydrocodone Bitart ([place] (5/325)) 1 tab Q6H PRN PO MODERATE PAIN LEVEL 4-6 Last administered on 12/30/16 15:24; Admin Dose 1 TAB; Start 12/18/16 at 19:30 Morphine Sulfate (morphine) 2 mg Q4H PRN IV SEVERE PAIN LEVEL 7-10; Start at 19:30 Magnesium Hydroxide (Milk Of Mag) 30 ml DAILY PRN PO CONSTIPATION; Start at 19:30 Sodium Biphosphate/ Sodium Phosphate (Fleet Enema) 133 ml DAILY PRN RI CONSTIPATION; Start 12/18/16 at 19:30 Hydralazine HCl (Apresoline) 10 mg Q6H PRN IV ELEVATED BLOOD PRESSURE; Start at 19:30 Nitroglycerin (Nitroglycerin (Sl Tab) 0.4 Mg) 1 tab Q5M PRN SL ANGINA; Start at 19:30 Diphenhydramine HCl (Benadryl) 25 mg Q6H PRN PO ITCHING Last administered on 00:41; Admin Dose 25 MG; Start 12/18/16 at 20:00 Enoxaparin Sodium (Lovenox) 55 mg Q12 SC Last administered on 12/30/16 09:58; Admin Dose 55 MG; Start 12/19/16 at 18:00 Zolpidem Tartrate (Ambien) 2.5 mg HS PRN PO INSOMNIA Last administered on 21:12; Admin Dose 2.5 MG; Start 12/20/16 at 13:00 Letrozole (Femara) 2.5 mg DAILY@09 PO Last administered on 12/30/16 12:53; Admin Dose 2.5 MG; Start 12/22/16 at 09:00 Guaifenesin (Robitussin Liquid Cup) 200 mg Q4H PRN PO COUGH Last administered on 12/26/16 07:26; Admin Dose 200 MG; Start 12/21/16 at 14:30 Simethicone (Mylicon) 80 mg Q8 PO Last administered on 12/30/16 13:05; Admin Dose 80 MG; Start 12/22/16 at 12:35 Lorazepam (Ativan) 0.5 mg Q6H PRN PO ANXIETY; Start 12/23/16 at 17:30 Phenol 1 lozenge 1 lozenge Q1H PRN MT SORE THROAT; Start 12/26/16 at 07:00 Norepinephrine 16 mg/Dextrose 500 ml @ 1.87 mls/hr TITRATE IV Last administered on 12/29/16 17:03; Admin Dose 1.87 MLS/HR; Start 12/28/16 at 03:00 Midazolam HCl 50 ml @ 1 mls/hr TITRATE IV Last administered on 12/30/16 16:17 ; Admin Dose 8 MLS/HR; Start 12/28/16 at 03:30 Phenylephrine HCl 40 mg/Dextrose 500 ml @ 75 mls/hr TITRATE IV ; Start at 04:00 Propofol (Diprivan) 100 ml @ 1.689 mls/ hr Q12H IV ; Start 12/28/16 at 04:30 Ipratropium [place] (Atrovent Hfa) 2 puff Q4 INH Last administered on 13:13; Admin Dose 2 PUFF; Start 12/28/16 at 05:00 Docusate Sodium 100 mg 100 mg Q12H NGT Last administered on 12/30/16 10:12; Admin Dose 100 MG; Start 12/28/16 at 10:48 Dextrose (D5W) 1,000 ml @ 75 mls/hr [id number] IV Last administered on 12/30/16 00:52; Admin Dose 75 MLS/HR; Start 12/29/16 at 09:30 Insulin Aspart (Novolog Insulin Pen) NOVOLOG *MILD* ALGORI... Q4 SC Last administered on 12/30/16 09:58; Admin Dose 1 UNIT; Start 12/29/16 at 13:00 Miscellaneous Information 1 ea NOTE XX ; Start 12/29/16 at 09:30 Glucose (Glutose) 15 gm Q15M PRN PO DECREASED GLUCOSE; Start 12/29/16 at 09:30 Glucose (Glutose) 22.5 gm Q15M PRN PO DECREASED GLUCOSE; Start 12/29/16 at 09: 30 Dextrose (D50w Syringe) 25 ml Q15M PRN IV DECREASED GLUCOSE; Start 12/29/16 at 09:30 Dextrose (D50w Syringe) 50 ml Q15M PRN IV DECREASED GLUCOSE; Start 12/29/16 at 09:30 Glucagon (Glucagen) 1 mg Q15M PRN IM DECREASED GLUCOSE; Start 12/29/16 at 09:30 Glucose (Glutose) 15 gm Q15M PRN BUCCAL DECREASED GLUCOSE; Start 12/29/16 at 09 :30 Famotidine 20 mg 20 mg DAILY IV Last administered on 12/30/16 09:33; Admin Dose 20 MG; Start 12/30/16 at 09:00 Meropenem 100 ml @ 200 mls/hr Q8 IVPB Last administered on 12/30/16 13:05; Admin Dose 200 MLS/HR; Start 12/29/16 at 10:00 Levofloxacin/ Dextrose (Levaquin 750 Mg/ D5W 150 ml (Pmx)) 150 ml @ 100 mls/hr Q24H IVPB Last administered on 12/30/16 10:10; Admin Dose 100 MLS/HR; Start at 10:00 Methylprednisolone Sodium Succinate (Solu-Medrol) 40 mg Q6 IV Last administered on 12/30/16 12:42; Admin Dose 40 MG; Start 12/29/16 at 12:00 Fluconazole 100 mg 100 mg DAILY PO Last administered on 12/30/16 12:44; Admin Dose 100 MG; Start 12/30/16 at 12:00 Vancomycin HCl (Vancocin) 250 ml @ 125 mls/hr Q12H IVPB ; Start 12/30/16 at 22: 00 JOANIE JAQUEZ Dec 30, 2016 16:30
[2016-12-30] MEDS: VANCOMYCIN 1 GM in NS 250 ML IVPB SCH (23:49)
[2016-12-31] VITALS (38 sets, daily range): BP systolic 85–128; BP diastolic 45–79; PULSE 81–110; RESP 15–40
[2016-12-31] MEDS: METHYLPREDNISOLONE 40 MG INJ IV SCH ×5 (00:02→23:49)
[2016-12-31] MEDS: INSULIN ASPART [NOVOLOG] 3 ML PEN SC SCH ×6 (01:21→21:15)
[2016-12-31] MEDS: IPRATROPIUM (HFA) 12.9 GM INHALER INH SCH ×6 (01:31→20:41)
[2016-12-31] MEDS: ALBUTEROL 18 GM INHALER INH SCH ×6 (01:31→20:42)
[2016-12-31] MEDS: PROPOFOL 100 ML IV SCH ×2 (04:30→13:16)
[2016-12-31] MEDS: MEROPENEM 1 GM/100 ML (PMX) 100 ML IVPB SCH ×3 (05:42→23:13)
[2016-12-31] MEDS: FUROSEMIDE 40 MG INJ IV SCH ×2 (05:42→17:41)
[2016-12-31] MEDS: MIDAZOLAM (DRIP) 50 mg/50 mL 50 ML IV SCH ×4 (05:55→23:46)
[2016-12-31 06:43] LABS: ADD SCAN DIFF NO
[2016-12-31 06:49] LABS: ABNORMAL IP MESSAGE 1; BASOPHILS % 0.1 % (0.0-2.0); HEMATOCRIT 25.4 % (37.0-47.0); HEMOGLOBIN 7.8 g/dl (12.0-16.0); LYMPHOCYTES # 0.6 10^3/ul (0.8-2.9); LYMPHOCYTES % 3.1 % (15.0-51.0); MEAN CORPUSCULAR HEMOGLOBIN 23.9 pg (29.0-33.0); MEAN CORPUSCULAR HGB CONC 30.7 g/dl (32.0-37.0); MEAN CORPUSCULAR VOLUME 77.9 fl (82.0-101.0); MEAN PLATELET VOLUME 9.8 fl (7.4-10.4); MONOCYTE # 0.6 10^3/ul (0.3-0.9); MONOCYTES % 3.3 % (0.0-11.0); NEUTROPHIL # 16.7 10^3/ul (1.6-7.5); NEUTROPHILS % 92.6 % (39.0-77.0); NUCLEATED RED BLOOD CELLS # 0.1 10^3/ul (0.0-0.0); NUCLEATED RED BLOOD CELLS% 0.3 /100WBC (0.0-0.0); PLATELET COUNT 556 10^3/UL (140-415); RED BLOOD COUNT 3.26 10^6/ul (4.20-5.40); RED CELL DISTRIBUTION WIDTH 19.5 % (11.5-14.5)
[2016-12-31 07:24] LABS: CALCIUM 9.3 mg/dl (8.4-10.2); CREATININE 0.56 mg/dl (0.44-1.00); POTASSIUM 3.8 mmol/L (3.5-5.1)
[2016-12-31] MEDS: FLUCONAZOLE 100 MG TAB PO SCH (08:30)
[2016-12-31] MEDS: LEVOTHYROXINE 100 MCG TAB PO SCH (08:30)
--- NOTE | 2016-12-31 08:30 | PN ---
DATE: 12/31/2016 SUBJECTIVE: Patient remains intubated on ventilator. She remains on Versed infusion. Norepinephri ne drip has just been resumed at 2 mcg. OBJECTIVE: GENERAL: The patient is a well-developed, chronically ill-appearing female who is sedated and nonre sponsive. SKIN: No ecchymosis, no petechiae or rashes. HEENT: No mucosal lesions. No scleral icterus. NG tube and endotracheal tube in place. NECK: Supple. There is no jugular venous distention or thyroid enlargement. CHEST: There are decreased breath sounds on the left side. No rhonchi, wheezes, rales or rubs. HEART: Sinus tachycardia. No S3, S4 or murmurs. BREASTS: There is evidence of previous partial mastectomy and radiation therapy, the right breast, there is prominent venous pattern on the anterior chest wall. ABDOMEN: Soft, no masses, no ascites. EXTREMITIES: Good range of motion. No clubbing, no edema or cyanosis. No palpable cords or Homans sign. There is a femoral catheter and PICC catheter in the right femoral vein. There is 1 to 2+ l ymphedema of the left arm. ASSESSMENT: 1. Metastatic breast carcinoma. 2. Respiratory failure most likely related to breast carcinoma with possible lymphangitic spread an d superimposed pneumonia. PLAN: At this time, there are no new oncologic recommendations. I would suggest consideration for hospice and/or palliative care. Dictated By: ERUM HENDERSON MD, SR/NTS Conf#: [id number] DID#: [id number]
[2016-12-31] MEDS: ENOXAPARIN 100 MG/ML SYG SC SCH ×2 (08:36→21:07)
[2016-12-31] MEDS: FAMOTIDINE 20 MG INJ IV SCH (08:44)
[2016-12-31] MEDS: LEVOFLOXACIN 750MG/D5W (PMX) 150 ML IVPB SCH (09:03)
--- NOTE | 2016-12-31 09:39 | PN ---
Date/Time of Note Date/Time of Note DATE: 12/31/16 TIME: 09:36 Assessment/Plan VTE Prophylaxis VTE Prophylaxis Intervention: LMWH Lines/Catheters [facility] Central Line Central line still needed: Yes Urinary Cath still in place: Yes Reason Cath still needed: urinary retention Assessment/Plan Chief Complaint/Hosp Course ASSESSMENT AND PLAN: 56-year-old female coming in with a prior history of breast cancer with shortness of breath for 3 days before admission with diffuse multilobar pneumonia likely obstructive from lung masses from metastatic breast cancer, + UE DVT, now intubated. 1. Shortness of breath. Likely secondary to combo of congestive heart failure exacerbation + diffuse multilobar pneumonia likely obstructive from lung masses from metastatic breast cancer. ECHO done 12/18/16. Appreciate pulm rec's. Cannot r /o PE as well (pt already on LMWH BID for + UE DVT). - Continue vent support and management, f/u pulm rec's - may benefit from bronch - Wean pressors when able and Continue Abx (Meropenem + Levaquin) - DuoNebs prn, and monitor oxygen levels as well. 2. Septic Shock - 2/2 Pneumonia most likely. - continue pressor support, abx, consider ID consult. - f/u UA and urine/blood cx's 3. History of breast cancer - pt tx with rad's in the past, on PO chemo as outpt. Appreciate Heme/Onc rec's. - f/u pulm and Hematology/Oncology rec's - Continue her home chemotherapy medicine for now. 4. Occlusion of the right subclavian vein - continue LMWH BID 5. Gastritis -H2 seb (for gastrointestinal prophylaxis as well). 6. Hypothyroidism. Continue levothyroxine 7. ppx - H2 seb, LMWH Poor prognosis - f/u CTA, cx's. Appreciate oracle application consultant and palliative consult rec 's. Poor prognosis, again, pt made DNR. Per palliative team, may schedule family meeting in near future with . Hospice consideration also a possibility. Critical care time spent with care today = 45 min. Problems: Subjective 24 Hr Interval Summary Free Text/Dictation Pt made DNR code status. Still intubated. Exam/Review of Systems Vital Signs Vitals Vital Signs Date Time Temp Pulse Resp B/P Pulse Ox O2 Delivery O2 Flow Rate FiO2 12/31/16 08:00 98.1 86 28 85/45 97 Mechanical Ventilator 12/31/16 05:13 100 Intake and Output 12/30/16 12/30/16 12/31/16 15:00 23:00 07:00 Intake Total 961.50 ml 582 ml 1122 ml Output Total 355 ml 940 ml 600 ml Balance 606.50 ml -358 ml 522 ml Exam GENERAL: Intubated and comfortably sedated HEENT: DON, Intubated, Vent settings noted , High o2 requirement / high peep LUNGS: some diminished and coarse BS HEART: S1, S2. No murmur, gallops or rubs. Tachycardic ABDOMEN: Soft, non distended, Normoactive bowel sounds. GENITOURINARY: Normal female external genitalia, Meza to bedside drainage EXTREMITIES: Mild 1+ nonpitting edema bilaterally, also some hand edema bilaterally NEUROLOGIC: The patient is currently sedated. Results Result Diagram: 12/31/16 0530 12/31/16 0530 Results 24 hrs Laboratory Tests Test 12/30/16 09:55 12/30/16 12:42 12/30/16 17:32 12/30/16 20:50 Bedside Glucose 145 136 125 135 Test 12/31/16 01:18 12/31/16 05:30 12/31/16 05:36 12/31/16 08:48 Bedside Glucose 209 136 152 White Blood Count 18.0 H Red Blood Count 3.26 L Hemoglobin 7.8 L Hematocrit 25.4 L Mean Corpuscular Volume 77.9 L Mean Corpuscular Hemoglobin 23.9 L Mean Corpuscular Hemoglobin Concent 30.7 L Red Cell Distribution Width 19.5 H Platelet Count 556 H Mean Platelet Volume 9.8 Neutrophils % 92.6 H Lymphocytes % 3.1 L Monocytes % 3.3 Eosinophils % 0.0 Basophils % 0.1 Nucleated Red Blood Cells % 0.3 H Neutrophils # 16.7 H Lymphocytes # 0.6 L Monocytes # 0.6 Eosinophils # 0.0 Basophils # 0.0 Nucleated Red Blood Cells # 0.1 H Sodium Level 138 Potassium Level 3.8 Chloride Level 108 Carbon Dioxide Level 23 Anion Gap 11 Blood Urea Nitrogen 29 H Creatinine 0.56 Glucose Level 129 Calcium Level 9.3 Medications Medications Current Medications Ondansetron HCl (Zofran Inj) 4 mg Q6H PRN IV NAUSEA AND/OR VOMITING Last administered on 12/25/16 14:47; Admin Dose 4 MG; Start 12/18/16 at 19:30 Acetaminophen (Tylenol Tab) 650 mg Q6H PRN PO PAIN LEVEL 1-3 OR FEVER Last administered on 12/29/16 06:00; Admin Dose 650 MG; Start 12/18/16 at 19:30 Acetaminophen/ Hydrocodone Bitart ([place] (5/325)) 1 tab Q6H PRN PO MODERATE PAIN LEVEL 4-6 Last administered on 12/30/16 15:24; Admin Dose 1 TAB; Start 12/18/16 at 19:30 Morphine Sulfate (morphine) 2 mg Q4H PRN IV SEVERE PAIN LEVEL 7-10; Start at 19:30 Magnesium Hydroxide (Milk Of Mag) 30 ml DAILY PRN PO CONSTIPATION; Start at 19:30 Sodium Biphosphate/ Sodium Phosphate (Fleet Enema) 133 ml DAILY PRN [place] CONSTIPATION; Start 12/18/16 at 19:30 Hydralazine HCl (Apresoline) 10 mg Q6H PRN IV ELEVATED BLOOD PRESSURE; Start at 19:30 Nitroglycerin (Nitroglycerin (Sl Tab) 0.4 Mg) 1 tab Q5M PRN SL ANGINA; Start at 19:30 Diphenhydramine HCl (Benadryl) 25 mg Q6H PRN PO ITCHING Last administered on 00:41; Admin Dose 25 MG; Start 12/18/16 at 20:00 Enoxaparin Sodium (Lovenox) 55 mg Q12 SC Last administered on 12/31/16 08:36; Admin Dose 55 MG; Start 12/19/16 at 18:00 Zolpidem Tartrate (Ambien) 2.5 mg HS PRN PO INSOMNIA Last administered on 21:12; Admin Dose 2.5 MG; Start 12/20/16 at 13:00 Letrozole (Femara) 2.5 mg DAILY@09 PO Last administered on 12/30/16 12:53; Admin Dose 2.5 MG; Start 12/22/16 at 09:00 Guaifenesin (Robitussin Liquid Cup) 200 mg Q4H PRN PO COUGH Last administered on 12/26/16 07:26; Admin Dose 200 MG; Start 12/21/16 at 14:30 Simethicone (Mylicon) 80 mg Q8 PO Last administered on 12/31/16 05:41; Admin Dose 80 MG; Start 12/22/16 at 12:35 Lorazepam (Ativan) 0.5 mg Q6H PRN PO ANXIETY; Start 12/23/16 at 17:30 Phenol 1 lozenge 1 lozenge Q1H PRN MT SORE THROAT; Start 12/26/16 at 07:00 Norepinephrine 16 mg/Dextrose 500 ml @ 1.87 mls/hr TITRATE IV Last administered on 12/29/16 17:03; Admin Dose 1.87 MLS/HR; Start 12/28/16 at 03:00 Midazolam HCl 50 ml @ 1 mls/hr TITRATE IV Last administered on 12/31/16 05:55 ; Admin Dose 8 MLS/HR; Start 12/28/16 at 03:30 Phenylephrine HCl 40 mg/Dextrose 500 ml @ 75 mls/hr TITRATE IV ; Start at 04:00 Propofol (Diprivan) 100 ml @ 1.689 mls/ hr Q12H IV ; Start 12/28/16 at 04:30 Ipratropium [place] (Atrovent Hfa) 2 puff Q4 INH Last administered on 05:15; Admin Dose 2 PUFF; Start 12/28/16 at 05:00 Docusate Sodium 100 mg 100 mg Q12H NGT Last administered on 12/30/16 23:48; Admin Dose 100 MG; Start 12/28/16 at 10:48 Dextrose (D5W) 1,000 ml @ 75 mls/hr [id number] IV Last administered on 12/30/16 19:39; Admin Dose 75 MLS/HR; Start 12/29/16 at 09:30 Insulin Aspart (Novolog Insulin Pen) NOVOLOG *MILD* ALGORI... Q4 SC Last administered on 12/31/16 08:50; Admin Dose 1 UNIT; Start 12/29/16 at 13:00 Miscellaneous Information 1 ea NOTE XX ; Start 12/29/16 at 09:30 Glucose (Glutose) 15 gm Q15M PRN PO DECREASED GLUCOSE; Start 12/29/16 at 09:30 Glucose (Glutose) 22.5 gm Q15M PRN PO DECREASED GLUCOSE; Start 12/29/16 at 09: 30 Dextrose (D50w Syringe) 25 ml Q15M PRN IV DECREASED GLUCOSE; Start 12/29/16 at 09:30 Dextrose (D50w Syringe) 50 ml Q15M PRN IV DECREASED GLUCOSE; Start 12/29/16 at 09:30 Glucagon (Glucagen) 1 mg Q15M PRN IM DECREASED GLUCOSE; Start 12/29/16 at 09:30 Glucose (Glutose) 15 gm Q15M PRN BUCCAL DECREASED GLUCOSE; Start 12/29/16 at 09 :30 Famotidine 20 mg 20 mg DAILY IV Last administered on 12/31/16 08:44; Admin Dose 20 MG; Start 12/30/16 at 09:00 Meropenem 100 ml @ 200 mls/hr Q8 IVPB Last administered on 12/31/16 05:42; Admin Dose 200 MLS/HR; Start 12/29/16 at 10:00 Levofloxacin/ Dextrose (Levaquin 750 Mg/ D5W 150 ml (Pmx)) 150 ml @ 100 mls/hr Q24H IVPB Last administered on 12/31/16 09:03; Admin Dose 100 MLS/HR; Start at 10:00 Methylprednisolone Sodium Succinate (Solu-Medrol) 40 mg Q6 IV Last administered on 12/31/16 05:42; Admin Dose 40 MG; Start 12/29/16 at 12:00 Fluconazole 100 mg 100 mg DAILY PO Last administered on 12/31/16 08:30; Admin Dose 100 MG; Start 12/30/16 at 12:00 Vancomycin HCl (Vancocin) 250 ml @ 125 mls/hr Q12H IVPB Last administered on 23:49; Admin Dose 125 MLS/HR; Start 12/30/16 at 22:00 TESSIE ROWLAND Dec 31, 2016 09:38
--- NOTE | 2016-12-31 10:36 | CONS ---
Date/Time of Note Date/Time of Note DATE: 12/31/16 TIME: 10:33 Assessment/Plan Assessment/Plan Additional Assessment/Plan Ventilator setting; AC of 14, tidal volume 550, PEEP of 10, 100% FiO2. Patient currently on Versed at 8 mg/h. Assessment recommendations; 1. Patient admitted with bilateral pneumonia with initial improvement and then significant decompensation with severe pneumonia involving right lung , currently on 100% FiO2. 2. Remote history of right breast cancer. 3. Right upper extremity DVT. Continue current treatment. Prognosis is guarded. Consultation Date/Type/Reason Admit Date/Time Dec 18, 2016 at 18:40 Type of Consultation: Pulmonary/critical care 24 HR Interval Summary Free Text/Dictation Patient condition remains extremely critical. Still requiring 100% FiO2 for O2 saturation maintenance. Patient however has remained hemodynamically stable and not requiring any pressor support. General exam; elderly woman, orally intubated, sedated, currently in no distress. Exam/Review of Systems Vital Signs Vitals Vital Signs Date Time Temp Pulse Resp B/P Pulse Ox O2 Delivery O2 Flow Rate FiO2 12/31/16 08:00 99 12/31/16 08:00 98.1 28 85/45 97 Mechanical Ventilator 12/31/16 05:13 100 Intake and Output 12/30/16 12/30/16 12/31/16 15:00 23:00 07:00 Intake Total 961.50 ml 582 ml 1122 ml Output Total 355 ml 940 ml 600 ml Balance 606.50 ml -358 ml 522 ml Exam HEENT examination; supple neck, no JVD. No lymphadenopathy. Midline trachea. No thyromegaly. Orally intubated. Patient has fair dentition. Pupils are small bilaterally. Chest exam; left lung is clear to auscultation with diffuse crackles involving the right lung. S1-S2 audible, no murmurs. Regular rhythm. Abdomen examination; soft, no organomegaly. Bowel sounds audible. Extremity exam is; there is 2+ pitting edema involving right upper extremity, there is no edema involving lower and left upper extremities. 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 Results Result Diagram: 12/31/16 0530 12/31/16 0530 Results 24 hrs Laboratory Tests Test 12/30/16 12:42 12/30/16 17:32 12/30/16 20:50 12/31/16 01:18 Bedside Glucose 136 125 135 209 Test 12/31/16 05:30 12/31/16 05:36 12/31/16 08:48 White Blood Count 18.0 H Red Blood Count 3.26 L Hemoglobin 7.8 L Hematocrit 25.4 L Mean Corpuscular Volume 77.9 L Mean Corpuscular Hemoglobin 23.9 L Mean Corpuscular Hemoglobin Concent 30.7 L Red Cell Distribution Width 19.5 H Platelet Count 556 H Mean Platelet Volume 9.8 Neutrophils % 92.6 H Lymphocytes % 3.1 L Monocytes % 3.3 Eosinophils % 0.0 Basophils % 0.1 Nucleated Red Blood Cells % 0.3 H Neutrophils # 16.7 H Lymphocytes # 0.6 L Monocytes # 0.6 Eosinophils # 0.0 Basophils # 0.0 Nucleated Red Blood Cells # 0.1 H Sodium Level 138 Potassium Level 3.8 Chloride Level 108 Carbon Dioxide Level 23 Anion Gap 11 Blood Urea Nitrogen 29 H Creatinine 0.56 Glucose Level 129 Calcium Level 9.3 Bedside Glucose 136 152 Medications Medications Current Medications Ondansetron HCl (Zofran Inj) 4 mg Q6H PRN IV NAUSEA AND/OR VOMITING Last administered on 12/25/16 14:47; Admin Dose 4 MG; Start 12/18/16 at 19:30 Acetaminophen (Tylenol Tab) 650 mg Q6H PRN PO PAIN LEVEL 1-3 OR FEVER Last administered on 12/29/16 06:00; Admin Dose 650 MG; Start 12/18/16 at 19:30 Acetaminophen/ Hydrocodone Bitart ([place] (5/325)) 1 tab Q6H PRN PO MODERATE PAIN LEVEL 4-6 Last administered on 12/30/16 15:24; Admin Dose 1 TAB; Start 12/18/16 at 19:30 Morphine Sulfate (morphine) 2 mg Q4H PRN IV SEVERE PAIN LEVEL 7-10; Start at 19:30 Magnesium Hydroxide (Milk Of Mag) 30 ml DAILY PRN PO CONSTIPATION; Start at 19:30 Sodium Biphosphate/ Sodium Phosphate (Fleet Enema) 133 ml DAILY PRN [place] CONSTIPATION; Start 12/18/16 at 19:30 Hydralazine HCl (Apresoline) 10 mg Q6H PRN IV ELEVATED BLOOD PRESSURE; Start at 19:30 Nitroglycerin (Nitroglycerin (Sl Tab) 0.4 Mg) 1 tab Q5M PRN SL ANGINA; Start at 19:30 Diphenhydramine HCl (Benadryl) 25 mg Q6H PRN PO ITCHING Last administered on 00:41; Admin Dose 25 MG; Start 12/18/16 at 20:00 Enoxaparin Sodium (Lovenox) 55 mg Q12 SC Last administered on 12/31/16 08:36; Admin Dose 55 MG; Start 12/19/16 at 18:00 Zolpidem Tartrate (Ambien) 2.5 mg HS PRN PO INSOMNIA Last administered on 21:12; Admin Dose 2.5 MG; Start 12/20/16 at 13:00 Letrozole (Femara) 2.5 mg DAILY@09 PO Last administered on 12/30/16 12:53; Admin Dose 2.5 MG; Start 12/22/16 at 09:00 Guaifenesin (Robitussin Liquid Cup) 200 mg Q4H PRN PO COUGH Last administered on 12/26/16 07:26; Admin Dose 200 MG; Start 12/21/16 at 14:30 Simethicone (Mylicon) 80 mg Q8 PO Last administered on 12/31/16 05:41; Admin Dose 80 MG; Start 12/22/16 at 12:35 Lorazepam (Ativan) 0.5 mg Q6H PRN PO ANXIETY; Start 12/23/16 at 17:30 Phenol 1 lozenge 1 lozenge Q1H PRN MT SORE THROAT; Start 12/26/16 at 07:00 Norepinephrine 16 mg/Dextrose 500 ml @ 1.87 mls/hr TITRATE IV Last administered on 12/29/16 17:03; Admin Dose 1.87 MLS/HR; Start 12/28/16 at 03:00 Midazolam HCl 50 ml @ 1 mls/hr TITRATE IV Last administered on 12/31/16 05:55 ; Admin Dose 8 MLS/HR; Start 12/28/16 at 03:30 Phenylephrine HCl 40 mg/Dextrose 500 ml @ 75 mls/hr TITRATE IV ; Start at 04:00 Propofol (Diprivan) 100 ml @ 1.689 mls/ hr Q12H IV ; Start 12/28/16 at 04:30 Ipratropium [place] (Atrovent Hfa) 2 puff Q4 INH Last administered on 09:36; Admin Dose 2 PUFF; Start 12/28/16 at 05:00 Docusate Sodium 100 mg 100 mg Q12H NGT Last administered on 12/30/16 23:48; Admin Dose 100 MG; Start 12/28/16 at 10:48 Dextrose (D5W) 1,000 ml @ 75 mls/hr [id number] IV Last administered on 12/30/16 19:39; Admin Dose 75 MLS/HR; Start 12/29/16 at 09:30 Insulin Aspart (Novolog Insulin Pen) NOVOLOG *MILD* ALGORI... Q4 SC Last administered on 12/31/16 08:50; Admin Dose 1 UNIT; Start 12/29/16 at 13:00 Miscellaneous Information 1 ea NOTE XX ; Start 12/29/16 at 09:30 Glucose (Glutose) 15 gm Q15M PRN PO DECREASED GLUCOSE; Start 12/29/16 at 09:30 Glucose (Glutose) 22.5 gm Q15M PRN PO DECREASED GLUCOSE; Start 12/29/16 at 09: 30 Dextrose (D50w Syringe) 25 ml Q15M PRN IV DECREASED GLUCOSE; Start 12/29/16 at 09:30 Dextrose (D50w Syringe) 50 ml Q15M PRN IV DECREASED GLUCOSE; Start 12/29/16 at 09:30 Glucagon (Glucagen) 1 mg Q15M PRN IM DECREASED GLUCOSE; Start 12/29/16 at 09:30 Glucose (Glutose) 15 gm Q15M PRN BUCCAL DECREASED GLUCOSE; Start 12/29/16 at 09 :30 Famotidine 20 mg 20 mg DAILY IV Last administered on 12/31/16 08:44; Admin Dose 20 MG; Start 12/30/16 at 09:00 Meropenem 100 ml @ 200 mls/hr Q8 IVPB Last administered on 12/31/16 05:42; Admin Dose 200 MLS/HR; Start 12/29/16 at 10:00 Levofloxacin/ Dextrose (Levaquin 750 Mg/ D5W 150 ml (Pmx)) 150 ml @ 100 mls/hr Q24H IVPB Last administered on 12/31/16 09:03; Admin Dose 100 MLS/HR; Start at 10:00 Methylprednisolone Sodium Succinate (Solu-Medrol) 40 mg Q6 IV Last administered on 12/31/16 05:42; Admin Dose 40 MG; Start 12/29/16 at 12:00 Fluconazole 100 mg 100 mg DAILY PO Last administered on 12/31/16 08:30; Admin Dose 100 MG; Start 12/30/16 at 12:00 Vancomycin HCl (Vancocin) 250 ml @ 125 mls/hr Q12H IVPB Last administered on 23:49; Admin Dose 125 MLS/HR; Start 12/30/16 at 22:00 PINO PRETTY Dec 31, 2016 10:36
--- NOTE | 2016-12-31 10:39 | CONS ---
Date/Time of Note Date/Time of Note DATE: 12/31/16 TIME: 10:31 Assessment/Plan Assessment/Plan Chief Complaint/Hosp Course No new changes overnight Problems: Consultation Date/Type/Reason Admit Date/Time Dec 18, 2016 at 18:40 Initial Consult Date 12/23/16 Type of Consultation: Palliative care 24 HR Interval Summary Free Text/Dictation Case Management asked to schedule a family conference.... Exam/Review of Systems Vital Signs Vitals Vital Signs Date Time Temp Pulse Resp B/P Pulse Ox O2 Delivery O2 Flow Rate FiO2 12/31/16 08:00 99 12/31/16 08:00 98.1 28 85/45 97 Mechanical Ventilator 12/31/16 05:13 100 Intake and Output 12/30/16 12/30/16 12/31/16 15:00 23:00 07:00 Intake Total 961.50 ml 582 ml 1122 ml Output Total 355 ml 940 ml 600 ml Balance 606.50 ml -358 ml 522 ml Exam Respiratory: congested cough, crackles/rales Cardiovascular: nl pulses, regular rate and rhythm Neurological: other (intubated and sedated) Results Result Diagram: 12/31/16 0530 12/31/16 0530 Results 24 hrs Laboratory Tests Test 12/30/16 12:42 12/30/16 17:32 12/30/16 20:50 12/31/16 01:18 Bedside Glucose 136 125 135 209 Test 12/31/16 05:30 12/31/16 05:36 12/31/16 08:48 White Blood Count 18.0 H Red Blood Count 3.26 L Hemoglobin 7.8 L Hematocrit 25.4 L Mean Corpuscular Volume 77.9 L Mean Corpuscular Hemoglobin 23.9 L Mean Corpuscular Hemoglobin Concent 30.7 L Red Cell Distribution Width 19.5 H Platelet Count 556 H Mean Platelet Volume 9.8 Neutrophils % 92.6 H Lymphocytes % 3.1 L Monocytes % 3.3 Eosinophils % 0.0 Basophils % 0.1 Nucleated Red Blood Cells % 0.3 H Neutrophils # 16.7 H Lymphocytes # 0.6 L Monocytes # 0.6 Eosinophils # 0.0 Basophils # 0.0 Nucleated Red Blood Cells # 0.1 H Sodium Level 138 Potassium Level 3.8 Chloride Level 108 Carbon Dioxide Level 23 Anion Gap 11 Blood Urea Nitrogen 29 H Creatinine 0.56 Glucose Level 129 Calcium Level 9.3 Bedside Glucose 136 152 Medications Medications Current Medications Ondansetron HCl (Zofran Inj) 4 mg Q6H PRN IV NAUSEA AND/OR VOMITING Last administered on 12/25/16 14:47; Admin Dose 4 MG; Start 12/18/16 at 19:30 Acetaminophen (Tylenol Tab) 650 mg Q6H PRN PO PAIN LEVEL 1-3 OR FEVER Last administered on 12/29/16 06:00; Admin Dose 650 MG; Start 12/18/16 at 19:30 Acetaminophen/ Hydrocodone Bitart ([place] (5/325)) 1 tab Q6H PRN PO MODERATE PAIN LEVEL 4-6 Last administered on 12/30/16 15:24; Admin Dose 1 TAB; Start 12/18/16 at 19:30 Morphine Sulfate (morphine) 2 mg Q4H PRN IV SEVERE PAIN LEVEL 7-10; Start at 19:30 Magnesium Hydroxide (Milk Of Mag) 30 ml DAILY PRN PO CONSTIPATION; Start at 19:30 Sodium Biphosphate/ Sodium Phosphate (Fleet Enema) 133 ml DAILY PRN OR CONSTIPATION; Start 12/18/16 at 19:30 Hydralazine HCl (Apresoline) 10 mg Q6H PRN IV ELEVATED BLOOD PRESSURE; Start at 19:30 Nitroglycerin (Nitroglycerin (Sl Tab) 0.4 Mg) 1 tab Q5M PRN SL ANGINA; Start at 19:30 Diphenhydramine HCl (Benadryl) 25 mg Q6H PRN PO ITCHING Last administered on 00:41; Admin Dose 25 MG; Start 12/18/16 at 20:00 Enoxaparin Sodium (Lovenox) 55 mg Q12 SC Last administered on 12/31/16 08:36; Admin Dose 55 MG; Start 12/19/16 at 18:00 Zolpidem Tartrate (Ambien) 2.5 mg HS PRN PO INSOMNIA Last administered on 21:12; Admin Dose 2.5 MG; Start 12/20/16 at 13:00 Letrozole (Femara) 2.5 mg DAILY@09 PO Last administered on 12/30/16 12:53; Admin Dose 2.5 MG; Start 12/22/16 at 09:00 Guaifenesin (Robitussin Liquid Cup) 200 mg Q4H PRN PO COUGH Last administered on 12/26/16 07:26; Admin Dose 200 MG; Start 12/21/16 at 14:30 Simethicone (Mylicon) 80 mg Q8 PO Last administered on 12/31/16 05:41; Admin Dose 80 MG; Start 12/22/16 at 12:35 Lorazepam (Ativan) 0.5 mg Q6H PRN PO ANXIETY; Start 12/23/16 at 17:30 Phenol 1 lozenge 1 lozenge Q1H PRN MT SORE THROAT; Start 12/26/16 at 07:00 Norepinephrine 16 mg/Dextrose 500 ml @ 1.87 mls/hr TITRATE IV Last administered on 12/29/16 17:03; Admin Dose 1.87 MLS/HR; Start 12/28/16 at 03:00 Midazolam HCl 50 ml @ 1 mls/hr TITRATE IV Last administered on 12/31/16 05:55 ; Admin Dose 8 MLS/HR; Start 12/28/16 at 03:30 Phenylephrine HCl 40 mg/Dextrose 500 ml @ 75 mls/hr TITRATE IV ; Start at 04:00 Propofol (Diprivan) 100 ml @ 1.689 mls/ hr Q12H IV ; Start 12/28/16 at 04:30 Ipratropium [place] (Atrovent Hfa) 2 puff Q4 INH Last administered on 09:36; Admin Dose 2 PUFF; Start 12/28/16 at 05:00 Docusate Sodium 100 mg 100 mg Q12H NGT Last administered on 12/30/16 23:48; Admin Dose 100 MG; Start 12/28/16 at 10:48 Dextrose (D5W) 1,000 ml @ 75 mls/hr [id number] IV Last administered on 12/30/16 19:39; Admin Dose 75 MLS/HR; Start 12/29/16 at 09:30 Insulin Aspart (Novolog Insulin Pen) NOVOLOG *MILD* ALGORI... Q4 SC Last administered on 12/31/16 08:50; Admin Dose 1 UNIT; Start 12/29/16 at 13:00 Miscellaneous Information 1 ea NOTE XX ; Start 12/29/16 at 09:30 Glucose (Glutose) 15 gm Q15M PRN PO DECREASED GLUCOSE; Start 12/29/16 at 09:30 Glucose (Glutose) 22.5 gm Q15M PRN PO DECREASED GLUCOSE; Start 12/29/16 at 09: 30 Dextrose (D50w Syringe) 25 ml Q15M PRN IV DECREASED GLUCOSE; Start 12/29/16 at 09:30 Dextrose (D50w Syringe) 50 ml Q15M PRN IV DECREASED GLUCOSE; Start 12/29/16 at 09:30 Glucagon (Glucagen) 1 mg Q15M PRN IM DECREASED GLUCOSE; Start 12/29/16 at 09:30 Glucose (Glutose) 15 gm Q15M PRN BUCCAL DECREASED GLUCOSE; Start 12/29/16 at 09 :30 Famotidine 20 mg 20 mg DAILY IV Last administered on 12/31/16 08:44; Admin Dose 20 MG; Start 12/30/16 at 09:00 Meropenem 100 ml @ 200 mls/hr Q8 IVPB Last administered on 12/31/16 05:42; Admin Dose 200 MLS/HR; Start 12/29/16 at 10:00 Levofloxacin/ Dextrose (Levaquin 750 Mg/ D5W 150 ml (Pmx)) 150 ml @ 100 mls/hr Q24H IVPB Last administered on 12/31/16 09:03; Admin Dose 100 MLS/HR; Start at 10:00 Methylprednisolone Sodium Succinate (Solu-Medrol) 40 mg Q6 IV Last administered on 12/31/16 05:42; Admin Dose 40 MG; Start 12/29/16 at 12:00 Fluconazole 100 mg 100 mg DAILY PO Last administered on 12/31/16 08:30; Admin Dose 100 MG; Start 12/30/16 at 12:00 Vancomycin HCl (Vancocin) 250 ml @ 125 mls/hr Q12H IVPB Last administered on 23:49; Admin Dose 125 MLS/HR; Start 12/30/16 at 22:00 JOANIE JAQUEZ Dec 31, 2016 10:39
[2016-12-31] MEDS: LETROZOLE 2.5 MG TAB PO SCH ×2 (10:42→10:53)
[2016-12-31] MEDS: VANCOMYCIN 1 GM in NS 250 ML IVPB SCH ×2 (10:43→23:13)
[2016-12-31] MEDS: DOCUSATE SODIUM 10 MG/ML (10ML CUP) NGT SCH ×2 (10:44→23:13)
[2016-12-31] MEDS: DEXTROSE 5% 1,000 ML IV SCH (11:15)
[2016-12-31] MEDS ORDERED: LIDOCAINE 1% (MPF) 5 ML VIAL SC ONE (12:30)
--- NOTE | 2016-12-31 12:51 | PN ---
DATE: 12/31/2016 SUBJECTIVE: No acute changes overnight. The patient is sedated, looks comfortable on vent. No fev ers. VITAL SIGNS: Temperature 98.1, pulse 92, respirations 28, blood pressure 108/62, saturation 97% on 100 FIO2. WBC 18, H and H 7.8 and 25.4, platelets 556, neutrophils 92.6. BUN 29, creatinine 0.56. ANTIMICROBIALS: 1. Fluconazole. 2. Vancomycin. 3. Levaquin 4. Meropenem. INDWELLINGS: Endotracheal tube, NG tube, Meza catheter, and right femoral triple-lumen catheter. PHYSICAL EXAMINATION: GENERAL: Well-developed, middle-aged woman who is in no distress. HEENT: Head atraumatic, normocephalic. Sclerae anicteric. Buccal mucosa dry. NECK: Supple, trachea midline. CHEST: Rise symmetrical. Breath sounds diminished to bases. HEART: S1, S2. ABDOMEN: Soft, bowel tones present, hypoactive. EXTREMITIES: No cyanosis. ASSESSMENT: 1. Severe sepsis with shock. 2. Acute respiratory failure secondary to severe pneumonia involving the right lung. 3. Metastatic breast cancer. 4. Persistent leukocytosis, patient is on intravenous steroids. 5. Right upper extremity deep venous thrombosis. PLAN: The patient remains unchanged, covered with appropriate antimicrobials. She is being seen by multiple consultants. There is a consideration for hospice and palliative care as per oncology not e. Dictated By: BENY LEMA EDUCATIONAL SIGN LANGUAGE INTERPRETER for JOSEMANUEL LEIVA/NTS Conf#: [id number] DID#: [id number]
--- NOTE | 2016-12-31 14:37 | RADRPT ---
PROCEDURE: XR Chest 1 View. CLINICAL INDICATION: Shortness of breath. TECHNIQUE: AP view of the chest was obtained. COMPARISON: Yesterday. FINDINGS: The heart size is within normal limits. Calcified atherosclerosis is noted in the aorta. Patchy inf iltrates throughout the right lung are unchanged. Retrocardiac opacity is stable. The lungs are hy perexpanded. Surgical clips are noted in the right axilla. Endotracheal and nasogastric tubes are stable. Osseous structures are unchanged. IMPRESSION: Calcified atherosclerosis in the aorta. Stable patchy infiltrates throughout the right lung. Stable retrocardiac opacity that may reflect left lower lobe atelectasis or infiltrate combined with small pleural effusion. Hyperexpanded lungs. RPTAT: AA .Carlos Thomas MD, MD Date Time Electronically viewed and signed by .Carlos Thomas MD, MD on 12/31/2016 14:36 .P/
[2016-12-31] MEDS ORDERED: SOD CHLORIDE 0.9% 250 ML IV* ONE (16:31)
--- NOTE | 2016-12-31 18:09 | RADRPT ---
PROCEDURE: XR Chest. CLINICAL INDICATION: Check PICC line position. TECHNIQUE: Single frontal view. 12/31/2016. 1642 hours. COMPARISON: 12/31/2016. 1636 hours. FINDINGS: There is a left arm PICC line coiled in the left subclavian vein and the tip in the left internal ju gular vein. The endotracheal tube and nasogastric tube remain in satisfactory position. Pulmonary edema and left basilar atelectasis or pneumonia are unchanged. The heart size is normal. There is calcification in the aorta consistent with atherosclerosis. There are small bilateral pleural effusions. There is no pneumothorax. IMPRESSION: 1. Left arm PICC line needs to be repositioned. 2. Otherwise no change from the prior study done earlier the same day. RPTAT: QQ .Thompson Bhakta MD, MD Date Time Electronically viewed and signed by .Thompson Bhakta MD, MD on 12/31/2016 18:09 .R/
[2017-01-01] VITALS (37 sets, daily range): BP systolic 84–147; BP diastolic 55–90; PULSE 76–99; RESP 13–33
[2017-01-01] MEDS: INSULIN ASPART [NOVOLOG] 3 ML PEN SC SCH ×6 (01:33→20:26)
[2017-01-01] MEDS: IPRATROPIUM (HFA) 12.9 GM INHALER INH SCH ×6 (01:34→20:53)
[2017-01-01] MEDS: ALBUTEROL 18 GM INHALER INH SCH ×6 (01:34→20:53)
[2017-01-01] MEDS: DEXTROSE 5% 1,000 ML IV SCH ×2 (03:38→16:48)
[2017-01-01] MEDS: PROPOFOL 100 ML IV SCH ×2 (04:30→16:22)
[2017-01-01 05:50] LABS: ADD SCAN DIFF NO
[2017-01-01] MEDS: METHYLPREDNISOLONE 40 MG INJ IV SCH (06:00)
[2017-01-01] MEDS: FUROSEMIDE 40 MG INJ IV SCH ×2 (06:01→17:09)
[2017-01-01] MEDS: MIDAZOLAM (DRIP) 50 mg/50 mL 50 ML IV SCH ×4 (06:01→21:23)
[2017-01-01] MEDS: MEROPENEM 1 GM/100 ML (PMX) 100 ML IVPB SCH ×3 (06:03→21:07)
[2017-01-01 06:12] LABS: ABNORMAL IP MESSAGE 1; BASOPHILS % 0.1 % (0.0-2.0); HEMOGLOBIN 9.7 g/dl (12.0-16.0); LYMPHOCYTES # 0.5 10^3/ul (0.8-2.9); LYMPHOCYTES % 3.3 % (15.0-51.0); MEAN CORPUSCULAR HEMOGLOBIN 24.2 pg (29.0-33.0); MEAN CORPUSCULAR HGB CONC 31.3 g/dl (32.0-37.0); MEAN CORPUSCULAR VOLUME 77.3 fl (82.0-101.0); MONOCYTE # 0.7 10^3/ul (0.3-0.9); MONOCYTES % 4.5 % (0.0-11.0); NEUTROPHIL # 14.8 10^3/ul (1.6-7.5); NEUTROPHILS % 90.9 % (39.0-77.0); NUCLEATED RED BLOOD CELLS% 0.2 /100WBC (0.0-0.0); PLATELET COUNT 572 10^3/UL (140-415); RED BLOOD COUNT 4.01 10^6/ul (4.20-5.40); RED CELL DISTRIBUTION WIDTH 19.9 % (11.5-14.5); WHITE BLOOD COUNT 16.3 10^3/ul (4.8-10.8)
[2017-01-01 06:13] LABS: CALCIUM 8.6 mg/dl (8.4-10.2); CREATININE 0.58 mg/dl (0.44-1.00); POTASSIUM 3.3 mmol/L (3.5-5.1)
[2017-01-01] MEDS: FLUCONAZOLE 100 MG TAB PO SCH (09:11)
[2017-01-01] MEDS: FAMOTIDINE 20 MG INJ IV SCH (09:12)
[2017-01-01] MEDS: LEVOTHYROXINE 100 MCG TAB PO SCH (09:12)
[2017-01-01] MEDS: ENOXAPARIN 100 MG/ML SYG SC SCH ×2 (09:14→20:22)
[2017-01-01] MEDS: LEVOFLOXACIN 750MG/D5W (PMX) 150 ML IVPB SCH (09:16)
--- NOTE | 2017-01-01 09:17 | PN ---
Date/Time of Note Date/Time of Note DATE: 01/01/17 TIME: 09:11 Assessment/Plan VTE Prophylaxis VTE Prophylaxis Intervention: LMWH Lines/Catheters IV Catheter Type (from Nrs): Central Line Central line still needed: Yes Urinary Cath still in place: Yes Reason Cath still needed: urinary retention Assessment/Plan Chief Complaint/Hosp Course ASSESSMENT AND PLAN: 56-year-old female coming in with a prior history of breast cancer with shortness of breath for 3 days before admission with diffuse multilobar pneumonia likely obstructive from lung masses from metastatic breast cancer, + UE DVT, now intubated. 1. Shortness of breath. Likely secondary to combo of congestive heart failure exacerbation + diffuse multilobar pneumonia likely obstructive from lung masses from metastatic breast cancer. ECHO done 12/18/16. Appreciate pulm rec's. Cannot r /o PE as well (pt already on LMWH BID for + UE DVT). - Continue vent support and management, f/u pulm rec's - may benefit from bronch - Wean pressors when able and Continue Abx (Meropenem + Levaquin + fluconazole (+ tye in res cx)) - DuoNebs prn, and monitor oxygen levels as well. 2. Septic Shock - 2/2 Pneumonia most likely - see # 1 - continue pressor support, abx, consider ID consult. - f/u UA and urine/blood cx's 3. History of breast cancer - pt tx with rad's in the past, on PO chemo as outpt. Appreciate Heme/Onc rec's. - f/u pulm and Hematology/Oncology rec's - Continue her home chemotherapy medicine for now. 4. Occlusion of the right subclavian vein - continue LMWH BID 5. Gastritis -H2 seb (for gastrointestinal prophylaxis as well). 6. Hypothyroidism. Continue levothyroxine 7. ppx - H2 seb, LMWH Poor prognosis - f/u CTA, cx's. Appreciate curriculum consultant and palliative consult rec 's. Poor prognosis, again, pt made DNR. Per palliative team,family meeting in near future with (possibly this AM). Hospice consideration also a possibility. Critical care time spent with care today = 45 min. Problems: Subjective 24 Hr Interval Summary Free Text/Dictation Pt still intubated. Family at bedside waiting for possible meeting with palliative team later this AM. PICC was attempted, but not able to be placed yesterday. Exam/Review of Systems Vital Signs Vitals Vital Signs Date Time Temp Pulse Resp B/P Pulse Ox O2 Delivery O2 Flow Rate FiO2 01/01/17 08:00 100 01/01/17 06:00 90 33 119/63 94 Mechanical Ventilator 01/01/17 04:00 98.8 Intake and Output 12/31/16 12/31/16 01/01/17 15:00 23:00 07:00 Intake Total 1114 ml 439 ml 775 ml Output Total 950 ml 1545 ml 725 ml Balance 164 ml -1106 ml 50 ml Exam GENERAL: Intubated and sedated HEENT: Intubated, Vent settings noted , High o2 requirement / high peep LUNGS: some diminished and coarse BS HEART: S1, S2. No murmur, gallops or rubs. Tachycardic ABDOMEN: Soft, non distended, Normoactive bowel sounds. EXTREMITIES: Mild 1+ nonpitting edema bilaterally, also some hand edema bilaterally NEUROLOGIC: The patient is currently sedated. Results Result Diagram: 01/01/17 0430 01/01/17 0430 Results 24 hrs Laboratory Tests Test 12/31/16 12:46 12/31/16 17:33 12/31/16 21:13 01/01/17 01:30 Bedside Glucose 124 130 141 141 Test 01/01/17 04:30 01/01/17 05:34 01/01/17 05:36 White Blood Count 16.3 H Red Blood Count 4.01 #L Hemoglobin 9.7 #L Hematocrit 31.0 #L Mean Corpuscular Volume 77.3 L Mean Corpuscular Hemoglobin 24.2 L Mean Corpuscular Hemoglobin Concent 31.3 L Red Cell Distribution Width 19.9 H Platelet Count 572 H Mean Platelet Volume 10.0 Neutrophils % 90.9 H Lymphocytes % 3.3 L Monocytes % 4.5 Eosinophils % 0.0 Basophils % 0.1 Nucleated Red Blood Cells % 0.2 H Neutrophils # 14.8 H Lymphocytes # 0.5 L Monocytes # 0.7 Eosinophils # 0.0 Basophils # 0.0 Nucleated Red Blood Cells # 0.0 Sodium Level 134 L Potassium Level 3.3 L Chloride Level 103 Carbon Dioxide Level 25 Anion Gap 9 Blood Urea Nitrogen 27 H Creatinine 0.58 Glucose Level 130 Calcium Level 8.6 Bedside Glucose 121 Lab Scanned Report BLOOD TRANSFUSION Medications Medications Current Medications Ondansetron HCl (Zofran Inj) 4 mg Q6H PRN IV NAUSEA AND/OR VOMITING Last administered on 12/25/16 14:47; Admin Dose 4 MG; Start 12/18/16 at 19:30 Acetaminophen (Tylenol Tab) 650 mg Q6H PRN PO PAIN LEVEL 1-3 OR FEVER Last administered on 12/29/16 06:00; Admin Dose 650 MG; Start 12/18/16 at 19:30 Acetaminophen/ Hydrocodone Bitart ([place] (5/325)) 1 tab Q6H PRN PO MODERATE PAIN LEVEL 4-6 Last administered on 12/30/16 15:24; Admin Dose 1 TAB; Start 12/18/16 at 19:30 Morphine Sulfate (morphine) 2 mg Q4H PRN IV SEVERE PAIN LEVEL 7-10 Last administered on 01/01/17 01:39; Admin Dose 2 MG; Start 12/18/16 at 19:30 Magnesium Hydroxide (Milk Of Mag) 30 ml DAILY PRN PO CONSTIPATION; Start at 19:30 Sodium Biphosphate/ Sodium Phosphate (Fleet Enema) 133 ml DAILY PRN [place] CONSTIPATION; Start 12/18/16 at 19:30 Hydralazine HCl (Apresoline) 10 mg Q6H PRN IV ELEVATED BLOOD PRESSURE; Start at 19:30 Nitroglycerin (Nitroglycerin (Sl Tab) 0.4 Mg) 1 tab Q5M PRN SL ANGINA; Start at 19:30 Diphenhydramine HCl (Benadryl) 25 mg Q6H PRN PO ITCHING Last administered on 00:41; Admin Dose 25 MG; Start 12/18/16 at 20:00 Enoxaparin Sodium (Lovenox) 55 mg Q12 SC Last administered on 12/31/16 21:07; Admin Dose 55 MG; Start 12/19/16 at 18:00 Zolpidem Tartrate (Ambien) 2.5 mg HS PRN PO INSOMNIA Last administered on 21:12; Admin Dose 2.5 MG; Start 12/20/16 at 13:00 Guaifenesin (Robitussin Liquid Cup) 200 mg Q4H PRN PO COUGH Last administered on 12/26/16 07:26; Admin Dose 200 MG; Start 12/21/16 at 14:30 Simethicone (Mylicon) 80 mg Q8 PO Last administered on 01/01/17 06:01; Admin Dose 80 MG; Start 12/22/16 at 12:35 Lorazepam (Ativan) 0.5 mg Q6H PRN PO ANXIETY; Start 12/23/16 at 17:30 Phenol 1 lozenge 1 lozenge Q1H PRN MT SORE THROAT; Start 12/26/16 at 07:00 Norepinephrine 16 mg/Dextrose 500 ml @ 1.87 mls/hr TITRATE IV Last administered on 12/29/16 17:03; Admin Dose 1.87 MLS/HR; Start 12/28/16 at 03:00 Midazolam HCl 50 ml @ 1 mls/hr TITRATE IV Last administered on 01/01/17 06:01 ; Admin Dose 10 MLS/HR; Start 12/28/16 at 03:30 Phenylephrine HCl 40 mg/Dextrose 500 ml @ 75 mls/hr TITRATE IV ; Start at 04:00 Propofol (Diprivan) 100 ml @ 1.689 mls/ hr Q12H IV ; Start 12/28/16 at 04:30 Ipratropium [place] (Atrovent Hfa) 2 puff Q4 INH Last administered on 04:24; Admin Dose 2 PUFF; Start 12/28/16 at 05:00 Docusate Sodium 100 mg 100 mg Q12H NGT Last administered on 12/31/16 23:13; Admin Dose 100 MG; Start 12/28/16 at 10:48 Dextrose (D5W) 1,000 ml @ 75 mls/hr [id number] IV Last administered on 01/01/17 03:38; Admin Dose 75 MLS/HR; Start 12/29/16 at 09:30 Insulin Aspart (Novolog Insulin Pen) NOVOLOG *MILD* ALGORI... Q4 SC Last administered on 01/01/17 01:33; Admin Dose 1 UNIT; Start 12/29/16 at 13:00 Miscellaneous Information 1 ea NOTE XX ; Start 12/29/16 at 09:30 Glucose (Glutose) 15 gm Q15M PRN PO DECREASED GLUCOSE; Start 12/29/16 at 09:30 Glucose (Glutose) 22.5 gm Q15M PRN PO DECREASED GLUCOSE; Start 12/29/16 at 09: 30 Dextrose (D50w Syringe) 25 ml Q15M PRN IV DECREASED GLUCOSE; Start 12/29/16 at 09:30 Dextrose (D50w Syringe) 50 ml Q15M PRN IV DECREASED GLUCOSE; Start 12/29/16 at 09:30 Glucagon (Glucagen) 1 mg Q15M PRN IM DECREASED GLUCOSE; Start 12/29/16 at 09:30 Glucose (Glutose) 15 gm Q15M PRN BUCCAL DECREASED GLUCOSE; Start 12/29/16 at 09 :30 Famotidine 20 mg 20 mg DAILY IV Last administered on 12/31/16 08:44; Admin Dose 20 MG; Start 12/30/16 at 09:00 Meropenem 100 ml @ 200 mls/hr Q8 IVPB Last administered on 01/01/17 06:03; Admin Dose 200 MLS/HR; Start 12/29/16 at 10:00 Levofloxacin/ Dextrose (Levaquin 750 Mg/ D5W 150 ml (Pmx)) 150 ml @ 100 mls/hr Q24H IVPB Last administered on 12/31/16 09:03; Admin Dose 100 MLS/HR; Start at 10:00 Methylprednisolone Sodium Succinate (Solu-Medrol) 40 mg Q6 IV Last administered on 01/01/17 06:00; Admin Dose 40 MG; Start 12/29/16 at 12:00 Fluconazole 100 mg 100 mg DAILY PO Last administered on 12/31/16 08:30; Admin Dose 100 MG; Start 12/30/16 at 12:00 Vancomycin HCl (Vancocin) 250 ml @ 125 mls/hr Q12H IVPB Last administered on 23:13; Admin Dose 125 MLS/HR; Start 12/30/16 at 22:00 TESSIE ROWLAND Jan 01, 2017 09:17
[2017-01-01] MEDS ORDERED: FENTAnyl (DRIP) 1000 mcg/100mL 100 ML IV SCH (10:30)
--- NOTE | 2017-01-01 10:33 | CONS ---
Date/Time of Note Date/Time of Note DATE: 01/01/17 TIME: 10:30 Assessment/Plan Assessment/Plan Additional Assessment/Plan Chest x-ray was reviewed from yesterday afternoon which is again showing extensive infiltrates involving the right lung. Ventilator setting; AC of 14, tidal volume 550, PEEP of 10, 100% FiO2. Patient currently on Versed at 10 mg/h. Assessment recommendations; 1. Patient admitted with severe pneumonia was doing fairly well on medical floor when she had sudden decompensation possibly aspiration leading to respiratory failure. 2. Persistent severe hypoxemia. Refractory to intravenous steroids. 3. Right upper extremity DVT. 4. Remote history of right breast cancer. Continue current supportive care. Prognosis is very guarded. The patient's family likely is leaning towards possible terminal extubation. Meanwhile I would recommend starting her on feeding via NG tube. Consultation Date/Type/Reason Admit Date/Time Dec 18, 2016 at 18:40 Type of Consultation: Pulmonary/critical care 24 HR Interval Summary Free Text/Dictation Patient condition remains critical. Still requiring 100% FiO2 for O2 saturation maintenance. General exam; elderly woman, on ventilator via endotracheal tube. Sedated. Currently in mild distress. Exam/Review of Systems Vital Signs Vitals Vital Signs Date Time Temp Pulse Resp B/P Pulse Ox O2 Delivery O2 Flow Rate FiO2 01/01/17 09:00 92 22 118/70 97 Mechanical Ventilator 01/01/17 08:00 100 01/01/17 08:00 98.8 Intake and Output 12/31/16 12/31/16 01/01/17 15:00 23:00 07:00 Intake Total 1114 ml 439 ml 775 ml Output Total 950 ml 1545 ml 725 ml Balance 164 ml -1106 ml 50 ml Exam HEENT exam is; supple neck, no JVD. No lymphadenopathy. Midline trachea. No thyromegaly. Patient has fair dentition. Pupils are small bilaterally. Orally intubated. Chest examination; diminished breath sounds bilaterally. No added sound. S1- S2 audible, no murmurs. Regular rhythm. Abdomen examination; soft, nondistended. No organomegaly. Bowel sounds audible. Extremity exam; 2+ pitting edema involving right upper extremity. There is no edema involving lower extremities as well as left upper extremity. Pulses 1+ bilaterally. LUMBER PULLER examination; patient is sedated. Results Result Diagram: 01/01/17 0430 01/01/17 0430 Results 24 hrs Laboratory Tests Test 12/31/16 12:46 12/31/16 17:33 12/31/16 21:13 01/01/17 01:30 Bedside Glucose 124 130 141 141 Test 01/01/17 04:30 01/01/17 05:34 01/01/17 05:36 01/01/17 09:00 White Blood Count 16.3 H Red Blood Count 4.01 #L Hemoglobin 9.7 #L Hematocrit 31.0 #L Mean Corpuscular Volume 77.3 L Mean Corpuscular Hemoglobin 24.2 L Mean Corpuscular Hemoglobin Concent 31.3 L Red Cell Distribution Width 19.9 H Platelet Count 572 H Mean Platelet Volume 10.0 Neutrophils % 90.9 H Lymphocytes % 3.3 L Monocytes % 4.5 Eosinophils % 0.0 Basophils % 0.1 Nucleated Red Blood Cells % 0.2 H Neutrophils # 14.8 H Lymphocytes # 0.5 L Monocytes # 0.7 Eosinophils # 0.0 Basophils # 0.0 Nucleated Red Blood Cells # 0.0 Sodium Level 134 L Potassium Level 3.3 L Chloride Level 103 Carbon Dioxide Level 25 Anion Gap 9 Blood Urea Nitrogen 27 H Creatinine 0.58 Glucose Level 130 Calcium Level 8.6 Bedside Glucose 121 Lab Scanned Report BLOOD TRANSFUSION Vancomycin Level Trough 18.0 Test 01/01/17 09:11 Bedside Glucose 127 Medications Medications Current Medications Ondansetron HCl (Zofran Inj) 4 mg Q6H PRN IV NAUSEA AND/OR VOMITING Last administered on 12/25/16 14:47; Admin Dose 4 MG; Start 12/18/16 at 19:30 Acetaminophen (Tylenol Tab) 650 mg Q6H PRN PO PAIN LEVEL 1-3 OR FEVER Last administered on 12/29/16 06:00; Admin Dose 650 MG; Start 12/18/16 at 19:30 Acetaminophen/ Hydrocodone Bitart ([place] (5/325)) 1 tab Q6H PRN PO MODERATE PAIN LEVEL 4-6 Last administered on 12/30/16 15:24; Admin Dose 1 TAB; Start 12/18/16 at 19:30 Morphine Sulfate (morphine) 2 mg Q4H PRN IV SEVERE PAIN LEVEL 7-10 Last administered on 01/01/17 01:39; Admin Dose 2 MG; Start 12/18/16 at 19:30 Magnesium Hydroxide (Milk Of Mag) 30 ml DAILY PRN PO CONSTIPATION; Start at 19:30 Sodium Biphosphate/ Sodium Phosphate (Fleet Enema) 133 ml DAILY PRN [place] CONSTIPATION; Start 12/18/16 at 19:30 Hydralazine HCl (Apresoline) 10 mg Q6H PRN IV ELEVATED BLOOD PRESSURE; Start at 19:30 Nitroglycerin (Nitroglycerin (Sl Tab) 0.4 Mg) 1 tab Q5M PRN SL ANGINA; Start at 19:30 Diphenhydramine HCl (Benadryl) 25 mg Q6H PRN PO ITCHING Last administered on 00:41; Admin Dose 25 MG; Start 12/18/16 at 20:00 Enoxaparin Sodium (Lovenox) 55 mg Q12 SC Last administered on 01/01/17 09:14; Admin Dose 55 MG; Start 12/19/16 at 18:00 Zolpidem Tartrate (Ambien) 2.5 mg HS PRN PO INSOMNIA Last administered on 21:12; Admin Dose 2.5 MG; Start 12/20/16 at 13:00 Guaifenesin (Robitussin Liquid Cup) 200 mg Q4H PRN PO COUGH Last administered on 12/26/16 07:26; Admin Dose 200 MG; Start 12/21/16 at 14:30 Simethicone (Mylicon) 80 mg Q8 PO Last administered on 01/01/17 06:01; Admin Dose 80 MG; Start 12/22/16 at 12:35 Lorazepam (Ativan) 0.5 mg Q6H PRN PO ANXIETY; Start 12/23/16 at 17:30 Phenol 1 lozenge 1 lozenge Q1H PRN MT SORE THROAT; Start 12/26/16 at 07:00 Norepinephrine 16 mg/Dextrose 500 ml @ 1.87 mls/hr TITRATE IV Last administered on 12/29/16 17:03; Admin Dose 1.87 MLS/HR; Start 12/28/16 at 03:00 Midazolam HCl 50 ml @ 1 mls/hr TITRATE IV Last administered on 01/01/17 06:01 ; Admin Dose 10 MLS/HR; Start 12/28/16 at 03:30 Phenylephrine HCl 40 mg/Dextrose 500 ml @ 75 mls/hr TITRATE IV ; Start at 04:00 Propofol (Diprivan) 100 ml @ 1.689 mls/ hr Q12H IV ; Start 12/28/16 at 04:30 Ipratropium [place] (Atrovent Hfa) 2 puff Q4 INH Last administered on 09:45; Admin Dose 2 PUFF; Start 12/28/16 at 05:00 Docusate Sodium 100 mg 100 mg Q12H NGT Last administered on 12/31/16 23:13; Admin Dose 100 MG; Start 12/28/16 at 10:48 Dextrose (D5W) 1,000 ml @ 75 mls/hr [id number] IV Last administered on 01/01/17 03:38; Admin Dose 75 MLS/HR; Start 12/29/16 at 09:30 Insulin Aspart (Novolog Insulin Pen) NOVOLOG *MILD* ALGORI... Q4 SC Last administered on 01/01/17 01:33; Admin Dose 1 UNIT; Start 12/29/16 at 13:00 Miscellaneous Information 1 ea NOTE XX ; Start 12/29/16 at 09:30 Glucose (Glutose) 15 gm Q15M PRN PO DECREASED GLUCOSE; Start 12/29/16 at 09:30 Glucose (Glutose) 22.5 gm Q15M PRN PO DECREASED GLUCOSE; Start 12/29/16 at 09: 30 Dextrose (D50w Syringe) 25 ml Q15M PRN IV DECREASED GLUCOSE; Start 12/29/16 at 09:30 Dextrose (D50w Syringe) 50 ml Q15M PRN IV DECREASED GLUCOSE; Start 12/29/16 at 09:30 Glucagon (Glucagen) 1 mg Q15M PRN IM DECREASED GLUCOSE; Start 12/29/16 at 09:30 Glucose (Glutose) 15 gm Q15M PRN BUCCAL DECREASED GLUCOSE; Start 12/29/16 at 09 :30 Famotidine 20 mg 20 mg DAILY IV Last administered on 01/01/17 09:12; Admin Dose 20 MG; Start 12/30/16 at 09:00 Meropenem 100 ml @ 200 mls/hr Q8 IVPB Last administered on 01/01/17 06:03; Admin Dose 200 MLS/HR; Start 12/29/16 at 10:00 Levofloxacin/ Dextrose (Levaquin 750 Mg/ D5W 150 ml (Pmx)) 150 ml @ 100 mls/hr Q24H IVPB Last administered on 01/01/17 09:16; Admin Dose 100 MLS/HR; Start at 10:00 Methylprednisolone Sodium Succinate (Solu-Medrol) 40 mg Q6 IV Last administered on 01/01/17 06:00; Admin Dose 40 MG; Start 12/29/16 at 12:00 Fluconazole (Diflucan) 100 mg DAILY PO Last administered on 01/01/17 09:11; Admin Dose 100 MG; Start 12/30/16 at 12:00 PINO PRETTY Jan 01, 2017 10:33
--- NOTE | 2017-01-01 10:59 | CONS ---
Date/Time of Note Date/Time of Note DATE: 01/01/17 TIME: 10:50 Assessment/Plan Assessment/Plan Chief Complaint/Hosp Course No new changes overnight Problems: Consultation Date/Type/Reason Admit Date/Time Dec 18, 2016 at 18:40 Initial Consult Date 12/23/16 Type of Consultation: Palliaive Care 24 HR Interval Summary Free Text/Dictation Family conference was done today with patient's and daughter. Patient' s is the primary decision maker although there are two other sibs. Palliative care issues include he has a clear understanding of her underlying serious medical condition, his hopes are that she does not suffer. Acceptable quality of life would be off the ventilator to have time to spend with her family members prior to her . He adamantly opposes tracheostomy. Communication preferences are 1:1 we have scheduled another family conference tomorrow at 0930 hrs. I spoken to pulmonary care consultant who feels the patient cannot be successfully extubated. Psychosocial social issues existential issues ethical issues have been covered with family in detail CODE STATUS remains DO NOT RESUSCITATE. Plan possible compassionate extubation tomorrow per family's wishes. However I have stated to family members that I will discuss this with all of her caregivers. Subjective hx not possible: pt non-verbal Exam/Review of Systems Vital Signs Vitals Vital Signs Date Time Temp Pulse Resp B/P Pulse Ox O2 Delivery O2 Flow Rate FiO2 01/01/17 09:00 92 22 118/70 97 Mechanical Ventilator 01/01/17 08:00 100 01/01/17 08:00 98.8 Intake and Output 12/31/16 12/31/16 01/01/17 15:00 23:00 07:00 Intake Total 1114 ml 439 ml 775 ml Output Total 950 ml 1545 ml 725 ml Balance 164 ml -1106 ml 50 ml Results Result Diagram: 01/01/17 0430 01/01/17 0430 Results 24 hrs Laboratory Tests Test 12/31/16 12:46 12/31/16 17:33 12/31/16 21:13 01/01/17 01:30 Bedside Glucose 124 130 141 141 Test 01/01/17 04:30 01/01/17 05:34 01/01/17 05:36 01/01/17 09:00 White Blood Count 16.3 H Red Blood Count 4.01 #L Hemoglobin 9.7 #L Hematocrit 31.0 #L Mean Corpuscular Volume 77.3 L Mean Corpuscular Hemoglobin 24.2 L Mean Corpuscular Hemoglobin Concent 31.3 L Red Cell Distribution Width 19.9 H Platelet Count 572 H Mean Platelet Volume 10.0 Neutrophils % 90.9 H Lymphocytes % 3.3 L Monocytes % 4.5 Eosinophils % 0.0 Basophils % 0.1 Nucleated Red Blood Cells % 0.2 H Neutrophils # 14.8 H Lymphocytes # 0.5 L Monocytes # 0.7 Eosinophils # 0.0 Basophils # 0.0 Nucleated Red Blood Cells # 0.0 Sodium Level 134 L Potassium Level 3.3 L Chloride Level 103 Carbon Dioxide Level 25 Anion Gap 9 Blood Urea Nitrogen 27 H Creatinine 0.58 Glucose Level 130 Calcium Level 8.6 Bedside Glucose 121 Lab Scanned Report BLOOD TRANSFUSION Vancomycin Level Trough 18.0 Test 01/01/17 09:11 Bedside Glucose 127 Medications Medications Current Medications Ondansetron HCl (Zofran Inj) 4 mg Q6H PRN IV NAUSEA AND/OR VOMITING Last administered on 12/25/16 14:47; Admin Dose 4 MG; Start 12/18/16 at 19:30 Acetaminophen (Tylenol Tab) 650 mg Q6H PRN PO PAIN LEVEL 1-3 OR FEVER Last administered on 12/29/16 06:00; Admin Dose 650 MG; Start 12/18/16 at 19:30 Acetaminophen/ Hydrocodone Bitart ([place] (5/325)) 1 tab Q6H PRN PO MODERATE PAIN LEVEL 4-6 Last administered on 12/30/16 15:24; Admin Dose 1 TAB; Start 12/18/16 at 19:30 Morphine Sulfate (morphine) 2 mg Q4H PRN IV SEVERE PAIN LEVEL 7-10 Last administered on 01/01/17 01:39; Admin Dose 2 MG; Start 12/18/16 at 19:30 Magnesium Hydroxide (Milk Of Mag) 30 ml DAILY PRN PO CONSTIPATION; Start at 19:30 Sodium Biphosphate/ Sodium Phosphate (Fleet Enema) 133 ml DAILY PRN [place] CONSTIPATION; Start 12/18/16 at 19:30 Hydralazine HCl (Apresoline) 10 mg Q6H PRN IV ELEVATED BLOOD PRESSURE; Start at 19:30 Nitroglycerin (Nitroglycerin (Sl Tab) 0.4 Mg) 1 tab Q5M PRN SL ANGINA; Start at 19:30 Diphenhydramine HCl (Benadryl) 25 mg Q6H PRN PO ITCHING Last administered on 00:41; Admin Dose 25 MG; Start 12/18/16 at 20:00 Enoxaparin Sodium (Lovenox) 55 mg Q12 SC Last administered on 01/01/17 09:14; Admin Dose 55 MG; Start 12/19/16 at 18:00 Zolpidem Tartrate (Ambien) 2.5 mg HS PRN PO INSOMNIA Last administered on 21:12; Admin Dose 2.5 MG; Start 12/20/16 at 13:00 Guaifenesin (Robitussin Liquid Cup) 200 mg Q4H PRN PO COUGH Last administered on 12/26/16 07:26; Admin Dose 200 MG; Start 12/21/16 at 14:30 Simethicone (Mylicon) 80 mg Q8 PO Last administered on 01/01/17 06:01; Admin Dose 80 MG; Start 12/22/16 at 12:35 Lorazepam (Ativan) 0.5 mg Q6H PRN PO ANXIETY; Start 12/23/16 at 17:30 Phenol 1 lozenge 1 lozenge Q1H PRN MT SORE THROAT; Start 12/26/16 at 07:00 Norepinephrine 16 mg/Dextrose 500 ml @ 1.87 mls/hr TITRATE IV Last administered on 12/29/16 17:03; Admin Dose 1.87 MLS/HR; Start 12/28/16 at 03:00 Midazolam HCl 50 ml @ 1 mls/hr TITRATE IV Last administered on 01/01/17 06:01 ; Admin Dose 10 MLS/HR; Start 12/28/16 at 03:30 Phenylephrine HCl 40 mg/Dextrose 500 ml @ 75 mls/hr TITRATE IV ; Start at 04:00 Propofol (Diprivan) 100 ml @ 1.689 mls/ hr Q12H IV ; Start 12/28/16 at 04:30 Ipratropium [place] (Atrovent Hfa) 2 puff Q4 INH Last administered on 09:45; Admin Dose 2 PUFF; Start 12/28/16 at 05:00 Docusate Sodium 100 mg 100 mg Q12H NGT Last administered on 12/31/16 23:13; Admin Dose 100 MG; Start 12/28/16 at 10:48 Dextrose (D5W) 1,000 ml @ 75 mls/hr [id number] IV Last administered on 01/01/17 03:38; Admin Dose 75 MLS/HR; Start 12/29/16 at 09:30 Insulin Aspart (Novolog Insulin Pen) NOVOLOG *MILD* ALGORI... Q4 SC Last administered on 01/01/17 01:33; Admin Dose 1 UNIT; Start 12/29/16 at 13:00 Miscellaneous Information 1 ea NOTE XX ; Start 12/29/16 at 09:30 Glucose (Glutose) 15 gm Q15M PRN PO DECREASED GLUCOSE; Start 12/29/16 at 09:30 Glucose (Glutose) 22.5 gm Q15M PRN PO DECREASED GLUCOSE; Start 12/29/16 at 09: 30 Dextrose (D50w Syringe) 25 ml Q15M PRN IV DECREASED GLUCOSE; Start 12/29/16 at 09:30 Dextrose (D50w Syringe) 50 ml Q15M PRN IV DECREASED GLUCOSE; Start 12/29/16 at 09:30 Glucagon (Glucagen) 1 mg Q15M PRN IM DECREASED GLUCOSE; Start 12/29/16 at 09:30 Glucose (Glutose) 15 gm Q15M PRN BUCCAL DECREASED GLUCOSE; Start 12/29/16 at 09 :30 Famotidine 20 mg 20 mg DAILY IV Last administered on 01/01/17 09:12; Admin Dose 20 MG; Start 12/30/16 at 09:00 Meropenem 100 ml @ 200 mls/hr Q8 IVPB Last administered on 01/01/17 06:03; Admin Dose 200 MLS/HR; Start 12/29/16 at 10:00 Levofloxacin/ Dextrose (Levaquin 750 Mg/ D5W 150 ml (Pmx)) 150 ml @ 100 mls/hr Q24H IVPB Last administered on 01/01/17 09:16; Admin Dose 100 MLS/HR; Start at 10:00 Methylprednisolone Sodium Succinate (Solu-Medrol) 40 mg Q6 IV Last administered on 01/01/17 06:00; Admin Dose 40 MG; Start 12/29/16 at 12:00 Fluconazole 100 mg 100 mg DAILY PO Last administered on 01/01/17 09:11; Admin Dose 100 MG; Start 12/30/16 at 12:00 Vancomycin HCl (Vancocin) 250 ml @ 125 mls/hr Q12H IVPB Last administered on 23:13; Admin Dose 125 MLS/HR; Start 12/30/16 at 22:00 JOANIE JAQUEZ Jan 01, 2017 10:59
[2017-01-01] MEDS: FENTAnyl (DRIP) 1000 mcg/100mL 100 ML IV SCH (11:03)
[2017-01-01] MEDS: DOCUSATE SODIUM 10 MG/ML (10ML CUP) NGT SCH ×2 (11:18→23:42)
[2017-01-01] MEDS: VANCOMYCIN 750 MG in SOD CHLORIDE 0.9% 150 ML IVPB SCH ×2 (13:20→23:42)
--- NOTE | 2017-01-01 13:43 | PN ---
DATE: 01/01/2017 SUBJECTIVE: No events overnight. The patient remains intubated, sedated on high PEEP and 80% of FI O2. LABORATORY DATA: WBC today 16.3, H and H 9.7 and 31, platelets 572, neutrophils 90.9. No bands. B UN 27, creatinine 0.58. DIAGNOSTICS: The patient has stable patchy infiltrates throughout the right lung. INDWELLINGS: Endotracheal tube, NG tube, Meza, PICC line placed yesterday. ANTIMICROBIALS: 1. Vancomycin. 2. Meropenem. 3. Levaquin. 4. Fluconazole. PHYSICAL EXAMINATION: GENERAL: Well-developed, ill-appearing, middle-aged woman who is intubated and sedated, in no distress. HEENT: Head atraumatic, normocephalic. Sclerae anicteric. Buccal mucosa dry. NECK: Supple. CHEST: Rise symmetrical. Breath sounds diminished to bases. HEART: S1, S2. ABDOMEN: Soft. Bowel sounds present. EXTREMITIES: With trace edema. ASSESSMENT: 1. Severe sepsis status post shock. 2. Acute respiratory failure. 3. Pneumonia involving the right lung. 4. Metastatic breast. 5. Right upper extremity deep venous thrombosis. 6. Leukocytosis, patient is on IV steroid taper. PLAN: The patient remains clinically unchanged. She is being followed by multiple consultants. Pr ognosis poor. She is a DNR status, possible compassionate extubation tomorrow. Dictated By: BENY LEMA POLL WATCHER for JOSEMANUEL LEIVA/LOLI Conf#: [id number] DID#: [id number]
--- NOTE | 2017-01-01 13:58 | QN ---
Documentation Comment Pt is intubated and cannot communicate. Agree with plans to speak with family and to focus on comfort care in this hopeless situation. I would support extubation when family is able to handle that emotionally. PERCY ROPER MD Jan 01, 2017 13:58
[2017-01-01] MEDS ORDERED: LIDOCAINE 1% (MPF) 5 ML VIAL SC ONE (14:00)
--- NOTE | 2017-01-01 17:27 | RADRPT ---
PROCEDURE: Ultrasound guidance for placement of needle in left upper extremity vein. CLINICAL INDICATION: Venous access. TECHNIQUE: Limited sonography of the left upper extremity was performed. Ultrasound images were recorded and s tored in the patient's medical record. COMPARISON: None. FINDINGS: The ultrasound images demonstrate a patent left upper extremity vein. The PICC line was inserted by the PICC line nurse. IMPRESSION: 1. Ultrasound guidance for a needle placement in a left upper extremity vein. 2. The left upper extremity vein is patent. RPTAT: QQ .Thompson Bhakta MD, MD Date Time Electronically viewed and signed by .Thompson Bhakta MD, MD on 01/01/2017 17:26 .R/
--- NOTE | 2017-01-01 17:39 | RADRPT ---
PROCEDURE: XR Chest. CLINICAL INDICATION: Check PICC line position. TECHNIQUE: Single frontal view. COMPARISON: 12/31/2016. FINDINGS: There is a left arm PICC line with the tip in the lower superior vena cava. The endotracheal tube a nd nasogastric tube are in satisfactory position. There is patchy air space disease throughout the right lung and in the left mid and lower lung zones, unchanged. The heart size is normal. There is calcification in the aorta consistent with atherosclerosis. There is no pleural effusion. There is no pneumothorax. IMPRESSION: 1. Satisfactory position of left arm PICC line. 2. No other change from 12/31/2016. RPTAT: QQ .Thompson Bhakta MD, MD Date Time Electronically viewed and signed by .Thompson Bhakta MD, MD on 01/01/2017 17:38 .R/
--- NOTE | 2017-01-01 17:39 | RADRPT ---
PROCEDURE: XR Chest. CLINICAL INDICATION: Check PICC line position. TECHNIQUE: Single frontal view. COMPARISON: Prior study done earlier the same day. FINDINGS: There is a left arm PICC line with the tip in the cavoatrial junction region. Air space disease thr oughout the right lung and in the left lung base is unchanged. The endotracheal tube and nasogastric tube remain in satisfactory position. The heart size is normal. There is calcification in the aorta consistent with atherosclerosis. There is no pleural effusion. There is no pneumothorax. IMPRESSION: 1. Satisfactory position of left arm PICC line. 2. No other change from the prior study done earlier the same day. RPTAT: QQ .Thompson Bhakta MD, MD Date Time Electronically viewed and signed by .Thompson Bhakta MD, MD on 01/01/2017 17:39 .R/
[2017-01-02] VITALS (49 sets, daily range): BP systolic 75–162; BP diastolic 44–99; PULSE 78–131; RESP 13–29
[2017-01-02] MEDS: INSULIN ASPART [NOVOLOG] 3 ML PEN SC SCH ×6 (01:00→20:57)
[2017-01-02] MEDS: ALBUTEROL 18 GM INHALER INH SCH ×6 (01:30→21:35)
[2017-01-02] MEDS: IPRATROPIUM (HFA) 12.9 GM INHALER INH SCH ×6 (01:31→21:35)
[2017-01-02] MEDS: DEXTROSE 5% 1,000 ML IV SCH ×2 (02:46→19:54)
[2017-01-02] MEDS: MIDAZOLAM (DRIP) 50 mg/50 mL 50 ML IV SCH ×4 (03:01→17:04)
[2017-01-02] MEDS: PROPOFOL 100 ML IV SCH ×2 (04:14→16:30)
[2017-01-02] MEDS: FENTAnyl (DRIP) 1000 mcg/100mL 100 ML IV SCH ×2 (04:16→17:04)
[2017-01-02 04:46] LABS: ADD SCAN DIFF NO
[2017-01-02 04:49] LABS: BASOPHIL # 0.1 10^3/ul (0.0-0.1); BASOPHILS % 0.2 % (0.0-2.0); EOSINOPHILS # 0.1 10^3/ul (0.0-0.5); EOSINOPHILS % 0.3 % (0.0-7.0); HEMATOCRIT 35.3 % (37.0-47.0); HEMOGLOBIN 11.3 g/dl (12.0-16.0); LYMPHOCYTES # 0.9 10^3/ul (0.8-2.9); LYMPHOCYTES % 4.4 % (15.0-51.0); MEAN CORPUSCULAR HEMOGLOBIN 25.6 pg (29.0-33.0); MEAN CORPUSCULAR VOLUME 79.9 fl (82.0-101.0); MEAN PLATELET VOLUME 9.9 fl (7.4-10.4); MONOCYTE # 1.5 10^3/ul (0.3-0.9); MONOCYTES % 6.8 % (0.0-11.0); NEUTROPHIL # 18.4 10^3/ul (1.6-7.5); NEUTROPHILS % 86.7 % (39.0-77.0); NUCLEATED RED BLOOD CELLS # 0.1 10^3/ul (0.0-0.0); NUCLEATED RED BLOOD CELLS% 0.3 /100WBC (0.0-0.0); PLATELET COUNT 633 10^3/UL (140-415); RED BLOOD COUNT 4.42 10^6/ul (4.20-5.40); RED CELL DISTRIBUTION WIDTH 20.3 % (11.5-14.5); WHITE BLOOD COUNT 21.2 10^3/ul (4.8-10.8)
[2017-01-02 05:23] LABS: CREATININE 0.53 mg/dl (0.44-1.00)
[2017-01-02 05:37] LABS: POTASSIUM 2.9 mmol/L (3.5-5.1)
[2017-01-02] MEDS: FUROSEMIDE 40 MG INJ IV SCH ×2 (05:48→17:05)
[2017-01-02] MEDS: MEROPENEM 1 GM/100 ML (PMX) 100 ML IVPB SCH ×3 (05:51→22:11)
[2017-01-02] MEDS: LEVOTHYROXINE 100 MCG TAB PO SCH (06:08)
[2017-01-02] MEDS ORDERED: POTASSIUM CHLORIDE 20 MEQ POWDER FOR ORAL SOLN PO PRN (07:00)
[2017-01-02] MEDS ORDERED: POTASSIUM CHLORIDE 250 ML IVPB ONE (08:00)
[2017-01-02] MEDS: FLUCONAZOLE 100 MG TAB PO SCH (08:51)
[2017-01-02] MEDS: ENOXAPARIN 100 MG/ML SYG SC SCH ×2 (08:56→20:53)
[2017-01-02] MEDS: FAMOTIDINE 20 MG INJ IV SCH (08:56)
--- NOTE | 2017-01-02 09:02 | CONS ---
Date/Time of Note Date/Time of Note DATE: 01/02/17 TIME: 08:59 Assessment/Plan Assessment/Plan Additional Assessment/Plan Ventilator setting; AC of 14, tidal volume 550, PEEP of 10, 100% FiO2. Patient currently on Versed 10 mg/h, fentanyl drip at 50 mics per hour. Assessment recommendations; 1. P patient admitted with severe bilateral pneumonia was improving on the medical floor when the patient had sudden decompensation with extensive right lung involvement possibly aspiration. 2. Remote history of right breast cancer. 3. Right upper extremity DVT. 4. Persistent hypoxemia. 5. Patient failed trial of Solu-Medrol for 48 hours without causing any improvement in oxygenation status or improvement in chest x-ray. Continue current treatment. Obtain follow-up chest x-ray. Start tube feeding. Patient's family wants her to be terminally extubated. Prognosis is poor. Consultation Date/Type/Reason Admit Date/Time Dec 18, 2016 at 18:40 Type of Consultation: Pulmonary/critical care 24 HR Interval Summary Free Text/Dictation Patient condition remains critical. Still requiring 100% FiO2 for O2 saturation maintenance. Patient however has remained hemodynamically stable. Not requiring any pressor support. General exam is; elderly woman, orally intubated, sedated. Somewhat arousable. Currently in no distress. Exam/Review of Systems Vital Signs Vitals Vital Signs Date Time Temp Pulse Resp B/P Pulse Ox O2 Delivery O2 Flow Rate FiO2 01/02/17 08:00 100 01/02/17 07:00 99 14 88/58 94 01/02/17 06:30 Mechanical Ventilator 01/02/17 04:00 98.0 Intake and Output 01/01/17 01/01/17 01/02/17 15:00 23:00 07:00 Intake Total 1107.5 ml 838.5 ml 949.0 ml Output Total 840 ml 710 ml 760 ml Balance 267.5 ml 128.5 ml 189.0 ml Exam HEENT exam is; supple neck, no JVD. No lymphadenopathy. Midline trachea. No thyromegaly. Orally intubated. Patient has fair dentition. Pupils are small bilaterally. Chest examined; diminished breath sound bilaterally with crackles involving right lung. S1-S2 audible, no murmurs. Regular rhythm. Abdomen examination; soft, no distention. No organomegaly. Bowel sounds audible. Extremity exam; no peripheral edema. Involving left upper and lower extremities. 2+ edema involving right upper extremity. Pulses 1+ bilaterally. [employer] examination; patient is sedated but somewhat arousable. Results Result Diagram: 01/02/17 0400 01/02/17 0400 Results 24 hrs Laboratory Tests Test 01/01/17 09:00 01/01/17 09:11 01/01/17 13:20 01/01/17 16:21 Vancomycin Level Trough 18.0 Bedside Glucose 127 124 111 Test 01/01/17 20:25 01/02/17 02:43 01/02/17 04:00 01/02/17 05:47 Bedside Glucose 105 89 105 White Blood Count 21.2 #H Red Blood Count 4.42 Hemoglobin 11.3 L Hematocrit 35.3 L Mean Corpuscular Volume 79.9 L Mean Corpuscular Hemoglobin 25.6 L Mean Corpuscular Hemoglobin Concent 32.0 Red Cell Distribution Width 20.3 H Platelet Count 633 H Mean Platelet Volume 9.9 Neutrophils % 86.7 H Lymphocytes % 4.4 L Monocytes % 6.8 Eosinophils % 0.3 Basophils % 0.2 Nucleated Red Blood Cells % 0.3 H Neutrophils # 18.4 H Lymphocytes # 0.9 Monocytes # 1.5 H Eosinophils # 0.1 Basophils # 0.1 Nucleated Red Blood Cells # 0.1 H Sodium Level 134 L Potassium Level 2.9 *L Chloride Level 99 Carbon Dioxide Level 29 Anion Gap 9 Blood Urea Nitrogen 30 H Creatinine 0.53 Glucose Level 97 Calcium Level 9.0 Medications Medications Current Medications Ondansetron HCl (Zofran Inj) 4 mg Q6H PRN IV NAUSEA AND/OR VOMITING Last administered on 12/25/16 14:47; Admin Dose 4 MG; Start 12/18/16 at 19:30 Acetaminophen (Tylenol Tab) 650 mg Q6H PRN PO PAIN LEVEL 1-3 OR FEVER Last administered on 12/29/16 06:00; Admin Dose 650 MG; Start 12/18/16 at 19:30 Magnesium Hydroxide (Milk Of Mag) 30 ml DAILY PRN PO CONSTIPATION; Start at 19:30 Sodium Biphosphate/ Sodium Phosphate (Fleet Enema) 133 ml DAILY PRN [place] CONSTIPATION; Start 12/18/16 at 19:30 Hydralazine HCl (Apresoline) 10 mg Q6H PRN IV ELEVATED BLOOD PRESSURE; Start at 19:30 Nitroglycerin (Nitroglycerin (Sl Tab) 0.4 Mg) 1 tab Q5M PRN SL ANGINA; Start at 19:30 Diphenhydramine HCl (Benadryl) 25 mg Q6H PRN PO ITCHING Last administered on 00:41; Admin Dose 25 MG; Start 12/18/16 at 20:00 Enoxaparin Sodium (Lovenox) 55 mg Q12 SC Last administered on 01/01/17 20:22; Admin Dose 55 MG; Start 12/19/16 at 18:00 Zolpidem Tartrate (Ambien) 2.5 mg HS PRN PO INSOMNIA Last administered on 21:12; Admin Dose 2.5 MG; Start 12/20/16 at 13:00 Guaifenesin (Robitussin Liquid Cup) 200 mg Q4H PRN PO COUGH Last administered on 12/26/16 07:26; Admin Dose 200 MG; Start 12/21/16 at 14:30 Simethicone (Mylicon) 80 mg Q8 PO Last administered on 01/02/17 05:48; Admin Dose 80 MG; Start 12/22/16 at 12:35 Lorazepam (Ativan) 0.5 mg Q6H PRN PO ANXIETY; Start 12/23/16 at 17:30 Phenol 1 lozenge 1 lozenge Q1H PRN MT SORE THROAT; Start 12/26/16 at 07:00 Norepinephrine 16 mg/Dextrose 500 ml @ 1.87 mls/hr TITRATE IV Last administered on 12/29/16 17:03; Admin Dose 1.87 MLS/HR; Start 12/28/16 at 03:00 Midazolam HCl 50 ml @ 1 mls/hr TITRATE IV Last administered on 01/02/17 03:01 ; Admin Dose 6 MLS/HR; Start 12/28/16 at 03:30 Phenylephrine HCl 40 mg/Dextrose 500 ml @ 75 mls/hr TITRATE IV ; Start at 04:00 Propofol (Diprivan) 100 ml @ 1.689 mls/ hr Q12H IV ; Start 12/28/16 at 04:30 Ipratropium [place] (Atrovent Hfa) 2 puff Q4 INH Last administered on 04:52; Admin Dose 2 PUFF; Start 12/28/16 at 05:00 Docusate Sodium 100 mg 100 mg Q12H NGT Last administered on 01/01/17 23:42; Admin Dose 100 MG; Start 12/28/16 at 10:48 Dextrose (D5W) 1,000 ml @ 75 mls/hr [id number] IV Last administered on 01/02/17 02:46; Admin Dose 75 MLS/HR; Start 12/29/16 at 09:30 Insulin Aspart (Novolog Insulin Pen) NOVOLOG *MILD* ALGORI... Q4 SC Last administered on 01/01/17 01:33; Admin Dose 1 UNIT; Start 12/29/16 at 13:00 Miscellaneous Information 1 ea NOTE XX ; Start 12/29/16 at 09:30 Glucose (Glutose) 15 gm Q15M PRN PO DECREASED GLUCOSE; Start 12/29/16 at 09:30 Glucose (Glutose) 22.5 gm Q15M PRN PO DECREASED GLUCOSE; Start 12/29/16 at 09: 30 Dextrose (D50w Syringe) 25 ml Q15M PRN IV DECREASED GLUCOSE; Start 12/29/16 at 09:30 Dextrose (D50w Syringe) 50 ml Q15M PRN IV DECREASED GLUCOSE; Start 12/29/16 at 09:30 Glucagon (Glucagen) 1 mg Q15M PRN IM DECREASED GLUCOSE; Start 12/29/16 at 09:30 Glucose (Glutose) 15 gm Q15M PRN BUCCAL DECREASED GLUCOSE; Start 12/29/16 at 09 :30 Famotidine 20 mg 20 mg DAILY IV Last administered on 01/01/17 09:12; Admin Dose 20 MG; Start 12/30/16 at 09:00 Meropenem 100 ml @ 200 mls/hr Q8 IVPB Last administered on 01/02/17 05:51; Admin Dose 200 MLS/HR; Start 12/29/16 at 10:00 Levofloxacin/ Dextrose (Levaquin 750 Mg/ D5W 150 ml (Pmx)) 150 ml @ 100 mls/hr Q24H IVPB Last administered on 01/01/17 09:16; Admin Dose 100 MLS/HR; Start at 10:00 Fluconazole 100 mg 100 mg DAILY PO Last administered on 01/01/17 09:11; Admin Dose 100 MG; Start 12/30/16 at 12:00 Vancomycin HCl 750 mg/Sodium Chloride 150 ml @ 75 mls/hr Q12H IVPB Last administered on 01/01/17 23:42; Admin Dose 75 MLS/HR; Start 01/01/17 at 12:00 Fentanyl (Sublimaze) 100 ml @ 2.5 mls/hr TITRATE IV Last administered on 04:16; Admin Dose 2.5 MLS/HR; Start 01/01/17 at 11:00 IV Flush 10 ml 10 ml PRN PRN IV FLUSH LINE; Start 01/01/17 at 15:00 Potassium Chloride (KCl 40 MEQ/250 ML NS) 250 ml @ 62.5 mls/hr ONCE ONCE IVPB Last administered on 01/02/17 07:18; Admin Dose 62.5 MLS/HR; Start 01/02/17 at 08:00; Stop 01/02/17 at 11:59 PINO PRETTY 23, 2017 09:02
--- NOTE | 2017-01-02 09:41 | RADRPT ---
PROCEDURE: XR Chest 1 View. CLINICAL INDICATION: Shortness of breath TECHNIQUE: AP view of the chest was obtained. COMPARISON: Yesterday FINDINGS: The cardiomediastinal silhouette is within normal limits. Endotracheal and nasogastric tubes are sta ble and appear in grossly appropriate location. Left-sided PICC line is unchanged. Patchy infiltra nathalie throughout the right lung, combined small pleural effusion are stable. Patchy left lower lobe i nfiltrates and small left pleural effusion are stable. Surgical clips are seen in the right axilla. The osseous structures are unchanged. IMPRESSION: Stable infiltrates throughout the right lung and in the left lower lobe, combined with small pleural effusions. RPTAT: AA .Carlos Thomas MD, Date Time Electronically viewed and signed by .Carlos Thomas MD, MD on 01/02/2017 09:40 .P/
[2017-01-02] MEDS: LEVOFLOXACIN 750MG/D5W (PMX) 150 ML IVPB SCH (09:46)
--- NOTE | 2017-01-02 09:52 | PN ---
Date/Time of Note Date/Time of Note DATE: 01/02/17 TIME: 09:49 Assessment/Plan VTE Prophylaxis VTE Prophylaxis Intervention: LMWH Lines/Catheters IV Catheter Type (from Nrs): PICC Line Central line still needed: Yes Urinary Cath still in place: Yes Reason Cath still needed: urinary retention Assessment/Plan Chief Complaint/Hosp Course ASSESSMENT AND PLAN: 56-year-old female coming in with a prior history of breast cancer with shortness of breath for 3 days before admission with diffuse multilobar pneumonia likely obstructive from lung masses from metastatic breast cancer, + UE DVT, now intubated. 1. Shortness of breath. Likely secondary to combo of congestive heart failure exacerbation + diffuse multilobar pneumonia likely obstructive from lung masses from metastatic breast cancer. ECHO done 12/18/16. Appreciate pulm rec's. Cannot r /o PE as well (pt already on LMWH BID for + UE DVT). - Continue vent support and management, f/u pulm rec's - Continue Abx (Meropenem + Levaquin +fluconazole (+ tye in res cx)) - DuoNebs prn, and monitor oxygen levels as well. 2. Septic Shock - 2/2 Pneumonia most likely - see # 1 - continue abx, f/u ID rec's 3. History of breast cancer - pt tx with rad's in the past, on PO chemo as outpt. Appreciate Heme/Onc rec's. - f/u pulm and Hematology/Oncology rec's - Continue her home chemotherapy medicine for now. 4. Occlusion of the right subclavian vein - continue LMWH BID 5. Gastritis -H2 seb (for gastrointestinal prophylaxis as well). 6. Hypothyroidism. Continue levothyroxine 7. ppx - H2 seb, LMWH Poor prognosis - for possible terminal extubation today. Appreciate client experience consultant and palliative consult rec's. Poor prognosis, again, pt made DNR. Hospice consideration also a possibility. Critical care time spent with care today = 40 min. Problems: Subjective 24 Hr Interval Summary Free Text/Dictation Family conference with palliative team performed yesterday. Still intubated. Exam/Review of Systems Vital Signs Vitals Vital Signs Date Time Temp Pulse Resp B/P Pulse Ox O2 Delivery O2 Flow Rate FiO2 01/02/17 09:18 102 15 88 100 01/02/17 09:00 112/76 01/02/17 08:00 97.9 Mechanical Ventilator Intake and Output 01/01/17 01/01/17 01/02/17 15:00 23:00 07:00 Intake Total 1107.5 ml 838.5 ml 949.0 ml Output Total 840 ml 710 ml 760 ml Balance 267.5 ml 128.5 ml 189.0 ml Exam GENERAL: Intubated and sedated HEENT: Intubated, Vent settings noted , High o2 requirement / high peep LUNGS: some diminished and coarse BS HEART: S1, S2. No murmur, gallops or rubs. Tachycardic ABDOMEN: Soft, non distended, Normoactive bowel sounds. EXTREMITIES: Mild 1+ nonpitting edema bilaterally, also some hand edema bilaterally NEUROLOGIC: The patient is currently sedated. Results Result Diagram: 01/02/17 0400 01/02/17 0400 Results 24 hrs Laboratory Tests Test 01/01/17 13:20 01/01/17 16:21 01/01/17 20:25 01/02/17 02:43 Bedside Glucose 124 111 105 89 Test 01/02/17 04:00 01/02/17 05:47 01/02/17 08:50 White Blood Count 21.2 #H Red Blood Count 4.42 Hemoglobin 11.3 L Hematocrit 35.3 L Mean Corpuscular Volume 79.9 L Mean Corpuscular Hemoglobin 25.6 L Mean Corpuscular Hemoglobin Concent 32.0 Red Cell Distribution Width 20.3 H Platelet Count 633 H Mean Platelet Volume 9.9 Neutrophils % 86.7 H Lymphocytes % 4.4 L Monocytes % 6.8 Eosinophils % 0.3 Basophils % 0.2 Nucleated Red Blood Cells % 0.3 H Neutrophils # 18.4 H Lymphocytes # 0.9 Monocytes # 1.5 H Eosinophils # 0.1 Basophils # 0.1 Nucleated Red Blood Cells # 0.1 H Sodium Level 134 L Potassium Level 2.9 *L Chloride Level 99 Carbon Dioxide Level 29 Anion Gap 9 Blood Urea Nitrogen 30 H Creatinine 0.53 Glucose Level 97 Calcium Level 9.0 Bedside Glucose 105 87 Medications Medications Current Medications Ondansetron HCl (Zofran Inj) 4 mg Q6H PRN IV NAUSEA AND/OR VOMITING Last administered on 12/25/16t 14:47; Admin Dose 4 MG; Start 12/18/16 at 19:30 Acetaminophen (Tylenol Tab) 650 mg Q6H PRN PO PAIN LEVEL 1-3 OR FEVER Last administered on 12/29/16 06:00; Admin Dose 650 MG; Start 12/18/16 at 19:30 Magnesium Hydroxide (Milk Of Mag) 30 ml DAILY PRN PO CONSTIPATION; Start at 19:30 Sodium Biphosphate/ Sodium Phosphate (Fleet Enema) 133 ml DAILY PRN [place] CONSTIPATION; Start 12/18/16 at 19:30 Hydralazine HCl (Apresoline) 10 mg Q6H PRN IV ELEVATED BLOOD PRESSURE; Start at 19:30 Nitroglycerin (Nitroglycerin (Sl Tab) 0.4 Mg) 1 tab Q5M PRN SL ANGINA; Start at 19:30 Diphenhydramine HCl (Benadryl) 25 mg Q6H PRN PO ITCHING Last administered on 00:41; Admin Dose 25 MG; Start 12/18/16 at 20:00 Enoxaparin Sodium (Lovenox) 55 mg Q12 SC Last administered on 01/02/17 08:56; Admin Dose 55 MG; Start 12/19/16 at 18:00 Zolpidem Tartrate (Ambien) 2.5 mg HS PRN PO INSOMNIA Last administered on 21:12; Admin Dose 2.5 MG; Start 12/20/16 at 13:00 Guaifenesin (Robitussin Liquid Cup) 200 mg Q4H PRN PO COUGH Last administered on 12/26/16 07:26; Admin Dose 200 MG; Start 12/21/16 at 14:30 Simethicone (Mylicon) 80 mg Q8 PO Last administered on 01/02/17 05:48; Admin Dose 80 MG; Start 12/22/16 at 12:35 Lorazepam (Ativan) 0.5 mg Q6H PRN PO ANXIETY; Start 12/23/16 at 17:30 Phenol 1 lozenge 1 lozenge Q1H PRN MT SORE THROAT; Start 12/26/16 at 07:00 Norepinephrine 16 mg/Dextrose 500 ml @ 1.87 mls/hr TITRATE IV Last administered on 12/29/16 17:03; Admin Dose 1.87 MLS/HR; Start 12/28/16 at 03:00 Midazolam HCl 50 ml @ 1 mls/hr TITRATE IV Last administered on 01/02/17 08:51 ; Admin Dose 10 MLS/HR; Start 12/28/16 at 03:30 Phenylephrine HCl 40 mg/Dextrose 500 ml @ 75 mls/hr TITRATE IV ; Start at 04:00 Propofol (Diprivan) 100 ml @ 1.689 mls/ hr Q12H IV ; Start 12/28/16 at 04:30 Ipratropium [place] (Atrovent Hfa) 2 puff Q4 INH Last administered on 09:20; Admin Dose 2 PUFF; Start 12/28/16 at 05:00 Docusate Sodium 100 mg 100 mg Q12H NGT Last administered on 01/01/17 23:42; Admin Dose 100 MG; Start 12/28/16 at 10:48 Dextrose (D5W) 1,000 ml @ 75 mls/hr [id number] IV Last administered on 01/02/17 02:46; Admin Dose 75 MLS/HR; Start 12/29/16 at 09:30 Insulin Aspart (Novolog Insulin Pen) NOVOLOG *MILD* ALGORI... Q4 SC Last administered on 01/01/17 01:33; Admin Dose 1 UNIT; Start 12/29/16 at 13:00 Miscellaneous Information 1 ea NOTE XX ; Start 12/29/16 at 09:30 Glucose (Glutose) 15 gm Q15M PRN PO DECREASED GLUCOSE; Start 12/29/16 at 09:30 Glucose (Glutose) 22.5 gm Q15M PRN PO DECREASED GLUCOSE; Start 12/29/16 at 09: 30 Dextrose (D50w Syringe) 25 ml Q15M PRN IV DECREASED GLUCOSE; Start 12/29/16 at 09:30 Dextrose (D50w Syringe) 50 ml Q15M PRN IV DECREASED GLUCOSE; Start 12/29/16 at 09:30 Glucagon (Glucagen) 1 mg Q15M PRN IM DECREASED GLUCOSE; Start 12/29/16 at 09:30 Glucose (Glutose) 15 gm Q15M PRN BUCCAL DECREASED GLUCOSE; Start 12/29/16 at 09 :30 Famotidine 20 mg 20 mg DAILY IV Last administered on 01/02/17 08:56; Admin Dose 20 MG; Start 12/30/16 at 09:00 Meropenem 100 ml @ 200 mls/hr Q8 IVPB Last administered on 01/02/17 05:51; Admin Dose 200 MLS/HR; Start 12/29/16 at 10:00 Levofloxacin/ Dextrose (Levaquin 750 Mg/ D5W 150 ml (Pmx)) 150 ml @ 100 mls/hr Q24H IVPB Last administered on 01/02/17 09:46; Admin Dose 100 MLS/HR; Start at 10:00 Fluconazole 100 mg 100 mg DAILY PO Last administered on 01/02/17 08:51; Admin Dose 100 MG; Start 12/30/16 at 12:00 Vancomycin HCl 750 mg/Sodium Chloride 150 ml @ 75 mls/hr Q12H IVPB Last administered on 01/01/17 23:42; Admin Dose 75 MLS/HR; Start 01/01/17 at 12:00 Fentanyl (Sublimaze) 100 ml @ 2.5 mls/hr TITRATE IV Last administered on 04:16; Admin Dose 2.5 MLS/HR; Start 01/01/17 at 11:00 IV Flush 10 ml 10 ml PRN PRN IV FLUSH LINE; Start 01/01/17 at 15:00 Potassium Chloride (KCl 40 MEQ/250 ML NS) 250 ml @ 62.5 mls/hr ONCE ONCE IVPB Last administered on 01/02/17 07:18; Admin Dose 62.5 MLS/HR; Start 01/02/17 at 08:00; Stop 01/02/17 at 11:59 TESSIE ROWLAND Jan 02, 2017 09:52
--- NOTE | 2017-01-02 10:04 | PN ---
Date/Time of Note Date/Time of Note DATE: 01/02/17 TIME: 10:01 Assessment/Plan VTE Prophylaxis VTE Prophylaxis Intervention: other (per primary) Lines/Catheters IV Catheter Type (from Nrs): PICC Line Central line still needed: Yes Urinary Cath still in place: Yes Reason Cath still needed: other (indicate) (obtunded) Assessment/Plan Assessment/Plan Pt is NO CODE. Agree with that. I would also support hospice level of care given the hopeless nature of her circumstances. Subjective 24 Hr Interval Summary Subjective hx not possible: pt non-verbal, other (intubated and sedated) Exam/Review of Systems Vital Signs Vitals Vital Signs Date Time Temp Pulse Resp B/P Pulse Ox O2 Delivery O2 Flow Rate FiO2 01/02/17 09:18 102 15 88 100 01/02/17 09:00 112/76 01/02/17 08:00 97.9 Mechanical Ventilator Intake and Output 01/01/17 01/01/17 01/02/17 15:00 23:00 07:00 Intake Total 1107.5 ml 838.5 ml 949.0 ml Output Total 840 ml 710 ml 760 ml Balance 267.5 ml 128.5 ml 189.0 ml Exam Head: atraumatic Neck: other (intubated) Respiratory: diminished breath sounds, other (on respirator) Cardiovascular: regular rate and rhythm (rate ~105) Results Result Diagram: 01/02/17 0400 01/02/17 0400 Results 24 hrs Laboratory Tests Test 01/01/17 13:20 01/01/17 16:21 01/01/17 20:25 01/02/17 02:43 Bedside Glucose 124 111 105 89 Test 01/02/17 04:00 01/02/17 05:47 01/02/17 08:50 White Blood Count 21.2 #H Red Blood Count 4.42 Hemoglobin 11.3 L Hematocrit 35.3 L Mean Corpuscular Volume 79.9 L Mean Corpuscular Hemoglobin 25.6 L Mean Corpuscular Hemoglobin Concent 32.0 Red Cell Distribution Width 20.3 H Platelet Count 633 H Mean Platelet Volume 9.9 Neutrophils % 86.7 H Lymphocytes % 4.4 L Monocytes % 6.8 Eosinophils % 0.3 Basophils % 0.2 Nucleated Red Blood Cells % 0.3 H Neutrophils # 18.4 H Lymphocytes # 0.9 Monocytes # 1.5 H Eosinophils # 0.1 Basophils # 0.1 Nucleated Red Blood Cells # 0.1 H Sodium Level 134 L Potassium Level 2.9 *L Chloride Level 99 Carbon Dioxide Level 29 Anion Gap 9 Blood Urea Nitrogen 30 H Creatinine 0.53 Glucose Level 97 Calcium Level 9.0 Bedside Glucose 105 87 Medications Medications Current Medications Ondansetron HCl (Zofran Inj) 4 mg Q6H PRN IV NAUSEA AND/OR VOMITING Last administered on 12/25/16 14:47; Admin Dose 4 MG; Start 12/18/16 at 19:30 Acetaminophen (Tylenol Tab) 650 mg Q6H PRN PO PAIN LEVEL 1-3 OR FEVER Last administered on 12/29/16 06:00; Admin Dose 650 MG; Start 12/18/16 at 19:30 Magnesium Hydroxide (Milk Of Mag) 30 ml DAILY PRN PO CONSTIPATION; Start at 19:30 Sodium Biphosphate/ Sodium Phosphate (Fleet Enema) 133 ml DAILY PRN [place] CONSTIPATION; Start 12/18/16 at 19:30 Hydralazine HCl (Apresoline) 10 mg Q6H PRN IV ELEVATED BLOOD PRESSURE; Start at 19:30 Nitroglycerin (Nitroglycerin (Sl Tab) 0.4 Mg) 1 tab Q5M PRN SL ANGINA; Start at 19:30 Diphenhydramine HCl (Benadryl) 25 mg Q6H PRN PO ITCHING Last administered on 00:41; Admin Dose 25 MG; Start 12/18/16 at 20:00 Enoxaparin Sodium (Lovenox) 55 mg Q12 SC Last administered on 01/02/17 08:56; Admin Dose 55 MG; Start 12/19/16 at 18:00 Zolpidem Tartrate (Ambien) 2.5 mg HS PRN PO INSOMNIA Last administered on 21:12; Admin Dose 2.5 MG; Start 12/20/16 at 13:00 Guaifenesin (Robitussin Liquid Cup) 200 mg Q4H PRN PO COUGH Last administered on 12/26/16 07:26; Admin Dose 200 MG; Start 12/21/16 at 14:30 Simethicone (Mylicon) 80 mg Q8 PO Last administered on 01/02/17 05:48; Admin Dose 80 MG; Start 12/22/16 at 12:35 Lorazepam (Ativan) 0.5 mg Q6H PRN PO ANXIETY; Start 12/23/16 at 17:30 Phenol 1 lozenge 1 lozenge Q1H PRN MT SORE THROAT; Start 12/26/16 at 07:00 Norepinephrine 16 mg/Dextrose 500 ml @ 1.87 mls/hr TITRATE IV Last administered on 12/29/16 17:03; Admin Dose 1.87 MLS/HR; Start 12/28/16 at 03:00 Midazolam HCl 50 ml @ 1 mls/hr TITRATE IV Last administered on 01/02/17 08:51 ; Admin Dose 10 MLS/HR; Start 12/28/16 at 03:30 Phenylephrine HCl 40 mg/Dextrose 500 ml @ 75 mls/hr TITRATE IV ; Start at 04:00 Propofol (Diprivan) 100 ml @ 1.689 mls/ hr Q12H IV ; Start 12/28/16 at 04:30 Ipratropium [place] (Atrovent Hfa) 2 puff Q4 INH Last administered on 09:20; Admin Dose 2 PUFF; Start 12/28/16 at 05:00 Docusate Sodium 100 mg 100 mg Q12H NGT Last administered on 01/01/17 23:42; Admin Dose 100 MG; Start 12/28/16 at 10:48 Dextrose (D5W) 1,000 ml @ 75 mls/hr [id number] IV Last administered on 01/02/17 02:46; Admin Dose 75 MLS/HR; Start 12/29/16 at 09:30 Insulin Aspart (Novolog Insulin Pen) NOVOLOG *MILD* ALGORI... Q4 SC Last administered on 01/01/17 01:33; Admin Dose 1 UNIT; Start 12/29/16 at 13:00 Miscellaneous Information 1 ea NOTE XX ; Start 12/29/16 at 09:30 Glucose (Glutose) 15 gm Q15M PRN PO DECREASED GLUCOSE; Start 12/29/16 at 09:30 Glucose (Glutose) 22.5 gm Q15M PRN PO DECREASED GLUCOSE; Start 12/29/16 at 09: 30 Dextrose (D50w Syringe) 25 ml Q15M PRN IV DECREASED GLUCOSE; Start 12/29/16 at 09:30 Dextrose (D50w Syringe) 50 ml Q15M PRN IV DECREASED GLUCOSE; Start 12/29/16 at 09:30 Glucagon (Glucagen) 1 mg Q15M PRN IM DECREASED GLUCOSE; Start 12/29/16 at 09:30 Glucose (Glutose) 15 gm Q15M PRN BUCCAL DECREASED GLUCOSE; Start 12/29/16 at 09 :30 Famotidine 20 mg 20 mg DAILY IV Last administered on 01/02/17 08:56; Admin Dose 20 MG; Start 12/30/16 at 09:00 Meropenem 100 ml @ 200 mls/hr Q8 IVPB Last administered on 01/02/17 05:51; Admin Dose 200 MLS/HR; Start 12/29/16 at 10:00 Levofloxacin/ Dextrose (Levaquin 750 Mg/ D5W 150 ml (Pmx)) 150 ml @ 100 mls/hr Q24H IVPB Last administered on 01/02/17 09:46; Admin Dose 100 MLS/HR; Start at 10:00 Fluconazole 100 mg 100 mg DAILY PO Last administered on 01/02/17 08:51; Admin Dose 100 MG; Start 12/30/16 at 12:00 Vancomycin HCl 750 mg/Sodium Chloride 150 ml @ 75 mls/hr Q12H IVPB Last administered on 01/01/17 23:42; Admin Dose 75 MLS/HR; Start 01/01/17 at 12:00 Fentanyl (Sublimaze) 100 ml @ 2.5 mls/hr TITRATE IV Last administered on 04:16; Admin Dose 2.5 MLS/HR; Start 01/01/17 at 11:00 IV Flush 10 ml 10 ml PRN PRN IV FLUSH LINE; Start 01/01/17 at 15:00 Potassium Chloride (KCl 40 MEQ/250 ML NS) 250 ml @ 62.5 mls/hr ONCE ONCE IVPB Last administered on 01/02/17 07:18; Admin Dose 62.5 MLS/HR; Start 01/02/17 at 08:00; Stop 01/02/17 at 11:59 PERCY ROPER MD Jan 02, 2017 10:04
--- NOTE | 2017-01-02 11:21 | RADRPT ---
PROCEDURE: XR Chest. CLINICAL INDICATION: Shortness of breath. TECHNIQUE: Single frontal view. COMPARISON: 01/02/2017. 0524 hours. FINDINGS: Endotracheal tube and nasogastric tube remain in satisfactory position. The left arm PICC line tip is in the superior vena cava. Patchy air space disease throughout the right lung and left lower ameya g zone is unchanged. The heart size is normal. There are small bilateral pleural effusions. Surgical clips are present in the right axilla. There is no pneumothorax. IMPRESSION: 1. No change from the prior study done earlier the same day. RPTAT: QQ .Thompson Bhakta MD, MD Date Time Electronically viewed and signed by .Thompson Bhakta MD, MD on 01/02/2017 11:21 .R/
[2017-01-02] MEDS: DOCUSATE SODIUM 10 MG/ML (10ML CUP) NGT SCH ×2 (12:21→22:11)
[2017-01-02] MEDS: VANCOMYCIN 750 MG in SOD CHLORIDE 0.9% 150 ML IVPB SCH (12:21)
--- NOTE | 2017-01-02 12:41 | CONS ---
Date/Time of Note Date/Time of Note DATE: 01/02/17 TIME: 12:39 Assessment/Plan Assessment/Plan Chief Complaint/Hosp Course SUBJECTIVE: No events overnight. The patient remains intubated, afebrile, nad , family present INDWELLINGS: Endotracheal tube, NG tube, Meza, PICC line placed yesterday. ANTIMICROBIALS: 1. Vancomycin. 2. Meropenem. 3. Levaquin. 4. Fluconazole. PHYSICAL EXAMINATION: GENERAL: Well-developed, ill-appearing, middle-aged woman who is intubated and sedated, in no distress. HEENT: Head atraumatic, normocephalic. Sclerae anicteric. Buccal mucosa dry. NECK: Supple. CHEST: Rise symmetrical. Breath sounds diminished to bases. HEART: S1, S2. ABDOMEN: Soft. Bowel sounds present. EXTREMITIES: With trace edema. ASSESSMENT: 1. Severe sepsis status post shock. 2. Acute respiratory failure. 3. Pneumonia involving the right lung. 4. Metastatic breast. 5. Right upper extremity deep venous thrombosis. 6. Leukocytosis, patient is on IV steroid taper. PLAN: The patient remains clinically unchanged. She is being followed by multiple consultants. Prognosis poor. She is a DNR status, family to decide re final plan of care, palliative care team follows. [facility] staff Problems: Consultation Date/Type/Reason Admit Date/Time Dec 18, 2016 at 18:40 Initial Consult Date 12/23/16 Type of Consultation: ID Exam/Review of Systems Vital Signs Vitals Vital Signs Date Time Temp Pulse Resp B/P Pulse Ox O2 Delivery O2 Flow Rate FiO2 01/02/17 09:18 102 15 88 100 01/02/17 09:00 112/76 01/02/17 08:00 97.9 Mechanical Ventilator Intake and Output 01/01/17 01/01/17 01/02/17 14:59 22:59 06:59 Intake Total 857.5 ml 1002.5 ml 960.0 ml Output Total 790 ml 710 ml 710 ml Balance 67.5 ml 292.5 ml 250.0 ml Results Result Diagram: 01/02/17 0400 01/02/17 0400 Results 24 hrs Laboratory Tests Test 01/01/17 13:20 01/01/17 16:21 01/01/17 20:25 01/02/17 02:43 Bedside Glucose 124 111 105 89 Test 01/02/17 04:00 01/02/17 05:47 01/02/17 08:50 01/02/17 12:24 White Blood Count 21.2 #H Red Blood Count 4.42 Hemoglobin 11.3 L Hematocrit 35.3 L Mean Corpuscular Volume 79.9 L Mean Corpuscular Hemoglobin 25.6 L Mean Corpuscular Hemoglobin Concent 32.0 Red Cell Distribution Width 20.3 H Platelet Count 633 H Mean Platelet Volume 9.9 Neutrophils % 86.7 H Lymphocytes % 4.4 L Monocytes % 6.8 Eosinophils % 0.3 Basophils % 0.2 Nucleated Red Blood Cells % 0.3 H Neutrophils # 18.4 H Lymphocytes # 0.9 Monocytes # 1.5 H Eosinophils # 0.1 Basophils # 0.1 Nucleated Red Blood Cells # 0.1 H Sodium Level 134 L Potassium Level 2.9 *L Chloride Level 99 Carbon Dioxide Level 29 Anion Gap 9 Blood Urea Nitrogen 30 H Creatinine 0.53 Glucose Level 97 Calcium Level 9.0 Bedside Glucose 105 87 77 Medications Medications Current Medications Ondansetron HCl (Zofran Inj) 4 mg Q6H PRN IV NAUSEA AND/OR VOMITING Last administered on 12/25/16 14:47; Admin Dose 4 MG; Start 12/18/16 at 19:30 Acetaminophen (Tylenol Tab) 650 mg Q6H PRN PO PAIN LEVEL 1-3 OR FEVER Last administered on 12/29/16 06:00; Admin Dose 650 MG; Start 12/18/16 at 19:30 Magnesium Hydroxide (Milk Of Mag) 30 ml DAILY PRN PO CONSTIPATION; Start at 19:30 Sodium Biphosphate/ Sodium Phosphate (Fleet Enema) 133 ml DAILY PRN [place] CONSTIPATION; Start 12/18/16 at 19:30 Hydralazine HCl (Apresoline) 10 mg Q6H PRN IV ELEVATED BLOOD PRESSURE; Start at 19:30 Nitroglycerin (Nitroglycerin (Sl Tab) 0.4 Mg) 1 tab Q5M PRN SL ANGINA; Start at 19:30 Diphenhydramine HCl (Benadryl) 25 mg Q6H PRN PO ITCHING Last administered on 00:41; Admin Dose 25 MG; Start 12/18/16 at 20:00 Enoxaparin Sodium (Lovenox) 55 mg Q12 SC Last administered on 01/02/17 08:56; Admin Dose 55 MG; Start 12/19/16 at 18:00 Zolpidem Tartrate (Ambien) 2.5 mg HS PRN PO INSOMNIA Last administered on 21:12; Admin Dose 2.5 MG; Start 12/20/16 at 13:00 Guaifenesin (Robitussin Liquid Cup) 200 mg Q4H PRN PO COUGH Last administered on 12/26/16 07:26; Admin Dose 200 MG; Start 12/21/16 at 14:30 Simethicone (Mylicon) 80 mg Q8 PO Last administered on 01/02/17 05:48; Admin Dose 80 MG; Start 12/22/16 at 12:35 Lorazepam (Ativan) 0.5 mg Q6H PRN PO ANXIETY; Start 12/23/16 at 17:30 Phenol 1 lozenge 1 lozenge Q1H PRN MT SORE THROAT; Start 12/26/16 at 07:00 Norepinephrine 16 mg/Dextrose 500 ml @ 1.87 mls/hr TITRATE IV Last administered on 12/29/16 17:03; Admin Dose 1.87 MLS/HR; Start 12/28/16 at 03:00 Midazolam HCl 50 ml @ 1 mls/hr TITRATE IV Last administered on 01/02/17 08:51 ; Admin Dose 10 MLS/HR; Start 12/28/16 at 03:30 Phenylephrine HCl 40 mg/Dextrose 500 ml @ 75 mls/hr TITRATE IV ; Start at 04:00 Propofol (Diprivan) 100 ml @ 1.689 mls/ hr Q12H IV ; Start 12/28/16 at 04:30 Ipratropium [place] (Atrovent Hfa) 2 puff Q4 INH Last administered on 09:20; Admin Dose 2 PUFF; Start 12/28/16 at 05:00 Docusate Sodium 100 mg 100 mg Q12H NGT Last administered on 01/01/17 23:42; Admin Dose 100 MG; Start 12/28/16 at 10:48 Dextrose (D5W) 1,000 ml @ 75 mls/hr [id number] IV Last administered on 01/02/17 02:46; Admin Dose 75 MLS/HR; Start 12/29/16 at 09:30 Insulin Aspart (Novolog Insulin Pen) NOVOLOG *MILD* ALGORI... Q4 SC Last administered on 01/01/17 01:33; Admin Dose 1 UNIT; Start 12/29/16 at 13:00 Miscellaneous Information 1 ea NOTE XX ; Start 12/29/16 at 09:30 Glucose (Glutose) 15 gm Q15M PRN PO DECREASED GLUCOSE; Start 12/29/16 at 09:30 Glucose (Glutose) 22.5 gm Q15M PRN PO DECREASED GLUCOSE; Start 12/29/16 at 09: 30 Dextrose (D50w Syringe) 25 ml Q15M PRN IV DECREASED GLUCOSE; Start 12/29/16 at 09:30 Dextrose (D50w Syringe) 50 ml Q15M PRN IV DECREASED GLUCOSE; Start 12/29/16 at 09:30 Glucagon (Glucagen) 1 mg Q15M PRN IM DECREASED GLUCOSE; Start 12/29/16 at 09:30 Glucose (Glutose) 15 gm Q15M PRN BUCCAL DECREASED GLUCOSE; Start 12/29/16 at 09 :30 Famotidine 20 mg 20 mg DAILY IV Last administered on 01/02/17 08:56; Admin Dose 20 MG; Start 12/30/16 at 09:00 Meropenem 100 ml @ 200 mls/hr Q8 IVPB Last administered on 01/02/17 05:51; Admin Dose 200 MLS/HR; Start 12/29/16 at 10:00 Levofloxacin/ Dextrose (Levaquin 750 Mg/ D5W 150 ml (Pmx)) 150 ml @ 100 mls/hr Q24H IVPB Last administered on 01/02/17 09:46; Admin Dose 100 MLS/HR; Start at 10:00 Fluconazole 100 mg 100 mg DAILY PO Last administered on 01/02/17 08:51; Admin Dose 100 MG; Start 12/30/16 at 12:00 Vancomycin HCl 750 mg/Sodium Chloride 150 ml @ 75 mls/hr Q12H IVPB Last administered on 01/01/17 23:42; Admin Dose 75 MLS/HR; Start 01/01/17 at 12:00 Fentanyl (Sublimaze) 100 ml @ 2.5 mls/hr TITRATE IV Last administered on t 04:16; Admin Dose 2.5 MLS/HR; Start 01/01/17 at 11:00 IV Flush (NS 10 ml) 10 ml PRN PRN IV FLUSH LINE; Start 01/01/17 at 15:00 BENY LEMA NP Jan 02, 2017 12:41
[2017-01-03] VITALS (29 sets, daily range): BP systolic 60–113; BP diastolic 37–77; PULSE 20–122; RESP 19–29
[2017-01-03] MEDS: VANCOMYCIN 750 MG in SOD CHLORIDE 0.9% 150 ML IVPB SCH (00:35)
[2017-01-03] MEDS: INSULIN ASPART [NOVOLOG] 3 ML PEN SC SCH ×3 (00:36→09:00)
[2017-01-03] MEDS: IPRATROPIUM (HFA) 12.9 GM INHALER INH SCH ×3 (01:11→09:12)
[2017-01-03] MEDS: ALBUTEROL 18 GM INHALER INH SCH ×3 (01:11→09:12)
[2017-01-03] MEDS: MIDAZOLAM (DRIP) 50 mg/50 mL 50 ML IV SCH ×2 (01:44→08:58)
[2017-01-03] MEDS: PROPOFOL 100 ML IV SCH (04:30)
[2017-01-03 05:09] LABS: ADD SCAN DIFF NO
[2017-01-03 05:20] LABS: ABNORMAL IP MESSAGE 1; BASOPHILS % 0.2 % (0.0-2.0); EOSINOPHILS # 0.3 10^3/ul (0.0-0.5); EOSINOPHILS % 1.2 % (0.0-7.0); HEMATOCRIT 37.8 % (37.0-47.0); HEMOGLOBIN 11.5 g/dl (12.0-16.0); LYMPHOCYTES # 0.9 10^3/ul (0.8-2.9); LYMPHOCYTES % 3.3 % (15.0-51.0); MEAN CORPUSCULAR HEMOGLOBIN 24.5 pg (29.0-33.0); MEAN CORPUSCULAR HGB CONC 30.4 g/dl (32.0-37.0); MEAN CORPUSCULAR VOLUME 80.6 fl (82.0-101.0); MEAN PLATELET VOLUME 10.6 fl (7.4-10.4); MONOCYTE # 1.2 10^3/ul (0.3-0.9); MONOCYTES % 4.4 % (0.0-11.0); NEUTROPHIL # 22.9 10^3/ul (1.6-7.5); NEUTROPHILS % 86.9 % (39.0-77.0); NUCLEATED RED BLOOD CELLS # 0.2 10^3/ul (0.0-0.0); NUCLEATED RED BLOOD CELLS% 0.6 /100WBC (0.0-0.0); PLATELET COUNT 502 10^3/UL (140-415); RED BLOOD COUNT 4.69 10^6/ul (4.20-5.40); RED CELL DISTRIBUTION WIDTH 21.5 % (11.5-14.5); WHITE BLOOD COUNT 26.3 10^3/ul (4.8-10.8)
[2017-01-03 05:40] LABS: CALCIUM 8.5 mg/dl (8.4-10.2); CREATININE 0.55 mg/dl (0.44-1.00); POTASSIUM 4.8 mmol/L (3.5-5.1)
[2017-01-03] MEDS: LEVOTHYROXINE 100 MCG TAB PO SCH (05:59)
[2017-01-03] MEDS: MEROPENEM 1 GM/100 ML (PMX) 100 ML IVPB SCH (05:59)
[2017-01-03] MEDS: FUROSEMIDE 40 MG INJ IV SCH (05:59)
--- NOTE | 2017-01-03 08:48 | CONS ---
Date/Time of Note Date/Time of Note DATE: 01/03/17 TIME: 08:45 Assessment/Plan Assessment/Plan Additional Assessment/Plan Ventilator setting; AC of 14, tidal volume 550, PEEP of 10, 100% FiO2. Patient currently on fentanyl drip at 50 mics per hour, Versed 6 mg/h. Chest x-ray was reviewed from yesterday late morning which is showing extensive right-sided infiltrative changes. Endotracheal tube is at an adequate level. Assessment recommendations; 1. Patient admitted with pneumonia involving right lung there was interval improvement however the patient then decompensated possibly representing aspiration pneumonia with extensive right lung involvement. Currently on broad- spectrum antibiotic without any interval improvement whatsoever. 2. History of right breast cancer. 3. Right upper extremity DVT. 4. Difficult to rule out metastatic breast cancer. Continue current supportive care. Patient's family has signed a DNR form and they have likely would want her to be terminally extubated as well. Consultation Date/Type/Reason Admit Date/Time Dec 18, 2016 at 18:40 Type of Consultation: Pulmonary/critical care 24 HR Interval Summary Free Text/Dictation Patient condition remains critical. Still requiring 100% FiO2 for O2 saturation maintenance. Patient however has remained hemodynamically stable. General exam; middle-aged woman, on ventilator via endotracheal tube. Sedated. Currently in no distress. Exam/Review of Systems Vital Signs Vitals Vital Signs Date Time Temp Pulse Resp B/P Pulse Ox O2 Delivery O2 Flow Rate FiO2 01/03/17 07:00 111 22 60/45 85 Mechanical Ventilator 01/03/17 05:16 100 01/03/17 04:00 98.2 Intake and Output 01/02/17 01/02/17 01/03/17 15:00 23:00 07:00 Intake Total 1275.0 ml 830.0 ml 915.0 ml Output Total 240 ml 135 ml 110 ml Balance 1035.0 ml 695.0 ml 805.0 ml Exam HEENT exam; supple neck, no JVD. No lymphadenopathy. Midline trachea. No thyromegaly. Orally intubated. Patient has fair dentition. Pupils are small bilaterally. Chest exam; diffuse crackles involving right lung. Left lung is fairly clear. S1-S2 audible, no murmurs. Regular rhythm. Abdomen examination; soft, no organomegaly. Bowel sounds audible. Extremity exam; no peripheral edema involving left upper and lower extremities. 2+ edema involving right upper extremity. Pulses 1+ bilaterally. CRM SPECIALIST exam; patient is sedated Results Result Diagram: 01/03/17 0400 01/03/17 0400 Results 24 hrs Laboratory Tests Test 01/02/17 08:50 01/02/17 12:24 01/02/17 16:58 01/02/17 20:57 Bedside Glucose 87 77 94 99 Test 01/02/17 23:10 01/03/17 00:35 01/03/17 04:00 01/03/17 05:58 Vancomycin Level Trough 13.3 Bedside Glucose 107 121 White Blood Count 26.3 #H Red Blood Count 4.69 Hemoglobin 11.5 L Hematocrit 37.8 Mean Corpuscular Volume 80.6 L Mean Corpuscular Hemoglobin 24.5 L Mean Corpuscular Hemoglobin Concent 30.4 L Red Cell Distribution Width 21.5 H Platelet Count 502 #H Mean Platelet Volume 10.6 H Neutrophils % 86.9 H Lymphocytes % 3.3 L Monocytes % 4.4 Eosinophils % 1.2 Basophils % 0.2 Nucleated Red Blood Cells % 0.6 H Neutrophils # 22.9 H Lymphocytes # 0.9 Monocytes # 1.2 H Eosinophils # 0.3 Basophils # 0.0 Nucleated Red Blood Cells # 0.2 H Sodium Level 131 L Potassium Level 4.8 Chloride Level 100 Carbon Dioxide Level 27 Anion Gap 9 Blood Urea Nitrogen 34 H Creatinine 0.55 Glucose Level 107 Calcium Level 8.5 Medications Medications Current Medications Ondansetron HCl (Zofran Inj) 4 mg Q6H PRN IV NAUSEA AND/OR VOMITING Last administered on 12/25/16 14:47; Admin Dose 4 MG; Start 12/18/16 at 19:30 Acetaminophen (Tylenol Tab) 650 mg Q6H PRN PO PAIN LEVEL 1-3 OR FEVER Last administered on 12/29/16 06:00; Admin Dose 650 MG; Start 12/18/16 at 19:30 Magnesium Hydroxide (Milk Of Mag) 30 ml DAILY PRN PO CONSTIPATION; Start at 19:30 Sodium Biphosphate/ Sodium Phosphate (Fleet Enema) 133 ml DAILY PRN [place] CONSTIPATION; Start 12/18/16 at 19:30 Hydralazine HCl (Apresoline) 10 mg Q6H PRN IV ELEVATED BLOOD PRESSURE; Start at 19:30 Nitroglycerin (Nitroglycerin (Sl Tab) 0.4 Mg) 1 tab Q5M PRN SL ANGINA; Start at 19:30 Diphenhydramine HCl (Benadryl) 25 mg Q6H PRN PO ITCHING Last administered on 00:41; Admin Dose 25 MG; Start 12/18/16 at 20:00 Enoxaparin Sodium (Lovenox) 55 mg Q12 SC Last administered on 01/02/17 20:53; Admin Dose 55 MG; Start 12/19/16 at 18:00 Zolpidem Tartrate (Ambien) 2.5 mg HS PRN PO INSOMNIA Last administered on 21:12; Admin Dose 2.5 MG; Start 12/20/16 at 13:00 Guaifenesin (Robitussin Liquid Cup) 200 mg Q4H PRN PO COUGH Last administered on 12/26/16 07:26; Admin Dose 200 MG; Start 12/21/16 at 14:30 Simethicone (Mylicon) 80 mg Q8 PO Last administered on 01/03/17 05:58; Admin Dose 80 MG; Start 12/22/16 at 12:35 Lorazepam (Ativan) 0.5 mg Q6H PRN PO ANXIETY; Start 12/23/16 at 17:30 Phenol 1 lozenge 1 lozenge Q1H PRN MT SORE THROAT; Start 12/26/16 at 07:00 Norepinephrine 16 mg/Dextrose 500 ml @ 1.87 mls/hr TITRATE IV Last administered on 12/29/16 17:03; Admin Dose 1.87 MLS/HR; Start 12/28/16 at 03:00 Midazolam HCl 50 ml @ 1 mls/hr TITRATE IV Last administered on 01/03/17 01:44 ; Admin Dose 10 MLS/HR; Start 12/28/16 at 03:30 Phenylephrine HCl 40 mg/Dextrose 500 ml @ 75 mls/hr TITRATE IV ; Start at 04:00 Propofol (Diprivan) 100 ml @ 1.689 mls/ hr Q12H IV ; Start 12/28/16 at 04:30 Ipratropium [place] (Atrovent Hfa) 2 puff Q4 INH Last administered on 05:53; Admin Dose 2 PUFF; Start 12/28/16 at 05:00 Docusate Sodium 100 mg 100 mg Q12H NGT Last administered on 01/02/17 22:11; Admin Dose 100 MG; Start 12/28/16 at 10:48 Dextrose (D5W) 1,000 ml @ 75 mls/hr [id number] IV Last administered on 01/02/17 19:54; Admin Dose 75 MLS/HR; Start 12/29/16 at 09:30 Insulin Aspart (Novolog Insulin Pen) NOVOLOG *MILD* ALGORI... Q4 SC Last administered on 01/01/17 01:33; Admin Dose 1 UNIT; Start 12/29/16 at 13:00 Miscellaneous Information 1 ea NOTE XX ; Start 12/29/16 at 09:30 Glucose (Glutose) 15 gm Q15M PRN PO DECREASED GLUCOSE; Start 12/29/16 at 09:30 Glucose (Glutose) 22.5 gm Q15M PRN PO DECREASED GLUCOSE; Start 12/29/16 at 09: 30 Dextrose (D50w Syringe) 25 ml Q15M PRN IV DECREASED GLUCOSE; Start 12/29/16 at 09:30 Dextrose (D50w Syringe) 50 ml Q15M PRN IV DECREASED GLUCOSE; Start 12/29/16 at 09:30 Glucagon (Glucagen) 1 mg Q15M PRN IM DECREASED GLUCOSE; Start 12/29/16 at 09:30 Glucose (Glutose) 15 gm Q15M PRN BUCCAL DECREASED GLUCOSE; Start 12/29/16 at 09 :30 Famotidine 20 mg 20 mg DAILY IV Last administered on 01/02/17 08:56; Admin Dose 20 MG; Start 12/30/16 at 09:00 Meropenem 100 ml @ 200 mls/hr Q8 IVPB Last administered on 01/03/17 05:59; Admin Dose 200 MLS/HR; Start 12/29/16 at 10:00 Levofloxacin/ Dextrose (Levaquin 750 Mg/ D5W 150 ml (Pmx)) 150 ml @ 100 mls/hr Q24H IVPB Last administered on 01/02/17 09:46; Admin Dose 100 MLS/HR; Start at 10:00 Fluconazole 100 mg 100 mg DAILY PO Last administered on 01/02/17 08:51; Admin Dose 100 MG; Start 12/30/16 at 12:00 Vancomycin HCl 750 mg/Sodium Chloride 150 ml @ 75 mls/hr Q12H IVPB Last administered on 01/03/17 00:35; Admin Dose 75 MLS/HR; Start 01/01/17 at 12:00 Fentanyl (Sublimaze) 100 ml @ 2.5 mls/hr TITRATE IV Last administered on 17:04; Admin Dose 7.5 MLS/HR; Start 01/01/17 at 11:00 IV Flush (NS 10 ml) 10 ml PRN PRN IV FLUSH LINE; Start 01/01/17 at 15:00 PINO PRETTY Jan 03, 2017 08:48
[2017-01-03] MEDS: FENTAnyl (DRIP) 1000 mcg/100mL 100 ML IV SCH (09:02)
[2017-01-03] MEDS: FLUCONAZOLE 100 MG TAB PO SCH (09:28)
[2017-01-03] MEDS: FAMOTIDINE 20 MG INJ IV SCH (09:28)
[2017-01-03] MEDS: ENOXAPARIN 100 MG/ML SYG SC SCH (09:31)
[2017-01-03] MEDS: LEVOFLOXACIN 750MG/D5W (PMX) 150 ML IVPB SCH (09:53)
--- NOTE | 2017-01-03 09:56 | PN ---
Date/Time of Note Date/Time of Note DATE: 01/03/17 TIME: 09:54 Assessment/Plan VTE Prophylaxis VTE Prophylaxis Intervention: LMWH Lines/Catheters IV Catheter Type (from Nrs): PICC Line Central line still needed: Yes Urinary Cath still in place: Yes Reason Cath still needed: urinary retention Assessment/Plan Chief Complaint/Hosp Course ASSESSMENT AND PLAN: 56-year-old female coming in with a prior history of breast cancer with shortness of breath for 3 days before admission with diffuse multilobar pneumonia likely obstructive from lung masses from metastatic breast cancer, + UE DVT, now intubated. 1. Shortness of breath. Likely secondary to combo of congestive heart failure exacerbation + diffuse multilobar pneumonia likely obstructive from lung masses from metastatic breast cancer. Not improving. ECHO done 12/18/16. Appreciate pulm rec's. Cannot r/o PE as well (pt already on LMWH BID for + UE DVT). - Continue vent support and management, f/u pulm rec's - Continue Abx (Meropenem + Levaquin +fluconazole (+ tye in res cx)) - DuoNebs prn, and monitor oxygen levels as well. 2. Septic Shock - 2/2 Pneumonia most likely - see # 1 - continue abx, f/u ID rec's 3. History of breast cancer - pt tx with rad's in the past, on PO chemo as outpt. Appreciate Heme/Onc rec's. - f/u pulm and Hematology/Oncology rec's - Continue her home chemotherapy medicine for now. 4. Occlusion of the right subclavian vein - continue LMWH BID 5. Gastritis -H2 seb (for gastrointestinal prophylaxis as well). 6. Hypothyroidism. Continue levothyroxine 7. ppx - H2 seb, LMWH Poor prognosis - terminal extubation held until possibly Thursday. Appreciate internet sales consultant and palliative consult rec's. Poor prognosis, again, pt made DNR. Hospice consideration also a possibility. Critical care time spent with care today = 40 min. Problems: Subjective 24 Hr Interval Summary Free Text/Dictation Pt still intubated, seen by other family this AM. Exam/Review of Systems Vital Signs Vitals Vital Signs Date Time Temp Pulse Resp B/P Pulse Ox O2 Delivery O2 Flow Rate FiO2 01/03/17 08:00 113 01/03/17 07:00 22 60/45 85 Mechanical Ventilator 01/03/17 05:16 100 01/03/17 04:00 98.2 Intake and Output 01/02/17 01/02/17 01/03/17 15:00 23:00 07:00 Intake Total 1275.0 ml 830.0 ml 915.0 ml Output Total 240 ml 135 ml 110 ml Balance 1035.0 ml 695.0 ml 805.0 ml Exam GENERAL: Intubated and sedated HEENT: Intubated, Vent settings noted , High o2 requirement / high peep LUNGS: some diminished and coarse BS HEART: S1, S2. No murmur, gallops or rubs. Tachycardic ABDOMEN: Soft, non distended, Normoactive bowel sounds. EXTREMITIES: Mild 1+ nonpitting edema bilaterally, also some hand edema bilaterally NEUROLOGIC: The patient is currently sedated. Results Result Diagram: 01/03/17 0400 01/03/17 0400 Results 24 hrs Laboratory Tests Test 01/02/17 12:24 01/02/17 16:58 01/02/17 20:57 01/02/17 23:10 Bedside Glucose 77 94 99 Vancomycin Level Trough 13.3 Test 01/03/17 00:35 01/03/17 04:00 01/03/17 05:58 01/03/17 09:10 Bedside Glucose 107 121 109 White Blood Count 26.3 #H Red Blood Count 4.69 Hemoglobin 11.5 L Hematocrit 37.8 Mean Corpuscular Volume 80.6 L Mean Corpuscular Hemoglobin 24.5 L Mean Corpuscular Hemoglobin Concent 30.4 L Red Cell Distribution Width 21.5 H Platelet Count 502 #H Mean Platelet Volume 10.6 H Neutrophils % 86.9 H Lymphocytes % 3.3 L Monocytes % 4.4 Eosinophils % 1.2 Basophils % 0.2 Nucleated Red Blood Cells % 0.6 H Neutrophils # 22.9 H Lymphocytes # 0.9 Monocytes # 1.2 H Eosinophils # 0.3 Basophils # 0.0 Nucleated Red Blood Cells # 0.2 H Sodium Level 131 L Potassium Level 4.8 Chloride Level 100 Carbon Dioxide Level 27 Anion Gap 9 Blood Urea Nitrogen 34 H Creatinine 0.55 Glucose Level 107 Calcium Level 8.5 Medications Medications Current Medications Ondansetron HCl (Zofran Inj) 4 mg Q6H PRN IV NAUSEA AND/OR VOMITING Last administered on 12/25/16 14:47; Admin Dose 4 MG; Start 12/18/16 at 19:30 Acetaminophen (Tylenol Tab) 650 mg Q6H PRN PO PAIN LEVEL 1-3 OR FEVER Last administered on 12/29/16 06:00; Admin Dose 650 MG; Start 12/18/16 at 19:30 Magnesium Hydroxide (Milk Of Mag) 30 ml DAILY PRN PO CONSTIPATION; Start at 19:30 Sodium Biphosphate/ Sodium Phosphate (Fleet Enema) 133 ml DAILY PRN OR CONSTIPATION; Start 12/18/16 at 19:30 Hydralazine HCl (Apresoline) 10 mg Q6H PRN IV ELEVATED BLOOD PRESSURE; Start at 19:30 Nitroglycerin (Nitroglycerin (Sl Tab) 0.4 Mg) 1 tab Q5M PRN SL ANGINA; Start at 19:30 Diphenhydramine HCl (Benadryl) 25 mg Q6H PRN PO ITCHING Last administered on 00:41; Admin Dose 25 MG; Start 12/18/16 at 20:00 Enoxaparin Sodium (Lovenox) 55 mg Q12 SC Last administered on 01/03/17 09:31; Admin Dose 55 MG; Start 12/19/16 at 18:00 Zolpidem Tartrate (Ambien) 2.5 mg HS PRN PO INSOMNIA Last administered on 21:12; Admin Dose 2.5 MG; Start 12/20/16 at 13:00 Guaifenesin (Robitussin Liquid Cup) 200 mg Q4H PRN PO COUGH Last administered on 12/26/16 07:26; Admin Dose 200 MG; Start 12/21/16 at 14:30 Simethicone (Mylicon) 80 mg Q8 PO Last administered on 01/03/17 05:58; Admin Dose 80 MG; Start 12/22/16 at 12:35 Lorazepam (Ativan) 0.5 mg Q6H PRN PO ANXIETY; Start 12/23/16 at 17:30 Phenol 1 lozenge 1 lozenge Q1H PRN MT SORE THROAT; Start 12/26/16 at 07:00 Norepinephrine 16 mg/Dextrose 500 ml @ 1.87 mls/hr TITRATE IV Last administered on 12/29/16 17:03; Admin Dose 1.87 MLS/HR; Start 12/28/16 at 03:00 Midazolam HCl 50 ml @ 1 mls/hr TITRATE IV Last administered on 01/03/17 08:58 ; Admin Dose 6 MLS/HR; Start 12/28/16 at 03:30 Phenylephrine HCl 40 mg/Dextrose 500 ml @ 75 mls/hr TITRATE IV ; Start at 04:00 Propofol (Diprivan) 100 ml @ 1.689 mls/ hr Q12H IV ; Start 12/28/16 at 04:30 Ipratropium [place] (Atrovent Hfa) 2 puff Q4 INH Last administered on 09:12; Admin Dose 2 PUFF; Start 12/28/16 at 05:00 Docusate Sodium 100 mg 100 mg Q12H NGT Last administered on 01/02/17 22:11; Admin Dose 100 MG; Start 12/28/16 at 10:48 Dextrose (D5W) 1,000 ml @ 75 mls/hr [id number] IV Last administered on 01/02/17 19:54; Admin Dose 75 MLS/HR; Start 12/29/16 at 09:30 Insulin Aspart (Novolog Insulin Pen) NOVOLOG *MILD* ALGORI... Q4 SC Last administered on 01/01/17 01:33; Admin Dose 1 UNIT; Start 12/29/16 at 13:00 Miscellaneous Information 1 ea NOTE XX ; Start 12/29/16 at 09:30 Glucose (Glutose) 15 gm Q15M PRN PO DECREASED GLUCOSE; Start 12/29/16 at 09:30 Glucose (Glutose) 22.5 gm Q15M PRN PO DECREASED GLUCOSE; Start 12/29/16 at 09: 30 Dextrose (D50w Syringe) 25 ml Q15M PRN IV DECREASED GLUCOSE; Start 12/29/16 at 09:30 Dextrose (D50w Syringe) 50 ml Q15M PRN IV DECREASED GLUCOSE; Start 12/29/16 at 09:30 Glucagon (Glucagen) 1 mg Q15M PRN IM DECREASED GLUCOSE; Start 12/29/16 at 09:30 Glucose (Glutose) 15 gm Q15M PRN BUCCAL DECREASED GLUCOSE; Start 12/29/16 at 09 :30 Famotidine 20 mg 20 mg DAILY IV Last administered on 01/03/17 09:28; Admin Dose 20 MG; Start 12/30/16 at 09:00 Meropenem 100 ml @ 200 mls/hr Q8 IVPB Last administered on 01/03/17 05:59; Admin Dose 200 MLS/HR; Start 12/29/16 at 10:00 Levofloxacin/ Dextrose (Levaquin 750 Mg/ D5W 150 ml (Pmx)) 150 ml @ 100 mls/hr Q24H IVPB Last administered on 01/03/17 09:53; Admin Dose 100 MLS/HR; Start at 10:00 Fluconazole 100 mg 100 mg DAILY PO Last administered on 01/03/17 09:28; Admin Dose 100 MG; Start 12/30/16 at 12:00 Vancomycin HCl 750 mg/Sodium Chloride 150 ml @ 75 mls/hr Q12H IVPB Last administered on 01/03/17 00:35; Admin Dose 75 MLS/HR; Start 01/01/17 at 12:00 Fentanyl (Sublimaze) 100 ml @ 2.5 mls/hr TITRATE IV Last administered on 09:02; Admin Dose 5 MLS/HR; Start 01/01/17 at 11:00 IV Flush (NS 10 ml) 10 ml PRN PRN IV FLUSH LINE; Start 01/01/17 at 15:00 TESSIE ROWLAND Jan 03, 2017 09:56
[2017-01-03] MEDS: DOCUSATE SODIUM 10 MG/ML (10ML CUP) NGT SCH (11:22)
[2017-01-03] MEDS ORDERED: PHENYLephrine 20MG IN 250 ML 250 ML IV SCH (12:00)
[2017-01-03] MEDS ORDERED: ATROPINE 1 MG/10 ML SYRINGE ONE (12:09)
--- NOTE | 2017-01-03 12:46 | CONS ---
Date/Time of Note Date/Time of Note DATE: 01/03/17 TIME: 12:29 Assessment/Plan Assessment/Plan Chief Complaint/Hosp Course ID PROGRESS NOTE TOTAL ABX DAY # 15 1. Vancomycin # 10 2. Meropenem #6 3. Levaquin #6 4. Fluconazole #4 5. s/p VALTREX 24H INTERVAL SUMMARY = * I rounded on the patient earlier today -- patient was seen and examined - patient obtunded on end-of life comfort measures - Note placed post expiration. * Family had opted for Terminal Extubation this am and patient was placed on Fentanyl + Versed GTT PHYSICAL EXAMINATION: GENERAL: Obtunded, on comfort measures HEENT: Unremarkable NECK: Supple. CHEST: Rise symmetrical ABDOMEN: Soft EXTREMITIES: With trace edema. ID ASSESSMENT: 56 yo F admitted with: 1. Severe sepsis status post shock. 2. Acute respiratory failure. 3. Pneumonia involving the right lung. 4. Metastatic breast. 5. Right upper extremity deep venous thrombosis. 6. Leukocytosis, patient is on IV steroid taper. INVASIVES: *PICC (01/01), ETT, NGT, FC ABX ALLERGIES: NKDA CURRENT ABX: TOTAL ABX DAY # 15 1. Vancomycin # 10 2. Meropenem #6 3. Levaquin #6 (re-start) 4. Fluconazole #4 5. s/p VALTREX, Cefepime, Levaquin ID RECOMMENDATIONS: 1. Comfort measures w/terminal expiration - patient seen earlier this am on clinical rounds w/note placed immediately post expiration. * My condolences to the family, thank you for allowing "Mai Noriega" ID consultants to participate in care of this kvng patient/family. . Problems: Consultation Date/Type/Reason Admit Date/Time Dec 18, 2016 at 18:40 Initial Consult Date 12/23/16 Type of Consultation: ID Exam/Review of Systems Vital Signs Vitals Vital Signs Date Time Temp Pulse Resp B/P Pulse Ox O2 Delivery O2 Flow Rate FiO2 01/03/17 11:17 98 26 75 100 01/03/17 11:00 83/37 Mechanical Ventilator 01/03/17 08:00 99.4 Intake and Output 01/02/17 01/02/17 01/03/17 15:00 23:00 07:00 Intake Total 1275.0 ml 830.0 ml 915.0 ml Output Total 240 ml 135 ml 110 ml Balance 1035.0 ml 695.0 ml 805.0 ml Results Result Diagram: 01/03/17 0400 01/03/17 0400 Results 24 hrs Laboratory Tests Test 01/02/17 16:58 01/02/17 20:57 01/02/17 23:10 01/03/17 00:35 Bedside Glucose 94 99 107 Vancomycin Level Trough 13.3 Test 01/03/17 04:00 01/03/17 05:58 01/03/17 09:10 White Blood Count 26.3 #H Red Blood Count 4.69 Hemoglobin 11.5 L Hematocrit 37.8 Mean Corpuscular Volume 80.6 L Mean Corpuscular Hemoglobin 24.5 L Mean Corpuscular Hemoglobin Concent 30.4 L Red Cell Distribution Width 21.5 H Platelet Count 502 #H Mean Platelet Volume 10.6 H Neutrophils % 86.9 H Lymphocytes % 3.3 L Monocytes % 4.4 Eosinophils % 1.2 Basophils % 0.2 Nucleated Red Blood Cells % 0.6 H Neutrophils # 22.9 H Lymphocytes # 0.9 Monocytes # 1.2 H Eosinophils # 0.3 Basophils # 0.0 Nucleated Red Blood Cells # 0.2 H Sodium Level 131 L Potassium Level 4.8 Chloride Level 100 Carbon Dioxide Level 27 Anion Gap 9 Blood Urea Nitrogen 34 H Creatinine 0.55 Glucose Level 107 Calcium Level 8.5 Bedside Glucose 121 109 Medications Medications Current Medications Ondansetron HCl (Zofran Inj) 4 mg Q6H PRN IV NAUSEA AND/OR VOMITING Last administered on 12/25/16 14:47; Admin Dose 4 MG; Start 12/18/16 at 19:30 Acetaminophen (Tylenol Tab) 650 mg Q6H PRN PO PAIN LEVEL 1-3 OR FEVER Last administered on 12/29/16 06:00; Admin Dose 650 MG; Start 12/18/16 at 19:30 Magnesium Hydroxide (Milk Of Mag) 30 ml DAILY PRN PO CONSTIPATION; Start at 19:30 Sodium Biphosphate/ Sodium Phosphate (Fleet Enema) 133 ml DAILY PRN [place] CONSTIPATION; Start 12/18/16 at 19:30 Hydralazine HCl (Apresoline) 10 mg Q6H PRN IV ELEVATED BLOOD PRESSURE; Start at 19:30 Nitroglycerin (Nitroglycerin (Sl Tab) 0.4 Mg) 1 tab Q5M PRN SL ANGINA; Start at 19:30 Diphenhydramine HCl (Benadryl) 25 mg Q6H PRN PO ITCHING Last administered on 00:41; Admin Dose 25 MG; Start 12/18/16 at 20:00 Enoxaparin Sodium (Lovenox) 55 mg Q12 SC Last administered on 01/03/17 09:31; Admin Dose 55 MG; Start 12/19/16 at 18:00 Zolpidem Tartrate (Ambien) 2.5 mg HS PRN PO INSOMNIA Last administered on 21:12; Admin Dose 2.5 MG; Start 12/20/16 at 13:00 Guaifenesin (Robitussin Liquid Cup) 200 mg Q4H PRN PO COUGH Last administered on 12/26/16 07:26; Admin Dose 200 MG; Start 12/21/16 at 14:30 Simethicone (Mylicon) 80 mg Q8 PO Last administered on 01/03/17 05:58; Admin Dose 80 MG; Start 12/22/16 at 12:35 Lorazepam (Ativan) 0.5 mg Q6H PRN PO ANXIETY; Start 12/23/16 at 17:30 Phenol 1 lozenge 1 lozenge Q1H PRN MT SORE THROAT; Start 12/26/16 at 07:00 Norepinephrine 16 mg/Dextrose 500 ml @ 1.87 mls/hr TITRATE IV Last administered on 12/29/16 17:03; Admin Dose 1.87 MLS/HR; Start 12/28/16 at 03:00 Midazolam HCl 50 ml @ 1 mls/hr TITRATE IV Last administered on 01/03/17 08:58 ; Admin Dose 6 MLS/HR; Start 12/28/16 at 03:30 Propofol (Diprivan) 100 ml @ 1.689 mls/ hr Q12H IV ; Start 12/28/16 at 04:30 Ipratropium [place] (Atrovent Hfa) 2 puff Q4 INH Last administered on 09:12; Admin Dose 2 PUFF; Start 12/28/16 at 05:00 Docusate Sodium 100 mg 100 mg Q12H NGT Last administered on 01/03/17 11:22; Admin Dose 100 MG; Start 12/28/16 at 10:48 Dextrose (D5W) 1,000 ml @ 75 mls/hr [id number] IV Last administered on 01/02/17 19:54; Admin Dose 75 MLS/HR; Start 12/29/16 at 09:30 Insulin Aspart (Novolog Insulin Pen) NOVOLOG *MILD* ALGORI... Q4 SC Last administered on 01/01/17 01:33; Admin Dose 1 UNIT; Start 12/29/16 at 13:00 Miscellaneous Information 1 ea NOTE XX ; Start 12/29/16 at 09:30 Glucose (Glutose) 15 gm Q15M PRN PO DECREASED GLUCOSE; Start 12/29/16 at 09:30 Glucose (Glutose) 22.5 gm Q15M PRN PO DECREASED GLUCOSE; Start 12/29/16 at 09: 30 Dextrose (D50w Syringe) 25 ml Q15M PRN IV DECREASED GLUCOSE; Start 12/29/16 at 09:30 Dextrose (D50w Syringe) 50 ml Q15M PRN IV DECREASED GLUCOSE; Start 12/29/16 at 09:30 Glucagon (Glucagen) 1 mg Q15M PRN IM DECREASED GLUCOSE; Start 12/29/16 at 09:30 Glucose (Glutose) 15 gm Q15M PRN BUCCAL DECREASED GLUCOSE; Start 12/29/16 at 09 :30 Famotidine 20 mg 20 mg DAILY IV Last administered on 01/03/17 09:28; Admin Dose 20 MG; Start 12/30/16 at 09:00 Meropenem 100 ml @ 200 mls/hr Q8 IVPB Last administered on 01/03/17 05:59; Admin Dose 200 MLS/HR; Start 12/29/16 at 10:00 Levofloxacin/ Dextrose (Levaquin 750 Mg/ D5W 150 ml (Pmx)) 150 ml @ 100 mls/hr Q24H IVPB Last administered on 01/03/17 09:53; Admin Dose 100 MLS/HR; Start at 10:00 Fluconazole 100 mg 100 mg DAILY PO Last administered on 01/03/17 09:28; Admin Dose 100 MG; Start 12/30/16 at 12:00 Vancomycin HCl 750 mg/Sodium Chloride 150 ml @ 75 mls/hr Q12H IVPB Last administered on 01/03/17 00:35; Admin Dose 75 MLS/HR; Start 01/01/17 at 12:00 Fentanyl (Sublimaze) 100 ml @ 2.5 mls/hr TITRATE IV Last administered on 09:02; Admin Dose 5 MLS/HR; Start 01/01/17 at 11:00 IV Flush 10 ml 10 ml PRN PRN IV FLUSH LINE; Start 01/01/17 at 15:00 Phenylephrine HCl 250 ml @ 75 mls/hr TITRATE IV ; Start 01/03/17 at 12:00; Stop 01/03/17 at 19:00 Phenylephrine HCl/ Dextrose (Oscar-Syneph/D5W) 500 ml @ 0 mls/hr TITRATE IV ; Start 01/03/17 at 19:00 SVETLANA MCKENNA NP Jan 03, 2017 12:40
--- NOTE | 2017-01-03 13:47 | DES ---
Date/Time of Note Date/Time of Note DATE: 01/03/17 TIME: 13:28 Discharge/ Summary Admission/Discharge Info Admit Date/Time Dec 18, 2016 at 18:40 Discharge Date/Time Final Diagnosis 1. Shortness of breath. Likely secondary to combo of congestive heart failure exacerbation + diffuse multilobar pneumonia likely obstructive from lung masses from metastatic breast cancer. 2. Septic Shock - 2/2 Pneumonia 3. History of breast cancer - pt tx with rad's in the past, on PO chemo as outpt 4. Occlusion of the right subclavian vein 5. Gastritis 6. Hypothyroidism 7. PNA Preliminary Cause of 1. asystole (minutes) 2. respiratory failure (days) 3. breast cancer with metastasis - months Hospital Course 56-year-old female with past medical history of breast cancer status post radiation 3 years ago, currently on p.o. chemotherapy, hypothyroidism, gastritis , who was havingshortness of breath for the last 3 days prior to admission. She had decreased appetite and also some vomiting symptoms, nonbilious, nonbloody. When she came into the ER, she had O2 saturations in the low 80s on room air. She was placed on BiPAP. Her chest x-ray did show findings of significant pulmonary edema. She was also noted to have some redness along her left breast, almost dermatomal in nature, somewhat itchy but not crusting; thought to be possible shingles as well. She also was found with sodium of 121. Was seeing Dr. Villafana, the surgeon who did surgery in the past on her; presumed with her breast cancer in the past. Admittied to telemetry floor, seen by multiple specialists during stay including palliative, pulm, ID, Heme/Onc teams. Pt's shortness of breath likely secondary to combo of congestive heart failure exacerbation + diffuse multilobar pneumonia likely obstructive from lung masses from metastatic breast cancer. ECHO done 12/18/16. Appreciate pulm rec 's, as pt after a few days on tele floor had to be intubated and transferred to ICU and Continued vent support and management. Pt placed on LMWH BID for + UE DVT. Placed on Abx (Meropenem + Levaquin +fluconazole (+ tye in res cx)). There was also Septic Shock - 2/2 Pneumonia most likely. Pt was made DNR. Unfortunately her respiratory status did not improved, and initially family had agreed for terminal extubation. However before this could be performed, on pt had asystole and shortly thereafter at 12:20 pm the same day. . Pending Labs/Cultures Laboratory Tests Test 01/02/17 16:58 01/02/17 20:57 01/02/17 23:10 01/03/17 00:35 Bedside Glucose 94mg/dL (70-220) 99mg/dL (70-220) 107mg/dL (70-220) Vancomycin Level Trough 13.3ug/ml (10.0-20.0) Test 01/03/17 04:00 01/03/17 05:58 01/03/17 09:10 White Blood Count 26.310^3/ul (4.8-10.8) Red Blood Count 4.6910^6/ul (4.20-5.40) Hemoglobin 11.5g/dl (12.0-16.0) Hematocrit 37.8% (37.0-47.0) Mean Corpuscular Volume 80.6fl (82.0-101.0) Mean Corpuscular Hemoglobin 24.5pg (29.0-33.0) Mean Corpuscular Hemoglobin Concent 30.4g/dl (32.0-37.0) Red Cell Distribution Width 21.5% (11.5-14.5) Platelet Count 29227^3/UL (140-415) Mean Platelet Volume 10.6fl (7.4-10.4) Neutrophils % 86.9% (39.0-77.0) Lymphocytes % 3.3% (15.0-51.0) Monocytes % 4.4% (0.0-11.0) Eosinophils % 1.2% (0.0-7.0) Basophils % 0.2% (0.0-2.0) Nucleated Red Blood Cells % 0.6/100WBC (0.0-0.0) Neutrophils # 22.910^3/ul (1.6-7.5) Lymphocytes # 0.910^3/ul (0.8-2.9) Monocytes # 1.210^3/ul (0.3-0.9) Eosinophils # 0.310^3/ul (0.0-0.5) Basophils # 0.010^3/ul (0.0-0.1) Nucleated Red Blood Cells # 0.210^3/ul (0.0-0.0) Sodium Level 131mmol/L (135-144) Potassium Level 4.8mmol/L (3.5-5.1) Chloride Level 100mmol/L (97-110) Carbon Dioxide Level 27mmol/L (21-31) Anion Gap 9 (8-16) Blood Urea Nitrogen 34mg/dl (7-20) Creatinine 0.55mg/dl (0.44-1.00) Glucose Level 107mg/dl (70-220) Calcium Level 8.5mg/dl (8.4-10.2) Bedside Glucose 121mg/dL (70-220) 109mg/dL (70-220) TESSIE ROWLAND. Jan 03, 2017 13:39
[2017-01-03] MEDS ORDERED: PHENYLephrine 40 MG in DEXTROSE 5% 496 ML IV SCH (19:00)
--- NOTE | 2017-01-05 08:37 | CONS ---
Date/Time of Note Date/Time of Note DATE: 01/05/17 TIME: 08:33 Assessment/Plan Assessment/Plan Chief Complaint/Hosp Course No new changes overnight Problems: Consultation Date/Type/Reason Admit Date/Time Dec 18, 2016 at 18:40 Initial Consult Date 12/23/16 Type of Consultation: Palliative care Reason for Consultation Postdated note for January 03 intensive care unit visit 24 HR Interval Summary Free Text/Dictation Patient still on 100% FIO2 .... Patient is not improving will discuss with other consultants and primary care physician concerning ongoing level of care. Exam/Review of Systems Vital Signs Vitals Vital Signs Date Time Temp Pulse Resp B/P Pulse Ox O2 Delivery O2 Flow Rate FiO2 01/03/17 12:11 20 01/03/17 11:17 26 75 100 01/03/17 11:00 83/37 Mechanical Ventilator 01/03/17 08:00 99.4 Exam Constitutional: non-verbal Head: atraumatic, normocephalic Respiratory: congested cough, crackles/rales, diminished breath sounds, intercostal retraction, labored breathing Cardiovascular: nl pulses, regular rate and rhythm Results Result Diagram: 01/03/17 0400 01/03/17 0400 JOANIE JAQUEZ Jan 05, 2017 08:37
== END 2017-01-03 12:20 | disposition expired | DRG 207 ==
LOC: E/R 15:23 → TEL 18:40 → ICU 12-28 02:25
PROVIDERS: ADMIT Hospitalist; ATTEND Hospitalist
PROC: 3E05305 Introduction of Other Antineoplastic into Peripheral Artery, Percutaneous Approach (ICD-10-PCS; 2016-12-19)
PROC: 5A1955Z Respiratory Ventilation, Greater than 96 Consecutive Hours (ICD-10-PCS; principal; 2016-12-28)
PROC: 0BH17EZ Insertion of Endotracheal Airway into Trachea, Via Natural or Artificial Opening (ICD-10-PCS; 2016-12-28)
PROC: 02HV33Z Insertion of Infusion Device into Superior Vena Cava, Percutaneous Approach (ICD-10-PCS; 2016-12-31)
PROC: 30233N1 Transfusion of Nonautologous Red Blood Cells into Peripheral Vein, Percutaneous Approach (ICD-10-PCS; 2016-12-31)
DX: J18.9 Pneumonia, unspecified organism (principal); R65.21 Severe sepsis with septic shock; I50.31 Acute diastolic (congestive) heart failure; A41.9 Sepsis, unspecified organism; I82.621 Acute embolism and thrombosis of deep veins of right upper extremity; C78.00 Secondary malignant neoplasm of unspecified lung; B02.7 Disseminated zoster; J96.01 Acute respiratory failure with hypoxia; J96.02 Acute respiratory failure with hypercapnia; E87.1 Hypo-osmolality and hyponatremia; N13.30 Unspecified hydronephrosis; C77.9 Secondary and unspecified malignant neoplasm of lymph node, unspecified; J69.0 Pneumonitis due to inhalation of food and vomit; J84.89 Other specified interstitial pulmonary diseases; I46.9 Cardiac arrest, cause unspecified; B37.9 Candidiasis, unspecified; C50.911 Malignant neoplasm of unspecified site of right female breast; K29.70 Gastritis, unspecified, without bleeding; E03.9 Hypothyroidism, unspecified; I97.2 Postmastectomy lymphedema syndrome; Z17.0 Estrogen receptor positive status [ER+]; D50.9 Iron deficiency anemia, unspecified; G47.00 Insomnia, unspecified; Z66 Do not resuscitate; R07.89 Other chest pain; M54.5 Low back pain; E87.6 Hypokalemia; E83.42 Hypomagnesemia; Z79.02 Long term (current) use of antithrombotics/antiplatelets
CPT/HCPCS: 31500; 36415; 36430; 36569; 36600; 71010; 71250; 74177; 76937; 80048; 80053; 80061; 80202; 81001; 82270; 82378; 82728; 82803; 82962; 83036; 83540; 83605; 83690; 83735; 83880; 83930; 83935; 84100; 84300; 84439; 84443; 84484; 85025; 85610; 85730; 86300; 86850; 86900; 86901; 86920; 87040; 87070; 87081; 87086; 92610; 93005; 93306; 93971; 94002; 94003; 94640; 94644; 94660; 94770; 94799; 96365; 96366; 96375; 97116; 97162; 97166; 97530; A4310; C1751; C1769; J0131; J0133; J0282; J0461; J0692; J1644; J1650; J1815; J1885; J1940; J1956; J2185; J2250; J2270; J2405; J2916; J2920; J3010; J3370; J3475; J3480; J7030; J7040; J7050; J7060; J7070; J7999; P9016; Q9967